=== PATIENT | male | born 1935 | race Caucasian/White ===

== ENCOUNTER 2024-03-08 16:18 | Inpatient (IN) | payer MEDICARE, OTHER, SELFPAY ==
[2024-03-08] VITALS (16 sets, daily range): BP systolic 164–185; BP diastolic 54–83; PULSE 48–61; RESP 12–20; TEMP 36.4–36.6; O2SAT 92–99
--- NOTE | ~2024-03-08 | XR_ITS ---
EXAMINATION: XR chest 1V portable DATE: 03/10/2024 11:01 INDICATION: Hypoxia. TECHNIQUE: A single frontal view of the chest was obtained. COMPARISON: Chest single view 03/08/2024 FINDINGS: There is no pneumonia, pleural effusion, or pneumothorax. Cardiomegaly is noted. There are prominent paracardial fat pads. IMPRESSION: 1. Cardiomegaly. Reviewed, dictated and finalized at location A. IMPRESSION: 1. Cardiomegaly.
--- NOTE | ~2024-03-08 | XR_ITS ---
EXAMINATION: XR chest 1V portable DATE: 03/17/2024 11:42 INDICATION: Leukocytosis. TECHNIQUE: A single frontal view of the chest was obtained. COMPARISON: Chest single view 03/14/2024, chest CT 03/11/2024 FINDINGS: There are mild airspace opacities in all right lung zones with a perihilar predominance. No pleural effusion or pneumothorax. Cardiomegaly is noted. IMPRESSION: 1. Mild airspace opacities in right lung, consistent with atelectasis versus pneumonia. 2. Cardiomegaly. Reviewed, dictated and finalized at location A. IMPRESSION: 1. Mild airspace opacities in right lung, consistent with atelectasis versus pn eumonia. 2. Cardiomegaly.
--- NOTE | ~2024-03-08 | CT_ITS ---
EXAMINATION: CT brain wo con DATE: 03/08/2024 17:04 INDICATION: Head injury. TECHNIQUE: Computed tomography (CT) of the head was performed without intravenous contrast. The mA wa s adjusted according to patient size. Iterative reconstruction technique was employed. The dose-lengt h product was 605.33 mGy-cm. COMPARISON: None FINDINGS: There are old infarcts involving the bilateral basal ganglia and anterior limb left interna l capsule. There are scattered areas of low attenuation in the cerebral white matter. There is no int racranial hemorrhage, acute infarction, or abnormal intracranial mass lesion. The ventricles are norm al in size. There are likely changes of ocular lens replacement surgeries. There is mucosal thickenin g in the paranasal sinuses. The mastoid air cells are normal. IMPRESSION: 1. 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 2. Extensive nonspecific cerebral white matter disease, which likely represents chronic small vessel ischemic disease. Reviewed, dictated and finalized at location E. IMPRESSION: 1. 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 2. Extensive nonspecific cerebral white matter disease, which likely represents chronic small vessel ischemic disease.
--- NOTE | ~2024-03-08 | XR_ITS ---
XR hip LT 2V w AP pelvis DATE: 03/08/2024 17:22 INDICATION: Ground-level fall today. Left hip pain. TECHNIQUE: AP pelvis. AP and crosstable lateral views of left hip. COMPARISON: None FINDINGS: There is a comminuted intertrochanteric fracture of the left hip with varus deformity. Multiple radiopaque seeds of the prostate bed. Right superior and inferior pubic ramus fractures appear subacute or chronic. Normal alignment at the pubic symphysis and sacroiliac joints. There is some patchy increased density of the right sacrum, likely due to subacute or old fracture. Osteopenia. Abdominal aortic and iliac and femoral arterial calcifications. IMPRESSION: Comminuted intertrochanteric left hip fracture with varus deformity Subacute or chronic right hemipelvis fractures Reviewed, dictated and finalized at location B.
--- NOTE | ~2024-03-08 | CT_ITS ---
EXAMINATION: CT cervical spine wo con DATE: 03/08/2024 17:04 INDICATION: Head injury. TECHNIQUE: Computed tomography (CT) of the cervical spine was performed without intravenous contrast. Automated exposure control and iterative reconstruction technique were employed. The dose-length pro duct was 605.33 mGy-cm. COMPARISON: None FINDINGS: There is 11 degrees dextroscoliosis of cervicothoracic spine. Vertebral body heights are no rmal. There is interbody fusion at C2-C3. There is severely decreased disc height at C3-C4, mildly de creased disc height at C4-C5, and severely decreased disc height at C5-C6, C6-C7, and C7-T1. The foll owing disc levels are specifically discussed: C2-C3: There is ankylosis of the uncovertebral joints without hypertrophy. There is ankylosis of the facet joints with mild left hypertrophy. There is mild left neural foraminal stenosis. There is no ce ntral canal stenosis. C3-C4: There is severe bilateral uncovertebral joint osteoarthritis. There is severe bilateral facet joint osteoarthritis. There is mild right and moderate left neural foraminal stenosis. There is mild central canal stenosis. C4-C5: There is mild right and severe left uncovertebral joint osteoarthritis. There is severe bilate ral facet joint osteoarthritis. There is mild right and moderate left neural foraminal stenosis. Ther e is mild central canal stenosis. C5-C6: There is severe bilateral uncovertebral joint osteoarthritis. There is mild right and severe l eft facet joint osteoarthritis. There is mild bilateral neural foraminal stenosis. There is mild cent ral canal stenosis. C6-C7: There is severe bilateral uncovertebral joint osteoarthritis. There is mild right and moderate left facet joint osteoarthritis. There is mild bilateral neural foraminal stenosis. There is mild ce ntral canal stenosis. C7-T1: There is severe right and mild left uncovertebral joint osteoarthritis. There is severe bilate ral facet joint osteoarthritis. There is mild bilateral neural foraminal stenosis. There is no centra l canal stenosis. IMPRESSION: 1. No fracture. 2. Severe cervical spondylosis. 3. Cervicothoracic dextroscoliosis. Reviewed, dictated and finalized at location E.
--- NOTE | ~2024-03-08 | XR_ITS ---
EXAMINATION: XR surgery orthopedic DATE: 03/09/2024 12:58 INDICATION: Intertrochanteric proximal left femur fracture TECHNIQUE: 8 fluoroscopic images of the left hip were obtained during procedure performed by Dr. Jose Luis north. Radiologist was not present for the imaging or procedure. The amount of fluoroscopy time used d uring this procedure was 1.6 minutes. COMPARISON: Radiographs and CT dated 03/08/2024 FINDINGS: Interval reduction of the previously varus angulated comminuted intertrochanteric fracture the proxim al left femur which is now in near-anatomic alignment. The fractures of subtly fixed with an antegrad e intramedullary adrián with femoral neck dynamic compression screw and distal interlocking screw fixati on. Alignment remains near-anatomic. No new fractures identified. Mild osteoarthritis at the left hip expected small amount of soft tissue gas at the operative bed. IMPRESSION: 1. Near-anatomic alignment post open reduction internal fixation of a comminuted intratrochanteric fr acture of the proximal left femur. See procedure note for further detail. Reviewed, dictated and finalized at location A. IMPRESSION: 1. Near-anatomic alignment post open reduction internal fixation of a comminute d intratrochanteric fracture of the proximal left femur. See procedure note for further detail.
--- NOTE | ~2024-03-08 | XR_ITS ---
XR chest 1V DATE: 03/08/2024 17:22 INDICATION: Ground-level fall today. Left hip fracture. TECHNIQUE: AP chest COMPARISON: None FINDINGS: There is cardiomegaly. There is extensive thoracic aortic calcification. Old pulmonary granulomatous disease. No pulmonary consolidation, pleural effusion or pulmonary vascular congestion or pneumothorax is note d. Osteopenia. Degenerative changes of the cervical spine. Degenerative changes and scoliosis of the tho racic spine. Degenerative change of the included upper lumbar spine. IMPRESSION: Cardiomegaly, aortic atherosclerosis No active pulmonary disease Reviewed, dictated and finalized at location B.
--- NOTE | ~2024-03-08 | CT_ITS ---
EXAMINATION: CT pelvis wo con DATE: 03/08/2024 18:25 INDICATION: Pelvis fracture. TECHNIQUE: Computed tomography (CT) of the pelvis was performed without intravenous contrast. Automat ed exposure control and iterative reconstruction technique were employed. The dose-length product was 352.58 mGy-cm. COMPARISON: Radiographs 03/08/2024 FINDINGS: There is diverticulosis of the colon without evidence of diverticulitis. There is calcified atherosclerosis of the aorta and many of the other arteries. There are brachytherapy seeds in the pr ostate. There are no pathologically enlarged lymph nodes. There is no free intraperitoneal fluid. The re is a healing insufficiency fracture of right sacral ala. There are healing insufficiency fractures of right superior and inferior pubic rami. There is moderate osteoarthritis of the hips. There is an acute intertrochanteric fracture of proximal left femur. The main distal fracture fragment demonstra matilda varus angulation and posterior displacement. There is severe lumbar spondylosis. IMPRESSION: 1. Acute intertrochanteric fracture proximal left femur. 2. Healing insufficiency fractures of right sacral ala and right superior and inferior pubic rami. 3. Moderate osteoarthritis of the hips. Reviewed, dictated and finalized at location E. IMPRESSION: 1. Acute intertrochanteric fracture proximal left femur. 2. Healing insufficiency fractures of right sacral ala and right superior and i nferior pubic rami. 3. Moderate osteoarthritis of the hips.
--- NOTE | ~2024-03-08 | CT_ITS ---
EXAMINATION: CTA chest PE abdomen pel DATE: 03/11/2024 09:23 INDICATION: Tachycardia. Hypoxia. Postoperative bleeding. TECHNIQUE: Computed tomography angiography (CTA) of the chest was performed with 100 mL Omnipaque-350 intravenous contrast timed to evaluate the pulmonary arteries. Coronal maximum intensity projection 3D-reconstructions were created by the technologist. Computed tomography (CT) of the abdomen and pelv is was performed with intravenous contrast. Automated exposure control and iterative reconstruction t echnique were employed. The dose-length product was 2274.77 mGy-cm. COMPARISON: Pelvis CT 03/08/2024 FINDINGS: CTA chest: The lungs demonstrate mild atelectasis. There is a small right pleural effusion. Cardiomeg jaaml is noted. There are coronary artery calcifications. There is a trace pericardial effusion. There is no pulmonary embolus. There is a chronic compression fracture of T12. There is severe thoracic spo ndylosis. There is mild chronic anterior wedging of multiple vertebral bodies. CT abdomen and pelvis: The liver, gallbladder, pancreas, and adrenal glands are normal. Calcification s in the spleen are consistent with old granulomatous disease. There is cortical thinning of the kidn eys. There are cysts in the kidneys measuring up to 10 mm on the left. There is calcified atheroscler osis of the aorta and many of the other arteries. There are brachytherapy seeds in the prostate. Ther e is diverticulosis of the colon without evidence of diverticulitis. There are no dilated loops of herb wel. The appendix is nonvisualized. There are no pathologically enlarged lymph nodes. There is no connor e intraperitoneal fluid. There is a comminuted intertrochanteric fracture of proximal left femur with internal fixation. There is subcutaneous hematoma lateral to left hip and subjacent to the skin stap les. Partially visualized is enlargement of the anterior left thigh musculature, consistent with annetta oneal. There are healing fractures of right superior and inferior pubic rami. There is a healing insuf ficiency fracture of right sacral ala. There is severe lumbar spondylosis. IMPRESSION: 1. No pulmonary embolus. Sensitivity is mildly decreased fracture artifact. 2. Small right pleural effusion. 3. Acute intertrochanter fracture of proximal left femur status post open reduction internal fixation . Subcutaneous hematoma lateral to left hip. Partially visualized hematoma in the anterior left thigh musculature. 4. Healing insufficiency fractures of right sacral ala and right superior and inferior pubic rami. Reviewed, dictated and finalized at location A. IMPRESSION: 1. No pulmonary embolus. Sensitivity is mildly decreased fracture artifact. 2. Small right pleural effusion. 3. Acute intertrochanter fracture of proximal left femur status post open reduc tion internal fixation. Subcutaneous hematoma lateral to left hip. Partially vi sualized hematoma in the anterior left thigh musculature. 4. Healing insufficiency fractures of right sacral ala and right superior and i nferior pubic rami.
--- NOTE | ~2024-03-08 | XR_ITS ---
EXAMINATION: XR chest 1V portable DATE: 03/14/2024 10:58 INDICATION: Hypoxia. TECHNIQUE: A single frontal view of the chest was obtained. COMPARISON: Chest single view 03/10/2024, chest CT 03/11/2024 FINDINGS: There are mild airspace opacities in all right lung zones and in left lower lung zone. No p leural effusion or pneumothorax. Cardiomegaly is noted. There are prominent pericardial fat pads. IMPRESSION: 1. Mild airspace opacities in all right lung zones and in left lower lung zone, consistent with atele ctasis versus pneumonia. 2. Cardiomegaly. Reviewed, dictated and finalized at location A. IMPRESSION: 1. Mild airspace opacities in all right lung zones and in left lower lung zone, consistent with atelectasis versus pneumonia. 2. Cardiomegaly.
--- NOTE | 2024-03-08 16:30 | ECG_ITS ---
SEE SCANNED COPY FOR CONFIRMED REPORT MTDD
--- NOTE | 2024-03-08 16:33 | ED.GENADULT ---
HPI - General Adult General Chief complaint: Extremity Injury, Lower Stated complaint: FALL, LLE SHORTENING History of Present Illness HPI narrative: 88-year-old male presenting to the emergency department for evaluation after having a ground level fall. patient reports he tripped over a step and caused himself to follow the ground. Patient did injure his left hip and did strike his head. Patient denies any loss consciousness. Patient was transported to the emergency department by EMS. patient does take aspirin. Related Data Home Medications Medication Instructions Recorded Confirmed aspirin 81 mg tablet 81 mg PO DAILY 03/08/24 03/08/24 atorvastatin 40 mg tablet 40 mg PO DAILY 03/08/24 03/08/24 budesonide-formoterol HFA 80 1 puff inhalation Q12H PRN 03/08/24 03/08/24 mcg-4.5 mcg/actuation aerosol Shortness Of Breath Or Wheezing inhaler (Symbicort) calcium phos,tribasic 260 mg-D3 25 1 tablet PO DAILY 03/08/24 03/08/24 mcg-herbal 50 mg chewable tablet (Alive Calcium-Vitamin D3) carbidopa ER 50 mg-levodopa 200 mg 1 tablet PO BID 03/08/24 03/08/24 tablet,extended release coenzyme Q27-gyrwuuk E 100 mg-100 2 cap PO DAILY 03/08/24 03/08/24 unit capsule docosahexaenoic mcik-gur-kqw E 1 cap PO DAILY 03/08/24 03/08/24 capsule donepezil 10 mg tablet 10 mg PO DAILY 03/08/24 03/08/24 fluoxetine 20 mg capsule 20 mg PO DAILY 03/08/24 03/08/24 gabapentin 100 mg capsule 100 mg PO TID 03/08/24 03/08/24 lisinopril 40 mg tablet 40 mg PO DAILY 03/08/24 03/08/24 meloxicam 15 mg tablet 15 mg PO DAILY 03/08/24 03/08/24 memantine 10 mg tablet 20 mg PO DAILY 03/08/24 03/08/24 montelukast 10 mg tablet 10 mg PO DAILY 03/08/24 03/08/24 multivitamin o-mggmbxvq-jmguszd 1 tablet PO DAILY 03/08/24 03/08/24 fumarate 18 mg-vitamin K 25 mcg tablet verapamil 240 mg tablet,extended 240 mg PO BID 03/08/24 03/08/24 release Allergies Allergy/AdvReac Type Severity Reaction Status Date / Time No Known Allergies Allergy Verified 03/08/24 16:29 Review of Systems Review of Systems: All systems reviewed & are unremarkable except as noted in HPI and below PMFSH Family History Family History (Updated 03/08/24 @ 20:42 by Asia Hanks RN) Mother Asthma Son Asthma History of blood clots Hypertension Daughter Hypertension Sibling Prostate carcinoma Lymph node cancer Social History Social History Smoking status: Never smoker Alcohol intake: never Substance use: never Do You Feel Safe in your Home?: Yes Lack of Transportation: No Lack of Food: Never True Current Housing: I Have Housing Concerned About Future Housing: No Difficulty Paying Gas/Electric Bills: No Difficulty Paying for Meds: No Currently Unemployed: No Education: High School Diploma/GED Difficulty w/ Childcare or Family Care: No Spiritual care concerns: No Exam Narrative: APPEARANCE: Well appearing, no pain, no distress, well-nourished. HEAD: normocephalic, atraumatic. EYES: PERRLA/EOMI, conjunctivae clear. NOSE: Normal no drainage EARS:TMS clear with good light reflex. THROAT: Pharynx clear, no exudate. NECK: Supple. No adenopathy, no masses. patient arrived in C-collar RESPIRATORY: Airway patent, respirations nonlabored. Clear to auscultation bilaterally, no rales, rhonchi, wheezing. CARDIOVASCULAR: Regular rate and rhythm without murmurs rubs or gallops. ABDOMINAL: Soft, nontender, nondistended, normal bowel sounds MUSCULOSKELETAL: left hip pain NEURO: Alert. Cranial nerves II through XII intact. Grossly and SKIN: Warm, dry. Normal Color Course Vital Signs Vital signs: Vital Signs Temperature 97.9 F 03/08/24 16:20 Pulse Rate 51 L 03/08/24 16:20 Respiratory Rate 18 03/08/24 16:20 Blood Pressure 170/83 H 03/08/24 16:20 Pulse Oximetry 97 03/08/24 16:20 Oxygen Delivery Room Air 03/08/24 16:20 Temperature 97.6 F 03/08/24 21:33 Pulse Rate 61 03/08/24 21:33 Respi
[2024-03-08] MEDS: CYCLOBENZAPRINE HCL 10 MG TABLET PO (16:38)
[2024-03-08] MEDS: MORPHINE SULFATE (*CRX) 2 MG/ML INJ IV PUSH ×2 (16:38→20:36)
[2024-03-08 16:43] LABS: Basophils Percent Auto 0.5 % (0.2-1.2); Eosinophils Absolute Auto 0.2 K/mm3 (0-0.3); Eosinophils Percent Auto 2.3 % (0-4.4); Hematocrit 39.3 % (42.0-52.0); Hemoglobin 13.2 g/dL (14.0-18.0); Immature Granulocyte Absolute 0.02 K/mm3 (0.00-0.031); Immature Granulocyte Percent A 0.3 % (0-0.5); Lymphocytes Absolute Auto 1.23 K/mm3 (0.9-3.2); Mean Corpuscular HGB Conc 33.6 g/dl (32-36); Mean Corpuscular Volume 98.3 fl (80-100); Mean Platelet Volume 8.9 fl (7.4-10.4); Monocytes Absolute Auto 0.4 K/mm3 (0.1-0.6); Monocytes Percent Auto 5.7 % (2.6-8.5); Neutrophils Absolute Auto 5.8 K/mm3 (1.3-6.7); Neutrophils Percent Auto 75.2 % (45.5-73.1); Platelet Count Result 220 k/mm3 (150-375); Red Cell Distribution Width 12.3 % (11.5-14.5); White Blood Count 7.7 K/mm3 (4.5-10.0)
[2024-03-08 16:53] LABS: Alanine Aminotransferase 12 U/L (6-50); Albumin Level 3.6 g/dL (3.5-5.1); Alkaline Phosphatase 110 U/L (38-126); Anion Gap 3 mmol/L (4-12); Aspartate Amino Transferase 25 U/L (17-59); Bilirubin,Total 0.5 mg/dL (0.2-1.3); Blood Urea Nitrogen 26 mg/dL (9-20); Calcium 8.5 mg/dL (8.4-10.2); Carbon Dioxide 28 mmol/L (22-30); Chloride 108 mmol/L (98-107); Estimated CRCL calculation 48 ml/min; Estimated Glomerular Filt Rate > 60; Glucose 114 mg/dL (65-110); Sodium 139 mmol/L (137-145)
[2024-03-08 16:54] LABS: INR 0.9
[2024-03-08 16:55] LABS: Partial Thromboplastin Time 24.8 Seconds (22.3-36.8)
--- NOTE | 2024-03-08 20:13 | PM.CNOR ---
Assessment and Plan Assessment and plan (1) Intertrochanteric fracture of left hip: Code(s): S72.142A - Displaced intertrochanteric fracture of left femur, initial encounter for closed fracture Status: Acute Assessment and Plan: Patient has an Intertrochanteric Fracture of the Right hip. Recommend ORIF with a Trochanteric Nail. Will proceed tomorrow pending medicl approval. (2) Closed sacral fracture: Code(s): S32.10XA - Unspecified fracture of sacrum, initial encounter for closed fracture Status: Acute (3) Pubic ramus fracture: Code(s): S32.599A - Other specified fracture of unspecified pubis, initial encounter for closed fracture Status: Acute History of Present Illness HPI Consult date: 03/08/24 Chief complaint: Lt Hip Fracture Review of Systems Musculoskeletal: Musculoskeletal: Reports back pain, Reports arthralgias, Reports joint swelling and Reports stiffness Meds Home Medications and Allergies Allergies Allergy/AdvReac Type Severity Reaction Status Date / Time No Known Allergies Allergy Verified 03/08/24 16:29 Vital Signs Vital Signs - 24 hr 03/08/24 16:20 03/08/24 16:29 03/08/24 16:30 Temperature 97.9 F Pulse Rate 51 L 50 L 48 L Respiratory Rate 18 15 12 Blood Pressure 170/83 H Pulse Oximetry 97 96 97 Oxygen Delivery Room Air 03/08/24 16:45 03/08/24 17:05 03/08/24 17:21 Temperature Pulse Rate 55 L 53 L Respiratory Rate 20 17 Blood Pressure Pulse Oximetry 98 96 92 Oxygen Delivery 03/08/24 17:30 03/08/24 17:59 03/08/24 18:00 Temperature Pulse Rate 49 L 52 L 54 L Respiratory Rate 19 14 14 Blood Pressure Pulse Oximetry 93 99 98 Oxygen Delivery 03/08/24 18:23 03/08/24 18:24 03/08/24 18:30 Temperature Pulse Rate 52 L 56 L 51 L Respiratory Rate 16 16 13 Blood Pressure 170/79 H Pulse Oximetry 96 96 94 Oxygen Delivery 03/08/24 18:31 03/08/24 18:45 03/08/24 19:17 Temperature 97.6 F Pulse Rate 57 L 53 L 51 L Respiratory Rate 14 14 20 Blood Pressure 168/79 H 164/54 H Pulse Oximetry 94 95 95 Oxygen Delivery Exam Narrative: Wiggles toes. Pain with motion of hip. Radiology Reports: Comments: Patient: Felipe Haddad : 1935 MR#: [id number] Age: 88 Loc: [facility]? ? ADM Date: 03/08/24Attending Dr: Ordering Physician: Bhargav Garcia MD Date of Service: 03/08/24 Procedure(s): XR hip LT 2V w AP pelvis Accession Number(s): [id number] cc: Bhargav Garcia MD; Marcela, Rigo Reid MD XR hip LT 2V w AP pelvis DATE: 03/08/2024 17:22 INDICATION: Ground-level fall today. Left hip pain.? TECHNIQUE: AP pelvis. AP and crosstable lateral views of left hip.? COMPARISON: None? FINDINGS: There is a comminuted intertrochanteric fracture of the left hip with varus deformity. Multiple radiopaque seeds of the prostate bed. Right superior and inferior pubic ramus fractures appear subacute or chronic. Normal alignment at the pubic symphysis and sacroiliac joints. There is some patchy increased density of the right sacrum, likely due to subacute or old fracture. Osteopenia. Abdominal aortic and iliac and femoral arterial calcifications. IMPRESSION: Comminuted intertrochanteric left hip fracture with varus deformity Subacute or chronic right hemipelvis fractures? Reviewed, dictated and finalized at location B. Dictated By:? Harinder Kline MD? 03/08/24 1726 Signed By:? ? <Electronically signed by? Harinder Kline MD in OV> 03/08/24 1729 Hip and Pelvis X-Ray 03/08/24 Results Labs 03/08/24 16:38 03/08/24 16:38 Labs: Abnormal lab results 03/08/24 Range/Units 16:38 RBC 4.00 L (4.6-6.20) M/mm3 Hgb 13.2 L (14.0-18.0) g/dL Hct 39.3 L (42.0-52.0) % Neut % (Auto) 75.2 H (45.5-73.1) % Lymph %
--- NOTE | 2024-03-08 20:38 | ADMGEN ---
This patient, Felipe Haddad, was admitted to 2 Medical Room 240-01. Patient/family oriented to hospital policies and general routines including ID bracelet, bed and alarms, visiting hours, pain management, procedures, bathroom and other care routines, personal items, smoking policy, room service/diet, and visiting hours. Information on how to activate the Rapid Response Team has been discussed. Patient/Family are encouraged to report perceived risks to care and to ask questions if they do not understand what they are told or what they should do.
--- NOTE | 2024-03-08 21:42 | PM.IMHP ---
H&P: HPI History of Present Illness Date/Time: 03/08/24 21:42 Chief Complaint: Fall Narrative: This is an 88-year-old male past medical history significant for hypertension, dementia, Parkinson's disease. Presented to the emergency room after fall. Most of the history has been obtained upon reviewing medical records and emergency room physician. Patient had a ground level fall. Preliminary workup was significant for left hip fracture. EXAMINATION: CT brain wo con DATE: 03/08/2024 17:04 INDICATION: Head injury. TECHNIQUE: Computed tomography (CT) of the head was performed without intravenous contrast. The mA was adjusted according to patient size. Iterative reconstruction technique was employed. The dose-length product was 605.33 mGy-cm. COMPARISON: None FINDINGS: There are old infarcts involving the bilateral basal ganglia and anterior limb left internal capsule. There are scattered areas of low attenuation in the cerebral white matter. There is no intracranial hemorrhage, acute infarction, or abnormal intracranial mass lesion. The ventricles are normal in size. There are likely changes of ocular lens replacement surgeries. There is mucosal thickening in the paranasal sinuses. The mastoid air cells are normal. IMPRESSION: 1. 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 2. Extensive nonspecific cerebral white matter disease, which likely represents chronic small vessel ischemic disease. EXAMINATION: CT pelvis wo con DATE: 03/08/2024 18:25 INDICATION: Pelvis fracture. TECHNIQUE: Computed tomography (CT) of the pelvis was performed without intravenous contrast. Automated exposure control and iterative reconstruction technique were employed. The dose-length product was 352.58 mGy-cm. COMPARISON: Radiographs 03/08/2024 FINDINGS: There is diverticulosis of the colon without evidence of diverticulitis. There is calcified atherosclerosis of the aorta and many of the other arteries. There are brachytherapy seeds in the prostate. There are no pathologically enlarged lymph nodes. There is no free intraperitoneal fluid. There is a healing insufficiency fracture of right sacral ala. There are healing insufficiency fractures of right superior and inferior pubic rami. There is moderate osteoarthritis of the hips. There is an acute intertrochanteric fracture of proximal left femur. The main distal fracture fragment demonstrates varus angulation and posterior displacement. There is severe lumbar spondylosis. IMPRESSION: 1. Acute intertrochanteric fracture proximal left femur. 2. Healing insufficiency fractures of right sacral ala and right superior and inferior pubic rami. 3. Moderate osteoarthritis of the hips. XR chest 1V DATE: 03/08/2024 17:22 INDICATION: Ground-level fall today. Left hip fracture.? TECHNIQUE: AP chest? COMPARISON: None? FINDINGS: There is cardiomegaly. There is extensive thoracic aortic calcification. Old pulmonary granulomatous disease. No pulmonary consolidation, pleural effusion or pulmonary vascular congestion or pneumothorax is noted. Osteopenia. Degenerative changes of the cervical spine. Degenerative changes and scoliosis of the thoracic spine. Degenerative change of the included upper lumbar spine.? IMPRESSION: Cardiomegaly, aortic atherosclerosis No active pulmonary disease? Review of Systems Review of Systems: ROS unobtainable: Yes other ( Dementia) [facility] Family History Family History (Updated 03/08/24 @ 20:42 by Asia Hanks RN) Mother Asthma Son Asthma History of blood clots Hypertension Daughter Hypertension Sibling Prostate carcinoma Lymph node cancer Social History Social History Smoking status: Never smoker Alcohol intake: never Substance use: never Do You Feel Safe in your Home?: Yes Lack of Transportation: No Lack of Food: Never True Current Housing: I Have Housing Concerned About Future
[2024-03-08] MEDS: HYDROmorphone HCL INJ (*CRX) 1 MG/ML SYR IV PUSH (22:01)
[2024-03-09] VITALS (20 sets, daily range): BP systolic 90–176; BP diastolic 52–85; PULSE 61–90; RESP 11–20; TEMP 36.2–37.2; O2SAT 91–100
--- NOTE | 2024-03-09 07:42 | P.PNIM_ITS ---
Progress Note: A&P Assessment and Plan (1) Intertrochanteric fracture of left hip: Code(s): S72.142A - Displaced intertrochanteric fracture of left femur, initial encounter for closed fracture Status: Acute (2) Fall: Code(s): W19.XXXA - Unspecified fall, initial encounter Status: Acute (3) Pubic ramus fracture: Code(s): S32.599A - Other specified fracture of unspecified pubis, initial encounter for closed fracture Status: Acute (4) Closed sacral fracture: Code(s): S32.10XA - Unspecified fracture of sacrum, initial encounter for closed fracture Status: Acute (5) Parkinsons disease: Code(s): G20.A1 - Parkinson's disease without dyskinesia, without mention of fluctuations Status: Acute (6) Hypertension: Code(s): I10 - Essential (primary) hypertension Status: Acute Plan LT Intertrochanteric closed fractured Femur * Reviewed imaging * Surgery consulted * NPO * Surgery 03/09 * Pain control * PT/OT post surgery * PPI * CBC/CMP daily Pubic Ramus Fracture * supportive care * Ortho consulted * pain control * PT/OT Hypertension * Hypertensive POA * Resume home medications * pain control * BP per unit protocol * will add hydralazine if needed HX Parkinson's: resumed home medications Code status: Full code per patient DVT prophylaxis: SCD's pre-surgery Stress ulcer prophylaxis: Protonix 40 daily PT/OT notes: PT/OT pending surgery Disposition: Patient was admitted to the medical unit with a displaced intertrochanteric fracture of left femur consult for surgery today patient does have history of dementia likely need SNF at discharge for further rehab. Time Spent With Patient Time with patient: 15 - 25 minutes Subjective Date/time seen: 03/09/24 07:42 Interval history: Admission: Medical Record This is an 88-year-old male past medical history significant for hypertension, dementia, Parkinson's disease.? Presented to the emergency room after fall.? Most of the history has been obtained upon reviewing medical records and emergency room physician.? Patient had a ground level fall.? Preliminary workup was significant for left hip fracture. 03/09: Assumed care Patient seen post surgery tired but with no complaints, denied pain, LT hip with dressing in place and neurovascular intact. Review of Systems Review of Systems: All systems reviewed & are unremarkable except as noted in HPI and below Exam Narrative: Physical Exam: * GENERAL: Alert and oriented x 2. No acute distress. * EYES: EOMI. No scleral icterus. PERRLA. * HEENT: Moist mucous membranes. * LUNGS: Clear to auscultation bilaterally. No accessory muscle use. * CARDIOVASCULAR: Regular rate and rhythm. No murmur. No JVD. S1-S2 * ABDOMEN: Soft, mild tenderness and non-distended. No palpable masses. * EXTREMITIES: No edema. shortened, externally rotated LLE with decreased ROM, Neurovascular intact * SKIN: No rashes or lesions. Skin warm, dry. * NEUROLOGIC: No focal neurological deficits. CN II-XII grossly intact * PSYCHIATRIC: Appropriate mood and affect. Good judgement and insight. No visual or auditory hallucinations. No suicidal or homicidal ideation. Objective Data Vital Signs Vital Signs: Vital Signs - 24 hr 03/08/24 16:20 03/08/24 16:29 03/08/24 16:30 Tem
--- NOTE | 2024-03-09 07:42 | PM.IMPN ---
Progress Note: A&P Assessment and Plan (1) Intertrochanteric fracture of left hip: Code(s): S72.142A - Displaced intertrochanteric fracture of left femur, initial encounter for closed fracture Status: Acute (2) Fall: Code(s): W19.XXXA - Unspecified fall, initial encounter Status: Acute (3) Pubic ramus fracture: Code(s): S32.599A - Other specified fracture of unspecified pubis, initial encounter for closed fracture Status: Acute (4) Closed sacral fracture: Code(s): S32.10XA - Unspecified fracture of sacrum, initial encounter for closed fracture Status: Acute (5) Parkinsons disease: Code(s): G20.A1 - Parkinson's disease without dyskinesia, without mention of fluctuations Status: Acute (6) Hypertension: Code(s): I10 - Essential (primary) hypertension Status: Acute Plan LT Intertrochanteric closed fractured Femur Reviewed imaging Surgery consulted NPO Surgery 03/09 Pain control PT/OT post surgery PPI CBC/CMP daily Pubic Ramus Fracture supportive care Ortho consulted pain control PT/OT Hypertension Hypertensive POA Resume home medications pain control BP per unit protocol will add hydralazine if needed HX Parkinson's: resumed home medications Code status: Full code per patient DVT prophylaxis: SCD's pre-surgery Stress ulcer prophylaxis: Protonix 40 daily PT/OT notes: PT/OT pending surgery Disposition: Patient was admitted to the medical unit with a displaced intertrochanteric fracture of left femur consult for surgery today patient does have history of dementia likely need SNF at discharge for further rehab. Time Spent With Patient Time with patient: 15 - 25 minutes Subjective Date/time seen: 03/09/24 07:42 Interval history: Admission: Medical Record This is an 88-year-old male past medical history significant for hypertension, dementia, Parkinson's disease.? Presented to the emergency room after fall.? Most of the history has been obtained upon reviewing medical records and emergency room physician.? Patient had a ground level fall.? Preliminary workup was significant for left hip fracture. 03/09: Assumed care Patient seen post surgery tired but with no complaints, denied pain, LT hip with dressing in place and neurovascular intact. Review of Systems Review of Systems: All systems reviewed & are unremarkable except as noted in HPI and below Exam Narrative: Physical Exam: GENERAL: Alert and oriented x 2. No acute distress. EYES: EOMI. No scleral icterus. PERRLA. HEENT: Moist mucous membranes. LUNGS: Clear to auscultation bilaterally. No accessory muscle use. CARDIOVASCULAR: Regular rate and rhythm. No murmur. No JVD. S1-S2 ABDOMEN: Soft, mild tenderness and non-distended. No palpable masses. EXTREMITIES: No edema. shortened, externally rotated LLE with decreased ROM, Neurovascular intact SKIN: No rashes or lesions. Skin warm, dry. NEUROLOGIC: No focal neurological deficits. CN II-XII grossly intact PSYCHIATRIC: Appropriate mood and affect. Good judgement and insight. No visual or auditory hallucinations. No suicidal or homicidal ideation. Objective Data Vital Signs Vital Signs: Vital Signs - 24 hr 03/08/24 16:20 03/08/24 16:29 03/08/24 16:30 Temperature 97.9 F Pulse Rate 51 L 50 L 48 L Respiratory Rate 18 15 12 Blood Pressure 170/83 H Pulse Oximetry 97 96 97 Oxygen Delivery Room Air 03/08/24 16:45 03/08/24 17:05 03/08/24 17:21 Temperature Pulse Rate 55 L 53 L Respiratory Rate 20 17 Blood Pressure Pulse Oximetry 98 96 92 Oxygen Delivery 03/08/24 17:30 03/08/24 17:59 03/08/24 18:00 Temperature Pulse Rate 49 L 52 L 54 L Respiratory Rate 19 14 14 Blood Pressure Pulse Oximetry 93 99 98 Oxygen Delivery 03/08/24 18:23 03/08/24 18:24 03/08/24 18:30 Temperature Pulse Rate 52 L 56 L 51 L Respiratory Rat
--- NOTE | 2024-03-09 08:10 | PC.NURSE ---
spoke with Melchor in pre-op to review which medications I could give pt before surgery. Would like me to wait and hold morning medications due to surgery this morning.
[2024-03-09 08:14] LABS: Hematocrit 40.9 % (42.0-52.0); Hemoglobin 13.2 g/dL (14.0-18.0); Mean Corpuscular HGB Conc 32.3 g/dl (32-36); Mean Corpuscular Hemoglobin 32.8 pg (26-34); Mean Corpuscular Volume 101.5 fl (80-100); Platelet Count Result 218 k/mm3 (150-375); Red Blood Count 4.03 M/mm3 (4.6-6.20); Red Cell Distribution Width 12.3 % (11.5-14.5); White Blood Count 8.7 K/mm3 (4.5-10.0)
[2024-03-09 08:30] LABS: Alanine Aminotransferase 23 U/L (6-50); Albumin Level 3.5 g/dL (3.5-5.1); Alkaline Phosphatase 100 U/L (38-126); Anion Gap 2 mmol/L (4-12); Aspartate Amino Transferase 24 U/L (17-59); Bilirubin,Total 0.6 mg/dL (0.2-1.3); Blood Urea Nitrogen 25 mg/dL (9-20); Calcium 8.2 mg/dL (8.4-10.2); Carbon Dioxide 29 mmol/L (22-30); Chloride 107 mmol/L (98-107); Estimated CRCL calculation 67 ml/min; Estimated Glomerular Filt Rate > 60; Glucose 115 mg/dL (65-110); Potassium 3.7 mmol/L (3.4-5.0); Sodium 138 mmol/L (137-145)
--- NOTE | 2024-03-09 08:51 | PC.NURSE ---
PT TAKEN DOWN TO SURGERY
--- NOTE | 2024-03-09 10:10 | WPDANESEPPF ---
Anes - Initial Pre Proc Eval Procedure: Operation Date: 03/09/24 11:00 Proposed Procedures p Left Intertrochanteric Nail - Derek Dumont MD Date/Time: 03/09/24 10:10 Surgeon: Iván Hummel MD Pre Op Diagnosis: Lt Hip Fracture Patient Data Age: 88 Gender: M Height: 1.8 m Weight: 89 kg Last Vital Signs Temp 99 F 03/09/24 09:13 Pulse 61 03/09/24 09:13 Resp 16 03/09/24 09:13 BP 153/62 H 03/09/24 09:13 Pulse Ox 92 03/09/24 09:13 O2 Del Method Nasal Cannula 03/09/24 09:13 O2 Flow Rate 2 03/09/24 09:13 Allergies Allergy/AdvReac Type Severity Reaction Status Date / Time No Known Allergies Allergy Verified 03/09/24 09:20 Home Medications Medication Instructions Recorded Confirmed Type aspirin 81 mg tablet 81 mg PO DAILY 03/08/24 03/08/24 History atorvastatin 40 mg tablet 40 mg PO DAILY 03/08/24 03/08/24 History budesonide-formoterol HFA 80 1 puff inhalation Q12H PRN 03/08/24 03/08/24 History mcg-4.5 mcg/actuation aerosol Shortness Of Breath Or Wheezing inhaler (Symbicort) calcium phos,tribasic 260 mg-D3 25 1 tablet PO DAILY 03/08/24 03/08/24 History mcg-herbal 50 mg chewable tablet (Alive Calcium-Vitamin D3) carbidopa ER 50 mg-levodopa 200 mg 1 tablet PO BID 03/08/24 03/08/24 History tablet,extended release coenzyme Y19-fikxzph E 100 mg-100 2 cap PO DAILY 03/08/24 03/08/24 History unit capsule docosahexaenoic pzkn-vqs-nqi E 1 cap PO DAILY 03/08/24 03/08/24 History capsule donepezil 10 mg tablet 10 mg PO DAILY 03/08/24 03/08/24 History fluoxetine 20 mg capsule 20 mg PO DAILY 03/08/24 03/08/24 History gabapentin 100 mg capsule 100 mg PO TID 03/08/24 03/08/24 History lisinopril 40 mg tablet 40 mg PO DAILY 03/08/24 03/08/24 History meloxicam 15 mg tablet 15 mg PO DAILY 03/08/24 03/08/24 History memantine 10 mg tablet 20 mg PO DAILY 03/08/24 03/08/24 History montelukast 10 mg tablet 10 mg PO DAILY 03/08/24 03/08/24 History multivitamin q-yfmnfuro-pxvpjpw 1 tablet PO DAILY 03/08/24 03/08/24 History fumarate 18 mg-vitamin K 25 mcg tablet verapamil 240 mg tablet,extended 240 mg PO BID 03/08/24 03/08/24 History release Laboratory Tests 03/08/24 03/09/24 16:38 07:53 WBC 7.7 K/mm3 8.7 K/mm3 (4.5-10.0) (4.5-10.0) RBC 4.00 L M/mm3 4.03 L M/mm3 (4.6-6.20) (4.6-6.20) Hgb 13.2 L g/dL 13.2 L g/dL (14.0-18.0) (14.0-18.0) Hct 39.3 L % 40.9 L % (42.0-52.0) (42.0-52.0) MCV 98.3 fl 101.5 H fl (80-100) (80-100) MCH 33.0 pg 32.8 pg (26-34) (26-34) MCHC 33.6 g/dl 32.3 g/dl (32-36) (32-36) RDW 12.3 % 12.3 % (11.5-14.5) (11.5-14.5) Plt Count 220 k/mm3 218 k/mm3 (150-375) (150-375) MPV 8.9 fl 9.0 fl (7.4-10.4) (7.4-10.4) Immature Gran % (Auto) 0.3 % (0-0.5) Neut % (Auto) 75.2 H % (45.5-73.1) Lymph % (Auto) 16.0 L % (18.3-44.2) [place] % (Auto) 5.7 % (2.6-8.5) Eos % (Auto) 2.3 % (0-4.4) Baso % (Auto) 0.5 % (0.2-1.2) Lymph # (Auto) 1.23 K/mm3 (0.9-3.2) [place] # (Auto) 0.4 K/mm3 (0.1-0.6) Eos # (Auto) 0.2 K/mm3 (0-0.3) Baso # (Auto) 0.0 K/mm3 (0.0-0.1) Abs Immat Gran (auto) 0.02 K/mm3 (0.00-0.031) Absolute Neuts (auto) 5.8 K/mm3 (1.3-6.7) Absolute Nucleated RBC 0.000 K/mm3 (0.0-0.012) Nucleated RBC % 0.0 % (0.0-0.2) PT 13.0 Seconds (11.1-14.7) INR 0.9 APTT 24.8 Seconds (22.3-36.8) Sodium 139 mmol/L 138 mmol/L (137-145) (137-145) Potassium 4.0 mmol/L 3.7 mmol/L (3.4-5.0) (3.4-5.0) Chloride 108 H mmol/L 107 mmol/L (98-107) (98-107) Carbon Dioxide 28 mmol/L 29 mmol/L (22-30) (22-30) Anion Gap 3 L mmol/L 2 L mmol/L (4-12) (4-12) BUN 26 H mg/dL 25 H mg/dL (9-20) (9-20) Creatinine 1.00 mg/dL 0.70 mg/dL (0.7-1.3) (0.7-1.3) Estim Creat Clear Calc 48 ml/min 67 ml/min
--- NOTE | 2024-03-09 10:29 | WPDHPUPDATE1 ---
History and Physical Update Update Date/Time: 03/09/24 10:29 History and Physical has been reviewed, including an updated exam of the patient. There are NO changes in the patient's condition. Risks, benefits, and alternatives have been discussed and questions answered. Patient agrees to proceed with procedure.
[2024-03-09] MEDS: LACTATED RINGERS 1,000 ML 30 ML IV CONT ×2 (10:41→12:15)
[2024-03-09] MEDS: ceFAZolin 2 GM/D5W 50 ML 2 GM/50 ML BAG IVPB ×2 (10:45→19:34)
[2024-03-09] MEDS: ceFAZolin SODIUM 1 GM VIAL IRRIGATION (11:32)
--- NOTE | 2024-03-09 11:50 | W.PM.PROC2 ---
Procedure Note - Detailed Date of Procedure 03/09/24 Pre-op Diagnosis Left Intertrochanteric Hip Fracture Post-op Diagnosis Same Procedure Performed Open Reduction, Internal Fixation with a trochanteric nail Surgeon Derek Dumont MD [employer] Anesthesia General Findings Fracture Description of Procedure Patient brought to operating room 9. General anesthetic was administered after prep placed him on the fracture table. The leg was then sterilely prepped and draped. A longitudinal incision made over the tip of the trochanter. Guide adrián placed in one-step Reamer used. 11 x 125 nail placed. 110 millimeter screw placed in the center of the head. A 38 millimeter screw placed distally to lock it. X-rays in the AP and lateral plane demonstrated excellent alignment of the fracture and good position of the hardware. Wound irrigated hemostasis obtained closed with 2. Vicryl 2-0 Vicryl and pipe. Sterile dressing applied patient tolerated procedure well. Estimated Blood Loss 100 Drains No Packing No Pathology None sent Complications No immediate complications Condition Stable Disposition PACU [facility] Billing Surgery - Charge Forward: Surgery Billing ([id number] Intertrochanteric Fracture)
[2024-03-09] MEDS: fentaNYL CITRATE INJ (*CRX) 100 MCG/2 ML VIAL 25 MCG IV PUSH (13:33)
--- NOTE | 2024-03-09 14:05 | PC.NURSE ---
patient returned to room from surgery. report received from Tisha AGUILAR
[2024-03-09] MEDS: SODIUM CHLORIDE 0.9% IV 1,000 ML 125 ML IV CONT ×2 (14:54→23:57)
[2024-03-09] MEDS: HYDROcodone/acetaminophen (*CRX) 5-325 MG TABLET 1 TAB PO (15:30)
[2024-03-09] MEDS: RIVAROXABAN 10 MG TABLET PO (17:00)
[2024-03-09] MEDS: GABAPENTIN 100 MG CAPSULE PO (17:00)
[2024-03-09] MEDS: SENNA/DOCUSATE SODIUM TABLET 2 TAB PO (17:00)
[2024-03-09] MEDS: ASPIRIN 81 MG CHEWABLE TABLET PO (17:00)
[2024-03-09] MEDS: CARBIDOPA/LEVODOPA 25/100 MG CR TABLET 1 TABLET PO (17:00)
[2024-03-09] MEDS: ATORVASTATIN 40 MG TABLET PO (17:00)
[2024-03-09] MEDS: DONEPEZIL HCL 10 MG TABLET PO (17:00)
[2024-03-09] MEDS: MONTELUKAST SODIUM 10 MG TABLET PO (17:00)
[2024-03-10] VITALS (21 sets, daily range): BP systolic 86–181; BP diastolic 51–62; PULSE 59–156; RESP 12–24; TEMP 36–37.7; O2SAT 85–97
--- NOTE | 2024-03-10 00:23 | PCRCNOTE ---
Patient's 2000 mdi was not administered per RN's request to not wake patient due to him being confused at times.
[2024-03-10] MEDS: ceFAZolin 2 GM/D5W 50 ML 2 GM/50 ML BAG IVPB ×2 (04:18→12:46)
[2024-03-10 05:36] LABS: Basophils Percent Auto 0.3 % (0.2-1.2); Eosinophils Absolute Auto 0.2 K/mm3 (0-0.3); Eosinophils Percent Auto 1.4 % (0-4.4); Hematocrit 30.5 % (42.0-52.0); Hemoglobin 9.8 g/dL (14.0-18.0); Immature Granulocyte Absolute 0.05 K/mm3 (0.00-0.031); Immature Granulocyte Percent A 0.5 % (0-0.5); Lymphocytes Absolute Auto 1.21 K/mm3 (0.9-3.2); Lymphocytes Percent Auto 10.9 % (18.3-44.2); Mean Corpuscular HGB Conc 32.1 g/dl (32-36); Mean Corpuscular Hemoglobin 32.9 pg (26-34); Mean Corpuscular Volume 102.3 fl (80-100); Mean Platelet Volume 9.7 fl (7.4-10.4); Monocytes Percent Auto 8.7 % (2.6-8.5); Neutrophils Absolute Auto 8.7 K/mm3 (1.3-6.7); Neutrophils Percent Auto 78.2 % (45.5-73.1); Platelet Count Result 178 k/mm3 (150-375); Red Blood Count 2.98 M/mm3 (4.6-6.20); Red Cell Distribution Width 12.5 % (11.5-14.5); White Blood Count 11.1 K/mm3 (4.5-10.0)
[2024-03-10 05:46] LABS: Alanine Aminotransferase 13 U/L (6-50); Albumin Level 2.7 g/dL (3.5-5.1); Alkaline Phosphatase 74 U/L (38-126); Anion Gap 1 mmol/L (4-12); Aspartate Amino Transferase 21 U/L (17-59); Bilirubin,Total 0.4 mg/dL (0.2-1.3); Blood Urea Nitrogen 30 mg/dL (9-20); Calcium 7.4 mg/dL (8.4-10.2); Carbon Dioxide 27 mmol/L (22-30); Chloride 106 mmol/L (98-107); Estimated CRCL calculation 35 ml/min; Estimated Glomerular Filt Rate 48; Glucose 127 mg/dL (65-110); Potassium 3.9 mmol/L (3.4-5.0); Sodium 134 mmol/L (137-145)
[2024-03-10] MEDS: HYDROcodone/acetaminophen (*CRX) 7.5-325 MG TABLET 1 TAB PO (06:13)
[2024-03-10] MEDS: FLUTICASONE/SALMETEROL 45-21 MCG INHALER 1 PUFF 2 PUFF INHALATION ×2 (08:01→19:57)
--- NOTE | 2024-03-10 08:01 | PM.IMPN ---
Progress Note: A&P Assessment and Plan (1) Intertrochanteric fracture of left hip: Code(s): S72.142A - Displaced intertrochanteric fracture of left femur, initial encounter for closed fracture Status: Acute (2) Fall: Code(s): W19.XXXA - Unspecified fall, initial encounter Status: Acute (3) Pubic ramus fracture: Code(s): S32.599A - Other specified fracture of unspecified pubis, initial encounter for closed fracture Status: Acute (4) Closed sacral fracture: Code(s): S32.10XA - Unspecified fracture of sacrum, initial encounter for closed fracture Status: Acute (5) Parkinsons disease: Code(s): G20.A1 - Parkinson's disease without dyskinesia, without mention of fluctuations Status: Acute (6) Hypertension: Code(s): I10 - Essential (primary) hypertension Status: Acute (7) Orthostatic hypotension: Code(s): I95.1 - Orthostatic hypotension Status: Acute Plan LT Intertrochanteric closed fractured Femur Reviewed imaging Surgery consulted NPO Surgery 03/09 Pain control PT/OT post surgery PPI CBC/CMP daily 03/10: Post-op day 1 PT/OT Xarelto 10mg daily started for DVT Orthostatic Hypotension post-op day 1 Patient's BP soft Patient with orthostatics while working with physical therapy IV fluids Compression stockings while ambulating Pubic Ramus Fracture supportive care Ortho consulted pain control PT/OT Hypertension Hypertensive POA Resume home medications pain control BP per unit protocol will add hydralazine if needed HX Parkinson's: resumed home medications Code status: Full code per patient DVT prophylaxis: SCD's/Xarelto Stress ulcer prophylaxis: Protonix 40 daily PT/OT notes: PT/OT pending Rec's Disposition: Patient was admitted to the medical unit with a displaced intertrochanteric fracture of left femur consult for surgery today patient does have history of dementia likely need SNF at discharge for further rehab. Time Spent With Patient Time with patient: 15 - 25 minutes Subjective Date/time seen: 03/10/24 08:01 Interval history: Admission: Medical Record This is an 88-year-old male past medical history significant for hypertension, dementia, Parkinson's disease.? Presented to the emergency room after fall.? Most of the history has been obtained upon reviewing medical records and emergency room physician.? Patient had a ground level fall.? Preliminary workup was significant for left hip fracture. 03/09: Assumed care Patient seen post surgery tired but with no complaints, denied pain, LT hip with dressing in place and neurovascular intact. 03/10: Post-op day one PT/OT for evaluation, Patient having soft BP and diaphoresis with physical therapy. Patient reports mild pain to LT hip. CXR show cardiomegaly but clear lung long, and UA with positive leukocytes. Patient with orthostatic hypotension, IV fluids and compression stockings. Low grade fever will encourage incentive spirometer. Patient had an epsidoe of hypoxia and desaturation to 85% on RA, was placed 2L supplemental oxygen and recovered quickly. Review of Systems Review of Systems: All systems reviewed & are unremarkable except as noted in HPI and below ROS unobtainable: Yes other ( Dementia) Exam Narrative: Physical Exam: GENERAL: Alert and oriented x 2. No acute distress. EYES: EOMI. No scleral icterus. PERRLA. HEENT: Moist mucous membranes. LUNGS: Clear to auscultation bilaterally. No accessory muscle use. CARDIOVASCULAR: Regular rate and rhythm. No murmur. No JVD. S1-S2 ABDOMEN: Soft, mild tenderness and non-distended. No palpable masses. EXTREMITIES: No edema. shortened, externally rotated LLE with decreased ROM, Neurovascular intact SKIN: No rashes or lesions. Skin warm, dry. NEUROLOGIC: No focal neurological deficits. CN II-XII grossly intact PSYCHIATRIC: Appro
[2024-03-10] MEDS: GABAPENTIN 100 MG CAPSULE PO ×3 (09:45→17:56)
[2024-03-10] MEDS: SENNA/DOCUSATE SODIUM TABLET 2 TAB PO ×2 (09:45→17:56)
[2024-03-10] MEDS: ASPIRIN 81 MG CHEWABLE TABLET PO (09:45)
[2024-03-10] MEDS: MEMANTINE 10 MG TABLET PO ×2 (09:46→21:15)
[2024-03-10] MEDS: SODIUM CHLORIDE 0.9% IV 1,000 ML 125 ML IV CONT ×2 (09:46→18:00)
[2024-03-10] MEDS: MONTELUKAST SODIUM 10 MG TABLET PO (09:46)
[2024-03-10] MEDS: polyethylene glycoL 3350 17 GM POWD.PACK PO (09:46)
[2024-03-10] MEDS: PANTOPRAZOLE 40 MG TABLET PO (09:46)
[2024-03-10] MEDS: ATORVASTATIN 40 MG TABLET PO (09:46)
[2024-03-10] MEDS: CARBIDOPA/LEVODOPA 25/100 MG CR TABLET 1 TABLET PO ×2 (09:46→17:55)
[2024-03-10] MEDS: ACETAMINOPHEN 325 MG TABLET 650 MG PO ×2 (09:47→17:56)
[2024-03-10] MEDS: DONEPEZIL HCL 10 MG TABLET PO (10:01)
[2024-03-10 10:33] LABS: Appearance Urine Cloudy (Clear); Bacteria Urine None Seen /hpf; Bilirubin Urine Negative (Negative); Blood Urine 3+ (Negative); Calcium Oxalate Crystals Urine Present /hpf; Color Urine Dark Yellow (Yellow); Glucose Urine UA Negative (Negative); Ketones Urine Trace mg/dL (Negative); Leukocyte Esterase Ur 1+ LEU/UL (Negative); Mucus Urine Present /lpf; Nitrate Urine Negative (Negative); Protein Urine 1+ mg/dL (Negative); RBC Urine >100 /hpf (0-2); Squamous Epithelial Cell Urine None Seen /hpf (Few); WBC Clumps Urine Present /HPF; WBC Urine 21-50 /hpf (0-3); pH Urine 5.5 (5.0-9.0)
[2024-03-10 10:42] LABS: Add Urine Microscopic? YES; Specific Grav Ur 1.037 (1.001-1.035)
--- NOTE | 2024-03-10 11:09 | PCOTNOTE ---
Nursing request to attempt to see pt later today due to pt being exhausted from PT session and low BP readings.
--- NOTE | 2024-03-10 17:29 | PM.PNORT ---
Progress Note: A&P Assessment and Plan (1) Intertrochanteric fracture of left hip: Code(s): S72.142A - Displaced intertrochanteric fracture of left femur, initial encounter for closed fracture Status: Acute Assessment and Plan: S/P ORIF. May bear full weight on Right side. Touch weight bearing on Left. Will need detention for rehab. Subjective Subjective Date/Time Seen: 03/10/24 17:29 Post Op day: 1 Principal diagnosis: Intertrochanteric Fracture Left Hip Review of Systems Musculoskeletal: Musculoskeletal: Reports back pain, Reports arthralgias, Reports joint swelling and Reports stiffness Exam Narrative: Wiggles toes. Pain with hip manipulation. Objective Data Vital Signs Vital Signs: Vital Signs - 24 hr 03/09/24 17:49 03/09/24 18:35 03/09/24 18:50 Temperature 97.1 F L Pulse Rate 90 Respiratory Rate 18 Blood Pressure 129/72 Pulse Oximetry 96 94 96 Oxygen Delivery Room Air Room Air Oxygen Flow Rate Fraction of Inspired Oxygen 03/09/24 19:27 03/09/24 20:00 03/10/24 00:00 Temperature 97.1 F L 97.8 F Pulse Rate 82 95 Respiratory Rate 20 18 Blood Pressure 120/67 114/56 L Pulse Oximetry 94 94 97 Oxygen Delivery Nasal Cannula Oxygen Flow Rate 2 Fraction of Inspired Oxygen 03/10/24 04:19 03/10/24 08:00 03/10/24 08:01 Temperature 98.1 F Pulse Rate 59 L Respiratory Rate 20 Blood Pressure 181/56 H Pulse Oximetry 96 85 L 91 Oxygen Delivery Room Air Nasal Cannula Oxygen Flow Rate 2 Fraction of Inspired Oxygen 21 28 03/10/24 08:01 03/10/24 09:05 03/10/24 09:08 Temperature 99.9 F H Pulse Rate 91 Respiratory Rate 20 Blood Pressure 95/62 L 86/55 L Pulse Oximetry Oxygen Delivery Oxygen Flow Rate Fraction of Inspired Oxygen 03/10/24 09:47 03/10/24 08:37 03/10/24 10:44 Temperature 99.9 F H 98.4 F Pulse Rate Respiratory Rate Blood Pressure Pulse Oximetry Oxygen Delivery Nasal Cannula Oxygen Flow Rate 2 Fraction of Inspired Oxygen 03/10/24 09:15 03/10/24 14:53 Temperature 97.3 F L Pulse Rate 93 Respiratory Rate 12 Blood Pressure 100/51 L Pulse Oximetry 94 95 Oxygen Delivery Nasal Cannula Oxygen Flow Rate 2 Fraction of Inspired Oxygen Intake/Output Intake/Output: Intake & Output 03/07/24 03/08/24 03/09/24 03/10/24 23:59 23:59 23:59 23:59 Intake Total 100 2740 1170 Output Total 450 275 Balance 100 2290 895 Meds/Results Medications: Active Medications Generic Name Dose Route Start Last Admin Trade Name Freq PRN Reason Stop Dose Admin Acetaminophen 650 mg 03/09/24 07:51 03/10/24 09:47 Acetaminophen 325 Mg Tablet PO 650 mg Q6H PRN Administration Mild Pain (1-3) or Fever Hydrocodone Bitart/Acetaminophen 1 tab 03/09/24 11:56 03/09/24 15:30 Hydrocodone/Acetaminophen (*Crx) 5-325 Mg Tablet PO 1 tab Q4H PRN Administration Pain Rated 4-6 Hydrocodone Bitart/Acetaminophen 1 tab 03/09/24 11:56 03/10/24 06:13 Hydrocodone/Acetaminophen (*Crx) 7.5-325 Mg Tablet PO 1 tab Q4H PRN Administration Pain Rated 7-10 Aspirin 81 mg 03/09/24 08:00 03/10/24 09:45 Aspirin 81 Mg Chewable Tablet PO 81 mg DAILY@0800 GAURAV Administration Atorvastatin Calcium 40 mg 03/09/24 09:00 03/10/24 09:46 Atorvastatin 40 Mg Tablet PO 40 mg DAILY GAURAV Administration Carbidopa/Levodopa 1 tablet 03/09/24 09:00 03/10/24 09:46 Carbidopa/Levodopa 25/100 Mg Cr Tablet PO 1 tablet BID GAURAV Administration Donepezil HCl 10 mg 03/09/24 09:00 03/10/24 10:01 Donepezil Hcl 10 Mg Tablet PO 10 mg DAILY GAURAV Administration Fentanyl Citrate 25 mcg 03/09/24 10:36 03/09/24 13:33 Fentanyl Citrate Inj (*Crx) 100 Mcg/2 Ml Vial IV PUSH 25 mcg Q2M PRN Administration Pain Gabapentin 100 mg 03/09/24 09:00 03/10/24 12:46 Gabapentin 100 Mg Capsule PO 100 mg TID GAURAV Administration Hydromorphone H
--- NOTE | 2024-03-10 17:51 | ECG_ITS ---
SEE SCANNED COPY FOR CONFIRMED REPORT MTDD
[2024-03-10] MEDS: RIVAROXABAN 10 MG TABLET PO (17:55)
--- NOTE | 2024-03-10 18:32 | ECG_ITS ---
SEE SCANNED COPY FOR CONFIRMED REPORT MTDD
[2024-03-10] MEDS: SODIUM CHLORIDE 0.9% IV 1,000 ML 999 ML IV CONT (18:40)
[2024-03-10] MEDS: METOPROLOL TARTRATE INJ 5 MG/5 ML VIAL IV PUSH (18:40)
[2024-03-10 18:58] LABS: Basophils Percent Auto 0.3 % (0.2-1.2); Eosinophils Absolute Auto 0.2 K/mm3 (0-0.3); Eosinophils Percent Auto 1.8 % (0-4.4); Hematocrit 28.3 % (42.0-52.0); Hemoglobin 9.2 g/dL (14.0-18.0); Immature Granulocyte Absolute 0.07 K/mm3 (0.00-0.031); Immature Granulocyte Percent A 0.6 % (0-0.5); Lymphocytes Absolute Auto 0.87 K/mm3 (0.9-3.2); Lymphocytes Percent Auto 7.3 % (18.3-44.2); Mean Corpuscular HGB Conc 32.5 g/dl (32-36); Mean Corpuscular Hemoglobin 32.9 pg (26-34); Mean Corpuscular Volume 101.1 fl (80-100); Mean Platelet Volume 9.2 fl (7.4-10.4); Monocytes Absolute Auto 0.9 K/mm3 (0.1-0.6); Monocytes Percent Auto 7.4 % (2.6-8.5); Neutrophils Absolute Auto 9.9 K/mm3 (1.3-6.7); Neutrophils Percent Auto 82.6 % (45.5-73.1); Platelet Count Result 167 k/mm3 (150-375); Red Cell Distribution Width 12.7 % (11.5-14.5)
[2024-03-10 19:08] LABS: Alanine Aminotransferase 8 U/L (6-50); Alkaline Phosphatase 80 U/L (38-126); Anion Gap 6 mmol/L (4-12); Aspartate Amino Transferase 21 U/L (17-59); Bilirubin,Total 0.4 mg/dL (0.2-1.3); Blood Urea Nitrogen 33 mg/dL (9-20); Calcium 7.4 mg/dL (8.4-10.2); Carbon Dioxide 24 mmol/L (22-30); Chloride 107 mmol/L (98-107); Estimated CRCL calculation 31 ml/min; Estimated Glomerular Filt Rate 41; Glucose 161 mg/dL (65-110); Magnesium 2.1 mg/dL (1.6-2.3); Sodium 137 mmol/L (137-145)
[2024-03-10 19:16] LABS: NT Pro B Type Natriuretic Pept 1740 pg/mL (19.9-100)
[2024-03-10 19:47] LABS: Creatine Kinase 186 U/L (55-170); Thyroid Stimulating Hormone Reflex 0.894 uIU/mL (0.465-4.68)
--- NOTE | 2024-03-10 20:03 | PC.NURSE ---
Called Dr. Rooney regarding patient heart rate elevation. Heart rate 146 and sounds irregular. Patient does not have history of tachycardia. Asked provider if I can order EKG which he said yes. Called provider with results of first EKG. Impression was AFIB RVR but after discussing with provider in person, looked more like sinus arrythmia. Was given verbal order for telemetry. After placing telemetry patient appeared to be in SVT, heart rate 150-160 and not coming down with non-pharmacologic measures. Called Dr. Rooney who asked me to call Alicia and have her come look at patient with me until he could get here. Alicia asked me to order a repeat EKG and that she would place orders and come to patient room. Vitals 88/46 manually, heart rate 162, 98% on 2 LNC, pt diaphoretic. was given verbal order for one time dose of 5 mg IVP metoprolol. given at 1840. Verbal order given for 1 L bolus NS, began with current bag of fluids at 1840. Heart rate returned to 80-low 100s after 5 minutes. BP 92/60 manually. Repeat EKG showed ectopic atrial tachycardia and was reviewed with Dr. Rooney. Labs ordered and I have called finance vice president to come draw.
[2024-03-10] MEDS: SULFAMETHOXAZOLE/TRIMETHOPRIM 800/160 MG DS TABLET 1 TAB PO (21:15)
--- NOTE | 2024-03-10 22:24 | PC.NURSE ---
03/10/240: PT SUSTAINED HR 140s-150s x~1-2min. TO PT'S ROOM; PT EXHIBITS SOME AMS AND HAS PULLED OFF LEADS AND GOWN AND ATTEMPTING TO EXIT BED. VSS. REORIENTING PT X3. HR RETURNED TO 80s. CONT TO MONITOR. ALARMS ON.
--- NOTE | 2024-03-10 23:14 | PC.NURSE ---
SPOKE W/ ARAVIND HANSEN R/T PT CARDIAC ARRYTHMIA. PT ASYMPTOMATIC. U/O THIS SHIFT 100ML SO FAR. ARAVIND INQUIRED OF U/O. ORDER TO IRRIGATE CATH X1. DONE W/ NO OBVIOUS SZ OF OBSTRUCTION; RAMIREZ APPEARS PATENT; U/O PRESENT-BLADDER NONDISTENDED ON PALPATION; ARAVIND TO COME SEE PT
[2024-03-11] VITALS (32 sets, daily range): BP systolic 96–160; BP diastolic 49–83; PULSE 78–155; RESP 16–24; TEMP 36.2–37.3; O2SAT 91–98
--- NOTE | 2024-03-11 01:48 | PC.NURSE ---
03/11/24 0000:ARAVIND HERE TO SEE PT. PT RESTFUL; SLEEPS. PT CONT TO HAVE EPISODES OF SVT/TACHYCARDIA WITH HR HIGH 150s AND ASYMPTOMATIC AND RETURN TO BASELINE 80s. NO NEW ORDERS.
--- NOTE | 2024-03-11 02:05 | PC.NURSE ---
03/11/24 0155:SPOKE Miah DIOR. PT IS SUSTAINING HR IN 150s FOR GREATER 7-8MIN OR MORE; NO C/O CHEST PAIN. REMAINS AMS AND OCCASIONALLY RESTLESS/AGITATED AT BEGINNING OF SHIFT-PULLING OFF O2 PNC. STATES OK TO GIVE METOPROLOL 5MG IVP X1 IF SBP GREATER THAN 90s MMHG. WILL DO A VITALS CHECK AND DOSE IF INDICATED PER ORDER.
[2024-03-11] MEDS: METOPROLOL TARTRATE INJ 5 MG/5 ML VIAL (02:25)
[2024-03-11] MEDS: SODIUM CHLORIDE 0.9% IV 1,000 ML 125 ML IV CONT ×3 (04:00→20:58)
--- NOTE | 2024-03-11 04:04 | PC.NURSE ---
0400: spoke w/ dr. fink. pt remains tachy in 150s. diaphoretic. agitated. remains ams. sbp in 100s mmHg. no c/o chest pain. no c/o lt hip pain. u/o good. 0405:new orders rcv'd.
[2024-03-11] MEDS: METOPROLOL TARTRATE INJ 5 MG/5 ML VIAL IV PUSH (04:17)
[2024-03-11 04:40] LABS: Hematocrit 25.9 % (42.0-52.0); Hemoglobin 8.5 g/dL (14.0-18.0); Mean Corpuscular HGB Conc 32.8 g/dl (32-36); Mean Corpuscular Hemoglobin 32.8 pg (26-34); Mean Platelet Volume 8.9 fl (7.4-10.4); Platelet Count Result 153 k/mm3 (150-375); Red Blood Count 2.59 M/mm3 (4.6-6.20); Red Cell Distribution Width 12.8 % (11.5-14.5); White Blood Count 14.7 K/mm3 (4.5-10.0)
[2024-03-11 04:55] LABS: Alanine Aminotransferase 10 U/L (6-50); Albumin Level 2.8 g/dL (3.5-5.1); Alkaline Phosphatase 74 U/L (38-126); Anion Gap 2 mmol/L (4-12); Aspartate Amino Transferase 26 U/L (17-59); Bilirubin,Total 0.5 mg/dL (0.2-1.3); Blood Urea Nitrogen 30 mg/dL (9-20); Calcium 7.6 mg/dL (8.4-10.2); Carbon Dioxide 26 mmol/L (22-30); Chloride 110 mmol/L (98-107); Estimated CRCL calculation 37 ml/min; Estimated Glomerular Filt Rate 52; Glucose 130 mg/dL (65-110); Potassium 4.1 mmol/L (3.4-5.0); Sodium 138 mmol/L (137-145)
[2024-03-11] MEDS: MORPHINE SULFATE (*CRX) 2 MG/ML INJ IV PUSH (05:01)
--- NOTE | 2024-03-11 05:24 | PM.EVENT ---
Event Note Event Note Event Note: 03/11/2024 at 05:00 Had been left sign-out by prior provider that patient is having intermittent episodes of multifocal atrial tachycardia. Prior EKG was reviewed this morning after repeat EKG was reviewed and demonstrated sinus tachycardia. On review of the prior EKG had also demonstrated pattern most consistent with sinus tachycardia. The patient had UA obtained on the which was suspicious for UTI with white blood cell clumps present 21-50 wbc's greater than 100 RBCs elevated urine specific gravity and trace ketones. Patient's electrolyte panel also demonstrated acute kidney injury with creatinine up to 1.6 up from prior baseline of 0.7 earlier in the hospital stay. The patient been on ibuprofen IV and lisinopril. At the time of my evaluation her earlier in the shift I had held these medications. Patient was also placed on Bactrim at this time I will discontinue the Bactrim and given the appearance the patient's urine place patient on empiric antibiotic therapy with Rocephin. Urine cultures are id pending. Nursing staff had called me when the patient's tachycardia went from intermittent to persistent. Initially telemetry appear to be consistent with AFib RVR but later EKGs consistent with sinus tachycardia. The patient did receive 2 additional doses of IV Lopressor in addition to the 1 he has received prior to midnight. Patient's blood pressures did remain stable for repeat dosing of Lopressor. However patient's heart rate only improved down to the 130s but this gave us an improved appearance to his EKG and were able to identify the sinus tachycardia. The patient is not a good historian due to his history of dementia and moderate to severe hearing loss. He had told nursing staff multiple times that he was not having pain. When I went to evaluate the patient he reported ? pain all over.? At that time he was also diaphoretic. He denies any specific chest pain. He was only oriented to person. He is quite tremulous but does have history of Parkinson's disease. He was picking and pulling at equipment and IVs. He was redirectable. He had remained afebrile throughout the night. Given his persistent tachycardia and diaphoresis I did order a troponin which was slightly elevated. Repeat CBC also demonstrated a white count that continued her eyes at 14.7 and hemoglobin slightly lower down from 9.2 down to 8.5. However this was a significant drop compared to the patient's admission hemoglobin of 13.2. Chest x-ray ordered last evening did demonstrate cardiomegaly. Chest x-ray had been obtained due to hypoxia. Assessment and Plan: 1. Sepsis--patient meets sepsis criteria with leukocytosis, tachycardia and tachypnea with UA suggestive of UTI. Will discontinue Bactrim and switch antibiotic coverage to Rocephin. Urine culture was already pending. Will add blood cultures. Will continue IV fluid hydration. Would like to avoid further fluid boluses given patient is developed hypoxia and has cardiomegaly on x-ray. 2. Acute hypoxic respiratory failure--possibly due to atelectasis or some component of heart failure given cardiomegaly on x-ray. Will obtain echocardiogram.. Will continue incentive spirometer but patient is having difficulty due to comprehension. There may also be some component of decreased oxygen carrying capacity given patient's hemoglobin has dropped from greater than 13 down to 8.5. Will monitor hemoglobin closely. No evidence of acute bleeding. Change in hemoglobin is mostly due operative losses and likely some component of dilution. 3. Elevated troponin--likely due to demand ischemia in the setting of acute surgery, anemia, hypoxic and possible underlying infection. Will trend troponins and continue monitor on telemetry. Echocardiogram ordered as discussed above. 4. Sinus tachycardia--likely due to above causes. Again there also may be a component of dehydration as patient did have elevated urine sp
--- NOTE | 2024-03-11 07:21 | P.PNIM_ITS ---
Progress Note: A&P Assessment and Plan (1) Intertrochanteric fracture of left hip: Code(s): S72.142A - Displaced intertrochanteric fracture of left femur, initial encounter for closed fracture Status: Acute (2) Fall: Code(s): W19.XXXA - Unspecified fall, initial encounter Status: Acute (3) Pubic ramus fracture: Code(s): S32.599A - Other specified fracture of unspecified pubis, initial encounter for closed fracture Status: Acute (4) Closed sacral fracture: Code(s): S32.10XA - Unspecified fracture of sacrum, initial encounter for closed fracture Status: Acute (5) Parkinsons disease: Code(s): G20.A1 - Parkinson's disease without dyskinesia, without mention of fluctuations Status: Acute (6) Hypertension: Code(s): I10 - Essential (primary) hypertension Status: Acute (7) Orthostatic hypotension: Code(s): I95.1 - Orthostatic hypotension Status: Acute (8) Acute respiratory failure with hypoxia: Code(s): J96.01 - Acute respiratory failure with hypoxia Status: Acute (9) NSTEMI (non-ST elevated myocardial infarction): Code(s): I21.4 - Non-ST elevation (NSTEMI) myocardial infarction Status: Acute (10) Anemia associated with acute blood loss: Code(s): D62 - Acute posthemorrhagic anemia Status: Acute (11) Aspiration into airway: Code(s): T17.908A - Unspecified foreign body in respiratory tract, part unspecified causing other injury, initial encounter Status: Acute (12) Hematoma complicating a procedure: Status: Acute Plan Anemia with acute blood loss secondary to post-op hematoma * Hgb 8.5 from 13.2 * Tachycardia * Hypotension * CT ABD Subcutaneous hematoma lateral to left hip. Partially visualized hematoma in the anterior left thigh musculature. * 1 unit PRBC * albumin IVPB * Stopped ASA and Xarelto * binder to ABD/Chester wrap L hip * H&H q6hr * Transfuse PRBC as needed * Neurovascular checks q.2 hours monitor for compartment syndrome Acute respiratory failure with hypoxia * 85% on RA * Likely secondary to blood loss * CTA negative for PE * CXR cardiomegaly and small pleural effusion * Supplemental oxygen as needed wean as tolerated Aspiration pneumonia * Patient aspirated on vomit * Started on cefepime and Flagyl * WBC 14.7 * Nebulizer treatments * Patient unable to follow incentive spirometer due to mental status added PEP therapy NSTEMI * Trop 0.120/0.168/0.243 * Likely secondary to ischemic demand from acute blood loss * STACH EKG no ischemic changes * cardiology consulted * holding any AC due to anemia * Trend troponin for downtrend * cardiac monitoring * CTA negative for PE LT Intertrochanteric closed fractured Femur * Reviewed imaging * Surgery consulted * NPO * Surgery 03/09 * Pain control * PT/OT post surgery * PPI * CBC/CMP daily 03/10: * Post-op day 1 * PT/OT * Xarelto 10mg daily started for DVT 03/11: * Post-op day 2 * CT show hematoma * ASA/Xarelto held * Transfuse 1 unit PRBC * chester wrap to LT hip/ABD binder * neurovascular q2hr Orthostatic Hypotension * Likely neurogenic hypotension secondary HX of Parkinson's * post-op day 1 * Patient's BP soft * Patient with orthostatics while working with physical therapy * IV fluids * Compression stockings while ambulating Pubic Ramus Fracture * supportive care * Ortho consulted * pain control * PT/OT Hyperte
--- NOTE | 2024-03-11 07:21 | PM.IMPN ---
Progress Note: A&P Assessment and Plan (1) Intertrochanteric fracture of left hip: Code(s): S72.142A - Displaced intertrochanteric fracture of left femur, initial encounter for closed fracture Status: Acute (2) Fall: Code(s): W19.XXXA - Unspecified fall, initial encounter Status: Acute (3) Pubic ramus fracture: Code(s): S32.599A - Other specified fracture of unspecified pubis, initial encounter for closed fracture Status: Acute (4) Closed sacral fracture: Code(s): S32.10XA - Unspecified fracture of sacrum, initial encounter for closed fracture Status: Acute (5) Parkinsons disease: Code(s): G20.A1 - Parkinson's disease without dyskinesia, without mention of fluctuations Status: Acute (6) Hypertension: Code(s): I10 - Essential (primary) hypertension Status: Acute (7) Orthostatic hypotension: Code(s): I95.1 - Orthostatic hypotension Status: Acute (8) Acute respiratory failure with hypoxia: Code(s): J96.01 - Acute respiratory failure with hypoxia Status: Acute (9) NSTEMI (non-ST elevated myocardial infarction): Code(s): I21.4 - Non-ST elevation (NSTEMI) myocardial infarction Status: Acute (10) Anemia associated with acute blood loss: Code(s): D62 - Acute posthemorrhagic anemia Status: Acute (11) Aspiration into airway: Code(s): T17.908A - Unspecified foreign body in respiratory tract, part unspecified causing other injury, initial encounter Status: Acute (12) Hematoma complicating a procedure: Status: Acute Plan Anemia with acute blood loss secondary to post-op hematoma Hgb 8.5 from 13.[address] ABD Subcutaneous hematoma lateral to left hip. Partially visualized hematoma in the anterior left thigh musculature. 1 unit PRBC albumin IVPB Stopped ASA and Xarelto binder to ABD/Chester wrap L hip H&H q6hr Transfuse PRBC as needed Neurovascular checks q.2 hours monitor for compartment syndrome Acute respiratory failure with hypoxia 85% on RA Likely secondary to blood loss CTA negative for PE CXR cardiomegaly and small pleural effusion Supplemental oxygen as needed wean as tolerated Aspiration pneumonia Patient aspirated on vomit Started on cefepime and Flagyl WBC 14.7 Nebulizer treatments Patient unable to follow incentive spirometer due to mental status added PEP therapy NSTEMI Trop 0.120/0.168/0.243 Likely secondary to ischemic demand from acute blood loss STACH EKG no ischemic changes cardiology consulted holding any AC due to anemia Trend troponin for downtrend cardiac monitoring CTA negative for PE LT Intertrochanteric closed fractured Femur Reviewed imaging Surgery consulted NPO Surgery 03/09 Pain control PT/OT post surgery PPI CBC/CMP daily 03/10: Post-op day 1 PT/OT Xarelto 10mg daily started for DVT 03/11: Post-op day 2 CT show hematoma ASA/Xarelto held Transfuse 1 unit PRBC chester wrap to LT hip/ABD binder neurovascular q2hr Orthostatic Hypotension Likely neurogenic hypotension secondary HX of Parkinson's post-op day 1 Patient's BP soft Patient with orthostatics while working with physical therapy IV fluids Compression stockings while ambulating Pubic Ramus Fracture supportive care Ortho consulted pain control PT/OT Hypertension Hypertensive POA Resume home medications pain control BP per unit protocol will add hydralazine if needed HX Parkinson's: resumed home medications Code status: Full code per patient DVT prophylaxis: SCD's stopped Xarelto Stress ulcer prophylaxis: Protonix 40 daily PT/OT notes: PT/OT pending Rec's Disposition: Patient transferred to IMU for worsening condition secondary to acute blood loss/hematoma post-op LT hip fracture repair, and rami fracture transfusing PRBC and monitor cardiac status. Patient will need still n
--- NOTE | 2024-03-11 07:29 | ECG_ITS ---
SEE SCANNED COPY FOR CONFIRMED REPORT MTDD
[2024-03-11] MEDS: ONDANSETRON INJ 4 MG/2 ML VIAL IV PUSH (07:40)
[2024-03-11 08:01] LABS: Lactic Acid Reflex 1.6 mmol/L (0.7-2.0)
[2024-03-11 08:05] LABS: Troponin I 0.168 ng/mL (0.000-0.034)
[2024-03-11 08:27] LABS: Hematocrit 26.3 % (42.0-52.0); Hemoglobin 8.6 g/dL (14.0-18.0)
[2024-03-11] MEDS: ALBUMIN HUMAN 25% 25 GM/100 ML 100 ML IVPB (08:32)
[2024-03-11] MEDS: PANTOPRAZOLE SODIUM IV 40 MG VIAL IV PUSH (08:32)
--- NOTE | 2024-03-11 08:37 | PCOTNOTE ---
Pt is not appropriate for participation in therapy today per RN, due to being transferred to IMU soon due to change in medical status. Pt is having increase continuous tachy of 150s bmp, nausea, and vomiting. Will continue to follow pt and be seen when appropriate per pt's POC duration/frequency.
[2024-03-11] MEDS: FLUTICASONE/SALMETEROL 45-21 MCG INHALER 1 PUFF 2 PUFF INHALATION (08:40)
[2024-03-11] MEDS: metroNIDAZOLE 500 MG/ISO 100ML 500 MG/100 ML BAG 100 MG IVPB ×3 (08:47→22:00)
--- NOTE | 2024-03-11 09:40 | PC.NURSE ---
This patient, Felipe Haddad, was transferred to [id number] on 03/11/24 at 1127. Personal belongings sent with patient. Appropriate documentation sent with patient. report given to Raiza AGUILAR .
--- NOTE | 2024-03-11 09:50 | PC.NURSE ---
This patient, Felipe Haddad, was received from [[address] [place] [id number] ] on 03/11/24 at 0950. Patient/family oriented to unit policies and routines. Patient alert and oriented x2. Orders received from Dr. Dumont and Niecy Vega NP
[2024-03-11] MEDS: HYDROcodone/acetaminophen (*CRX) 5-325 MG TABLET 1 TAB PO (10:43)
[2024-03-11 10:45] LABS: Troponin I 0.243 ng/mL (0.000-0.034)
[2024-03-11] MEDS: GABAPENTIN 100 MG CAPSULE PO ×2 (12:01→16:27)
[2024-03-11] MEDS: MEMANTINE 10 MG TABLET PO ×2 (12:01→20:58)
[2024-03-11] MEDS: SENNA/DOCUSATE SODIUM TABLET 2 TAB PO ×2 (12:01→16:27)
[2024-03-11] MEDS: ATORVASTATIN 40 MG TABLET PO (12:01)
[2024-03-11] MEDS: DONEPEZIL HCL 10 MG TABLET PO (12:01)
[2024-03-11] MEDS: CARBIDOPA/LEVODOPA 25/100 MG CR TABLET 1 TABLET PO ×2 (12:02→16:27)
[2024-03-11] MEDS: SODIUM CHLORIDE 0.9% IV 250 ML 30 ML IV CONT ×2 (12:02→22:50)
[2024-03-11] MEDS: MONTELUKAST SODIUM 10 MG TABLET PO (12:02)
[2024-03-11] MEDS: TUBING, BLOOD PLUM PUMP TUBING 1 EACH XX ×2 (12:03→23:01)
[2024-03-11] MEDS: CEFEPIME 2 GM/NS 50 ML 2 GM/50 ML BAG IVPB ×2 (12:12→20:57)
--- NOTE | 2024-03-11 12:43 | PM.CNCAR ---
Assessment and Plan Assessment and plan (1) Atrial flutter: Qualifiers: Atrial flutter type: atypical Qualified Code(s): I48.4 - Atypical atrial flutter Code(s): I48.92 - Unspecified atrial flutter Status: Acute Assessment and Plan: Paroxysmal atrial flutter versus atrial tachycardia Discussed post hip surgery Parkinsonism Hypertension controlled Plan Continue verapamil and lisinopril Increase Xarelto to 15 mg daily when risk of bleeding is low Transthoracic echocardiogram History of Present Illness History of Present Illness Consult date/time: 03/11/24 12:43 Reason For Visit: atrial tachycardia Narrative: 88-year-old male patient presents to the hospital status post fall. Patient had a mechanical fall and sustained left hip fracture. Patient denies any dizziness or loss of consciousness. He had hip surgery March 09, 2024 and tolerated very well. Postoperative course the patient developed episode of tachycardia regular at heart rate of 130. It had acute onset and acute offset. Patient denies any shortness of breath or chest pain during his episode. Review of Systems Review of Systems: All systems reviewed & are unremarkable except as noted in HPI and below PMFSH Family History Family History Mother Asthma Son Asthma History of blood clots Hypertension Daughter Hypertension Sibling Prostate carcinoma Lymph node cancer Social History Social History Smoking status: Never smoker Alcohol intake: never Substance use: never Do You Feel Safe in your Home?: Yes Lack of Transportation: No Lack of Food: Never True Current Housing: I Have Housing Concerned About Future Housing: No Difficulty Paying Gas/Electric Bills: No Difficulty Paying for Meds: No Currently Unemployed: No Education: High School Diploma/GED Difficulty w/ Childcare or Family Care: No Spiritual care concerns: No Meds Home Medications and Allergies Home Medications Medication Instructions Recorded Confirmed Type aspirin 81 mg tablet 81 mg PO DAILY 03/08/24 03/08/24 History atorvastatin 40 mg tablet 40 mg PO DAILY 03/08/24 03/08/24 History budesonide-formoterol HFA 80 1 puff inhalation Q12H PRN 03/08/24 03/08/24 History mcg-4.5 mcg/actuation aerosol Shortness Of Breath Or Wheezing inhaler (Symbicort) calcium phos,tribasic 260 mg-D3 25 1 tablet PO DAILY 03/08/24 03/08/24 History mcg-herbal 50 mg chewable tablet (Alive Calcium-Vitamin D3) carbidopa ER 50 mg-levodopa 200 mg 1 tablet PO BID 03/08/24 03/08/24 History tablet,extended release coenzyme V89-yineixs E 100 mg-100 2 cap PO DAILY 03/08/24 03/08/24 History unit capsule docosahexaenoic rtfr-lqp-fex E 1 cap PO DAILY 03/08/24 03/08/24 History capsule donepezil 10 mg tablet 10 mg PO DAILY 03/08/24 03/08/24 History fluoxetine 20 mg capsule 20 mg PO DAILY 03/08/24 03/08/24 History gabapentin 100 mg capsule 100 mg PO TID 03/08/24 03/08/24 History lisinopril 40 mg tablet 40 mg PO DAILY 03/08/24 03/08/24 History meloxicam 15 mg tablet 15 mg PO DAILY 03/08/24 03/08/24 History memantine 10 mg tablet 20 mg PO DAILY 03/08/24 03/08/24 History montelukast 10 mg tablet 10 mg PO DAILY 03/08/24 03/08/24 History multivitamin h-vdnysyqu-khuguge 1 tablet PO DAILY 03/08/24 03/08/24 History fumarate 18 mg-vitamin K 25 mcg tablet verapamil 240 mg tablet,extended 240 mg PO BID 03/08/24 03/08/24 History release Allergies Allergy/AdvReac Type Severity Reaction Status Date / Time No Known Allergies Allergy Verified 03/09/24 09:20 Vital Signs Vital Signs - 24 hr 03/10/24 14:53 03/10/24 17:42 03/10/24 18:25 Temperature 36.3 C L 36.0 C L Pulse Rate 93 146 H 156 H Respiratory Rate 12 16 24 H Blood Pressure 100/51 L 118/57 L 114/58 L Pulse Oximetry 95 94 96 Oxygen Delivery
[2024-03-11] MEDS: IPRATROPIUM 0.5 MG/ALBUTEROL SULFATE 2.5 MG AMPUL.NEB 3 ML INHALATION ×2 (13:21→20:02)
[2024-03-11 16:08] LABS: Hematocrit 24.1 % (42.0-52.0)
[2024-03-11] MEDS: KETOROLAC 30 MG/ML VIAL (*BKC) IV PUSH (16:26)
[2024-03-11 16:49] LABS: Troponin I 0.371 ng/mL (0.000-0.034)
--- NOTE | 2024-03-11 17:29 | PC.NURSE ---
Notified Niecy Vega NP about patients critical troponin level at 0.371, and Hgb level, orders to order 1 unit of PRBC.
[2024-03-11 21:22] LABS: Hematocrit 24.5 % (42.0-52.0); Hemoglobin 8.1 g/dL (14.0-18.0)
[2024-03-12] VITALS (38 sets, daily range): BP systolic 102–167; BP diastolic 49–79; PULSE 70–171; RESP 18–24; TEMP 36.4–37.8; O2SAT 90–99
--- NOTE | 2024-03-12 | ECHO_ITS ---
Patient Info Name: Felipe Haddad Age: 89 years : 1935 Gender: Male Ht: 71 in Wt: 196 lbs BSA: 2.13 m2 HR: 130 bpm BP: 116 / 57 mmHg Heart Rhythm: Tachycardia Technical Quality: Fair Exam Date: 03/12/2024 7:29 AM Exam Location: Echo Lab Patient Status: Inpatient Admit Date: 03/09/2024 Staff Ordering Physician: Tamar Gonzales DO [employer] Librarian: Virginia Escobedo RDCS Attending Provider: Iván Hummel MD Referring Physician: Christian SCHULZ; Exam Type: CA echo doppler color flow Study Info Indications R00.0 - Tachycardia, unspecified Complete two-dimensional, color flow and Doppler transthoracic echocardiogram is performed with contrast to opacify the left ventricle and to improve the deliniation of the left ventricle endocardial borders. Contrast/Agitated Saline Contrast/Ag. Saline: Definity Amount: 2.00 ml Administered By: Virginia Escobedo RDCS Existing IV Access: Yes IV Access Condition: patent with no signs of infiltration Summary 1. Left ventricular chamber dimension is normal. 2. Left ventricular systolic function is normal, estimated at >70%. 3. There is mildly increased left ventricular wall thickness. 4. The left ventricular diastolic function is grade I diastolic dysfunction. 5. Right ventricular chamber dimension is mildly enlarged. 6. Right ventricular systolic function is normal. 7. There is mild tricuspid valve regurgitation. Left Ventricle Left ventricular chamber dimension is normal. Left ventricular systolic function is normal, estimated at >70%. There is mildly increased left ventricular wall thickness. The left ventricular diastolic function is grade I diastolic dysfunction. Right Ventricle Right ventricular chamber dimension is mildly enlarged. Right ventricular systolic function is normal. Left Atria Left atrial chamber dimension is normal. Right Atria Right atrial chamber dimension is normal. Atrial Septum Intact interatrial septum visualized by color flow imaging. Aortic Valve The aortic valve is probable trileaflet. There is no aortic valve stenosis. There is no aortic valve regurgitation. There is mild aortic valve calcification. Pulmonic Valve The pulmonic valve is not well visualized. Mitral Valve There is trace mitral valve regurgitation. Tricuspid Valve There is mild tricuspid valve regurgitation. Pericardium/Pleural There is no pericardial effusion. Inferior Vena Cava Inferior vena cava is not well visualized. Aorta The aortic root size at the sinus of Valsalva is normal. Left Ventricular Outflow Tract Name Value Normal LVOT 2D LVOT Diameter 2.0 cm LVOT Doppler LVOT Peak Gradient 3 mmHg LVOT Mean Gradient 1 mmHg LVOT VTI 13 cm LVOT VTI/AV VTI Ratio 0.6 LVOT Stroke Volume 43 ml LVOT CO 3.3 l/min LVOT CI 1.5 l/min/m2 Pulmonic Valve Name Value Normal --
[2024-03-12] MEDS: dilTIAZem HCl INJ 25 MG/5 ML VIAL 10 MG IV PUSH ×2 (01:01→05:13)
--- NOTE | 2024-03-12 02:30 | PC.NURSE ---
Transferred patient care to Niecy Locke at 0200
[2024-03-12] MEDS: IPRATROPIUM 0.5 MG/ALBUTEROL SULFATE 2.5 MG AMPUL.NEB 3 ML INHALATION ×2 (03:03→07:29)
[2024-03-12] MEDS: metroNIDAZOLE 500 MG/ISO 100ML 500 MG/100 ML BAG 100 MG IVPB ×4 (04:02→22:45)
[2024-03-12 04:46] LABS: Hematocrit 26.7 % (42.0-52.0); Hemoglobin 8.8 g/dL (14.0-18.0); Mean Corpuscular Hemoglobin 31.5 pg (26-34); Mean Corpuscular Volume 95.7 fl (80-100); Mean Platelet Volume 9.6 fl (7.4-10.4); Platelet Count Result 155 k/mm3 (150-375); Red Blood Count 2.79 M/mm3 (4.6-6.20); Red Cell Distribution Width 15.9 % (11.5-14.5); White Blood Count 12.5 K/mm3 (4.5-10.0)
[2024-03-12 05:01] LABS: Alanine Aminotransferase 8 U/L (6-50); Albumin Level 2.7 g/dL (3.5-5.1); Alkaline Phosphatase 62 U/L (38-126); Anion Gap 4 mmol/L (4-12); Aspartate Amino Transferase 22 U/L (17-59); Bilirubin,Total 0.8 mg/dL (0.2-1.3); Blood Urea Nitrogen 27 mg/dL (9-20); Calcium 7.7 mg/dL (8.4-10.2); Carbon Dioxide 23 mmol/L (22-30); Chloride 114 mmol/L (98-107); Estimated CRCL calculation 48 ml/min; Estimated Glomerular Filt Rate > 60; Glucose 111 mg/dL (65-110); Potassium 4.2 mmol/L (3.4-5.0); Sodium 141 mmol/L (137-145)
[2024-03-12] MEDS: MORPHINE SULFATE (*CRX) 2 MG/ML INJ IV PUSH (07:06)
--- NOTE | 2024-03-12 07:12 | PM.PNORT ---
Progress Note: A&P Assessment and Plan (1) Intertrochanteric fracture of left hip: Code(s): S72.142A - Displaced intertrochanteric fracture of left femur, initial encounter for closed fracture Status: Acute Assessment and Plan: Patient is status postop reduction internal fixation right intertrochanteric fracture of the left hip. From that standpoint he is doing okay. He also has sacral fracture and pubic ramus fractures on the right. He is complaining of some mild pain there. I his main problems appear to be medical at this point he is confused he has tachycardia. Will follow along for his orthopedic problems. His hemoglobin is stable at 8.8 and his dressing is intact. Subjective Subjective Date/Time Seen: 03/12/24 07:12 Post Op day: 3 Principal diagnosis: Intertrochanteric fracture left hip. Review of Systems Musculoskeletal: Musculoskeletal: Reports back pain, Reports arthralgias, Reports joint swelling and Reports stiffness Exam Narrative: Patient can wiggle his toes. His dressing is intact. Patient is confused. Objective Data Vital Signs Vital Signs: Vital Signs - 24 hr 03/11/24 07:52 03/11/24 08:40 03/11/24 08:40 Temperature Pulse Rate 94 78 Respiratory Rate 20 Blood Pressure 118/52 L Pulse Oximetry 94 Oxygen Delivery Nasal Cannula Oxygen Flow Rate 2 Fraction of Inspired Oxygen 03/11/24 09:32 03/11/24 10:07 03/11/24 10:27 Temperature 97.4 F L 97.4 F L 97.2 F L Pulse Rate 140 H 140 H 140 H Respiratory Rate 20 20 20 Blood Pressure 109/57 L 109/57 L 98/62 L Pulse Oximetry 94 94 97 Oxygen Delivery Oxygen Flow Rate Fraction of Inspired Oxygen 03/11/24 11:26 03/11/24 11:27 03/11/24 11:33 Temperature 98.3 F 98.3 F 98.3 F Pulse Rate 94 92 90 Respiratory Rate 18 18 18 Blood Pressure 127/56 L 127/56 L 127/56 L Pulse Oximetry 97 97 96 Oxygen Delivery Oxygen Flow Rate Fraction of Inspired Oxygen 03/11/24 12:27 03/11/24 13:26 03/11/24 13:21 Temperature 98.3 F 98.1 F Pulse Rate 88 134 H Respiratory Rate 18 20 18 Blood Pressure 96/49 L 96/52 L Pulse Oximetry 98 98 Oxygen Delivery Oxygen Flow Rate Fraction of Inspired Oxygen 03/11/24 13:32 03/11/24 16:41 03/11/24 12:00 Temperature 98.9 F Pulse Rate 131 H 85 140 H Respiratory Rate 20 18 Blood Pressure 160/74 H Pulse Oximetry 97 Oxygen Delivery Oxygen Flow Rate Fraction of Inspired Oxygen 03/11/24 14:00 03/11/24 16:00 03/11/24 12:00 Temperature Pulse Rate 88 87 Respiratory Rate Blood Pressure Pulse Oximetry 98 Oxygen Delivery Nasal Cannula Oxygen Flow Rate 2 Fraction of Inspired Oxygen 03/11/24 16:00 03/11/24 18:00 03/11/24 19:24 Temperature 99.1 F Pulse Rate 142 H 82 Respiratory Rate 18 Blood Pressure 101/49 L Pulse Oximetry 97 96 Oxygen Delivery Nasal Cannula Oxygen Flow Rate 2 Fraction of Inspired Oxygen 03/11/24 20:03 03/11/24 20:04 03/11/24 22:50 Temperature 98.8 F Pulse Rate 139 H 107 H Respiratory Rate 20 16 Blood Pressure 143/66 H Pulse Oximetry 93 96 Oxygen Delivery Nasal Cannula Oxygen Flow Rate 3 Fraction of Inspired Oxygen 03/11/24 23:09 03/12/24 00:09 03/11/24 20:00 Temperature 98.7 F 97.8 F Pulse Rate 100 103 H Respiratory Rate 16 18 Blood Pressure 158/83 H 167/67 H Pulse Oximetry 98 98 95 Oxygen Delivery Nasal Cannula Oxygen Flow Rate 3 Fraction of Inspired Oxygen 03/12/24 00:00 03/12/24 00:00 03/12/24 02:00 Temperature Pulse Rate 101 H 95 Respiratory Rate Blood Pressure Pulse Oximetry 95 Oxygen Delivery Nasal Cannula Oxygen Flow Rate 3 Fraction of Inspired Oxygen 03/12/24 01:09 03/12/24 00:00 03/12/24 01:55 Temperature 98.3 F 97.8 F 98.6 F Pulse Rate 94 103 H 96 Respiratory Rate 18 18 20 Blood Pressure 143/76 H 167/67 H 115/79 Pulse Oximetry 92 98 95 Oxygen Delivery Oxygen Flow Rate Fra
--- NOTE | 2024-03-12 07:35 | PCRTNOTE ---
pt. unable to do MDI properly at this time. not given.
[2024-03-12] MEDS: dilTIAZem 100 MG/100 ML 100 MG/100 ML BAG IV CONT (07:53)
--- NOTE | 2024-03-12 08:10 | PCPTNOTE ---
Patient not medically appropriate to see for PT at this time due to HR in the 160's. PT will continue to follow per plan of care.
--- NOTE | 2024-03-12 08:49 | PCOTNOTE ---
The patient treatment was not able to be completed. HR to high; RN hold for AM. will follow up in PM. Will plan to continue treatment per plan of care.
--- NOTE | 2024-03-12 09:03 | PC.NURSE ---
[employer] food maker spoke with contract lead luggage maker for orders for a diltiazem drip. Pt to restart verapamil today, verbal orders from Dr. Rooney to hold at this time.
--- NOTE | 2024-03-12 09:29 | PM.IMPN ---
Progress Note: A&P Assessment and Plan (1) Anemia associated with acute blood loss: Code(s): D62 - Acute posthemorrhagic anemia Status: Acute (2) Hematoma complicating a procedure: Status: Acute (3) Acute respiratory failure with hypoxia: Code(s): J96.01 - Acute respiratory failure with hypoxia Status: Acute (4) Fall: Code(s): W19.XXXA - Unspecified fall, initial encounter Status: Acute (5) Parkinsons disease: Code(s): G20.A1 - Parkinson's disease without dyskinesia, without mention of fluctuations Status: Acute (6) Hypertension: Code(s): I10 - Essential (primary) hypertension Status: Acute (7) Intertrochanteric fracture of left hip: Code(s): S72.142A - Displaced intertrochanteric fracture of left femur, initial encounter for closed fracture Status: Acute Plan This is a pleasantly confused 88-year-old male with a past medical history hypertension, dementia, Parkinson's disease who presented to the [facility] after a fall. He was admitted on 03/08 and on 03/09 underwent an open reduction internal fixation with a trochanteric nail of the left hip With Dr. Tim MD. his postop course complicated by acute on chronic anemia and a hematoma of the left hip and thigh. Acute hypoxic respiratory failure -likely due to operative atelectasis and anemia -CTA negative for PE -small pleural effusion -continue incentive spirometer -he has some mild expiratory wheezing. Initially DuoNebs was instituted. Changed to ipratropium nebs scheduled considering his tachycardia -he also had an episode of vomiting although at this point he was already on oxygen. Cefepime and Flagyl have been started. Acute on chronic anemia -large drop in hemoglobin perioperatively. Associated with tachycardia and hypotension. -status post 1 unit PRBC and albumin IV PB -aspirin and Xarelto stopped. -hematoma of the left hip identified on CT. Binder to abdomen an Chester wrap of the left hip. Continue to trend hemoglobin. -neurovascular checks q.2 hours. Fall at home/left hip fracture -postop ORIF on 03/09. -continue therapy Atrial flutter versus atrial tachycardia -cardiology has been consulted. On 03/12 placed on 10 mg of diltiazem IV -anticoagulation after his anemia has stabilized per Cardiology. -holding verapamil -surface echo pending FEN: Saline lock IV. Diet as tolerated GI prophylaxis: Protonix daily DVT prophylaxis: SCDs. Holding Xarelto Lines: Peripheral IV Code Status: Full code Dispo: Stable in IMU. Cardiology consulted. Orthopedic surgery following Subjective Date/time seen: 03/12/24 09:29 Interval history: No acute overnight events. Patient was placed on diltiazem 5 milligrams/hour. Denies any pain or complaints. Review of Systems Review of Systems: All systems reviewed & are unremarkable except as noted in HPI and below (Subjective) Exam Const: General: comfortable and no acute distress Other: Pleasantly confused Neck: Neck: supple Resp: Effort & Inspection: normal respiratory effort Auscultation: wheezes (Mild expiratory) Cardio: Rate: tachycardic Rhythm: regular rhythm Heart sounds: no gallops, no murmurs and no rubs GI: GI Palp: Yes Soft to palpation and No Tenderness to palpation present (GI) Extrem: Other: Edema of the left and lateral anterior thigh with associated ecchymosis Objective Data Vital Signs Vital Signs: Vital Signs - 24 hr 03/11/24 09:32 03/11/24 10:07 03/11/24 10:27 Temperature 97.4 F L 97.4 F L 97.2 F L Pulse Rate 140 H 140 H 140 H Respiratory Rate 20 20 20 Blood Pressure 109/57 L 109/57 L 98/62 L Pulse Oximetry 94 94 97 Oxygen Delivery Oxygen Flow Rate 03/11/24 11:26 03/11/24 11:27 03/11/24 11:33 Temperature 98.3 F 98.3 F 98.3 F Pulse Rate 94 92 90 Respiratory Rate 18 18 18 Blood Pressure 127/56 L 127/56 L 127/56 L Pulse Oximetry 97 97 96 Oxygen Delivery
--- NOTE | 2024-03-12 09:41 | ECG_ITS ---
SEE SCANNED COPY FOR CONFIRMED REPORT. MTDD
[2024-03-12] MEDS: HYDROcodone/acetaminophen (*CRX) 5-325 MG TABLET 1 TAB PO ×2 (09:48→17:23)
--- NOTE | 2024-03-12 09:48 | PM.PNCARD ---
Progress Note: A&P Assessment and Plan (1) Atrial flutter: Qualifiers: Atrial flutter type: atypical Qualified Code(s): I48.4 - Atypical atrial flutter Code(s): I48.92 - Unspecified atrial flutter Status: Acute Assessment and Plan: Paroxysmal atrial flutter Status post hip surgery Parkinsonism Hypertension controlled Plan Verapamil has been discontinued in favor of diltiazem. Increase gtt to 10mg/hr Add IV metoprolol PRN and will give one dose of oral metoprolol now Increase Xarelto to 15 mg daily when risk of bleeding is low Transthoracic echocardiogram pending Subjective Date/time seen: 03/12/24 09:48 Interval history: Cardiology follow up for tachycardia He has been tachycardic in the 150's - 160's since about 0, and had intermittent tachycardia throughout the night prior to that time. He is not complaining of palpitations, or chest pain but does feel more short of breath than usual. Complaining of back pain. Review of Systems Review of Systems: All systems reviewed & are unremarkable except as noted in HPI and below Exam Const: General: comfortable and no acute distress Other: Able to lie flat Eyes: Pupils: Equal, round and reactive pupils present Neck: Neck: supple and no JVD Carotids: no bruits Resp: Auscultation: clear to auscultation bilaterally and lung sounds not diminished Other: No chest wall tenderness Cardio: Rate: tachycardic Rhythm: abnormal rhythm irregularly irregular Heart sounds: no gallops, no murmurs and no rubs GI: Auscultation: normal bowel sounds Skin: General skin exam: normal color, rashes and/or lesions noted and no erythema Other: Warm Neuro: Cranial nerves: Yes Equal, round and reactive pupils present Speech: normal speech Other: No obvious focal deficit or facial asymmetry Extrem: General: no edema Other: Normal capillary refills Intact distal pulses. Objective Data Vital Signs Vital Signs: Vital Signs - 24 hr 03/11/24 10:07 03/11/24 10:27 03/11/24 11:26 Temperature 36.3 C L 36.2 C L 36.8 C Pulse Rate 140 H 140 H 94 Respiratory Rate 20 20 18 Blood Pressure 109/57 L 98/62 L 127/56 L Pulse Oximetry 94 97 97 Oxygen Delivery Oxygen Flow Rate 03/11/24 11:27 03/11/24 11:33 03/11/24 12:27 Temperature 36.8 C 36.8 C 36.8 C Pulse Rate 92 90 88 Respiratory Rate 18 18 18 Blood Pressure 127/56 L 127/56 L 96/49 L Pulse Oximetry 97 96 98 Oxygen Delivery Oxygen Flow Rate 03/11/24 13:26 03/11/24 13:21 03/11/24 13:32 Temperature 36.7 C Pulse Rate 134 H 131 H Respiratory Rate 20 18 20 Blood Pressure 96/52 L Pulse Oximetry 98 Oxygen Delivery Oxygen Flow Rate 03/11/24 16:41 03/11/24 12:00 03/11/24 14:00 Temperature 37.2 C Pulse Rate 85 140 H 88 Respiratory Rate 18 Blood Pressure 160/74 H Pulse Oximetry 97 Oxygen Delivery Oxygen Flow Rate 03/11/24 16:00 03/11/24 12:00 03/11/24 16:00 Temperature Pulse Rate 87 Respiratory Rate Blood Pressure Pulse Oximetry 98 97 Oxygen Delivery Nasal Cannula Nasal Cannula Oxygen Flow Rate 2 2 03/11/24 18:00 03/11/24 19:24 03/11/24 20:03 Temperature 37.3 C Pulse Rate 142 H 82 Respiratory Rate 18 Blood Pressure 101/49 L Pulse Oximetry 96 93 Oxygen Delivery Nasal Cannula Oxygen Flow Rate 3 03/11/24 20:04 03/11/24 22:50 03/11/24 23:09 Temperature 37.1 C 37.1 C Pulse Rate 139 H 107 H 100 Respiratory Rate 20 16 16 Blood Pressure 143/66 H 158/83 H Pulse Oximetry 96 98 Oxygen Delivery Oxygen Flow Rate 03/12/24 00:09 03/11/24 20:00 03/12/24 00:00 Temperature 36.6 C Pulse Rate 103 H Respiratory Rate 18 Blood Pressure 167/67 H Pulse Oximetry 98 95 95 Oxygen Delivery Nasal Cannula Nasal Cannula Oxygen Flow Rate 3 3 03/12/24 00:00 03/12/24 02:00 03/12/24 01:09 Temperature 36.8 C Pulse Rate 101 H 95 94 Respiratory Rate 18
[2024-03-12] MEDS: GABAPENTIN 100 MG CAPSULE PO ×3 (09:49→16:19)
[2024-03-12] MEDS: CARBIDOPA/LEVODOPA 25/100 MG CR TABLET 1 TABLET PO ×2 (09:49→16:18)
[2024-03-12] MEDS: ATORVASTATIN 40 MG TABLET PO (09:49)
[2024-03-12] MEDS: MONTELUKAST SODIUM 10 MG TABLET PO (09:49)
[2024-03-12] MEDS: PANTOPRAZOLE SODIUM IV 40 MG VIAL IV PUSH (09:49)
[2024-03-12] MEDS: MEMANTINE 10 MG TABLET PO ×2 (09:49→20:24)
[2024-03-12] MEDS: SENNA/DOCUSATE SODIUM TABLET 2 TAB PO ×2 (09:49→16:18)
[2024-03-12] MEDS: DONEPEZIL HCL 10 MG TABLET PO (09:49)
[2024-03-12] MEDS: polyethylene glycoL 3350 17 GM POWD.PACK PO (09:49)
[2024-03-12] MEDS: METOPROLOL TARTRATE INJ 5 MG/5 ML VIAL IV PUSH ×2 (11:26→22:45)
[2024-03-12] MEDS: PERFLUTREN LIPID MICROSPHERES 1.5 ML VIAL DILUTED TO 10 ML TOTAL VOLUME IV PUSH (12:30)
[2024-03-12] MEDS: CEFEPIME 2 GM/NS 50 ML 2 GM/50 ML BAG IVPB ×2 (12:35→20:23)
[2024-03-12] MEDS: ACETAMINOPHEN 325 MG TABLET 650 MG PO (12:36)
--- NOTE | 2024-03-12 12:52 | PC.NURSE ---
1225-This RN notified Vaishali Zepeda NP that the patient had converted from A-flutter to SR, HR sustaining in the 80's. Orders to hold the PO metoprolol and continue Cardizem at 10mg/hr.
--- NOTE | 2024-03-12 13:59 | IVDEFINITY ---
Prior to administration of IV Definity the patient was educated on the risks and benefits of the imaging enhancing agent including potential adverse side effects. The patient verbalized understanding. Allergies were verified. No exclusion criteria were identified and at least one of the following inclusion criteria were met: 1) physician request, 2) patient technically difficult to image (per the [place] [employer] guidelines of two or more segments not discernable within the apical view), or 3) questionable left ventricular function. ?
[2024-03-12] MEDS: IPRATROPIUM BR 0.02% INH SOLN 0.5 MG/2.5 ML VIAL INHALATION ×2 (14:43→20:51)
[2024-03-12] MEDS: dilTIAZem 100 MG/100 ML 100 MG/100 ML BAG 10 MG IV CONT (17:25)
[2024-03-12] MEDS: FLUTICASONE/SALMETEROL 45-21 MCG INHALER 1 PUFF 2 PUFF INHALATION (20:59)
[2024-03-13] VITALS (33 sets, daily range): BP systolic 117–177; BP diastolic 60–95; PULSE 74–105; RESP 16–24; TEMP 36.6–37.8; O2SAT 86–98
[2024-03-13] MEDS: dilTIAZem 100 MG/100 ML 100 MG/100 ML BAG 10 MG IV CONT ×2 (04:49→10:55)
[2024-03-13] MEDS: metroNIDAZOLE 500 MG/ISO 100ML 500 MG/100 ML BAG 100 MG IVPB ×2 (04:50→09:45)
[2024-03-13 04:56] LABS: Hematocrit 27.1 % (42.0-52.0); Hemoglobin 8.7 g/dL (14.0-18.0); Mean Corpuscular HGB Conc 32.1 g/dl (32-36); Mean Corpuscular Hemoglobin 31.3 pg (26-34); Mean Corpuscular Volume 97.5 fl (80-100); Mean Platelet Volume 9.4 fl (7.4-10.4); Platelet Count Result 174 k/mm3 (150-375); Red Blood Count 2.78 M/mm3 (4.6-6.20); Red Cell Distribution Width 16.1 % (11.5-14.5); White Blood Count 11.9 K/mm3 (4.5-10.0)
[2024-03-13 05:16] LABS: Alanine Aminotransferase 6 U/L (6-50); Albumin Level 2.9 g/dL (3.5-5.1); Alkaline Phosphatase 69 U/L (38-126); Anion Gap 7 mmol/L (4-12); Aspartate Amino Transferase 22 U/L (17-59); Bilirubin,Total 0.9 mg/dL (0.2-1.3); Blood Urea Nitrogen 31 mg/dL (9-20); Calcium 7.9 mg/dL (8.4-10.2); Carbon Dioxide 21 mmol/L (22-30); Chloride 113 mmol/L (98-107); Estimated CRCL calculation 50 ml/min; Estimated Glomerular Filt Rate > 60; Glucose 125 mg/dL (65-110); Potassium 4.1 mmol/L (3.4-5.0); Sodium 141 mmol/L (137-145)
[2024-03-13] MEDS: IPRATROPIUM BR 0.02% INH SOLN 0.5 MG/2.5 ML VIAL INHALATION ×3 (07:41→20:01)
[2024-03-13] MEDS: FLUTICASONE/SALMETEROL 45-21 MCG INHALER 1 PUFF 2 PUFF INHALATION ×2 (07:41→20:01)
[2024-03-13] MEDS: SENNA/DOCUSATE SODIUM TABLET 2 TAB PO ×2 (09:15→17:43)
[2024-03-13] MEDS: GABAPENTIN 100 MG CAPSULE PO ×3 (09:17→17:43)
[2024-03-13] MEDS: DONEPEZIL HCL 10 MG TABLET PO (09:18)
[2024-03-13] MEDS: ATORVASTATIN 40 MG TABLET PO (09:18)
[2024-03-13] MEDS: MEMANTINE 10 MG TABLET PO ×2 (09:18→20:30)
[2024-03-13] MEDS: MONTELUKAST SODIUM 10 MG TABLET PO (09:18)
[2024-03-13] MEDS: CEFEPIME 2 GM/NS 50 ML 2 GM/50 ML BAG IVPB (09:28)
[2024-03-13] MEDS: CARBIDOPA/LEVODOPA 25/100 MG CR TABLET 1 TABLET PO ×2 (09:28→17:33)
[2024-03-13] MEDS: polyethylene glycoL 3350 17 GM POWD.PACK PO (09:29)
[2024-03-13] MEDS: PANTOPRAZOLE SODIUM IV 40 MG VIAL IV PUSH (09:29)
--- NOTE | 2024-03-13 10:41 | PM.PNCARD ---
Progress Note: A&P Assessment and Plan (1) Atrial flutter: Qualifiers: Atrial flutter type: atypical Qualified Code(s): I48.4 - Atypical atrial flutter Code(s): I48.92 - Unspecified atrial flutter Status: Acute Assessment and Plan: Paroxysmal atrial flutter Status post hip surgery Parkinsonism Hypertension controlled Plan Verapamil has been discontinued in favor of diltiazem. Continue gtt @ 10mg/hr Add IV metoprolol PRN and will give one dose of oral metoprolol now Would prefer to use amiodarone in this situation, but as he is unable to be anticoagulated right now (despite stroke risk being very low) will continue with rate control. Increase Xarelto to 15 mg daily when risk of bleeding is low Transthoracic echocardiogram showed normal EF Continue telemetry Subjective Date/time seen: 03/13/24 10:41 Interval history: Cardiology follow up for atrial flutter Date of service 03/13/24: Has intermittent RVR in the 160's. Not feeling any palpitations, chest pain. Review of Systems Review of Systems: All systems reviewed & are unremarkable except as noted in HPI and below Exam Const: General: comfortable and no acute distress Other: Able to lie flat Eyes: Pupils: Equal, round and reactive pupils present Neck: Neck: supple and no JVD Carotids: no bruits Resp: Auscultation: clear to auscultation bilaterally and lung sounds not diminished Other: No chest wall tenderness Cardio: Rate: regular rate and tachycardic Rhythm: regular rhythm and abnormal rhythm irregularly irregular Heart sounds: no gallops, no murmurs and no rubs GI: Auscultation: normal bowel sounds Skin: General skin exam: normal color, rashes and/or lesions noted and no erythema Other: Warm Neuro: Cranial nerves: Yes Equal, round and reactive pupils present Speech: normal speech Other: No obvious focal deficit or facial asymmetry Extrem: General: no edema Other: Normal capillary refills Intact distal pulses. Objective Data Vital Signs Vital Signs: Vital Signs - 24 hr 03/12/24 10:57 03/12/24 11:26 03/12/24 12:36 Temperature 37.8 C H 37.8 C H Pulse Rate 116 H 156 H Respiratory Rate 21 H Blood Pressure 123/52 L Pulse Oximetry 95 Oxygen Delivery Oxygen Flow Rate 03/12/24 12:55 03/12/24 12:00 03/12/24 12:00 Temperature Pulse Rate 131 H 131 H Respiratory Rate Blood Pressure 123/52 L Pulse Oximetry 95 Oxygen Delivery Nasal Cannula Oxygen Flow Rate 3 03/12/24 14:00 03/12/24 14:43 03/12/24 14:52 Temperature Pulse Rate 75 78 75 Respiratory Rate 18 18 Blood Pressure Pulse Oximetry Oxygen Delivery Oxygen Flow Rate 03/12/24 14:52 03/12/24 14:00 03/12/24 12:30 Temperature 36.6 C Pulse Rate 73 70 78 Respiratory Rate 22 H Blood Pressure 102/50 L 102/50 L Pulse Oximetry 96 Oxygen Delivery Oxygen Flow Rate 03/12/24 16:00 03/12/24 16:00 03/12/24 16:00 Temperature 36.7 C Pulse Rate 74 73 Respiratory Rate 18 Blood Pressure 106/49 L Pulse Oximetry 94 94 Oxygen Delivery Nasal Cannula Oxygen Flow Rate 3 03/12/24 16:00 03/12/24 17:25 03/12/24 17:25 Temperature Pulse Rate 74 83 82 Respiratory Rate Blood Pressure 106/49 L Pulse Oximetry Oxygen Delivery Oxygen Flow Rate 03/12/24 18:00 03/12/24 18:00 03/12/24 18:37 Temperature Pulse Rate 78 87 78 Respiratory Rate Blood Pressure 116/60 116/60 Pulse Oximetry Oxygen Delivery Oxygen Flow Rate 03/12/24 19:42 03/12/24 20:52 03/12/24 20:52 Temperature 36.9 C Pulse Rate 77 77 77 Respiratory Rate 18 18 Blood Pressure 105/56 L Pulse Oximetry 99 93 Oxygen Delivery Nasal Cannula Oxygen Flow Rate 3 03/12/24 20:59 03/12/24 21:59 03/12/24 22:45 Temperature 36.7 C Pulse Rate 73 79 142 H Respiratory Rate 18 18 Blood Pressure 134/60 Pulse Oximetry 94 Oxygen Deliver
--- NOTE | 2024-03-13 10:43 | PM.IMPN ---
Progress Note: A&P Assessment and Plan (1) Anemia associated with acute blood loss: Code(s): D62 - Acute posthemorrhagic anemia Status: Acute (2) Hematoma complicating a procedure: Status: Acute (3) Acute respiratory failure with hypoxia: Code(s): J96.01 - Acute respiratory failure with hypoxia Status: Acute (4) Fall: Code(s): W19.XXXA - Unspecified fall, initial encounter Status: Acute (5) Parkinsons disease: Code(s): G20.A1 - Parkinson's disease without dyskinesia, without mention of fluctuations Status: Acute (6) Hypertension: Code(s): I10 - Essential (primary) hypertension Status: Acute (7) Intertrochanteric fracture of left hip: Code(s): S72.142A - Displaced intertrochanteric fracture of left femur, initial encounter for closed fracture Status: Acute Plan This is a pleasantly confused 88-year-old male with a past medical history hypertension, dementia, Parkinson's disease, neuropathy who presented to the [place] [facility] after a fall. He was admitted on 03/08 and on 03/09 underwent an open reduction internal fixation with a trochanteric nail of the left hip With Dr. Tim MD. his postop course complicated by acute on chronic anemia and a hematoma of the left hip and thigh. Acute hypoxic respiratory failure -likely due to operative atelectasis and anemia and suspected aspiration pneumonia -CTA negative for PE -small pleural effusion -continue incentive spirometer -he has some mild expiratory wheezing. Initially DuoNebs was instituted. Changed to ipratropium nebs scheduled considering his tachycardia -he also had an episode of vomiting although at this point he was already on oxygen. Cefepime and Flagyl have been started. -due to aspiration pneumonia and witnessed choking a speech evaluation has been ordered. Acute on chronic anemia -large drop in hemoglobin perioperatively. Associated with tachycardia and hypotension. -status post 1 unit PRBC and albumin IV PB -aspirin and Xarelto stopped. -hematoma of the left hip identified on CT. Binder to abdomen an Chester wrap of the left hip. Continue to trend hemoglobin. -neurovascular checks q.2 hours. Fall at home/left hip fracture -postop ORIF on 03/09. -continue therapy Atrial flutter -cardiology has been consulted. On 03/12 placed on 10 mg of diltiazem IV -heart/rhythm control and anticoagulation decisions with Cardiology -holding verapamil -surface echo pending FEN: Saline lock IV. Diet recommendations pending a speech therapy evaluation GI prophylaxis: Protonix daily DVT prophylaxis: SCDs. Holding Xarelto Lines: Peripheral IV Code Status: Full code Dispo: Stable in IMU. Orthopedic surgery following, cardiology consulted. Speech therapy consulted. SNF being arranged for rehab when medically clear. Subjective Date/time seen: 03/13/24 10:43 Interval history: No acute overnight events. Patient's 2 family members are at bedside have no concerns. A thorough discussion was had about the patient's status and the treatment and they were in understanding and agreement. The patient himself is in a slumber after an intense therapy session. He is awoken and denies any complaints. Review of Systems Review of Systems: All systems reviewed & are unremarkable except as noted in HPI and below (Subjective) Exam Const: General: comfortable and no acute distress Eyes: Pupils: Equal, round and reactive pupils present Neck: Neck: supple Resp: Effort & Inspection: normal respiratory effort Auscultation: clear to auscultation bilaterally and wheezes Cardio: Rate: regular rate Rhythm: regular rhythm Heart sounds: no gallops, no murmurs and no rubs GI: GI Palp: Yes Soft to palpation and No Tenderness to palpation present (GI) Extrem: General: edema (Ecchymosis and edema of the subcutaneous tissue surrounding the hip left up) Objective Data Vital Signs Vital Signs: Vi
[2024-03-13] MEDS: METOPROLOL TARTRATE 25 MG TABLET PO ×2 (13:02→20:30)
--- NOTE | 2024-03-13 13:48 | PCSTNOTE ---
Please refer to the Bedside Swallow Evaluation in the EMR. Please note, silent aspiration cannot be ruled out at bedside.
[2024-03-13] MEDS: HYDROcodone/acetaminophen (*CRX) 5-325 MG TABLET 1 TAB PO (20:25)
[2024-03-13] MEDS: AMPICILLIN SULB 3 GM/NS 100 ML 3 GM/100 ML VIAL IVPB (20:26)
[2024-03-13] MEDS: BUMETANIDE INJ 1 MG/4 ML VIAL IV PUSH (20:31)
[2024-03-13] MEDS: IPRATROPIUM 0.5 MG/ALBUTEROL SULFATE 2.5 MG AMPUL.NEB 3 ML INHALATION (23:35)
[2024-03-14] VITALS (35 sets, daily range): BP systolic 109–180; BP diastolic 61–96; PULSE 67–148; RESP 16–24; TEMP 36.4–36.8; O2SAT 93–100
[2024-03-14] MEDS: AMPICILLIN SULB 3 GM/NS 100 ML 3 GM/100 ML VIAL IVPB ×4 (00:17→19:30)
[2024-03-14] MEDS: HYDROcodone/acetaminophen (*CRX) 5-325 MG TABLET 1 TAB PO ×2 (00:22→21:46)
[2024-03-14] MEDS: dilTIAZem 100 MG/100 ML 100 MG/100 ML BAG 10 MG IV CONT (00:24)
[2024-03-14 04:38] LABS: Hematocrit 27.2 % (42.0-52.0); Hemoglobin 8.7 g/dL (14.0-18.0); Mean Corpuscular Hemoglobin 31.4 pg (26-34); Mean Corpuscular Volume 98.2 fl (80-100); Mean Platelet Volume 9.6 fl (7.4-10.4); Platelet Count Result 186 k/mm3 (150-375); Red Blood Count 2.77 M/mm3 (4.6-6.20); Red Cell Distribution Width 15.7 % (11.5-14.5); White Blood Count 10.4 K/mm3 (4.5-10.0)
[2024-03-14 04:50] LABS: Albumin Level 2.7 g/dL (3.5-5.1); Alkaline Phosphatase 65 U/L (38-126); Anion Gap 5 mmol/L (4-12); Aspartate Amino Transferase 23 U/L (17-59); Bilirubin,Total 0.8 mg/dL (0.2-1.3); Blood Urea Nitrogen 26 mg/dL (9-20); Carbon Dioxide 23 mmol/L (22-30); Chloride 113 mmol/L (98-107); Estimated CRCL calculation 55 ml/min; Estimated Glomerular Filt Rate > 60; Glucose 118 mg/dL (65-110); Magnesium 2.1 mg/dL (1.6-2.3); Potassium 3.7 mmol/L (3.4-5.0); Sodium 141 mmol/L (137-145)
[2024-03-14] MEDS: IPRATROPIUM 0.5 MG/ALBUTEROL SULFATE 2.5 MG AMPUL.NEB 3 ML INHALATION ×6 (04:53→23:26)
[2024-03-14 05:22] LABS: Alanine Aminotransferase < 6 U/L (6-50)
--- NOTE | 2024-03-14 07:21 | PM.PNORT ---
Progress Note: A&P Assessment and Plan (1) Intertrochanteric fracture of left hip: Code(s): S72.142A - Displaced intertrochanteric fracture of left femur, initial encounter for closed fracture Status: Acute Assessment and Plan: S/P ORIF Hip Fracture. Slow progress complicated by age and medical issues. Will need Placement Subjective Subjective Date/Time Seen: 03/14/24 07:21 Post Op day: 5 Principal diagnosis: Hip Fracture Review of Systems Musculoskeletal: Musculoskeletal: Reports back pain, Reports arthralgias, Reports joint swelling and Reports stiffness Exam Narrative: Wiggles toes. Confused. Objective Data Vital Signs Vital Signs: Vital Signs - 24 hr 03/13/24 07:36 03/13/24 07:42 03/13/24 07:42 Temperature 100.0 F H Pulse Rate 74 90 Respiratory Rate 20 22 H Blood Pressure 152/88 H Pulse Oximetry 94 93 Oxygen Delivery Nasal Cannula Oxygen Flow Rate 4 03/13/24 07:51 03/13/24 10:00 03/13/24 08:00 Temperature 99.4 F Pulse Rate 94 90 95 Respiratory Rate 22 H 24 H Blood Pressure 138/63 Pulse Oximetry 96 Oxygen Delivery Oxygen Flow Rate 03/13/24 08:00 03/13/24 10:55 03/13/24 08:00 Temperature Pulse Rate 92 90 Respiratory Rate Blood Pressure 133/86 Pulse Oximetry 95 Oxygen Delivery Nasal Cannula Oxygen Flow Rate 3 03/13/24 11:56 03/13/24 10:00 03/13/24 12:00 Temperature 99.5 F Pulse Rate 80 98 Respiratory Rate 20 Blood Pressure 117/70 Pulse Oximetry 97 95 Oxygen Delivery Nasal Cannula Oxygen Flow Rate 2 03/13/24 13:02 03/13/24 13:10 03/13/24 14:00 Temperature 98.9 F Pulse Rate 99 91 84 Respiratory Rate 20 24 H Blood Pressure 145/63 H Pulse Oximetry 95 Oxygen Delivery Oxygen Flow Rate 03/13/24 15:58 03/13/24 12:00 03/13/24 14:00 Temperature 100.0 F H Pulse Rate 96 96 92 Respiratory Rate 24 H Blood Pressure 148/60 H Pulse Oximetry 96 Oxygen Delivery Oxygen Flow Rate 03/13/24 12:00 03/13/24 14:00 03/13/24 16:00 Temperature Pulse Rate 86 98 Respiratory Rate Blood Pressure 117/70 145/63 H Pulse Oximetry 94 Oxygen Delivery Nasal Cannula Oxygen Flow Rate 2 03/13/24 18:00 03/13/24 16:00 03/13/24 18:00 Temperature 99.1 F Pulse Rate 98 98 98 Respiratory Rate 24 H Blood Pressure 177/75 H Pulse Oximetry 97 Oxygen Delivery Oxygen Flow Rate 03/13/24 20:30 03/13/24 19:59 03/13/24 20:02 Temperature 98.2 F Pulse Rate 95 105 H 85 Respiratory Rate 20 20 Blood Pressure 166/71 H Pulse Oximetry 88 L Oxygen Delivery Oxygen Flow Rate 03/13/24 20:16 03/13/24 20:22 03/13/24 22:00 Temperature 98 F Pulse Rate 105 H 81 Respiratory Rate 20 16 Blood Pressure 144/92 H Pulse Oximetry 93 90 Oxygen Delivery Nasal Cannula Oxygen Flow Rate 3 03/13/24 23:37 03/13/24 23:44 03/14/24 00:24 Temperature Pulse Rate 88 81 89 Respiratory Rate 20 20 Blood Pressure Pulse Oximetry Oxygen Delivery Oxygen Flow Rate 03/14/24 00:24 03/14/24 00:00 03/14/24 01:58 Temperature 97.7 F 97.6 F Pulse Rate 89 77 76 Respiratory Rate 16 16 Blood Pressure 134/72 140/70 Pulse Oximetry 99 98 Oxygen Delivery Oxygen Flow Rate 03/13/24 20:00 03/13/24 22:00 03/14/24 00:00 Temperature Pulse Rate 94 92 83 Respiratory Rate Blood Pressure Pulse Oximetry Oxygen Delivery Oxygen Flow Rate 03/14/24 01:58 03/13/24 20:00 03/13/24 22:00 Temperature Pulse Rate 74 94 92 Respiratory Rate Blood Pressure Pulse Oximetry Oxygen Delivery Oxygen Flow Rate 03/14/24 00:00 03/14/24 02:00 03/13/24 20:00 Temperature Pulse Rate 83 74 Respiratory Rate Blood Pressure Pulse Oximetry 86 L Oxygen Delivery Nasal Cannula Oxygen Flow Rate 2 03/14/24 00:00 03/14/24 03:15 03/14/24 04:00 Temperature 97.8 F Pulse Rate 70 Respiratory Rate 16 Bloo
[2024-03-14] MEDS: FLUTICASONE/SALMETEROL 45-21 MCG INHALER 1 PUFF 2 PUFF INHALATION ×2 (07:54→20:31)
--- NOTE | 2024-03-14 09:40 | PM.PNCARD ---
Progress Note: A&P Assessment and Plan (1) Atrial flutter: Qualifiers: Atrial flutter type: atypical Qualified Code(s): I48.4 - Atypical atrial flutter Code(s): I48.92 - Unspecified atrial flutter Status: Acute Assessment and Plan: Paroxysmal atrial flutter Status post hip surgery Parkinsonism Hypertension controlled Plan Verapamil has been discontinued in favor of diltiazem. Will stop IV Diltiazem drip and switch to PO Diltiazem. Continue PO Metoprolol 25mg BID. Increase Xarelto to 20 mg daily when okay from a surgical standpoint. Cardiology will sign off at this time. Please call us back if needed. Will arrange outpatient follow up in our office. Subjective Date/time seen: 03/14/24 09:40 Interval history: Cardiology follow up for atrial flutter Has very brief and asymptomatic episodes of SVT overnight and this morning, tachyarrhythmia has acute onset and acute offset into sinus rhythm. Review of Systems Review of Systems: All systems reviewed & are unremarkable except as noted in HPI and below (HPI) Exam Const: General: comfortable and no acute distress Eyes: General: appearance normal, both eyes and all related structures Sclera: sclerae normal Neck: Neck: supple Resp: Effort & Inspection: normal respiratory effort Cardio: Rate: regular rate Rhythm: regular rhythm Skin: General skin exam: normal color Neuro: Speech: normal speech Psych: Mental Status: mental status grossly normal Affect: normal affect Objective Data Vital Signs Vital Signs: Vital Signs - 24 hr 03/13/24 10:00 03/13/24 10:55 03/13/24 11:56 Temperature 37.4 C 37.5 C Pulse Rate 90 90 80 Respiratory Rate 24 H 20 Blood Pressure 138/63 133/86 117/70 Pulse Oximetry 96 97 Oxygen Delivery Oxygen Flow Rate 03/13/24 10:00 03/13/24 12:00 03/13/24 13:02 Temperature Pulse Rate 98 99 Respiratory Rate Blood Pressure Pulse Oximetry 95 Oxygen Delivery Nasal Cannula Oxygen Flow Rate 2 03/13/24 13:10 03/13/24 14:00 03/13/24 15:58 Temperature 37.2 C 37.8 C H Pulse Rate 91 84 96 Respiratory Rate 20 24 H 24 H Blood Pressure 145/63 H 148/60 H Pulse Oximetry 95 96 Oxygen Delivery Oxygen Flow Rate 03/13/24 12:00 03/13/24 14:00 03/13/24 12:00 Temperature Pulse Rate 96 92 86 Respiratory Rate Blood Pressure 117/70 Pulse Oximetry Oxygen Delivery Oxygen Flow Rate 03/13/24 14:00 03/13/24 16:00 03/13/24 18:00 Temperature 37.3 C Pulse Rate 98 98 Respiratory Rate 24 H Blood Pressure 145/63 H 177/75 H Pulse Oximetry 94 97 Oxygen Delivery Nasal Cannula Oxygen Flow Rate 2 03/13/24 16:00 03/13/24 18:00 03/13/24 20:30 Temperature Pulse Rate 98 98 95 Respiratory Rate Blood Pressure Pulse Oximetry Oxygen Delivery Oxygen Flow Rate 03/13/24 19:59 03/13/24 20:02 03/13/24 20:16 Temperature 36.8 C Pulse Rate 105 H 85 Respiratory Rate 20 20 Blood Pressure 166/71 H Pulse Oximetry 88 L 93 Oxygen Delivery Nasal Cannula Oxygen Flow Rate 3 03/13/24 20:22 03/13/24 22:00 03/13/24 23:37 Temperature 36.6 C Pulse Rate 105 H 81 88 Respiratory Rate 20 16 20 Blood Pressure 144/92 H Pulse Oximetry 90 Oxygen Delivery Oxygen Flow Rate 03/13/24 23:44 03/14/24 00:24 03/14/24 00:24 Temperature Pulse Rate 81 89 89 Respiratory Rate 20 Blood Pressure Pulse Oximetry Oxygen Delivery Oxygen Flow Rate 03/14/24 00:00 03/14/24 01:58 03/13/24 20:00 Temperature 36.5 C 36.4 C Pulse Rate 77 76 94 Respiratory Rate 16 16 Blood Pressure 134/72 140/70 Pulse Oximetry 99 98 Oxygen Delivery Oxygen Flow Rate 03/13/24 22:00 03/14/24 00:00 03/14/24 01:58 Temperature Pulse Rate 92 83 74 Respiratory Rate Blood Pressure Pulse Oximetry Oxygen Delivery Oxygen Flow Rate 03/13/24 20:00 03/13/24 22:00 03/14/24 00:00 Temperature
[2024-03-14] MEDS: CARBIDOPA/LEVODOPA 25/100 MG CR TABLET 1 TABLET PO ×2 (09:46→19:30)
[2024-03-14] MEDS: DONEPEZIL HCL 10 MG TABLET PO (09:46)
[2024-03-14] MEDS: GABAPENTIN 100 MG CAPSULE PO ×3 (09:46→19:30)
[2024-03-14] MEDS: ATORVASTATIN 40 MG TABLET PO (09:46)
[2024-03-14] MEDS: MEMANTINE 10 MG TABLET PO ×2 (09:46→21:46)
[2024-03-14] MEDS: polyethylene glycoL 3350 17 GM POWD.PACK PO (09:47)
[2024-03-14] MEDS: SENNA/DOCUSATE SODIUM TABLET 2 TAB PO ×2 (09:47→19:30)
[2024-03-14] MEDS: METOPROLOL TARTRATE 25 MG TABLET PO ×2 (09:47→21:47)
[2024-03-14] MEDS: PANTOPRAZOLE SODIUM IV 40 MG VIAL IV PUSH (09:47)
[2024-03-14] MEDS: MONTELUKAST SODIUM 10 MG TABLET PO (09:47)
--- NOTE | 2024-03-14 10:26 | PM.IMPN ---
Progress Note: A&P Assessment and Plan (1) Anemia associated with acute blood loss: Code(s): D62 - Acute posthemorrhagic anemia Status: Acute (2) Hematoma complicating a procedure: Status: Acute (3) Acute respiratory failure with hypoxia: Code(s): J96.01 - Acute respiratory failure with hypoxia Status: Acute (4) Fall: Code(s): W19.XXXA - Unspecified fall, initial encounter Status: Acute (5) Parkinsons disease: Code(s): G20.A1 - Parkinson's disease without dyskinesia, without mention of fluctuations Status: Acute (6) Hypertension: Code(s): I10 - Essential (primary) hypertension Status: Acute (7) Intertrochanteric fracture of left hip: Code(s): S72.142A - Displaced intertrochanteric fracture of left femur, initial encounter for closed fracture Status: Acute Plan This is a pleasantly confused 88-year-old male with a past medical history hypertension, dementia, Parkinson's disease, neuropathy who presented to the [place] [facility] after a fall. He was admitted on 03/08 and on 03/09 underwent an open reduction internal fixation with a trochanteric nail of the left hip With Dr. Tim MD. his postop course complicated by acute on chronic anemia and a hematoma of the left hip and thigh. Acute hypoxic respiratory failure -likely due to operative atelectasis and anemia and suspected aspiration pneumonia -CTA negative for PE -small pleural effusion. BNP 1740 -continue incentive spirometer -he has some mild expiratory wheezing. Initially DuoNebs was instituted. Changed to ipratropium nebs scheduled considering his tachycardia -he also had an episode of vomiting although at this point he was already on oxygen. Cefepime and Flagyl have been started. -due to aspiration pneumonia and witnessed choking; ST eval noted and appreciated. -continue current abx. check CXR. Consider Lasix Acute on chronic anemia -large drop in hemoglobin perioperatively. Associated with tachycardia and hypotension. -status post 1 unit PRBC and albumin IV PB -aspirin and Xarelto stopped. -hematoma of the left hip identified on CT. Binder to abdomen an Chester wrap of the left hip. -Continue to trend hemoglobin. Fall at home/left hip fracture -postop ORIF on 03/09. -continue therapy Atrial flutter -cardiology has been consulted. On 03/12 placed on 10 mg of diltiazem IV -heart/rhythm control and anticoagulation decisions with Cardiology -holding verapamil -surface echo showing EF 70% and grade I diastolic dysfunction GI prophylaxis: Protonix daily DVT prophylaxis: SCDs. Holding Xarelto Lines: Peripheral IV Code Status: Full code Dispo: Stable in IMU. Orthopedic surgery following, cardiology consulted. Speech therapy consulted. SNF being arranged for rehab when medically clear. Subjective Date/time seen: 03/14/24 10:26 Interval history: 89yo male with dementia, HTN and Parkinson here for fall and left leg pain and found to have left hip fracture Assuming care. Chart reviewed. Patient is alert but confused so hx unreliable. He denies CP, SOB or cough. Review of Systems Review of Systems: ROS unobtainable: Yes unobtainable due to mental status Exam Narrative: Tm 100.0 97.5 180/80 96 22 93% 3L Gen - NARD sitting up in the chair Chest - decreased SB in the right base and left base crackles. nml RR CV - RRR S1/S2. Tele showing runs of narrow complex mostly regular w/o sawtooth Abd - Soft, NT/ND, Positive BS - scrotum ecchymosis with mild edema. Penile edema noted. Pérez secured with clear yellow urine in bag. Ext - Left hip dressing clean and dry. ecchymosis anterior left upper thigh tracking in to the groin. Esteban hose in place and no pedal edema Neuro - Alert but confused Psych - Nml mood and affect Skin - Warm and dry Objective Data Vital Signs Vital Signs: Vital Signs - 24 hr 03/13/24 10:55 03/13/24 11:56 03/13/24 12:00 Temperat
[2024-03-14] MEDS: dilTIAZem HCL CD 240 MG CAP.24HR PO (12:50)
[2024-03-15] VITALS (32 sets, daily range): BP systolic 135–185; BP diastolic 60–108; PULSE 67–105; RESP 18–24; TEMP 36.1–37.5; O2SAT 89–98
[2024-03-15] MEDS: AMPICILLIN SULB 3 GM/NS 100 ML 3 GM/100 ML VIAL IVPB ×4 (01:03→17:50)
[2024-03-15] MEDS: IPRATROPIUM 0.5 MG/ALBUTEROL SULFATE 2.5 MG AMPUL.NEB 3 ML INHALATION ×4 (03:00→20:17)
[2024-03-15 04:43] LABS: Hematocrit 25.5 % (42.0-52.0); Hemoglobin 8.3 g/dL (14.0-18.0); Mean Corpuscular HGB Conc 32.5 g/dl (32-36); Mean Corpuscular Hemoglobin 31.8 pg (26-34); Mean Corpuscular Volume 97.7 fl (80-100); Mean Platelet Volume 9.8 fl (7.4-10.4); Platelet Count Result 220 k/mm3 (150-375); Red Blood Count 2.61 M/mm3 (4.6-6.20); Red Cell Distribution Width 15.7 % (11.5-14.5); White Blood Count 10.2 K/mm3 (4.5-10.0)
[2024-03-15 05:02] LABS: Alanine Aminotransferase 6 U/L (6-50); Albumin Level 2.7 g/dL (3.5-5.1); Alkaline Phosphatase 66 U/L (38-126); Anion Gap 5 mmol/L (4-12); Aspartate Amino Transferase 24 U/L (17-59); Bilirubin,Total 0.9 mg/dL (0.2-1.3); Blood Urea Nitrogen 28 mg/dL (9-20); Calcium 8.1 mg/dL (8.4-10.2); Carbon Dioxide 25 mmol/L (22-30); Chloride 113 mmol/L (98-107); Estimated CRCL calculation 59 ml/min; Estimated Glomerular Filt Rate > 60; Glucose 110 mg/dL (65-110); Potassium 3.4 mmol/L (3.4-5.0); Sodium 143 mmol/L (137-145)
--- NOTE | 2024-03-15 07:13 | PM.PNORT ---
Progress Note: A&P Assessment and Plan (1) Intertrochanteric fracture of left hip: Code(s): S72.142A - Displaced intertrochanteric fracture of left femur, initial encounter for closed fracture Status: Acute Assessment and Plan: Slow post op course. Awaiting placement. Subjective Subjective Date/Time Seen: 03/15/24 07:13 Post Op day: 6 Principal diagnosis: Left Hip Fracture Review of Systems Review of Systems: ROS unobtainable: Yes unobtainable due to mental status Exam Narrative: Is up and around. Wiggles toes. Objective Data Vital Signs Vital Signs: Vital Signs - 24 hr 03/14/24 07:41 03/14/24 07:54 03/14/24 07:54 Temperature 97.5 F L Pulse Rate 74 85 Respiratory Rate 16 24 H Blood Pressure 180/80 H Pulse Oximetry 99 93 Oxygen Delivery Nasal Cannula Oxygen Flow Rate 3 03/14/24 08:02 03/14/24 09:47 03/14/24 12:08 Temperature Pulse Rate 80 96 81 Respiratory Rate 22 H 20 Blood Pressure Pulse Oximetry Oxygen Delivery Oxygen Flow Rate 03/14/24 12:20 03/14/24 12:00 03/14/24 16:00 Temperature 98.0 F 98.1 F Pulse Rate 88 148 H 79 Respiratory Rate 20 20 20 Blood Pressure 109/67 130/86 Pulse Oximetry 100 96 Oxygen Delivery Oxygen Flow Rate 03/14/24 16:43 03/14/24 16:50 03/14/24 08:00 Temperature Pulse Rate 72 72 86 Respiratory Rate 20 20 Blood Pressure Pulse Oximetry Oxygen Delivery Oxygen Flow Rate 03/14/24 08:00 03/14/24 10:00 03/14/24 12:00 Temperature Pulse Rate 75 82 Respiratory Rate Blood Pressure Pulse Oximetry 98 Oxygen Delivery Nasal Cannula Oxygen Flow Rate 2 03/14/24 12:00 03/14/24 14:00 03/14/24 16:00 Temperature Pulse Rate 72 72 Respiratory Rate Blood Pressure Pulse Oximetry 96 Oxygen Delivery Nasal Cannula Oxygen Flow Rate 2 03/14/24 16:00 03/14/24 18:00 03/14/24 19:57 Temperature 98.2 F Pulse Rate 80 75 Respiratory Rate 20 Blood Pressure 140/67 Pulse Oximetry 97 97 Oxygen Delivery Nasal Cannula Oxygen Flow Rate 2 03/14/24 20:31 03/14/24 20:32 03/14/24 21:47 Temperature Pulse Rate 83 94 Respiratory Rate 19 Blood Pressure Pulse Oximetry 94 Oxygen Delivery Nasal Cannula Oxygen Flow Rate 3 03/14/24 20:00 03/14/24 20:46 03/14/24 23:26 Temperature Pulse Rate 84 77 Respiratory Rate 19 18 Blood Pressure Pulse Oximetry 94 Oxygen Delivery Nasal Cannula Oxygen Flow Rate 3 03/14/24 23:34 03/14/24 20:00 03/14/24 22:00 Temperature Pulse Rate 79 78 94 Respiratory Rate 18 Blood Pressure Pulse Oximetry Oxygen Delivery Oxygen Flow Rate 03/14/24 23:48 03/15/24 00:38 03/15/24 00:00 Temperature 97.6 F Pulse Rate 84 95 Respiratory Rate 20 Blood Pressure 135/60 Pulse Oximetry 94 98 Oxygen Delivery Nasal Cannula Oxygen Flow Rate 3 03/15/24 01:53 03/15/24 03:01 03/15/24 03:13 Temperature Pulse Rate 94 81 83 Respiratory Rate 18 18 Blood Pressure Pulse Oximetry Oxygen Delivery Oxygen Flow Rate 03/15/24 03:57 03/15/24 04:00 03/15/24 04:25 Temperature 98.1 F Pulse Rate 76 74 Respiratory Rate 20 Blood Pressure 158/82 H Pulse Oximetry 98 94 Oxygen Delivery Nasal Cannula Oxygen Flow Rate 3 03/15/24 05:59 Temperature Pulse Rate 105 H Respiratory Rate Blood Pressure Pulse Oximetry Oxygen Delivery Oxygen Flow Rate Intake/Output Intake/Output: Intake & Output 03/12/24 03/13/24 03/14/24 03/15/24 23:59 23:59 23:59 23:59 Intake Total 980.9 1116.0 1767.3 350 Output Total 950 1000 1300 300 Balance 30.9 116.0 467.3 50 Meds/Results Medications: Active Medications Generic Name Dose Route Start Last Admin Trade Name Freq PRN Reason Stop Dose Admin Acetaminophen 650 mg 03/09/24 07:51 03/12/24 12:36 Acetaminophen 325 Mg Tablet PO 650 mg Q6H PRN Administration Mild Pain (1-3) or F
[2024-03-15] MEDS: FLUTICASONE/SALMETEROL 45-21 MCG INHALER 1 PUFF 2 PUFF INHALATION ×2 (08:03→20:20)
[2024-03-15] MEDS: METOPROLOL TARTRATE 25 MG TABLET PO ×2 (09:37→20:37)
[2024-03-15] MEDS: ATORVASTATIN 40 MG TABLET PO (09:37)
[2024-03-15] MEDS: MEMANTINE 10 MG TABLET PO ×2 (09:37→20:37)
[2024-03-15] MEDS: dilTIAZem HCL CD 240 MG CAP.24HR PO (09:37)
[2024-03-15] MEDS: MONTELUKAST SODIUM 10 MG TABLET PO (09:37)
[2024-03-15] MEDS: DONEPEZIL HCL 10 MG TABLET PO (09:37)
[2024-03-15] MEDS: GABAPENTIN 100 MG CAPSULE PO ×3 (09:37→17:50)
[2024-03-15] MEDS: CARBIDOPA/LEVODOPA 25/100 MG CR TABLET 1 TABLET PO ×2 (09:37→17:50)
[2024-03-15] MEDS: FUROSEMIDE INJ 40 MG/4 ML VIAL IV PUSH (09:42)
[2024-03-15] MEDS: SENNA/DOCUSATE SODIUM TABLET 2 TAB PO ×2 (10:09→17:50)
[2024-03-15] MEDS: PANTOPRAZOLE SODIUM IV 40 MG VIAL IV PUSH (10:09)
--- NOTE | 2024-03-15 10:35 | PM.IMPN ---
Progress Note: A&P Assessment and Plan (1) Anemia associated with acute blood loss: Code(s): D62 - Acute posthemorrhagic anemia Status: Acute (2) Hematoma complicating a procedure: Status: Acute (3) Acute respiratory failure with hypoxia: Code(s): J96.01 - Acute respiratory failure with hypoxia Status: Acute (4) Fall: Code(s): W19.XXXA - Unspecified fall, initial encounter Status: Acute (5) Parkinsons disease: Code(s): G20.A1 - Parkinson's disease without dyskinesia, without mention of fluctuations Status: Acute (6) Hypertension: Code(s): I10 - Essential (primary) hypertension Status: Acute (7) Intertrochanteric fracture of left hip: Code(s): S72.142A - Displaced intertrochanteric fracture of left femur, initial encounter for closed fracture Status: Acute Plan This is a pleasantly confused 88-year-old male with a past medical history hypertension, dementia, Parkinson's disease, neuropathy who presented to the [place] ER after a fall. He was admitted on 03/08 and on 03/09 underwent an open reduction internal fixation with a trochanteric nail of the left hip With Dr. Tim MD. his postop course complicated by acute on chronic anemia and a hematoma of the left hip and thigh. Acute hypoxic respiratory failure -likely due to operative atelectasis and anemia and suspected aspiration pneumonia -CTA negative for PE -small pleural effusion. BNP 1740 -continue incentive spirometer -he has some mild expiratory wheezing. Initially DuoNebs was instituted. Changed to ipratropium nebs scheduled considering his tachycardia -he also had an episode of vomiting although at this point he was already on oxygen. Cefepime and Flagyl have been started. -due to aspiration pneumonia and witnessed choking; ST eval noted and appreciated. -continue current abx. lasix IV once. Acute on chronic anemia -large drop in hemoglobin perioperatively. Associated with tachycardia and hypotension. -status post 1 unit PRBC and albumin IV PB -aspirin and Xarelto stopped. -hematoma of the left hip identified on CT. Binder to abdomen an Chester wrap of the left hip. -Continue to trend hemoglobin. Resume Xarelto when able Fall at home/left hip fracture -postop ORIF on 03/09. -continue therapy Atrial flutter -cardiology has been consulted. On 03/12 placed on 10 mg of diltiazem IV -heart/rhythm control and anticoagulation decisions with Cardiology -holding verapamil -surface echo showing EF 70% and grade I diastolic dysfunction Changed to oral Diltiazem. Resume Xarelto when okay with Surgery GI prophylaxis: Protonix daily DVT prophylaxis: SCDs. Holding Xarelto Code Status: Full code Dispo: Stable in IMU. Orthopedic surgery following, cardiology consulted. Speech therapy consulted. SNF being arranged for rehab when medically clear. Subjective Date/time seen: 03/15/24 10:35 Interval history: 89yo male with dementia, HTN and Parkinson here for fall and left leg pain and found to have left hip fracture No problems per patient but patient alert and confused so hx unreliable. Review of Systems Review of Systems: ROS unobtainable: Yes unobtainable due to mental status Exam Narrative: AF 97.2 168/78 86 22 97% 3L Gen - NARD lying semirecumbent in bed Chest - bibasilar crackles o/w clear. nml RR CV - RRR S1/S2. Tele showing runs of regular, narrow complex tachycardia Abd - Soft, NT/ND, Positive BS - scrotum ecchymosis with mild edema. Penile edema improved. Pérez secured with clear yellow urine in bag. Ext - Left hip dressing clean and dry. ecchymosis anterior left upper thigh tracking in to the groin and to the left flank/back. Neuro - Alert but confused Psych - Nml mood and affect Skin - Warm and dry Objective Data Vital Signs Vital Signs: Vital Signs - 24 hr 03/14/24 12:08 03/14/24 12:20 03/14/24 12:00 Temperature 98.0 F Pu
[2024-03-15] MEDS: HYDROcodone/acetaminophen (*CRX) 7.5-325 MG TABLET 1 TAB PO (20:36)
[2024-03-16] VITALS (34 sets, daily range): BP systolic 126–191; BP diastolic 67–95; PULSE 71–165; RESP 14–24; TEMP 36.6–37.6; O2SAT 87–97; BMI 29.1
[2024-03-16] MEDS: AMPICILLIN SULB 3 GM/NS 100 ML 3 GM/100 ML VIAL IVPB ×2 (00:25→05:05)
[2024-03-16] MEDS: IPRATROPIUM 0.5 MG/ALBUTEROL SULFATE 2.5 MG AMPUL.NEB 3 ML INHALATION ×6 (00:41→21:20)
[2024-03-16] MEDS: HYDROcodone/acetaminophen (*CRX) 5-325 MG TABLET 1 TAB PO (01:46)
[2024-03-16] MEDS: METOPROLOL TARTRATE INJ 5 MG/5 ML VIAL IV PUSH (01:46)
[2024-03-16 04:17] LABS: Hematocrit 29.9 % (42.0-52.0); Hemoglobin 9.8 g/dL (14.0-18.0); Mean Corpuscular HGB Conc 32.8 g/dl (32-36); Mean Corpuscular Volume 97.7 fl (80-100); Mean Platelet Volume 9.6 fl (7.4-10.4); Platelet Count Result 333 k/mm3 (150-375); Red Blood Count 3.06 M/mm3 (4.6-6.20); Red Cell Distribution Width 15.3 % (11.5-14.5); White Blood Count 14.1 K/mm3 (4.5-10.0)
[2024-03-16 04:30] LABS: Alanine Aminotransferase 8 U/L (6-50); Albumin Level 3.1 g/dL (3.5-5.1); Alkaline Phosphatase 76 U/L (38-126); Anion Gap 5 mmol/L (4-12); Aspartate Amino Transferase 26 U/L (17-59); Bilirubin,Total 1.1 mg/dL (0.2-1.3); Blood Urea Nitrogen 26 mg/dL (9-20); Calcium 8.2 mg/dL (8.4-10.2); Carbon Dioxide 24 mmol/L (22-30); Chloride 111 mmol/L (98-107); Estimated CRCL calculation 66 ml/min; Estimated Glomerular Filt Rate > 60; Glucose 149 mg/dL (65-110); Potassium 3.6 mmol/L (3.4-5.0); Sodium 140 mmol/L (137-145)
[2024-03-16] MEDS: FLUTICASONE/SALMETEROL 45-21 MCG INHALER 1 PUFF 2 PUFF INHALATION ×2 (07:35→21:21)
[2024-03-16] MEDS: PANTOPRAZOLE SODIUM IV 40 MG VIAL IV PUSH (08:25)
[2024-03-16] MEDS: polyethylene glycoL 3350 17 GM POWD.PACK PO (08:26)
[2024-03-16] MEDS: dilTIAZem HCL CD 240 MG CAP.24HR PO (08:52)
[2024-03-16] MEDS: ASPIRIN 81 MG CHEWABLE TABLET PO (08:52)
[2024-03-16] MEDS: MONTELUKAST SODIUM 10 MG TABLET PO (08:53)
[2024-03-16] MEDS: MEMANTINE 10 MG TABLET PO ×2 (08:53→20:23)
[2024-03-16] MEDS: DONEPEZIL HCL 10 MG TABLET PO (08:53)
[2024-03-16] MEDS: ATORVASTATIN 40 MG TABLET PO (08:53)
[2024-03-16] MEDS: GABAPENTIN 100 MG CAPSULE PO ×2 (08:53→14:26)
[2024-03-16] MEDS: AMOXICILLIN/CLAVULANATE K 875-125 MG TAB 1 TABLET PO ×2 (08:53→20:23)
[2024-03-16] MEDS: METOPROLOL TARTRATE 25 MG TABLET PO ×2 (08:53→20:23)
[2024-03-16] MEDS: SENNA/DOCUSATE SODIUM TABLET 2 TAB PO (08:53)
[2024-03-16] MEDS: CARBIDOPA/LEVODOPA 25/100 MG CR TABLET 1 TABLET PO (08:53)
--- NOTE | 2024-03-16 17:22 | PM.IMPN ---
Progress Note: A&P Assessment and Plan (1) Hematoma complicating a procedure: Status: Acute (2) Anemia associated with acute blood loss: Code(s): D62 - Acute posthemorrhagic anemia Status: Acute (3) Acute respiratory failure with hypoxia: Code(s): J96.01 - Acute respiratory failure with hypoxia Status: Acute (4) Fall: Code(s): W19.XXXA - Unspecified fall, initial encounter Status: Acute (5) Parkinsons disease: Code(s): G20.A1 - Parkinson's disease without dyskinesia, without mention of fluctuations Status: Acute (6) Hypertension: Code(s): I10 - Essential (primary) hypertension Status: Acute (7) Intertrochanteric fracture of left hip: Code(s): S72.142A - Displaced intertrochanteric fracture of left femur, initial encounter for closed fracture Status: Acute (8) Atrial flutter: Qualifiers: Atrial flutter type: atypical Qualified Code(s): I48.4 - Atypical atrial flutter Code(s): I48.92 - Unspecified atrial flutter Status: Acute (9) Aspiration into airway: Code(s): T17.908A - Unspecified foreign body in respiratory tract, part unspecified causing other injury, initial encounter Status: Acute (10) Pubic ramus fracture: Code(s): S32.599A - Other specified fracture of unspecified pubis, initial encounter for closed fracture Status: Acute Plan Patient presented to the [place] ER after a fall. He was admitted on 03/08 and on 03/09 underwent an open reduction internal fixation with a trochanteric nail of the left hip With Dr. Tim MD. his postop course complicated by acute on chronic anemia and a hematoma of the left hip and thigh. Acute hypoxic respiratory failure -likely due to operative atelectasis and anemia and suspected aspiration pneumonia -CTA negative for PE -small pleural effusion. BNP 1740 -he had some mild expiratory wheezing. Scheduled bronchodilators started. -he also had an episode of vomiting although at this point he was already on oxygen. Cefepime and Flagyl was started due to aspiration pneumonia and witnessed choking; ST eval noted and appreciated. -Given Lasix IV once with good response and able to wean down on O2. Continue incentive spirometer Wean O2 as tolerated. repeat lasix. Acute on chronic anemia -large drop in hemoglobin perioperatively. Associated with tachycardia and hypotension. -status post 2 unit PRBC on 03/11 and albumin IV PB -aspirin and Xarelto stopped. -hematoma of the left hip identified on CT. Binder to abdomen an Chester wrap of the left hip. -Hgb stable in the 8 range and better at 9.8 since Lasix. Continue to trend hemoglobin. Xarelto interacts with diltiazem so start Eliquis tonight. Fall at home/left hip fracture Pelvic CT shows acute IT fracture of the proximal left femur. Also noted was a healing insufficiency fractures of the right sacral ala and right superior and inferior pubic rami probably old -postop ORIF on 03/09. -continue therapy Atrial flutter -cardiology has been consulted. On 03/12 placed on 10 mg of diltiazem IV -heart/rhythm control and anticoagulation decisions with Cardiology -holding verapamil -surface echo showing EF 70% and grade I diastolic dysfunction Changed to oral Diltiazem. Xarelto interacts with diltiazem so start Eliquis tonight. GI prophylaxis: Protonix daily DVT prophylaxis: SCDs. Code Status: Full code Dispo: Stable in IMU. Orthopedic surgery following, cardiology consulted. Speech therapy consulted. SNF being arranged for rehab when medically clear. Subjective Date/time seen: 03/16/24 17:22 Interval history: 89yo male with dementia, HTN and Parkinson here for fall and left leg pain and found to have left hip fracture Patient alert and confused so hx unreliable. Family in the room and they were updated. Exam Narrative: AF 99.4 126/67 73 18 95% 1L Gen - NARD lying semirecumbent in
[2024-03-16] MEDS: FUROSEMIDE INJ 40 MG/4 ML VIAL IV PUSH (17:56)
[2024-03-16] MEDS: APIXABAN 5 MG TABLET PO (20:23)
--- NOTE | 2024-03-16 23:02 | PC.NURSE ---
This patient, Felipe Haddad, was transferred to [facility] on 03/16/24 at 2302. Personal belongings sent with patient. Report given to LAUREN Flowers. Appropriate documentation sent with patient.
[2024-03-17] VITALS (21 sets, daily range): BP systolic 128–179; BP diastolic 55–86; PULSE 56–88; RESP 16–20; TEMP 36.1–36.4; O2SAT 90–97
[2024-03-17] MEDS: IPRATROPIUM 0.5 MG/ALBUTEROL SULFATE 2.5 MG AMPUL.NEB 3 ML INHALATION ×4 (00:30→11:18)
[2024-03-17] MEDS: HYDROcodone/acetaminophen (*CRX) 7.5-325 MG TABLET 1 TAB PO ×2 (02:15→20:22)
[2024-03-17] MEDS: HYDROcodone/acetaminophen (*CRX) 5-325 MG TABLET 1 TAB PO (06:28)
[2024-03-17 06:50] LABS: Hematocrit 29.1 % (42.0-52.0); Hemoglobin 9.2 g/dL (14.0-18.0); Mean Corpuscular HGB Conc 31.6 g/dl (32-36); Mean Corpuscular Hemoglobin 31.4 pg (26-34); Mean Corpuscular Volume 99.3 fl (80-100); Mean Platelet Volume 9.7 fl (7.4-10.4); Platelet Count Result 384 k/mm3 (150-375); Red Blood Count 2.93 M/mm3 (4.6-6.20); Red Cell Distribution Width 14.8 % (11.5-14.5)
[2024-03-17 07:05] LABS: Alanine Aminotransferase 10 U/L (6-50); Albumin Level 2.8 g/dL (3.5-5.1); Alkaline Phosphatase 68 U/L (38-126); Anion Gap 6 mmol/L (4-12); Aspartate Amino Transferase 23 U/L (17-59); Blood Urea Nitrogen 37 mg/dL (9-20); Calcium 7.6 mg/dL (8.4-10.2); Carbon Dioxide 26 mmol/L (22-30); Chloride 110 mmol/L (98-107); Estimated CRCL calculation 47 ml/min; Estimated Glomerular Filt Rate > 60; Glucose 127 mg/dL (65-110); Potassium 3.4 mmol/L (3.4-5.0); Sodium 142 mmol/L (137-145)
[2024-03-17] MEDS: FLUTICASONE/SALMETEROL 45-21 MCG INHALER 1 PUFF 2 PUFF INHALATION ×2 (07:37→20:45)
[2024-03-17] MEDS: SENNA/DOCUSATE SODIUM TABLET 2 TAB PO (09:07)
[2024-03-17] MEDS: PANTOPRAZOLE 40 MG TABLET PO (09:07)
[2024-03-17] MEDS: polyethylene glycoL 3350 17 GM POWD.PACK PO (09:07)
[2024-03-17] MEDS: MEMANTINE 10 MG TABLET PO ×2 (09:07→20:22)
[2024-03-17] MEDS: DONEPEZIL HCL 10 MG TABLET PO (09:07)
[2024-03-17] MEDS: CARBIDOPA/LEVODOPA 25/100 MG CR TABLET 1 TABLET PO ×2 (09:07→16:41)
[2024-03-17] MEDS: dilTIAZem HCL CD 240 MG CAP.24HR PO (09:08)
[2024-03-17] MEDS: MONTELUKAST SODIUM 10 MG TABLET PO (09:08)
[2024-03-17] MEDS: METOPROLOL TARTRATE 25 MG TABLET PO ×2 (09:08→20:22)
[2024-03-17] MEDS: ATORVASTATIN 40 MG TABLET PO (09:08)
[2024-03-17] MEDS: APIXABAN 5 MG TABLET PO ×2 (09:08→20:22)
[2024-03-17] MEDS: GABAPENTIN 100 MG CAPSULE PO ×3 (09:08→16:41)
[2024-03-17] MEDS: AMOXICILLIN/CLAVULANATE K 875-125 MG TAB 1 TABLET PO ×2 (09:08→20:22)
--- NOTE | 2024-03-17 12:00 | PCOTNOTE ---
RN requested that therapist attempt in the afternoon following assessment with due to some concerns.
[2024-03-17] MEDS: POTASSIUM CHLORIDE 20 MEQ ER TABLET 40 MEQ PO (12:40)
--- NOTE | 2024-03-17 15:44 | PM.IMPN ---
Progress Note: A&P Assessment and Plan (1) Acute respiratory failure with hypoxia: Code(s): J96.01 - Acute respiratory failure with hypoxia Status: Acute (2) Anemia associated with acute blood loss: Code(s): D62 - Acute posthemorrhagic anemia Status: Acute (3) Intertrochanteric fracture of left hip: Code(s): S72.142A - Displaced intertrochanteric fracture of left femur, initial encounter for closed fracture Status: Acute (4) Fall: Code(s): W19.XXXA - Unspecified fall, initial encounter Status: Acute (5) Atrial flutter: Qualifiers: Atrial flutter type: atypical Qualified Code(s): I48.4 - Atypical atrial flutter Code(s): I48.92 - Unspecified atrial flutter Status: Acute (6) Hematoma complicating a procedure: Status: Acute (7) Parkinsons disease: Code(s): G20.A1 - Parkinson's disease without dyskinesia, without mention of fluctuations Status: Acute (8) Hypertension: Code(s): I10 - Essential (primary) hypertension Status: Acute (9) Aspiration into airway: Code(s): T17.908A - Unspecified foreign body in respiratory tract, part unspecified causing other injury, initial encounter Status: Acute (10) Pubic ramus fracture: Code(s): S32.599A - Other specified fracture of unspecified pubis, initial encounter for closed fracture Status: Acute Plan Patient presented to the [facility] after a fall. He was admitted on 03/08 and on 03/09 underwent an open reduction internal fixation with a trochanteric nail of the left hip With Dr. Tim MD. his postop course complicated by acute on chronic anemia and a hematoma of the left hip and thigh. Acute hypoxic respiratory failure -likely due to operative atelectasis and anemia and suspected aspiration pneumonia -CTA negative for PE but with small pleural effusion. BNP 1740 -he had some mild expiratory wheezing. Scheduled bronchodilators started. -he also had an episode of vomiting although at this point he was already on oxygen. Cefepime and Flagyl was started due to concern for aspiration pneumonia and witnessed choking; ST eval noted and appreciated. -Given Lasix IV once with good response and able to wean down on O2. Continue incentive spirometer Able to wean off O2. Will hold of on repeat lasix as Cr and BUN up slightly. WBC up to 17K. Check CXR and MRSA screen and add Doxycyline. Follow WBC Acute on chronic anemia -Hgb 13 on admisison and dropped to 8 range perioperatively. Associated with tachycardia and hypotension. -status post 2 unit PRBC on 03/11 and albumin IVPB -aspirin and Xarelto stopped. -hematoma of the left hip identified on CT. Binder to abdomen an Chester wrap of the left hip. -Hgb stable in the 8 range and better at 9 range since Lasix. Continue to trend hemoglobin. Xarelto interacts with diltiazem so started Eliquis Monitor Hgb closely. Fall at home/left hip fracture Pelvic CT shows acute IT fracture of the proximal left femur. Also noted was a healing insufficiency fractures of the right sacral ala and right superior and inferior pubic rami probably old -postop ORIF on 03/09. -continue therapy Atrial flutter -cardiology has been consulted. On 03/12 placed on 10 mg of diltiazem IV -heart/rhythm control and anticoagulation decisions with Cardiology -holding verapamil -surface echo showing EF 70% and grade I diastolic dysfunction Changed to oral Diltiazem. Xarelto interacts with diltiazem so started Eliquis since Hgb stable GI prophylaxis: Protonix daily DVT prophylaxis: SCDs. Eliquis Code Status: Full code Dispo: Stable in IMU. Orthopedic surgery following, cardiology consulted. Speech therapy consulted. SNF being arranged for rehab when medically clear. Subjective Date/time seen: 03/17/24 15:44 Interval history: 89yo male with dementia, HTN and Parkinson here for fall and left leg pain and found to have left hip f
[2024-03-17] MEDS: DOXYCYCLINE HYCLATE 100 MG TABLET PO ×2 (16:41→20:22)
[2024-03-17 18:04] LABS: MRSA (PCR) NOT DETECTED (NOT DETECTE)
[2024-03-18] VITALS (7 sets, daily range): BP systolic 131; BP diastolic 57; PULSE 54–82; RESP 14–18; TEMP 36.4; O2SAT 91–95
[2024-03-18 06:15] LABS: Basophils Percent Auto 0.2 % (0.2-1.2); Eosinophils Absolute Auto 0.3 K/mm3 (0-0.3); Eosinophils Percent Auto 1.9 % (0-4.4); Hematocrit 30.1 % (42.0-52.0); Hemoglobin 9.3 g/dL (14.0-18.0); Immature Granulocyte Absolute 0.19 K/mm3 (0.00-0.031); Immature Granulocyte Percent A 1.4 % (0-0.5); Lymphocytes Absolute Auto 1.06 K/mm3 (0.9-3.2); Lymphocytes Percent Auto 7.8 % (18.3-44.2); Mean Corpuscular HGB Conc 30.9 g/dl (32-36); Mean Corpuscular Hemoglobin 31.2 pg (26-34); Mean Platelet Volume 9.3 fl (7.4-10.4); Monocytes Absolute Auto 0.9 K/mm3 (0.1-0.6); Monocytes Percent Auto 6.4 % (2.6-8.5); Neutrophils Absolute Auto 11.2 K/mm3 (1.3-6.7); Neutrophils Percent Auto 82.3 % (45.5-73.1); Platelet Count Result 452 k/mm3 (150-375); Red Blood Count 2.98 M/mm3 (4.6-6.20); Red Cell Distribution Width 14.9 % (11.5-14.5); White Blood Count 13.7 K/mm3 (4.5-10.0)
[2024-03-18 06:25] LABS: Alanine Aminotransferase 13 U/L (6-50); Albumin Level 2.9 g/dL (3.5-5.1); Alkaline Phosphatase 72 U/L (38-126); Anion Gap 2 mmol/L (4-12); Aspartate Amino Transferase 27 U/L (17-59); Bilirubin,Total 1.1 mg/dL (0.2-1.3); Blood Urea Nitrogen 35 mg/dL (9-20); Carbon Dioxide 28 mmol/L (22-30); Chloride 112 mmol/L (98-107); Estimated CRCL calculation 52 ml/min; Estimated Glomerular Filt Rate > 60; Glucose 94 mg/dL (65-110); Phosphorus 2.8 mg/dL (2.5-4.5); Potassium 3.2 mmol/L (3.4-5.0); Sodium 142 mmol/L (137-145)
[2024-03-18] MEDS: FLUTICASONE/SALMETEROL 45-21 MCG INHALER 1 PUFF 2 PUFF INHALATION (07:19)
[2024-03-18] MEDS: CARBIDOPA/LEVODOPA 25/100 MG CR TABLET 1 TABLET PO (07:54)
[2024-03-18] MEDS: DOXYCYCLINE HYCLATE 100 MG TABLET PO (07:54)
[2024-03-18] MEDS: DONEPEZIL HCL 10 MG TABLET PO (07:54)
[2024-03-18] MEDS: ATORVASTATIN 40 MG TABLET PO (07:55)
[2024-03-18] MEDS: APIXABAN 5 MG TABLET PO (07:55)
[2024-03-18] MEDS: GABAPENTIN 100 MG CAPSULE PO (07:55)
[2024-03-18] MEDS: dilTIAZem HCL CD 240 MG CAP.24HR PO (07:55)
[2024-03-18] MEDS: POTASSIUM CHLORIDE 20 MEQ ER TABLET 40 MEQ PO (07:55)
[2024-03-18] MEDS: MEMANTINE 10 MG TABLET PO (07:55)
[2024-03-18] MEDS: PANTOPRAZOLE 40 MG TABLET PO (07:55)
[2024-03-18] MEDS: METOPROLOL TARTRATE 25 MG TABLET PO (07:55)
[2024-03-18] MEDS: MONTELUKAST SODIUM 10 MG TABLET PO (07:55)
[2024-03-18] MEDS: AMOXICILLIN/CLAVULANATE K 875-125 MG TAB 1 TABLET PO (07:55)
--- NOTE | 2024-03-18 11:02 | PM.DS ---
DS: Admitting Diagnosis Discharge Date 03/18/24 Admitting Diagnosis Fall and left leg pain DS: Discharge Diagnosis Discharge Diagnosis (1) Acute respiratory failure with hypoxia: Code(s): J96.01 - Acute respiratory failure with hypoxia Status: Acute (2) Anemia associated with acute blood loss: Code(s): D62 - Acute posthemorrhagic anemia Status: Acute (3) Intertrochanteric fracture of left hip: Code(s): S72.142A - Displaced intertrochanteric fracture of left femur, initial encounter for closed fracture Status: Acute (4) Fall: Code(s): W19.XXXA - Unspecified fall, initial encounter Status: Acute (5) Atrial flutter: Qualifiers: Atrial flutter type: atypical Qualified Code(s): I48.4 - Atypical atrial flutter Code(s): I48.92 - Unspecified atrial flutter Status: Acute (6) Elevated troponin: Code(s): R79.89 - Other specified abnormal findings of blood chemistry Status: Acute (7) Hematoma complicating a procedure: Status: Acute (8) Parkinsons disease: Code(s): G20.A1 - Parkinson's disease without dyskinesia, without mention of fluctuations Status: Acute (9) Hypertension: Code(s): I10 - Essential (primary) hypertension Status: Acute (10) Aspiration into airway: Code(s): T17.908A - Unspecified foreign body in respiratory tract, part unspecified causing other injury, initial encounter Status: Acute (11) Pubic ramus fracture: Code(s): S32.599A - Other specified fracture of unspecified pubis, initial encounter for closed fracture Status: Acute (12) Closed sacral fracture: Code(s): S32.10XA - Unspecified fracture of sacrum, initial encounter for closed fracture Status: Acute DS: Summary Hospital Course Reason for hospitalization: 89yo male with dementia, HTN and Parkinson here for fall and left leg pain and found to have left hip fracture. Please see H&P for details. Hospital Course: Patient presented to the [place] [facility] after a fall. Pelvic CT shows acute IT fracture of the proximal left femur. Also noted was a healing insufficiency fractures of the right sacral ala and right superior and inferior pubic rami probably old. He was admitted on 03/08 and on 05/17 underwent an open reduction internal fixation with a trochanteric nail of the left hip with Dr. Tim MD. Xarelot started post-operatively for DVT prophylaxis. His postop course complicated by acute on chronic anemia and a hematoma of the left hip and thigh. Patient also developed acute hypoxic respiratory failure likely due to operative atelectasis, anemia, tachycardia induced pulmonary edema and/or suspected aspiration pneumonia. CTA negative for PE but with small pleural effusion. BNP 1740. He had some mild expiratory wheezing so bronchodilators started. He had an episode of vomiting with witnessed choking although at this point he was already on oxygen but concern for aspiration so started on Cefepime and Flagyl then changed to Unasyn. ST evaluation noted and appreciated. Diet adjusted. He was given Lasix IV intermittently with good response and able to wean off O2. He was switched to Augmentin but WBC climbed to 17K. MRSA screen negative. CXR 03/17 showing mild airspace dz in right lung. Doxycycline added and WBC trended down. Patient with acute anemia felt to be acute blood loss. Hgb 13 on admission and dropped to 8 range perioperatively with associated tachycardia and hypotension. He received 2 unit PRBC on 03/11 and albumin IVPB. Aspirin and Xarelto stopped. Hematoma of the left hip identified on CT. Binder to abdomen an Chester wrap of the left hip applied. Hgb stable in the 8 range and better at 9 range since Lasix. Patient developed tachycardia felt related to atrial flutter by EKG. Cardiology was consulted and appreciate their input. Initially was resumed on his verapamil but had persistent tachycardia so placed on 10
== END 2024-03-18 12:55 | disposition swing bed (61) | DRG 480 ==
LOC: ANHED 17:03 → ANH2MED 20:02 → ANHIMU 03-11 12:44 → ANH3MEDSUR 03-17 13:26 → ANH2MED 03-20 09:13 → ANH3MEDSUR 03-20 09:13 → ANHIMU 03-20 09:13
PROVIDERS: Internal Medicine; Nurse Practitioner Family; Orthopaedic Surgery; Physician Assistant; Admitting Provider General Practice; Emergency Provider Emergency Medicine; PCP Family Medicine; Visit Provider Internal Medicine
PROC: 0QS706Z Reposition Left Upper Femur with Intramedullary Internal Fixation Device, Open Approach (ICD-10-PCS; CPT 27245; principal; 2024-03-09 11:00)
DX: S72.142A Displaced intertrochanteric fracture of left femur, initial encounter for closed fracture (principal); I21.A1 Myocardial infarction type 2; J95.821 Acute postprocedural respiratory failure; J69.0 Pneumonitis due to inhalation of food and vomit; J81.0 Acute pulmonary edema; L76.32 Postprocedural hematoma of skin and subcutaneous tissue following other procedure; I97.191 Other postprocedural cardiac functional disturbances following other surgery; D62 Acute posthemorrhagic anemia; G90.3 Multi-system degeneration of the autonomic nervous system; I48.92 Unspecified atrial flutter; G20.A1 Parkinson's disease without dyskinesia, without mention of fluctuations; I10 Essential (primary) hypertension; F02.80 Dementia in other diseases classified elsewhere, unspecified severity, without behavioral disturbance, psychotic disturbance, mood disturbance, and anxiety; W18.30XA Fall on same level, unspecified, initial encounter; Y83.8 Other surgical procedures as the cause of abnormal reaction of the patient, or of later complication, without mention of misadventure at the time of the procedure; Z87.311 Personal history of (healed) other pathological fracture
CPT/HCPCS: 36415; 36430; 70450; 71045; 71275; 72125; 72192; 73502; 74177; 80053; 81001; 82550; 83605; 83735; 83880; 84100; 84443; 84484; 85014; 85018; 85025; 85027; 85610; 85730; 86850; 86900; 86901; 86923; 87040; 87086; 87641; 92610; 93005; 93306; 94640; 94667; 96374; 96375; 96376; 97110; 97161; 97166; 97530; 97535; 99199; 99285; A9270; C1713; C9113; G0378; J0295; J0690; J0692; J0696; J1170; J1596; J1836; J1885; J1939; J1940; J2270; J2405; J2704; J3010; J7030; J7050; J7120; P9016; P9047; Q9957; Q9967

== ENCOUNTER 2024-03-18 13:41 | Inpatient (IN) | payer MEDICARE, OTHER, SELFPAY ==
--- NOTE | ~2024-03-18 | XR_ITS ---
XR hip LT 2V w AP pelvis 04/04/2024 08:23 Indication: Status post surgery left hip Procedure: 2 views left hip Comparison: 03/08/2024 Findings: Status post internal fixation of intertrochanteric left hip fracture with dynamic compressi on screw and intramedullary adrián. Fracture fragments near anatomic alignment post reduction. There is a single distal interlocking screw. There are radiation therapy implant seeds in the prostate bed. Impression: 1: Near-anatomic alignment of left hip fracture status post reduction. Reviewed, dictated and finalized at location B. Impression: 1: Near-anatomic alignment of left hip fracture status post reduction.
--- NOTE | ~2024-03-18 | XR_ITS ---
EXAMINATION: XR chest 1V portable 04/01/2024 11:09 INDICATION: Dyspnea PROCEDURE: AP portable chest COMPARISON: Comparison to multiple prior studies sequentially, with oldest reviewed study dated 03/08. FINDINGS: The lungs are clear. The cardiomediastinal silhouette is within normal limits. There are no pleural effusions. There is no pneumothorax suspected. 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 IMPRESSION: 1: NO ACUTE CARDIOPULMONARY DISEASE. Reviewed, dictated and finalized at location B.
[2024-03-18 13:50] VITALS: PULSE 61; RESP 16; O2SAT 91
[2024-03-18 13:59] VITALS: BMI 26.8
--- NOTE | 2024-03-18 14:28 | PM.IMHP ---
H&P: HPI History of Present Illness Date/Time: 03/18/24 14:28 Chief Complaint: Swing Bed admit Narrative: This is an 89 year old male with a history of Parkinson's and CAD who suffered a fall with resultant left intertrochanteric femur fracture requiring surgical repair with a complicated post operative course who has been admitted for Swing Bed for PT/OT/ST. Patient had large post operative hematoma leading to significant drop in H&H requiring 2 units PRBC transfusion as well as albumin. He also developed rapid afib/flutter and was on Cardizem drip for a while. Patient also experienced respiratory difficulty and aspiration of emesis and is being treated for aspiration pneumonia with Augmentin and doxycycline. Patient was able to be weaned to room air today and his WBC went from 17 to 13.7 so he was discharged today from [facility] and arrived here by EMS due to need to maintain hip precautions. Review of Systems Review of Systems: All systems reviewed & are unremarkable except as noted in HPI and below PMFSH Family History Family History Mother Asthma Son Asthma History of blood clots Hypertension Daughter Hypertension Sibling Prostate carcinoma Lymph node cancer Social History Social History Smoking status: Never smoker Second hand tobacco smoke exposure: No Alcohol intake: former Substance use: never Do You Feel Safe in your Home?: Yes Lack of Transportation: No Lack of Food: Never True Current Housing: I Have Housing Concerned About Future Housing: No Difficulty Paying Gas/Electric Bills: No Difficulty Paying for Meds: No Currently Unemployed: No Education: High School Diploma/GED Difficulty w/ Childcare or Family Care: No Spiritual care concerns: No Meds Home Medications and Allergies Home Medications Medication Instructions Recorded Confirmed Type aspirin 81 mg tablet 81 mg PO DAILY 03/08/24 03/18/24 History atorvastatin 40 mg tablet 40 mg PO DAILY 03/08/24 03/18/24 History budesonide-formoterol HFA 80 1 puff inhalation Q12H PRN 03/08/24 03/18/24 History mcg-4.5 mcg/actuation aerosol Shortness Of Breath Or Wheezing inhaler (Symbicort) calcium phos,tribasic 260 mg-D3 25 1 tablet PO DAILY 03/08/24 03/18/24 History mcg-herbal 50 mg chewable tablet (Alive Calcium-Vitamin D3) carbidopa ER 50 mg-levodopa 200 mg 1 tablet PO BID 03/08/24 03/18/24 History tablet,extended release coenzyme X01-mrfykqu E 100 mg-100 2 cap PO DAILY 03/08/24 03/18/24 History unit capsule docosahexaenoic rgpn-ykt-rnu E 1 cap PO DAILY 03/08/24 03/18/24 History capsule donepezil 10 mg tablet 10 mg PO DAILY 03/08/24 03/18/24 History fluoxetine 20 mg capsule 20 mg PO DAILY 03/08/24 03/18/24 History gabapentin 100 mg capsule 100 mg PO TID 03/08/24 03/18/24 History lisinopril 40 mg tablet 40 mg PO DAILY 03/08/24 03/18/24 History montelukast 10 mg tablet 10 mg PO DAILY 03/08/24 03/18/24 History multivitamin s-fbozhtyk-ppjblqe 1 tablet PO DAILY 03/08/24 03/18/24 History fumarate 18 mg-vitamin K 25 mcg tablet acetaminophen 325 mg tablet 650 mg PO Q6H PRN Mild Pain (1-5) 03/18/24 03/18/24 Rx Or Fever #30 tabs amoxicillin 875 mg-potassium 1 tablet PO Q12H #4 tabs 03/18/24 03/18/24 Rx clavulanate 125 mg tablet apixaban 5 mg tablet (Eliquis) 5 mg PO Q12HR #60 tabs 03/18/24 03/18/24 Rx diltiazem HCl 240 mg 240 mg PO QAM #30 caps 03/18/24 03/18/24 Rx capsule,extended release 24 hr, controlled doxycycline hyclate 100 mg tablet 100 mg PO Q12HR #11 tabs 03/18/24 03/18/24 Rx hydrocodone 5 mg-acetaminophen 325 1 tablet PO Q4H PRN Pain 6-10 #7 03/18/24 03/18/24 Rx mg tablet tabs memantine 10 mg tablet 10 mg PO Q12H #60 tabs 03/18/24 03/18/24 Rx metoprolol tartrate 25 mg tablet 25 mg PO Q12HR #60 tabs 03/18/24 03/18/24 Rx pantoprazole 40 mg tablet,yung
--- NOTE | 2024-03-18 14:53 | PC.NURSE ---
Patient arrived to unit in ambulance, accompanied by EMS, on stretcher. Required 4 assist maxi slide to move from stretcher to bed. Patient and family educated on visiting hours, fall precautions, use of call light and bed controls, rapid response, and general infection control policies. Family and patient voiced understanding. Patient is A/O x 3 at this time. Call light within reach.
[2024-03-18 14:55] VITALS: BP 123/58; PULSE 61; RESP 16; TEMP 36.9; O2SAT 91
--- NOTE | 2024-03-18 14:56 | PC.NURSE ---
Dressings removed to view surgical sites. Three sites with 4 pipe, 3 pipe, and 15 pipe noted holding well approximated surgical sites with no s/s infection. Scant, clear drainage noted at largest site. Bruising is extensive and edema is noted involving the entire extremity and scrotal area. Patient tolerated dressing change well.
[2024-03-18 14:58] VITALS: PULSE 61; RESP 16; O2SAT 91
[2024-03-18 16:00] VITALS: BP 114/53; PULSE 60; RESP 16; TEMP 36.6; O2SAT 94
[2024-03-18] MEDS: CARBIDOPA/LEVODOPA 25/100 MG CR TABLET 2 TABLET PO (17:25)
[2024-03-18] MEDS: GABAPENTIN 100 MG CAPSULE PO (17:26)
[2024-03-18 18:03] LABS: Toxigenic C. Diff POSITIVE (NEGATIVE)
--- NOTE | 2024-03-18 18:20 | PC.NURSE ---
Zeferino Osorio notified of positive for c diff
[2024-03-18] MEDS: BUDESONIDE/FORMOTEROL 80/4.5 MCG 6.9 GM INHALER (*SP) 1 PUFF INHALATION (18:23)
--- NOTE | 2024-03-18 18:45 | PC.NURSE ---
Patient positive for C-diff. Placed on contact precautions and patient's family educated on risks and prevention measures.
[2024-03-18] MEDS: VANCOMYCIN HCL 125 MG ORAL CAPSULE PO (19:48)
[2024-03-18] MEDS: ACETAMINOPHEN 325 MG TABLET 650 MG PO (20:38)
[2024-03-18 20:39] VITALS: PULSE 68
[2024-03-18] MEDS: METOPROLOL TARTRATE 25 MG TABLET PO (20:39)
[2024-03-18] MEDS: MEMANTINE 5 MG TABLET 10 MG PO (20:39)
[2024-03-18] MEDS: AMOXICILLIN/CLAVULANATE K 875-125 MG TAB 1 TABLET PO (20:40)
[2024-03-18] MEDS: APIXABAN 2.5 MG TABLET 5 MG PO (20:40)
[2024-03-18] MEDS: DOXYCYCLINE HYCLATE 100 MG TABLET PO (20:40)
[2024-03-19] VITALS: BP 144/66; PULSE 61; RESP 16; TEMP 36.5; O2SAT 96
[2024-03-19] MEDS: VANCOMYCIN HCL 125 MG ORAL CAPSULE PO ×5 (00:23→23:55)
[2024-03-19] MEDS: HYDROcodone/acetaminophen (*CRX) 5-325 MG TABLET 1 TAB PO ×2 (05:14→10:43)
[2024-03-19 05:37] LABS: Basophils Absolute Auto 0.02 K/mm3 (0.00-0.10); Basophils Percent Auto 0.2 % (0.0-1.0); Eosinophils Absolute Auto 0.22 K/mm3 (0.02-0.50); Eosinophils Percent Auto 1.9 % (1.0-6.0); Hematocrit 26.8 % (37.0-46.0); Hemoglobin 8.3 g/dL (12.4-15.3); Immature Granulocyte Absolute 0.16 K/mm3 (0.00-0.00); Immature Granulocyte Percent A 1.4 % (0.0-0.0); Lymphocytes Absolute Auto 1.24 K/mm3 (1.10-4.50); Lymphocytes Percent Auto 10.8 % (18.0-42.0); Mean Corpuscular Hemoglobin 31.1 pg (27.0-31.0); Mean Corpuscular Volume 100.4 fL (78.0-102.0); Mean Platelet Volume 9.3 fl (8.7-11.0); Monocytes Absolute Auto 0.77 K/mm3 (0.10-0.90); Monocytes Percent Auto 6.7 % (2.0-11.0); Neutrophils Absolute Auto 9.12 K/mm3 (1.70-7.20); Platelet Count Result 492 K/mm3 (150-420); Red Blood Count 2.67 M/mm3 (4.70-6.10); White Blood Count 11.5 K/mm3 (4.8-10.8)
[2024-03-19 05:52] LABS: Anion Gap 7 mmol/L (4-12); Blood Urea Nitrogen 23 mg/dL (7-18); Calcium 7.8 mg/dL (8.5-10.1); Carbon Dioxide 28 mmol/L (21-32); Chloride 109 mmol/L (98-108); Estimated CRCL calculation 53 ml/min; Estimated Glomerular Filt Rate > 60; Glucose 101 mg/dL (70-99); Osmolality Calculated 301 mOsm/kg (285-295); Potassium 3.5 mmol/L (3.5-5.1); Sodium 144 mmol/L (136-145)
[2024-03-19] MEDS: BUDESONIDE/FORMOTEROL 80/4.5 MCG 6.9 GM INHALER (*SP) 1 PUFF INHALATION ×2 (05:55→17:51)
[2024-03-19 08:00] VITALS: BP 152/78; PULSE 61; RESP 14; TEMP 36; O2SAT 93
--- NOTE | 2024-03-19 08:22 | PM.EVENT ---
Event Note Event Note Event Note: Labs reviewed. Speech therapy orders placed and evaluation completed. [id number]
[2024-03-19] MEDS: CARBIDOPA/LEVODOPA 25/100 MG CR TABLET 2 TABLET PO ×2 (09:14→17:04)
[2024-03-19] MEDS: AMOXICILLIN/CLAVULANATE K 875-125 MG TAB 1 TABLET PO ×2 (09:15→21:27)
[2024-03-19] MEDS: MEMANTINE 5 MG TABLET 10 MG PO ×2 (09:15→21:27)
[2024-03-19] MEDS: APIXABAN 2.5 MG TABLET 5 MG PO ×2 (09:15→21:28)
[2024-03-19 09:16] VITALS: PULSE 61
[2024-03-19] MEDS: DONEPEZIL HCL 5 MG TABLET 10 MG PO (09:16)
[2024-03-19] MEDS: dilTIAZem HCL CD 240 MG CAP.24HR PO (09:16)
[2024-03-19] MEDS: DOXYCYCLINE HYCLATE 100 MG TABLET PO ×2 (09:16→21:28)
[2024-03-19] MEDS: METOPROLOL TARTRATE 25 MG TABLET PO ×2 (09:16→21:28)
[2024-03-19] MEDS: ATORVASTATIN 40 MG TABLET PO (09:16)
[2024-03-19] MEDS: GABAPENTIN 100 MG CAPSULE PO ×3 (09:17→17:04)
[2024-03-19] MEDS: FLUoxetine HCL 20 MG CAPSULE PO (09:17)
[2024-03-19] MEDS: PANTOPRAZOLE 40 MG TABLET PO (09:18)
[2024-03-19] MEDS: MONTELUKAST SODIUM 10 MG TABLET PO (09:18)
[2024-03-19] MEDS: THERAPEUTIC MULTIVITAMINS/MINERALS TAB (*BKC) 1 TABLET PO (12:15)
[2024-03-19 16:35] VITALS: BP 131/62; PULSE 62; RESP 16; TEMP 36.2; O2SAT 99
[2024-03-19] MEDS: ACETAMINOPHEN 325 MG TABLET 650 MG PO (19:45)
[2024-03-19 21:28] VITALS: PULSE 66
[2024-03-20] VITALS (7 sets, daily range): BP systolic 134–150; BP diastolic 62–67; PULSE 64–70; RESP 14–20; TEMP 36.1–36.6; O2SAT 95–99
[2024-03-20] MEDS: HYDROcodone/acetaminophen (*CRX) 5-325 MG TABLET 1 TAB PO (03:30)
[2024-03-20] MEDS: VANCOMYCIN HCL 125 MG ORAL CAPSULE PO ×4 (06:01→23:30)
[2024-03-20] MEDS: BUDESONIDE/FORMOTEROL 80/4.5 MCG 6.9 GM INHALER (*SP) 1 PUFF INHALATION ×2 (06:02→17:38)
[2024-03-20] MEDS: APIXABAN 2.5 MG TABLET 5 MG PO ×2 (09:22→20:31)
[2024-03-20] MEDS: AMOXICILLIN/CLAVULANATE K 875-125 MG TAB 1 TABLET PO (09:22)
[2024-03-20] MEDS: dilTIAZem HCL CD 240 MG CAP.24HR PO (09:23)
[2024-03-20] MEDS: ATORVASTATIN 40 MG TABLET PO (09:23)
[2024-03-20] MEDS: CARBIDOPA/LEVODOPA 25/100 MG CR TABLET 2 TABLET PO ×2 (09:23→17:38)
[2024-03-20] MEDS: DONEPEZIL HCL 5 MG TABLET 10 MG PO (09:24)
[2024-03-20] MEDS: DOXYCYCLINE HYCLATE 100 MG TABLET PO ×2 (09:24→20:31)
[2024-03-20] MEDS: MEMANTINE 5 MG TABLET 10 MG PO ×2 (09:24→20:31)
[2024-03-20] MEDS: MONTELUKAST SODIUM 10 MG TABLET PO (09:25)
[2024-03-20] MEDS: GABAPENTIN 100 MG CAPSULE PO ×3 (09:25→17:38)
[2024-03-20] MEDS: FLUoxetine HCL 20 MG CAPSULE PO (09:25)
[2024-03-20] MEDS: METOPROLOL TARTRATE 25 MG TABLET PO ×2 (09:25→20:31)
[2024-03-20] MEDS: PANTOPRAZOLE 40 MG TABLET PO (09:25)
[2024-03-20] MEDS: THERAPEUTIC MULTIVITAMINS/MINERALS TAB (*BKC) 1 TABLET PO (13:10)
[2024-03-21] MEDS: HYDROcodone/acetaminophen (*CRX) 5-325 MG TABLET 1 TAB PO ×3 (02:47→20:34)
[2024-03-21] MEDS: VANCOMYCIN HCL 125 MG ORAL CAPSULE PO ×4 (05:44→23:54)
[2024-03-21] MEDS: BUDESONIDE/FORMOTEROL 80/4.5 MCG 6.9 GM INHALER (*SP) 1 PUFF INHALATION ×2 (06:26→17:27)
[2024-03-21 08:00] VITALS: BP 145/65; PULSE 72; RESP 14; TEMP 36.6; O2SAT 96
[2024-03-21 09:07] VITALS: PULSE 68
[2024-03-21] MEDS: METOPROLOL TARTRATE 25 MG TABLET PO ×2 (09:07→20:33)
[2024-03-21] MEDS: CARBIDOPA/LEVODOPA 25/100 MG CR TABLET 2 TABLET PO ×2 (09:07→17:11)
[2024-03-21] MEDS: APIXABAN 2.5 MG TABLET 5 MG PO ×2 (09:07→20:32)
[2024-03-21] MEDS: MEMANTINE 5 MG TABLET 10 MG PO ×2 (09:07→20:32)
[2024-03-21] MEDS: dilTIAZem HCL CD 240 MG CAP.24HR PO (09:07)
[2024-03-21] MEDS: DOXYCYCLINE HYCLATE 100 MG TABLET PO ×2 (09:08→20:33)
[2024-03-21] MEDS: ATORVASTATIN 40 MG TABLET PO (09:08)
[2024-03-21] MEDS: GABAPENTIN 100 MG CAPSULE PO ×3 (09:08→17:11)
[2024-03-21] MEDS: FLUoxetine HCL 20 MG CAPSULE PO (09:08)
[2024-03-21] MEDS: MONTELUKAST SODIUM 10 MG TABLET PO (09:10)
[2024-03-21] MEDS: PANTOPRAZOLE 40 MG TABLET PO (09:10)
[2024-03-21] MEDS: DONEPEZIL HCL 5 MG TABLET 10 MG PO (09:10)
[2024-03-21] MEDS: THERAPEUTIC MULTIVITAMINS/MINERALS TAB (*BKC) 1 TABLET PO (13:00)
[2024-03-21 16:00] VITALS: BP 134/67; PULSE 68; RESP 14; TEMP 36.1; O2SAT 97
[2024-03-21 20:33] VITALS: PULSE 67
[2024-03-22] VITALS: BP 163/91; PULSE 80; RESP 16; TEMP 36.5; O2SAT 96
[2024-03-22] MEDS: VANCOMYCIN HCL 125 MG ORAL CAPSULE PO ×3 (05:25→17:47)
[2024-03-22] MEDS: BUDESONIDE/FORMOTEROL 80/4.5 MCG 6.9 GM INHALER (*SP) 1 PUFF INHALATION ×2 (05:46→17:51)
--- NOTE | 2024-03-22 05:51 | PC.NURSE ---
Incontinent of small smear of semi-formed brown stool
[2024-03-22 08:00] VITALS: BP 160/82; PULSE 82; RESP 18; TEMP 36.6; O2SAT 95
[2024-03-22] MEDS: APIXABAN 2.5 MG TABLET 5 MG PO ×2 (08:27→20:00)
[2024-03-22] MEDS: CARBIDOPA/LEVODOPA 25/100 MG CR TABLET 2 TABLET PO ×2 (08:27→17:46)
[2024-03-22] MEDS: ATORVASTATIN 40 MG TABLET PO (08:27)
[2024-03-22 08:28] VITALS: PULSE 84
[2024-03-22] MEDS: MEMANTINE 5 MG TABLET 10 MG PO ×2 (08:28→20:00)
[2024-03-22] MEDS: dilTIAZem HCL CD 240 MG CAP.24HR PO (08:28)
[2024-03-22] MEDS: DONEPEZIL HCL 5 MG TABLET 10 MG PO (08:28)
[2024-03-22] MEDS: DOXYCYCLINE HYCLATE 100 MG TABLET PO ×2 (08:28→20:01)
[2024-03-22] MEDS: PANTOPRAZOLE 40 MG TABLET PO (08:28)
[2024-03-22] MEDS: METOPROLOL TARTRATE 25 MG TABLET PO ×2 (08:28→20:02)
[2024-03-22] MEDS: GABAPENTIN 100 MG CAPSULE PO ×3 (08:29→17:50)
[2024-03-22] MEDS: FLUoxetine HCL 20 MG CAPSULE PO (08:29)
[2024-03-22] MEDS: MONTELUKAST SODIUM 10 MG TABLET PO (08:29)
[2024-03-22] MEDS: THERAPEUTIC MULTIVITAMINS/MINERALS TAB (*BKC) 1 TABLET PO (12:56)
[2024-03-22] MEDS: CALCIUM/VITAMIN D 250 MG/3.125 MCG (125 I.U.) TABLET 1 TABLET PO (12:58)
[2024-03-22] MEDS: HYDROcodone/acetaminophen (*CRX) 5-325 MG TABLET 1 TAB PO ×2 (13:50→20:01)
[2024-03-22 16:00] VITALS: BP 152/88; PULSE 74; RESP 18; TEMP 36.6; O2SAT 96
[2024-03-22 20:02] VITALS: PULSE 61
[2024-03-23] VITALS: BP 163/97; PULSE 61; RESP 16; TEMP 36.9; O2SAT 97
[2024-03-23] MEDS: VANCOMYCIN HCL 125 MG ORAL CAPSULE PO ×4 (00:24→18:27)
[2024-03-23] MEDS: HYDROcodone/acetaminophen (*CRX) 5-325 MG TABLET 1 TAB PO ×3 (03:19→20:29)
[2024-03-23] MEDS: BUDESONIDE/FORMOTEROL 80/4.5 MCG 6.9 GM INHALER (*SP) 1 PUFF INHALATION ×2 (05:41→18:28)
[2024-03-23 08:00] VITALS: BP 140/78; PULSE 64; RESP 18; TEMP 36.8; O2SAT 96
[2024-03-23 08:41] VITALS: PULSE 80
[2024-03-23] MEDS: GABAPENTIN 100 MG CAPSULE PO ×3 (08:41→18:27)
[2024-03-23] MEDS: PANTOPRAZOLE 40 MG TABLET PO (08:41)
[2024-03-23] MEDS: CARBIDOPA/LEVODOPA 25/100 MG CR TABLET 2 TABLET PO ×2 (08:41→18:27)
[2024-03-23] MEDS: DONEPEZIL HCL 5 MG TABLET 10 MG PO (08:41)
[2024-03-23] MEDS: METOPROLOL TARTRATE 25 MG TABLET PO ×2 (08:41→20:29)
[2024-03-23] MEDS: ATORVASTATIN 40 MG TABLET PO (08:42)
[2024-03-23] MEDS: FLUoxetine HCL 20 MG CAPSULE PO (08:42)
[2024-03-23] MEDS: dilTIAZem HCL CD 240 MG CAP.24HR PO (08:42)
[2024-03-23] MEDS: MONTELUKAST SODIUM 10 MG TABLET PO (08:42)
[2024-03-23] MEDS: DOXYCYCLINE HYCLATE 100 MG TABLET PO ×2 (08:42→20:30)
[2024-03-23] MEDS: MEMANTINE 5 MG TABLET 10 MG PO ×2 (08:42→20:29)
[2024-03-23] MEDS: APIXABAN 2.5 MG TABLET 5 MG PO ×2 (08:42→20:29)
[2024-03-23] MEDS: CALCIUM/VITAMIN D 250 MG/3.125 MCG (125 I.U.) TABLET 1 TABLET PO (12:47)
[2024-03-23] MEDS: THERAPEUTIC MULTIVITAMINS/MINERALS TAB (*BKC) 1 TABLET PO (12:48)
--- NOTE | 2024-03-23 14:13 | PC.NURSE ---
l hip surgical site is clean and dry. some bruising noted in sevaral shades green/yellow to black/purple. 22 pipe removed. steri strips applied after cleaning incisional line. tolerated well. left open to air.
[2024-03-23 15:53] VITALS: BP 125/54; PULSE 53; RESP 16; TEMP 36; O2SAT 93
[2024-03-23 20:29] VITALS: PULSE 72
[2024-03-24] VITALS: BP 150/70; PULSE 72; RESP 16; TEMP 36.4; O2SAT 94
[2024-03-24] MEDS: VANCOMYCIN HCL 125 MG ORAL CAPSULE PO ×4 (00:58→18:08)
[2024-03-24] MEDS: HYDROcodone/acetaminophen (*CRX) 5-325 MG TABLET 1 TAB PO ×2 (05:39→13:29)
[2024-03-24] MEDS: BUDESONIDE/FORMOTEROL 80/4.5 MCG 6.9 GM INHALER (*SP) 1 PUFF INHALATION ×2 (05:40→18:08)
[2024-03-24 08:00] VITALS: BP 152/57; PULSE 56; RESP 14; TEMP 36.6; O2SAT 94
--- NOTE | 2024-03-24 08:37 | P.PNCROSS_ITS ---
Event Note Event Note Event Note: Patient has 2-3+ Pitting edema all the way up past his thigh . Patient is uri nating 100 ml at a time we will bladder scan him and if greater than [address] du and obtain a urine . We will place pt on oral lasix an monitor labs until some of the swelling has decreased.
[2024-03-24] MEDS: CARBIDOPA/LEVODOPA 25/100 MG CR TABLET 2 TABLET PO ×2 (10:00→18:08)
[2024-03-24] MEDS: FUROSEMIDE 40 MG TABLET PO (10:18)
[2024-03-24] MEDS: MONTELUKAST SODIUM 10 MG TABLET PO (10:18)
[2024-03-24] MEDS: dilTIAZem HCL CD 240 MG CAP.24HR PO (10:18)
[2024-03-24] MEDS: PANTOPRAZOLE 40 MG TABLET PO (10:18)
[2024-03-24 10:19] VITALS: PULSE 72
[2024-03-24] MEDS: METOPROLOL TARTRATE 25 MG TABLET PO ×2 (10:19→20:57)
[2024-03-24] MEDS: FLUoxetine HCL 20 MG CAPSULE PO (10:19)
[2024-03-24] MEDS: APIXABAN 2.5 MG TABLET 5 MG PO ×2 (10:20→20:57)
[2024-03-24] MEDS: ATORVASTATIN 40 MG TABLET PO (10:20)
[2024-03-24] MEDS: DONEPEZIL HCL 5 MG TABLET 10 MG PO (10:20)
[2024-03-24] MEDS: MEMANTINE 5 MG TABLET 10 MG PO ×2 (10:20→20:57)
[2024-03-24] MEDS: GABAPENTIN 100 MG CAPSULE PO ×3 (10:21→18:08)
[2024-03-24] MEDS: CALCIUM/VITAMIN D 250 MG/3.125 MCG (125 I.U.) TABLET 1 TABLET PO (12:30)
[2024-03-24] MEDS: THERAPEUTIC MULTIVITAMINS/MINERALS TAB (*BKC) 1 TABLET PO (12:30)
[2024-03-24 12:46] LABS: Appearance Urine Clear (Clear); Bilirubin Urine Negative (Negative); Blood Urine Negative (Negative); Color Urine Light Yellow (Yellow); Glucose Urine UA Negative (Negative); Ketones Urine Negative (Negative); Leukocyte Esterase Ur Negative LEU/UL (Negative); Nitrate Urine Negative (Negative); Protein Urine Negative (Negative); Urobilinogen Urine 0.2 mg/dL (0.2-1.0)
[2024-03-24 12:49] LABS: Add Urine Microscopic? NO
--- NOTE | 2024-03-24 14:51 | PC.NURSE ---
Pt bladder scaned at 0910. 367 ml noted. Pérez placed per orders.
[2024-03-24 16:35] VITALS: BP 134/66; PULSE 50; RESP 16; TEMP 36.3; O2SAT 93
[2024-03-24 20:57] VITALS: PULSE 61
--- NOTE | 2024-03-24 22:59 | PC.NURSE ---
report to LAUREN Espinoza.
[2024-03-25] VITALS: BP 161/66; PULSE 52; RESP 20; TEMP 36.7; O2SAT 98
[2024-03-25] MEDS: VANCOMYCIN HCL 125 MG ORAL CAPSULE PO ×4 (00:02→18:12)
--- NOTE | 2024-03-25 00:07 | PC.NURSE ---
Pt given vancomycin 125 mg PO as ordered.
--- NOTE | 2024-03-25 02:13 | PC.NURSE ---
Pt asleep and no signs of discomfort noted.
--- NOTE | 2024-03-25 04:10 | PC.NURSE ---
Pt asleep and du continues to drain clear, yellow urine.
[2024-03-25 06:01] LABS: Hematocrit 30.3 % (37.0-46.0); Hemoglobin 9.5 g/dL (12.4-15.3); Immature Platelet Fraction Pct 1.1 % (1.0-7.0); Mean Corpuscular HGB Conc 31.4 g/dL (32-36); Mean Corpuscular Hemoglobin 31.1 pg (27.0-31.0); Mean Corpuscular Volume 99.3 fL (78.0-102.0); Mean Platelet Volume 8.4 fl (8.7-11.0); Platelet Count Result 720 K/mm3 (150-420); Red Blood Count 3.05 M/mm3 (4.70-6.10); Red Cell Distribution Width 15.4 % (11.6-14.4); White Blood Count 11.7 K/mm3 (4.8-10.8)
[2024-03-25] MEDS: BUDESONIDE/FORMOTEROL 80/4.5 MCG 6.9 GM INHALER (*SP) 1 PUFF INHALATION ×2 (06:11→18:13)
--- NOTE | 2024-03-25 06:14 | PC.NURSE ---
Pt given Vancomycin 125 mg PO. Pt also given Symbicort one puff PO as ordered.
[2024-03-25 06:18] LABS: Anion Gap 6 mmol/L (4-12); Blood Urea Nitrogen 8 mg/dL (7-18); Calcium 8.2 mg/dL (8.5-10.1); Carbon Dioxide 34 mmol/L (21-32); Chloride 100 mmol/L (98-108); Estimated CRCL calculation 57 ml/min; Estimated Glomerular Filt Rate > 60; Glucose 99 mg/dL (70-99); NT Pro B Type Natriuretic Pept 1294 pg/mL (0-450); Osmolality Calculated 288 mOsm/kg (285-295); Potassium 3.6 mmol/L (3.5-5.1); Sodium 140 mmol/L (136-145)
[2024-03-25 08:00] VITALS: BP 158/70; PULSE 58; RESP 14; TEMP 36.6; O2SAT 95
--- NOTE | 2024-03-25 08:13 | PM.EVENT ---
Event Note Event Note Event Note: Patient urine came back negative for infection , He has yeasty looking rash on his buttocks Nystatin cream ordered at this time.
[2024-03-25] MEDS: MICONAZOLE NITRATE 2% CREAM 30 GM TUBE 1 APPLIC TOPICAL ×2 (09:24→20:58)
[2024-03-25] MEDS: FUROSEMIDE 40 MG TABLET PO (09:24)
[2024-03-25] MEDS: MEMANTINE 5 MG TABLET 10 MG PO ×2 (09:25→20:56)
[2024-03-25] MEDS: CARBIDOPA/LEVODOPA 25/100 MG CR TABLET 2 TABLET PO ×2 (09:25→18:12)
[2024-03-25] MEDS: dilTIAZem HCL CD 240 MG CAP.24HR PO (09:25)
[2024-03-25 09:26] VITALS: PULSE 68
[2024-03-25] MEDS: ATORVASTATIN 40 MG TABLET PO (09:26)
[2024-03-25] MEDS: DONEPEZIL HCL 5 MG TABLET 10 MG PO (09:26)
[2024-03-25] MEDS: PANTOPRAZOLE 40 MG TABLET PO (09:26)
[2024-03-25] MEDS: FLUoxetine HCL 20 MG CAPSULE PO (09:26)
[2024-03-25] MEDS: METOPROLOL TARTRATE 25 MG TABLET PO ×2 (09:26→20:55)
[2024-03-25] MEDS: APIXABAN 2.5 MG TABLET 5 MG PO ×2 (09:26→20:55)
[2024-03-25] MEDS: MONTELUKAST SODIUM 10 MG TABLET PO (09:26)
[2024-03-25] MEDS: GABAPENTIN 100 MG CAPSULE PO ×3 (09:27→18:12)
[2024-03-25] MEDS: HYDROcodone/acetaminophen (*CRX) 5-325 MG TABLET 1 TAB PO (12:42)
[2024-03-25] MEDS: THERAPEUTIC MULTIVITAMINS/MINERALS TAB (*BKC) 1 TABLET PO (12:46)
[2024-03-25 16:40] VITALS: BP 152/65; PULSE 61; RESP 16; TEMP 36.6; O2SAT 94
[2024-03-25 20:55] VITALS: PULSE 70
[2024-03-26] VITALS: BP 165/69; PULSE 56; RESP 20; TEMP 36.7; O2SAT 93
[2024-03-26] MEDS: VANCOMYCIN HCL 125 MG ORAL CAPSULE PO ×4 (00:03→17:06)
--- NOTE | 2024-03-26 00:04 | PC.NURSE ---
Pt sitting up in the recliner and resting quietly. Pt given vancomycin 125 mg PO as ordered.
--- NOTE | 2024-03-26 02:29 | PC.NURSE ---
Pt back to bed with the flako steady and assist of two. Side rails up and call hwang within reach.
--- NOTE | 2024-03-26 04:16 | PC.NURSE ---
Pt asleep and no signs of discomfort noted.
[2024-03-26] MEDS: BUDESONIDE/FORMOTEROL 80/4.5 MCG 6.9 GM INHALER (*SP) 1 PUFF INHALATION ×2 (06:00→18:20)
--- NOTE | 2024-03-26 06:05 | PC.NURSE ---
Pt given vancomycin 125 mg PO and Symbicort inhaler as ordered.
[2024-03-26 08:00] VITALS: BP 157/87; PULSE 58; RESP 14; TEMP 36.8; O2SAT 94
[2024-03-26] MEDS: FUROSEMIDE 40 MG TABLET PO (10:00)
[2024-03-26] MEDS: dilTIAZem HCL CD 240 MG CAP.24HR PO (10:00)
[2024-03-26] MEDS: MEMANTINE 5 MG TABLET 10 MG PO ×2 (10:00→21:03)
[2024-03-26] MEDS: APIXABAN 2.5 MG TABLET 5 MG PO ×2 (10:00→21:04)
[2024-03-26 10:01] VITALS: PULSE 58
[2024-03-26] MEDS: FLUoxetine HCL 20 MG CAPSULE PO (10:01)
[2024-03-26] MEDS: DONEPEZIL HCL 5 MG TABLET 10 MG PO (10:01)
[2024-03-26] MEDS: MICONAZOLE NITRATE 2% CREAM 30 GM TUBE 1 APPLIC TOPICAL ×2 (10:01→21:05)
[2024-03-26] MEDS: METOPROLOL TARTRATE 25 MG TABLET PO ×2 (10:01→21:03)
[2024-03-26] MEDS: CARBIDOPA/LEVODOPA 25/100 MG CR TABLET 2 TABLET PO ×2 (10:02→17:06)
[2024-03-26] MEDS: PANTOPRAZOLE 40 MG TABLET PO (10:02)
[2024-03-26] MEDS: MONTELUKAST SODIUM 10 MG TABLET PO (10:02)
[2024-03-26] MEDS: ATORVASTATIN 40 MG TABLET PO (10:02)
[2024-03-26] MEDS: GABAPENTIN 100 MG CAPSULE PO ×3 (10:03→17:05)
[2024-03-26] MEDS: CALCIUM/VITAMIN D 250 MG/3.125 MCG (125 I.U.) TABLET 1 TABLET PO (13:25)
[2024-03-26] MEDS: THERAPEUTIC MULTIVITAMINS/MINERALS TAB (*BKC) 1 TABLET PO (13:25)
[2024-03-26] MEDS: HYDROcodone/acetaminophen (*CRX) 5-325 MG TABLET 1 TAB PO (13:52)
[2024-03-26 16:00] VITALS: BP 140/59; PULSE 54; RESP 18; TEMP 36.6; O2SAT 92
[2024-03-26 21:03] VITALS: PULSE 55
[2024-03-27] VITALS: BP 144/69; PULSE 55; RESP 16; TEMP 36.7; O2SAT 97
[2024-03-27] MEDS: VANCOMYCIN HCL 125 MG ORAL CAPSULE PO ×4 (00:31→16:59)
[2024-03-27] MEDS: BUDESONIDE/FORMOTEROL 80/4.5 MCG 6.9 GM INHALER (*SP) 1 PUFF INHALATION ×2 (06:20→17:41)
[2024-03-27 08:00] VITALS: BP 160/79; PULSE 57; RESP 16; TEMP 36.7; O2SAT 95
[2024-03-27] MEDS: CARBIDOPA/LEVODOPA 25/100 MG CR TABLET 2 TABLET PO ×2 (08:05→16:55)
[2024-03-27] MEDS: ACETAMINOPHEN 325 MG TABLET 650 MG PO (08:06)
[2024-03-27] MEDS: MONTELUKAST SODIUM 10 MG TABLET PO (08:06)
[2024-03-27] MEDS: DONEPEZIL HCL 5 MG TABLET 10 MG PO (08:07)
[2024-03-27] MEDS: MEMANTINE 5 MG TABLET 10 MG PO ×2 (08:07→20:24)
[2024-03-27] MEDS: APIXABAN 2.5 MG TABLET 5 MG PO ×2 (08:07→20:25)
[2024-03-27] MEDS: PANTOPRAZOLE 40 MG TABLET PO (08:08)
[2024-03-27] MEDS: FUROSEMIDE 40 MG TABLET PO (08:08)
[2024-03-27] MEDS: dilTIAZem HCL CD 240 MG CAP.24HR PO (08:08)
[2024-03-27 08:09] VITALS: PULSE 57
[2024-03-27] MEDS: ATORVASTATIN 40 MG TABLET PO (08:09)
[2024-03-27] MEDS: METOPROLOL TARTRATE 25 MG TABLET PO (08:09)
[2024-03-27] MEDS: FLUoxetine HCL 20 MG CAPSULE PO (08:09)
[2024-03-27] MEDS: GABAPENTIN 100 MG CAPSULE PO ×3 (08:09→16:56)
[2024-03-27] MEDS: MICONAZOLE NITRATE 2% CREAM 30 GM TUBE 1 APPLIC TOPICAL ×2 (08:10→20:26)
[2024-03-27] MEDS: CALCIUM/VITAMIN D 250 MG/3.125 MCG (125 I.U.) TABLET 1 TABLET PO (12:28)
[2024-03-27] MEDS: THERAPEUTIC MULTIVITAMINS/MINERALS TAB (*BKC) 1 TABLET PO (12:29)
[2024-03-27] MEDS: HYDROcodone/acetaminophen (*CRX) 5-325 MG TABLET 1 TAB PO (15:07)
[2024-03-27 16:00] VITALS: BP 129/60; PULSE 48; RESP 16; TEMP 36.3; O2SAT 96
[2024-03-27 20:25] VITALS: PULSE 52
[2024-03-28] VITALS: BP 150/64; PULSE 52; RESP 16; TEMP 36.6; O2SAT 93
[2024-03-28] MEDS: BUDESONIDE/FORMOTEROL 80/4.5 MCG 6.9 GM INHALER (*SP) 1 PUFF INHALATION ×2 (06:28→17:45)
[2024-03-28 08:00] VITALS: BP 145/64; PULSE 62; RESP 14; TEMP 36.6; O2SAT 96
[2024-03-28] MEDS: MEMANTINE 5 MG TABLET 10 MG PO ×2 (09:00→20:53)
[2024-03-28] MEDS: dilTIAZem HCL CD 240 MG CAP.24HR PO (09:00)
[2024-03-28 09:01] VITALS: PULSE 62
[2024-03-28] MEDS: METOPROLOL TARTRATE 25 MG TABLET PO ×2 (09:01→20:53)
[2024-03-28] MEDS: FUROSEMIDE 40 MG TABLET PO (09:01)
[2024-03-28] MEDS: ATORVASTATIN 40 MG TABLET PO (09:01)
[2024-03-28] MEDS: PANTOPRAZOLE 40 MG TABLET PO (09:01)
[2024-03-28] MEDS: DONEPEZIL HCL 5 MG TABLET 10 MG PO (09:02)
[2024-03-28] MEDS: CARBIDOPA/LEVODOPA 25/100 MG CR TABLET 2 TABLET PO ×2 (09:02→17:44)
[2024-03-28] MEDS: MONTELUKAST SODIUM 10 MG TABLET PO (09:02)
[2024-03-28] MEDS: GABAPENTIN 100 MG CAPSULE PO ×3 (09:02→17:45)
[2024-03-28] MEDS: APIXABAN 2.5 MG TABLET 5 MG PO ×2 (09:02→20:52)
[2024-03-28] MEDS: FLUoxetine HCL 20 MG CAPSULE PO (09:02)
[2024-03-28] MEDS: MICONAZOLE NITRATE 2% CREAM 30 GM TUBE 1 APPLIC TOPICAL ×2 (09:23→20:53)
[2024-03-28] MEDS: CALCIUM/VITAMIN D 250 MG/3.125 MCG (125 I.U.) TABLET 1 TABLET PO (12:30)
[2024-03-28] MEDS: THERAPEUTIC MULTIVITAMINS/MINERALS TAB (*BKC) 1 TABLET PO (13:20)
[2024-03-28] MEDS: ACETAMINOPHEN 325 MG TABLET 650 MG PO (13:59)
[2024-03-28 16:00] VITALS: BP 128/78; PULSE 52; RESP 18; TEMP 36.6; O2SAT 96
[2024-03-28] MEDS: HYDROcodone/acetaminophen (*CRX) 5-325 MG TABLET 1 TAB PO (20:52)
[2024-03-29] VITALS: BP 161/62; PULSE 78; RESP 14; TEMP 36.4; O2SAT 93
[2024-03-29] MEDS: BUDESONIDE/FORMOTEROL 80/4.5 MCG 6.9 GM INHALER (*SP) 1 PUFF INHALATION ×2 (06:22→17:37)
[2024-03-29 08:00] VITALS: BP 140/55; PULSE 74; RESP 18; TEMP 36.4; O2SAT 96
[2024-03-29] MEDS: CARBIDOPA/LEVODOPA 25/100 MG CR TABLET 2 TABLET PO ×2 (09:25→17:36)
[2024-03-29 09:26] VITALS: PULSE 74
[2024-03-29] MEDS: MONTELUKAST SODIUM 10 MG TABLET PO (09:26)
[2024-03-29] MEDS: FUROSEMIDE 40 MG TABLET PO (09:26)
[2024-03-29] MEDS: GABAPENTIN 100 MG CAPSULE PO ×3 (09:26→17:37)
[2024-03-29] MEDS: MEMANTINE 5 MG TABLET 10 MG PO ×2 (09:26→21:22)
[2024-03-29] MEDS: METOPROLOL TARTRATE 25 MG TABLET PO ×2 (09:26→21:22)
[2024-03-29] MEDS: MICONAZOLE NITRATE 2% CREAM 30 GM TUBE 1 APPLIC TOPICAL ×2 (09:27→21:23)
[2024-03-29] MEDS: FLUoxetine HCL 20 MG CAPSULE PO (09:27)
[2024-03-29] MEDS: APIXABAN 2.5 MG TABLET 5 MG PO ×2 (09:27→21:22)
[2024-03-29] MEDS: PANTOPRAZOLE 40 MG TABLET PO (09:27)
[2024-03-29] MEDS: DONEPEZIL HCL 5 MG TABLET 10 MG PO (09:27)
[2024-03-29] MEDS: dilTIAZem HCL CD 240 MG CAP.24HR PO (09:27)
[2024-03-29] MEDS: ATORVASTATIN 40 MG TABLET PO (09:27)
--- NOTE | 2024-03-29 10:10 | PM.IMPN ---
Progress Note: A&P Assessment and Plan (1) Intertrochanteric fracture of left hip: Code(s): S72.142A - Displaced intertrochanteric fracture of left femur, initial encounter for closed fracture Status: Acute Assessment and Plan: -s/p ORIF with trochanteric nail on 03/[address] Dumont at [facility] 03/29: Steri-strips in place, no signs of infection Transferring with gait belt and walker, needs continued assistance (2) Physical debility: Code(s): R53.81 - Other malaise Status: Acute Assessment and Plan: -admit to swing bed, PT/OT/ST consulted 03/29: Participating with therapy Patient will continue Swing admit for at least another week (3) Acute respiratory failure with hypoxia: Code(s): J96.01 - Acute respiratory failure with hypoxia Status: Acute Assessment and Plan: -RLL pneumonia on CXR 03/17, suspected to be aspiration pneumonia -Augmentin BID for 4 more doses -doxycycline BID for 11 more doses -oxygen PRN to keep sats over 90% 03/29: Room air, no respiratory distress (4) Aspiration into airway: Code(s): T17.908A - Unspecified foreign body in respiratory tract, part unspecified causing other injury, initial encounter Status: Acute Assessment and Plan: -Level 6 soft and bite sized diet -ST consulted -oxygen PRN 03/29: Room air, no respiratory distress (5) Closed sacral fracture: Code(s): S32.10XA - Unspecified fracture of sacrum, initial encounter for closed fracture Status: Acute Assessment and Plan: -likely old, discovered on recent admit to [facility] (6) Pubic ramus fracture: Code(s): S32.599A - Other specified fracture of unspecified pubis, initial encounter for closed fracture Status: Acute Assessment and Plan: -likely old, discovered on recent admit to [facility] (7) Parkinsons disease: Code(s): G20.A1 - Parkinson's disease without dyskinesia, without mention of fluctuations Status: Acute Assessment and Plan: -Decreasing verbal communication and hampering physical recovery -Continue home medications (8) Hypertension: Code(s): I10 - Essential (primary) hypertension Status: Acute Assessment and Plan: -Stable, continue home medications (9) Anemia associated with acute blood loss: Code(s): D62 - Acute posthemorrhagic anemia Status: Acute Assessment and Plan: -Stable, aspirin on hold, Eliquis for DVT prophylaxis 03/29: HGB improved on labs from 03/25, recheck labs in AM Plan Continue Skilled Swing Bed admit for PT/OT Begin looking at placement options if patient unable to advance enough to return home Time Spent With Patient Time with patient: 25 - 35 minutes Subjective Date/time seen: 03/29/24 10:10 Interval history: Patient admitted for PT/OT due to left hip fracture, pelvic fractures and Parkinson's. Initially treated for aspiration pneumonia. Patient tolerating soft and bite sized diet. He is working with therapy but not yet able to return home. Care conference held today and patient will need at least another week of therapy services to determine if patient will be able to advance enough to return home. Review of Systems Review of Systems: All systems reviewed & are unremarkable except as noted in HPI and below Exam Narrative: Gen - no acute distress noted, alert and confused Chest - Clear to auscultation bilaterally, normal rate, no respiratory distress CV - regular rate and rhythm S1/S2. Abd - Soft, NT/ND, Positive BS - scrotum and penile ecchymosis with edema, edema improving. Ext - Left hip surgical sites with steristrips, no drainage, no signs of infection Neuro - Alert but confused Psych - normal mood and affect Skin - Warm and dry Objective Data Vital Signs Vital Signs: Vital Signs - 24 hr 03/28/24 16:00 03/29/24 00:00 03/29/24 09:26 Temperature 36.6 C 36.4 C Pulse
[2024-03-29] MEDS: HYDROcodone/acetaminophen (*CRX) 5-325 MG TABLET 1 TAB PO ×2 (11:10→21:23)
[2024-03-29] MEDS: CALCIUM/VITAMIN D 250 MG/3.125 MCG (125 I.U.) TABLET 1 TABLET PO (11:10)
[2024-03-29] MEDS: THERAPEUTIC MULTIVITAMINS/MINERALS TAB (*BKC) 1 TABLET PO (11:10)
[2024-03-29 16:00] VITALS: BP 134/58; PULSE 70; RESP 17; TEMP 36.3; O2SAT 97
[2024-03-30] VITALS: BP 127/57; PULSE 55; RESP 15; TEMP 36.3; O2SAT 95
[2024-03-30 05:30] LABS: Hematocrit 32.3 % (37.0-46.0); Mean Corpuscular Hemoglobin 31.5 pg (27.0-31.0); Mean Corpuscular Volume 101.9 fL (78.0-102.0); Mean Platelet Volume 8.3 fl (8.7-11.0); Platelet Count Result 463 K/mm3 (150-420); Red Blood Count 3.17 M/mm3 (4.70-6.10); Red Cell Distribution Width 15.8 % (11.6-14.4); White Blood Count 8.1 K/mm3 (4.8-10.8)
[2024-03-30 05:47] LABS: Albumin Level 2.4 g/dL (3.4-5.0); Anion Gap 5 mmol/L (4-12); Blood Urea Nitrogen 20 mg/dL (7-18); Calcium 8.1 mg/dL (8.5-10.1); Carbon Dioxide 34 mmol/L (21-32); Chloride 99 mmol/L (98-108); Estimated CRCL calculation 36 ml/min; Estimated Glomerular Filt Rate 52; Glucose 113 mg/dL (70-99); Magnesium 2.1 mg/dL (1.8-2.4); Osmolality Calculated 289 mOsm/kg (285-295); Phosphorus 4.3 mg/dL (2.6-4.7); Potassium 4.2 mmol/L (3.5-5.1); Sodium 138 mmol/L (136-145)
[2024-03-30] MEDS: BUDESONIDE/FORMOTEROL 80/4.5 MCG 6.9 GM INHALER (*SP) 1 PUFF INHALATION ×2 (06:42→18:14)
[2024-03-30 07:40] VITALS: BP 114/50; PULSE 54; RESP 16; TEMP 36.3; O2SAT 98
[2024-03-30] MEDS: APIXABAN 2.5 MG TABLET 5 MG PO ×2 (09:38→20:54)
[2024-03-30] MEDS: GABAPENTIN 100 MG CAPSULE PO ×3 (09:38→18:14)
[2024-03-30] MEDS: dilTIAZem HCL CD 240 MG CAP.24HR PO (09:38)
[2024-03-30] MEDS: DONEPEZIL HCL 5 MG TABLET 10 MG PO (09:38)
[2024-03-30] MEDS: ATORVASTATIN 40 MG TABLET PO (09:38)
[2024-03-30] MEDS: MONTELUKAST SODIUM 10 MG TABLET PO (09:38)
[2024-03-30] MEDS: FLUoxetine HCL 20 MG CAPSULE PO (09:38)
[2024-03-30] MEDS: HYDROcodone/acetaminophen (*CRX) 5-325 MG TABLET 1 TAB PO (09:38)
[2024-03-30] MEDS: PANTOPRAZOLE 40 MG TABLET PO (09:38)
[2024-03-30] MEDS: CARBIDOPA/LEVODOPA 25/100 MG CR TABLET 2 TABLET PO ×2 (09:38→18:14)
[2024-03-30] MEDS: MEMANTINE 5 MG TABLET 10 MG PO ×2 (09:38→20:54)
[2024-03-30] MEDS: FUROSEMIDE 40 MG TABLET PO (09:38)
[2024-03-30 09:40] VITALS: PULSE 54
[2024-03-30] MEDS: MICONAZOLE NITRATE 2% CREAM 30 GM TUBE 1 APPLIC TOPICAL ×2 (09:40→21:07)
[2024-03-30] MEDS: METOPROLOL TARTRATE 25 MG TABLET PO ×2 (09:40→20:54)
[2024-03-30] MEDS: THERAPEUTIC MULTIVITAMINS/MINERALS TAB (*BKC) 1 TABLET PO (13:01)
[2024-03-30] MEDS: CALCIUM/VITAMIN D 250 MG/3.125 MCG (125 I.U.) TABLET 1 TABLET PO (13:01)
[2024-03-30 16:30] VITALS: BP 143/58; PULSE 50; RESP 16; TEMP 36; O2SAT 96
[2024-03-30] MEDS: ACETAMINOPHEN 325 MG TABLET 650 MG PO (18:13)
[2024-03-30 20:35] VITALS: PULSE 52; RESP 16; O2SAT 96
[2024-03-30 20:54] VITALS: PULSE 52
--- NOTE | 2024-03-30 22:28 | PC.NURSE ---
Patient resting quietly in bed. SR up x2. Pérez cath patent and draining clear yellow urine. Call light and belongings in reach.
[2024-03-31] VITALS: BP 144/80; PULSE 62; RESP 16; TEMP 36.8; O2SAT 93
--- NOTE | 2024-03-31 05:48 | PC.NURSE ---
Noted patient moving catheter tubing proximal to urethra frequently. (Grasped tubing just after the Staylock and before urethral opening and moving back and forth. Denies it hurting, nurse explained need to not pull or wiggle tubing to prevent bladder or urethral injury. Patient agrees to same and stated, Okay and moved his hands.
[2024-03-31] MEDS: BUDESONIDE/FORMOTEROL 80/4.5 MCG 6.9 GM INHALER (*SP) 1 PUFF INHALATION ×2 (06:07→17:52)
[2024-03-31 08:00] VITALS: BP 138/58; PULSE 67; RESP 18; TEMP 36.9; O2SAT 92
[2024-03-31] MEDS: FUROSEMIDE 40 MG TABLET PO (09:31)
[2024-03-31] MEDS: DONEPEZIL HCL 5 MG TABLET 10 MG PO (09:31)
[2024-03-31] MEDS: dilTIAZem HCL CD 240 MG CAP.24HR PO (09:31)
[2024-03-31] MEDS: APIXABAN 2.5 MG TABLET 5 MG PO ×2 (09:31→20:22)
[2024-03-31] MEDS: GABAPENTIN 100 MG CAPSULE PO ×3 (09:31→17:52)
[2024-03-31 09:32] VITALS: PULSE 65
[2024-03-31] MEDS: CARBIDOPA/LEVODOPA 25/100 MG CR TABLET 2 TABLET PO ×2 (09:32→17:52)
[2024-03-31] MEDS: MEMANTINE 5 MG TABLET 10 MG PO ×2 (09:32→20:22)
[2024-03-31] MEDS: ATORVASTATIN 40 MG TABLET PO (09:32)
[2024-03-31] MEDS: FLUoxetine HCL 20 MG CAPSULE PO (09:32)
[2024-03-31] MEDS: METOPROLOL TARTRATE 25 MG TABLET PO ×2 (09:32→20:22)
[2024-03-31] MEDS: MONTELUKAST SODIUM 10 MG TABLET PO (09:32)
[2024-03-31] MEDS: PANTOPRAZOLE 40 MG TABLET PO (09:34)
[2024-03-31] MEDS: MICONAZOLE NITRATE 2% CREAM 30 GM TUBE 1 APPLIC TOPICAL ×2 (09:34→20:21)
[2024-03-31] MEDS: HYDROcodone/acetaminophen (*CRX) 5-325 MG TABLET 1 TAB PO ×2 (10:43→20:21)
[2024-03-31] MEDS: CALCIUM/VITAMIN D 250 MG/3.125 MCG (125 I.U.) TABLET 1 TABLET PO (12:00)
[2024-03-31] MEDS: THERAPEUTIC MULTIVITAMINS/MINERALS TAB (*BKC) 1 TABLET PO (12:00)
[2024-03-31 16:00] VITALS: BP 140/78; PULSE 78; RESP 18; TEMP 36.4; O2SAT 93
[2024-03-31 20:22] VITALS: PULSE 75
[2024-04-01] VITALS: BP 128/61; PULSE 75; RESP 16; TEMP 36.7; O2SAT 93
[2024-04-01] MEDS: BUDESONIDE/FORMOTEROL 80/4.5 MCG 6.9 GM INHALER (*SP) 1 PUFF INHALATION ×2 (05:59→18:13)
[2024-04-01 07:58] VITALS: BP 141/60; PULSE 67; RESP 18; TEMP 37.2; O2SAT 96
[2024-04-01] MEDS: DONEPEZIL HCL 5 MG TABLET 10 MG PO (08:51)
[2024-04-01] MEDS: APIXABAN 2.5 MG TABLET 5 MG PO ×2 (08:52→21:11)
[2024-04-01] MEDS: MEMANTINE 5 MG TABLET 10 MG PO ×2 (08:52→21:11)
[2024-04-01] MEDS: ACETAMINOPHEN 325 MG TABLET 650 MG PO (08:53)
[2024-04-01] MEDS: dilTIAZem HCL CD 240 MG CAP.24HR PO (08:53)
[2024-04-01] MEDS: GABAPENTIN 100 MG CAPSULE PO ×2 (08:54→12:13)
[2024-04-01] MEDS: CARBIDOPA/LEVODOPA 25/100 MG CR TABLET 2 TABLET PO ×2 (08:54→16:37)
[2024-04-01] MEDS: PANTOPRAZOLE 40 MG TABLET PO (08:54)
[2024-04-01] MEDS: ATORVASTATIN 40 MG TABLET PO (08:55)
[2024-04-01] MEDS: MONTELUKAST SODIUM 10 MG TABLET PO (08:55)
[2024-04-01] MEDS: FLUoxetine HCL 20 MG CAPSULE PO (08:55)
[2024-04-01 08:56] VITALS: PULSE 67
[2024-04-01] MEDS: FUROSEMIDE 40 MG TABLET PO (08:56)
[2024-04-01] MEDS: METOPROLOL TARTRATE 25 MG TABLET PO ×2 (08:56→21:12)
[2024-04-01] MEDS: MICONAZOLE NITRATE 2% CREAM 30 GM TUBE 1 APPLIC TOPICAL ×2 (08:56→21:13)
--- NOTE | 2024-04-01 09:23 | PC.NURSE ---
Patient lethargic with flat affect. Component Design Engineer detects a slight decline in patient's ability/ willingness to perform ADLS, including feeding himself. VSS stable and normal for patient's baseline.
[2024-04-01 10:29] LABS: Basophils Absolute Auto 0.01 K/mm3 (0.00-0.10); Basophils Percent Auto 0.1 % (0.0-1.0); Hematocrit 31.2 % (37.0-46.0); Hemoglobin 9.9 g/dL (12.4-15.3); Immature Granulocyte Absolute 0.08 K/mm3 (0.00-0.00); Immature Granulocyte Percent A 0.7 % (0.0-0.0); Lymphocytes Absolute Auto 0.74 K/mm3 (1.10-4.50); Lymphocytes Percent Auto 6.3 % (18.0-42.0); Mean Corpuscular HGB Conc 31.7 g/dL (32-36); Mean Corpuscular Hemoglobin 31.8 pg (27.0-31.0); Mean Corpuscular Volume 100.3 fL (78.0-102.0); Mean Platelet Volume 8.1 fl (8.7-11.0); Monocytes Absolute Auto 0.83 K/mm3 (0.10-0.90); Monocytes Percent Auto 7.1 % (2.0-11.0); Neutrophils Percent Auto 85.8 % (50.0-70.0); Platelet Count Result 324 K/mm3 (150-420); Red Blood Count 3.11 M/mm3 (4.70-6.10); Red Cell Distribution Width 15.4 % (11.6-14.4); White Blood Count 11.7 K/mm3 (4.8-10.8)
[2024-04-01 10:44] LABS: Alanine Aminotransferase 9 U/L (16-63); Albumin Level 2.3 g/dL (3.4-5.0); Alkaline Phosphatase 152 U/L (46-116); Anion Gap 6 mmol/L (4-12); Aspartate Amino Transferase 15 U/L (15-37); Bilirubin,Total 0.7 mg/dL (0.00-1.00); Blood Urea Nitrogen 20 mg/dL (7-18); Carbon Dioxide 32 mmol/L (21-32); Chloride 97 mmol/L (98-108); Estimated CRCL calculation 40 ml/min; Estimated Glomerular Filt Rate 58; Glucose 180 mg/dL (70-99); Magnesium 2.1 mg/dL (1.8-2.4); Osmolality Calculated 287 mOsm/kg (285-295); Potassium 4.1 mmol/L (3.5-5.1); Sodium 135 mmol/L (136-145); Total Protein 6.3 g/dL (6.4-8.2)
--- NOTE | 2024-04-01 10:58 | PM.EVENT ---
Event Note Event Note Event Note: Patient has had labs drawn as nursing felt like patient was digressing. WBC is 11.7 but there is no source of infection. I will have chest Xray completed no acute cardiopulmonary issues identified. and urine checked.
[2024-04-01] MEDS: SACCHAROMYCES BOULARDII 250 MG CAPSULE PO ×2 (12:13→16:38)
[2024-04-01] MEDS: THERAPEUTIC MULTIVITAMINS/MINERALS TAB (*BKC) 1 TABLET PO (12:13)
[2024-04-01] MEDS: CALCIUM/VITAMIN D 250 MG/3.125 MCG (125 I.U.) TABLET 1 TABLET PO (12:18)
[2024-04-01 12:32] LABS: Appearance Urine Clear (Clear); Bilirubin Urine Negative (Negative); Blood Urine 2+ (Negative); Color Urine Yellow (Yellow); Glucose Urine UA Negative (Negative); Ketones Urine Negative (Negative); Leukocyte Esterase Ur Negative LEU/UL (Negative); Nitrate Urine Negative (Negative); Protein Urine Negative (Negative); Urobilinogen Urine 0.2 mg/dL (0.2-1.0)
[2024-04-01 12:51] LABS: Add Urine Microscopic? YES; RBC Urine 0-2 /hpf (0-2)
--- NOTE | 2024-04-01 13:57 | PC.NURSE ---
family her and update given. aware of him very sluggish. having to be fed for breakfast. claims he was started on gabapentin on february 22 by a pain doctor for back pain. claims she was on same dose and had had to quit because made her too tired to get get and move. wnats to see if this is the reason.
[2024-04-01 16:00] VITALS: BP 140/57; PULSE 52; RESP 16; TEMP 36.7; O2SAT 95
[2024-04-01 21:12] VITALS: PULSE 62
[2024-04-02] VITALS: BP 140/57; PULSE 62; RESP 16; TEMP 36.6; O2SAT 94
[2024-04-02] MEDS: BUDESONIDE/FORMOTEROL 80/4.5 MCG 6.9 GM INHALER (*SP) 1 PUFF INHALATION ×2 (05:30→18:32)
[2024-04-02 07:45] VITALS: BP 161/65; PULSE 57; RESP 18; TEMP 37.1; O2SAT 96
[2024-04-02 08:40] VITALS: O2SAT 96
[2024-04-02] MEDS: FUROSEMIDE 40 MG TABLET PO (09:06)
[2024-04-02] MEDS: APIXABAN 2.5 MG TABLET 5 MG PO ×2 (09:06→20:47)
[2024-04-02] MEDS: CARBIDOPA/LEVODOPA 25/100 MG CR TABLET 2 TABLET PO ×2 (09:06→18:32)
[2024-04-02] MEDS: SACCHAROMYCES BOULARDII 250 MG CAPSULE PO ×3 (09:06→18:32)
[2024-04-02 09:07] VITALS: PULSE 57
[2024-04-02] MEDS: FLUoxetine HCL 20 MG CAPSULE PO (09:07)
[2024-04-02] MEDS: MICONAZOLE NITRATE 2% CREAM 30 GM TUBE 1 APPLIC TOPICAL ×2 (09:07→20:51)
[2024-04-02] MEDS: ATORVASTATIN 40 MG TABLET PO (09:07)
[2024-04-02] MEDS: METOPROLOL TARTRATE 25 MG TABLET PO ×2 (09:07→20:49)
[2024-04-02] MEDS: MEMANTINE 5 MG TABLET 10 MG PO ×2 (09:07→20:51)
[2024-04-02] MEDS: DONEPEZIL HCL 5 MG TABLET 10 MG PO (09:07)
[2024-04-02] MEDS: PANTOPRAZOLE 40 MG TABLET PO (09:07)
[2024-04-02] MEDS: MONTELUKAST SODIUM 10 MG TABLET PO (09:07)
[2024-04-02] MEDS: dilTIAZem HCL CD 240 MG CAP.24HR PO (09:07)
[2024-04-02] MEDS: ACETAMINOPHEN 325 MG TABLET 650 MG PO ×2 (09:08→18:32)
[2024-04-02] MEDS: THERAPEUTIC MULTIVITAMINS/MINERALS TAB (*BKC) 1 TABLET PO (13:13)
[2024-04-02] MEDS: CALCIUM/VITAMIN D 250 MG/3.125 MCG (125 I.U.) TABLET 1 TABLET PO (13:13)
[2024-04-02] MEDS: HYDROcodone/acetaminophen (*CRX) 5-325 MG TABLET 1 TAB PO ×2 (13:13→20:47)
[2024-04-02 16:45] VITALS: BP 142/73; PULSE 65; RESP 16; TEMP 36.4; O2SAT 95
[2024-04-02 20:49] VITALS: PULSE 62
[2024-04-03] VITALS (7 sets, daily range): BP systolic 113–173; BP diastolic 62–74; PULSE 56–98; RESP 16–18; TEMP 36.6–36.8; O2SAT 96
[2024-04-03] MEDS: BUDESONIDE/FORMOTEROL 80/4.5 MCG 6.9 GM INHALER (*SP) 1 PUFF INHALATION ×2 (06:40→18:40)
--- NOTE | 2024-04-03 07:42 | PM.EVENT ---
Event Note Event Note Event Note: Discussed with nursing staff regarding patient rash which is not better but not worse we will stop antifungal and try steroid cream. Explained to nursing staff not to use antifungal while using steroids. Patient is complaining of sore throat. We will swab for strep and I will order throat loungzes .
[2024-04-03] MEDS: MEMANTINE 5 MG TABLET 10 MG PO ×2 (09:15→20:43)
[2024-04-03] MEDS: SACCHAROMYCES BOULARDII 250 MG CAPSULE PO ×3 (09:15→16:27)
[2024-04-03] MEDS: MONTELUKAST SODIUM 10 MG TABLET PO (09:16)
[2024-04-03] MEDS: dilTIAZem HCL CD 240 MG CAP.24HR PO (09:16)
[2024-04-03] MEDS: APIXABAN 2.5 MG TABLET 5 MG PO ×2 (09:16→20:42)
[2024-04-03] MEDS: FLUoxetine HCL 20 MG CAPSULE PO (09:16)
[2024-04-03] MEDS: METOPROLOL TARTRATE 25 MG TABLET PO ×2 (09:16→20:42)
[2024-04-03] MEDS: PANTOPRAZOLE 40 MG TABLET PO (09:16)
[2024-04-03] MEDS: HYDROCORTISONE 2.5% CREAM 30 GM TUBE 1 APPLIC TOPICAL ×2 (09:16→20:43)
[2024-04-03] MEDS: DONEPEZIL HCL 5 MG TABLET 10 MG PO (09:16)
[2024-04-03] MEDS: FUROSEMIDE 40 MG TABLET PO (09:16)
[2024-04-03] MEDS: ATORVASTATIN 40 MG TABLET PO (09:16)
[2024-04-03] MEDS: CARBIDOPA/LEVODOPA 25/100 MG CR TABLET 2 TABLET PO ×2 (09:16→16:27)
[2024-04-03] MEDS: BENZOCAINE/MENTHOL (*BKC) LOZENGE 1 LOZENGE PO (09:17)
--- NOTE | 2024-04-03 09:40 | PC.NURSE ---
Patient reporting sore throat/neck since last night. Tylenol does not seem to relieve symptoms. Reese DATA SUPPORT SPECIALIST notified. Strep swab obtained per order. Patient given Chloraseptic cough drop. Resting in recliner with BLE elevated.
[2024-04-03 10:28] LABS: Strep Group A RT-PCR NOT DETECTED (Negative)
[2024-04-03] MEDS: MENTHOL 10% / METHYL SALICYLATE 15% 57 GM TUBE 1 APPLIC TOPICAL (13:29)
[2024-04-03] MEDS: CALCIUM/VITAMIN D 250 MG/3.125 MCG (125 I.U.) TABLET 1 TABLET PO (13:29)
[2024-04-03] MEDS: THERAPEUTIC MULTIVITAMINS/MINERALS TAB (*BKC) 1 TABLET PO (13:29)
[2024-04-03] MEDS: IBUPROFEN 600 MG TABLET PO (16:27)
[2024-04-03] MEDS: HYDROcodone/acetaminophen (*CRX) 5-325 MG TABLET 1 TAB PO (20:42)
[2024-04-04] MEDS: BUDESONIDE/FORMOTEROL 80/4.5 MCG 6.9 GM INHALER (*SP) 1 PUFF INHALATION ×2 (06:51→18:30)
[2024-04-04 08:00] VITALS: BP 148/67; PULSE 63; RESP 16; TEMP 36.2; O2SAT 93
[2024-04-04] MEDS: FUROSEMIDE 40 MG TABLET PO (09:39)
[2024-04-04] MEDS: dilTIAZem HCL CD 240 MG CAP.24HR PO (09:40)
[2024-04-04] MEDS: DONEPEZIL HCL 5 MG TABLET 10 MG PO (09:40)
[2024-04-04] MEDS: MONTELUKAST SODIUM 10 MG TABLET PO (09:41)
[2024-04-04] MEDS: SACCHAROMYCES BOULARDII 250 MG CAPSULE PO ×3 (09:41→17:48)
[2024-04-04] MEDS: CARBIDOPA/LEVODOPA 25/100 MG CR TABLET 2 TABLET PO ×2 (09:41→17:48)
[2024-04-04] MEDS: APIXABAN 2.5 MG TABLET 5 MG PO ×2 (09:41→21:31)
[2024-04-04] MEDS: CARBIDOPA/LEVODOPA 25/100 MG CR TABLET 2 TABLET (09:42)
[2024-04-04] MEDS: HYDROCORTISONE 2.5% CREAM 30 GM TUBE 1 APPLIC TOPICAL ×2 (09:42→22:36)
[2024-04-04 09:43] VITALS: PULSE 63
[2024-04-04] MEDS: METOPROLOL TARTRATE 25 MG TABLET PO ×2 (09:43→21:30)
[2024-04-04] MEDS: MEMANTINE 5 MG TABLET 10 MG PO ×2 (09:46→21:30)
[2024-04-04] MEDS: FLUoxetine HCL 20 MG CAPSULE PO (09:47)
[2024-04-04] MEDS: PANTOPRAZOLE 40 MG TABLET PO (09:47)
[2024-04-04] MEDS: ATORVASTATIN 40 MG TABLET PO (09:47)
--- NOTE | 2024-04-04 10:39 | PM.IMPN ---
Progress Note: A&P Assessment and Plan (1) Intertrochanteric fracture of left hip: Code(s): S72.142A - Displaced intertrochanteric fracture of left femur, initial encounter for closed fracture Status: Acute Assessment and Plan: -s/p ORIF with trochanteric nail on 03/[address] Dumont at [facility] 03/29: Steri-strips in place, no signs of infection Transferring with gait belt and walker, needs continued assistance 04/04: Left hip incision well approximated with Steri-Strips in place x-ray of left hip and pelvis done today continue PT and OT progressing well with therapy (2) Physical debility: Code(s): R53.81 - Other malaise Status: Acute Assessment and Plan: -admit to swing bed, PT/OT/ST consulted 03/29: Participating with therapy Patient will continue Swing admit for at least another week 04/04: continue PT and OT (3) Acute respiratory failure with hypoxia: Code(s): J96.01 - Acute respiratory failure with hypoxia Status: Acute Assessment and Plan: -RLL pneumonia on CXR 03/17, suspected to be aspiration pneumonia -Augmentin BID for 4 more doses -doxycycline BID for 11 more doses -oxygen PRN to keep sats over 90% 03/29: Room air, no respiratory distress 04/04: currently on room air, no distress (4) Aspiration into airway: Code(s): T17.908A - Unspecified foreign body in respiratory tract, part unspecified causing other injury, initial encounter Status: Acute Assessment and Plan: -Level 6 soft and bite sized diet -ST consulted -oxygen PRN 03/29: Room air, no respiratory distress 04/04: currently on room air, no acute distress (5) Closed sacral fracture: Code(s): S32.10XA - Unspecified fracture of sacrum, initial encounter for closed fracture Status: Acute Assessment and Plan: -likely old, discovered on recent admit to [facility] (6) Pubic ramus fracture: Code(s): S32.599A - Other specified fracture of unspecified pubis, initial encounter for closed fracture Status: Acute Assessment and Plan: -likely old, discovered on recent admit to [facility] (7) Parkinsons disease: Code(s): G20.A1 - Parkinson's disease without dyskinesia, without mention of fluctuations Status: Acute Assessment and Plan: -Decreasing verbal communication and hampering physical recovery -Continue home medications 04/04: no change to current treatment plan (8) Hypertension: Code(s): I10 - Essential (primary) hypertension Status: Acute Assessment and Plan: -Stable, continue home medications 04/04: no change to current treatment plan (9) Anemia associated with acute blood loss: Code(s): D62 - Acute posthemorrhagic anemia Status: Acute Assessment and Plan: -Stable, aspirin on hold, Eliquis for DVT prophylaxis 03/29: HGB improved on labs from 03/25, recheck labs in AM 04/04: hemoglobin 9.9, 04/01/2024 stable Time Spent With Patient Time with patient: Greater than 35 minutes Subjective Date/time seen: 04/04/24 10:39 Interval history: On examination today patient is pleasantly confused. He denies any fever, chills, nausea, vomiting, diarrhea, abdominal pain, chest pain, shortness a breath. He has a Pérez catheter in place which is draining clear yellow urine. Left hip incision is well approximated with Steri-Strips in place. Patient making progress with PT and OT. order placed for left hip and pelvis x-ray AP and lateral. Review of Systems Review of Systems: ROS unobtainable: Yes unobtainable due to mental status Exam Narrative: General: In no acute distress, well nourished Head: atraumatic, no encephalopathy Eyes: EOMI, PERRLA, sclera clear ENT: moist mucous membranes, nasal passages clear Neck: supple, no JVD, no adenopathy, trachea midline Cardiac: Normal S1 and S2. RRR, No murmur, gallops or frict
[2024-04-04] MEDS: THERAPEUTIC MULTIVITAMINS/MINERALS TAB (*BKC) 1 TABLET PO (12:20)
[2024-04-04] MEDS: CALCIUM/VITAMIN D 250 MG/3.125 MCG (125 I.U.) TABLET 1 TABLET PO (12:20)
[2024-04-04] MEDS: MENTHOL 10% / METHYL SALICYLATE 15% 57 GM TUBE 1 APPLIC TOPICAL (12:21)
[2024-04-04 21:30] VITALS: PULSE 72
[2024-04-04] MEDS: HYDROcodone/acetaminophen (*CRX) 5-325 MG TABLET 1 TAB PO (21:31)
[2024-04-05] VITALS (7 sets, daily range): BP systolic 114–177; BP diastolic 63–76; PULSE 58–78; RESP 18; TEMP 36.1–36.6; O2SAT 94–97
--- NOTE | 2024-04-05 00:36 | PC.NURSE ---
Patient smiling at nurse at start of shift. Family in to visit. After family left patient became confused and attempted several times to climb out of bed. At one time patient pulled his stat loc for du cath off, new one applied. Patient grimaces and holds neck. Increased shakiness of hands observed. Patient's appetite fair. Du cath intact and draining cloudy laura urine. SR up x2 bed alarm on. Call light and belongings within reach.
[2024-04-05] MEDS: BUDESONIDE/FORMOTEROL 80/4.5 MCG 6.9 GM INHALER (*SP) 1 PUFF INHALATION ×2 (06:14→17:07)
[2024-04-05] MEDS: CARBIDOPA/LEVODOPA 25/100 MG CR TABLET 2 TABLET PO ×2 (09:49→17:05)
[2024-04-05] MEDS: MENTHOL 10% / METHYL SALICYLATE 15% 57 GM TUBE 1 APPLIC TOPICAL (09:49)
[2024-04-05] MEDS: HYDROCORTISONE 2.5% CREAM 30 GM TUBE 1 APPLIC TOPICAL ×2 (09:49→20:24)
[2024-04-05] MEDS: MONTELUKAST SODIUM 10 MG TABLET PO (09:50)
[2024-04-05] MEDS: FLUoxetine HCL 20 MG CAPSULE PO (09:50)
[2024-04-05] MEDS: MEMANTINE 5 MG TABLET 10 MG PO ×2 (09:50→20:25)
[2024-04-05] MEDS: DONEPEZIL HCL 5 MG TABLET 10 MG PO (09:50)
[2024-04-05] MEDS: HYDROcodone/acetaminophen (*CRX) 5-325 MG TABLET 1 TAB PO ×2 (09:50→20:25)
[2024-04-05] MEDS: PANTOPRAZOLE 40 MG TABLET PO (09:50)
[2024-04-05] MEDS: METOPROLOL TARTRATE 25 MG TABLET PO ×2 (09:51→20:25)
[2024-04-05] MEDS: APIXABAN 2.5 MG TABLET 5 MG PO ×2 (09:51→20:25)
[2024-04-05] MEDS: FUROSEMIDE 40 MG TABLET PO (09:52)
[2024-04-05] MEDS: ATORVASTATIN 40 MG TABLET PO (09:52)
[2024-04-05] MEDS: SACCHAROMYCES BOULARDII 250 MG CAPSULE PO ×3 (09:52→17:05)
[2024-04-05] MEDS: dilTIAZem HCL CD 240 MG CAP.24HR PO (09:52)
[2024-04-05] MEDS: CALCIUM/VITAMIN D 250 MG/3.125 MCG (125 I.U.) TABLET 1 TABLET PO (12:36)
[2024-04-05] MEDS: THERAPEUTIC MULTIVITAMINS/MINERALS TAB (*BKC) 1 TABLET PO (12:36)
[2024-04-05] MEDS: TAMSULOSIN HCL 0.4 MG CAPSULE PO (13:50)
--- NOTE | 2024-04-05 20:00 | PC.NURSE ---
Assisted to bed with 1 assist, gait belt and walker. Patient slow and very unsteady, required constant verbal cues to move feet, also began to sit before he was near bed, mortgage underwriter able to turn patient's hips into bed to prevent fall.
[2024-04-06] MEDS: BUDESONIDE/FORMOTEROL 80/4.5 MCG 6.9 GM INHALER (*SP) 1 PUFF INHALATION (05:37)
[2024-04-06 08:00] VITALS: BP 138/78; PULSE 78; RESP 18; TEMP 36.6; O2SAT 97
[2024-04-06] MEDS: CARBIDOPA/LEVODOPA 25/100 MG CR TABLET 2 TABLET PO (08:33)
[2024-04-06] MEDS: SACCHAROMYCES BOULARDII 250 MG CAPSULE PO (08:33)
[2024-04-06] MEDS: TAMSULOSIN HCL 0.4 MG CAPSULE PO (08:34)
[2024-04-06] MEDS: HYDROcodone/acetaminophen (*CRX) 5-325 MG TABLET 1 TAB PO (08:34)
[2024-04-06 08:35] VITALS: PULSE 78
[2024-04-06] MEDS: METOPROLOL TARTRATE 25 MG TABLET PO (08:35)
[2024-04-06] MEDS: MONTELUKAST SODIUM 10 MG TABLET PO (08:35)
[2024-04-06] MEDS: DONEPEZIL HCL 5 MG TABLET 10 MG PO (08:35)
[2024-04-06] MEDS: PANTOPRAZOLE 40 MG TABLET PO (08:35)
[2024-04-06] MEDS: FLUoxetine HCL 20 MG CAPSULE PO (08:35)
[2024-04-06] MEDS: MEMANTINE 5 MG TABLET 10 MG PO (08:35)
[2024-04-06] MEDS: FUROSEMIDE 40 MG TABLET PO (08:36)
[2024-04-06] MEDS: dilTIAZem HCL CD 240 MG CAP.24HR PO (08:36)
[2024-04-06] MEDS: MENTHOL 10% / METHYL SALICYLATE 15% 57 GM TUBE 1 APPLIC TOPICAL (08:36)
[2024-04-06] MEDS: ATORVASTATIN 40 MG TABLET PO (08:36)
[2024-04-06] MEDS: HYDROCORTISONE 2.5% CREAM 30 GM TUBE 1 APPLIC TOPICAL (08:36)
[2024-04-06] MEDS: APIXABAN 2.5 MG TABLET 5 MG PO (08:36)
--- NOTE | 2024-04-06 08:47 | PM.DS ---
DS: Admitting Diagnosis Discharge Date 04/06/24 Admitting Diagnosis Intratrochanteric fracture left hip physical debility acute respiratory failure with hypoxia aspiration and airway closed sacral fracture pubic rami fracture Parkinson's disease hypertension anemia DS: Discharge Diagnosis Discharge Diagnosis (1) Intertrochanteric fracture of left hip: Code(s): S72.142A - Displaced intertrochanteric fracture of left femur, initial encounter for closed fracture Status: Acute (2) Physical debility: Code(s): R53.81 - Other malaise Status: Acute (3) Acute respiratory failure with hypoxia: Code(s): J96.01 - Acute respiratory failure with hypoxia Status: Acute (4) Aspiration into airway: Code(s): T17.908A - Unspecified foreign body in respiratory tract, part unspecified causing other injury, initial encounter Status: Acute (5) Closed sacral fracture: Code(s): S32.10XA - Unspecified fracture of sacrum, initial encounter for closed fracture Status: Acute (6) Pubic ramus fracture: Code(s): S32.599A - Other specified fracture of unspecified pubis, initial encounter for closed fracture Status: Acute (7) Parkinsons disease: Code(s): G20.A1 - Parkinson's disease without dyskinesia, without mention of fluctuations Status: Acute (8) Hypertension: Code(s): I10 - Essential (primary) hypertension Status: Acute (9) Anemia associated with acute blood loss: Code(s): D62 - Acute posthemorrhagic anemia Status: Acute DS: Summary Hospital Course Reason for hospitalization: Intratrochanteric fracture left hip physical debility acute respiratory failure with hypoxia aspiration and airway closed sacral fracture pubic rami fracture Parkinson's disease hypertension anemia Hospital Course: 03/18/24: This is an 89 year old male with a history of Parkinson's and CAD who suffered a fall with resultant left intertrochanteric femur fracture requiring surgical repair with a complicated post operative course who has been admitted for Swing Bed for PT/OT/ST. Patient had large post operative hematoma leading to significant drop in H&H requiring 2 units PRBC transfusion as well as albumin. He also developed rapid afib/flutter and was on Cardizem drip for a while. Patient also experienced respiratory difficulty and aspiration of emesis and is being treated for aspiration pneumonia with Augmentin and doxycycline. Patient was able to be weaned to room air today and his WBC went from 17 to 13.7 so he was discharged today from [facility] and arrived here by EMS due to need to maintain hip precautions. 03/29/24: Patient admitted for PT/OT due to left hip fracture, pelvic fractures and Parkinson's. Initially treated for aspiration pneumonia. Patient tolerating soft and bite sized diet. He is working with therapy but not yet able to return home. Care conference held today and patient will need at least another week of therapy services to determine if patient will be able to advance enough to return home. 04/04/24: On examination today patient is pleasantly confused. He denies any fever, chills, nausea, vomiting, diarrhea, abdominal pain, chest pain, shortness a breath. He has a Pérez catheter in place which is draining clear yellow urine. Left hip incision is well approximated with Steri-Strips in place. Patient making progress with PT and OT. order placed for left hip and pelvis x-ray AP and lateral. 04/06/24: On examination today patient is alert and pleasantly confused. He denies any new complaints overnight. He still has Pérez catheter in place draining clear yellow urine. Was started on Flomax yesterday due to urinary retention. He will need a voiding trial in a few days at SNF. Patient is stable for discharge at this time to SNF facility. Final diagnosis: intratrochanteric fracture of the left hip, status post open
--- NOTE | 2024-04-06 14:11 | PC.NURSE ---
[id number] dc to family auto to [facility]. report was called to [facility]. paperwork sent with [facility]
== END 2024-04-06 13:35 | DRG 559 ==
PROVIDERS: Nurse Practitioner; Nurse Practitioner Family; Admitting Provider Internal Medicine; PCP Family Medicine; Visit Provider Nurse Practitioner Acute Care
DX: S72.142D Displaced intertrochanteric fracture of left femur, subsequent encounter for closed fracture with routine healing (principal); J69.0 Pneumonitis due to inhalation of food and vomit; D62 Acute posthemorrhagic anemia; I25.10 Atherosclerotic heart disease of native coronary artery without angina pectoris; I10 Essential (primary) hypertension; G20.A1 Parkinson's disease without dyskinesia, without mention of fluctuations; R53.81 Other malaise; S32.599D Other specified fracture of unspecified pubis, subsequent encounter for fracture with routine healing; S32.10XD Unspecified fracture of sacrum, subsequent encounter for fracture with routine healing; W19.XXXD Unspecified fall, subsequent encounter; Z79.82 Long term (current) use of aspirin; Z79.01 Long term (current) use of anticoagulants; R21 Rash and other nonspecific skin eruption
CPT/HCPCS: 36415; 71045; 73502; 80048; 80053; 80069; 81001; 81003; 83735; 83880; 85025; 85027; 85055; 87493; 87651; 92526; 92610; 97110; 97161; 97165; 97530; 97535; A9270

== ENCOUNTER 2024-09-22 11:10 | Emergency (ER) | payer MEDICARE, OTHER, SELFPAY ==
[2024-09-22 11:29] VITALS: BP 169/51; PULSE 55; RESP 18; TEMP 36.3; O2SAT 98
--- NOTE | 2024-09-22 12:24 | PC.NURSE ---
pt left after triage with family
== END 2024-09-22 12:30 | disposition left against medical advice (07) ==
LOC: ANHED 12:27
PROVIDERS: PCP Family Medicine
DX: R09.02 Hypoxemia (principal)
CPT/HCPCS: 99199

== ENCOUNTER 2024-10-26 10:15 | Inpatient (IN) | payer MEDICARE, OTHER, SELFPAY ==
[2024-10-26] VITALS (71 sets, daily range): BP systolic 72–156; BP diastolic 35–123; PULSE 54–77; RESP 12–29; TEMP 36.4–37.1; O2SAT 87–98
--- NOTE | ~2024-10-26 | CT_ITS ---
EXAMINATION: CT brain wo con DATE: 10/26/2024 12:41 INDICATION: Weakness. Unresponsiveness. TECHNIQUE: Computed tomography (CT) of the head was performed without intravenous contrast. Sagittal and coronal reconstructions were performed. The mA was adjusted according to patient size. Iterative reconstruction technique was employed. The dose-length product was 605.33 mGy-cm. COMPARISON: head CT dated 03/08/24 FINDINGS: Unchanged infarct in the left basal ganglia involving the lentiform and caudate nuclei as well as the intervening anterior limb of the left internal capsule. Additional small old cortical infarct at the head of the right caudate nucleus. No acute intracranial hemorrhage, acute infarction or abnormal ex tra axial fluid collection. There is moderate scattered white matter hypoattenuation consistent with chronic small vessel ischemic disease. Symmetric prominence of the sulci and ventricles consistent wi th moderate age-appropriate diffuse cerebral volume loss. No mass/mass effect. Changes of bilateral i ntraocular lens replacement. The orbits, paranasal sinuses and mastoid air cells are normal. IMPRESSION: 1. Old infarcts at the bilateral basal ganglia, larger on the left renal cyst includes the anterior l imb of the internal capsule. No acute intracranial process. 2. Age-related changes including moderate diffuse volume loss and moderate scattered white matter hyp oattenuation consistent with chronic small vessel ischemic disease. Reviewed, dictated and finalized at location B. RAFT CABIN CLEANER IMPRESSION: 1. Old infarcts at the bilateral basal ganglia, larger on the left renal cyst i ncludes the anterior limb of the internal capsule. No acute intracranial proces s. 2. Age-related changes including moderate diffuse volume loss and moderate scat tered white matter hypoattenuation consistent with chronic small vessel ischemi c disease.
--- NOTE | ~2024-10-26 | XR_ITS ---
Clinical Indication: Altered mental status PA and lateral views of the chest: Comparison: 04/01/2024 Findings: Extensive bibasilar consolidation is present. No definite pleural effusion. Cardiomediasti nal silhouette is stable. Bones and soft tissues are unremarkable. Impression: Extensive bibasilar consolidation. Correlate for pulmonary edema versus bibasilar pneumonia. Reviewed, dictated and finalized at [facility]. ED HEALTH TEACHER Impression: Extensive bibasilar consolidation. Correlate for pulmonary edema versus bibasil ar pneumonia.
--- NOTE | ~2024-10-26 | XR_ITS ---
EXAMINATION: XR barium swallow modified DATE: 10/29/2024 10:13 INDICATION: Pneumonia. Parkinson's disease. TECHNIQUE: The patient was given barium-containing material of multiple consistencies to swallow by t romana speech pathologist while I performed fluoroscopy. Fluoroscopy exposure time was 1.4 minutes. The n umber of fluoroscopy images saved to the PACS was 1. Dose-area product was 1.089 Gy-cm^2. FINDINGS: There is reduced laryngeal adduction. There is aspiration of thin liquids during the swallow. IMPRESSION: 1. Aspiration. 2. Please refer to the speech therapy report for recommendations. Reviewed, dictated and finalized at location A. R SANDER
--- NOTE | ~2024-10-26 | XR_ITS ---
XR chest 1V portable Ordering provider: Ritchie Frey MD History: 89 years Male with . Increased oxygen demands . Comparison: November 22, 2023 FINDINGS: MEDIASTINUM: The cardiac silhouette is slightly enlarged. LUNGS: No effusions or pneumothorax. Bibasilar opacification suggestive of pneumonia. Interstitial ch anges are seen bilaterally. Underlying pulmonary edema is not excluded. OTHER: No free air under the diaphragm. Degenerative the spine. IMPRESSION: Bilateral basal pneumonia unchanged from previous termination. Underlying pulmonary edema is not excl uded. Reviewed, dictated and finalized at location A. BLANKING PRESS ADJUSTER IMPRESSION: Bilateral basal pneumonia unchanged from previous termination. Underlying pulmo nary edema is not excluded.
--- NOTE | ~2024-10-26 | CT_ITS ---
EXAMINATION: CTA chest abdomen pelvis DATE: 10/26/2024 14:29 INDICATION: Hypoxia and elevated d-dimer. Bloody emesis. Hypotensive. TECHNIQUE: Computed tomographic angiography (CTA) of the chest, abdomen and pelvis was performed with 100 mL Omnipaque-350 intravenous contrast. Additional 3D reconstructions utilizing rotating maximum intensity projection (MIP) were performed. Automated exposure control and iterative reconstruction te chnique were employed. The dose-length product was 1007.72 mGy-cm. COMPARISON: None FINDINGS: Chest: Sensitive bilateral patchy airspace opacities with dependent and lower lung predominance. More dense consolidation with air bronchograms in the right middle lobe and in the lingula. Small right pleural effusion. Moderate cardiomegaly. No pericardial effusion. Atherosclerotic coronary artery calcificati ons. Enlargement of the central pulmonary arteries consistent with pulmonary arterial hypertension. T horacic aorta is normal in caliber with no dissection. Calcified right hilar nodule versus lymph node consistent with old granulomatous disease. No pathologically enlarged thoracic lymphadenopathy. Nathalie re thoracic spondylosis with chronic minimal to mild anterior wedging of multiple mid and lower thora cic vertebral bodies. Abdomen and pelvis: Gallbladder is dilated to 5.2 cm maximal diameter. Liver, pancreas, right kidney and bilateral adrena l glands are normal. 1.2 cm left renal cyst. Splenic calcification consistent with old granulomatous disease. Mild to moderate diverticulosis along the descending and sigmoid colon without adjacent infl ammatory stranding to suggest diverticulitis. No bowel obstruction. Pérez catheter within the decompr essed bladder which limits evaluation. Multiple brachytherapy seeds in the prostate. Portions of the deep pelvis are obscured by dense metallic streak artifact related to a bipolar type right hip hemiar throplasty and antegrade intramedullary adrián and femoral neck dynamic compression screw fixation of an old intertrochanteric fracture the contralateral proximal left femur. No free intraperitoneal gas or fluid. There is calcified atherosclerosis of the normal caliber abdominal aorta and many of the othe r arteries. No pathologically enlarged abdominal or pelvic lymphadenopathy. Severe lumbar spondylosis . IMPRESSION: 1. Dependent and lower lung predominant diffuse bilateral lung disease with dense consolidation in th e right middle lobe and lingula which could represent pneumonia, moderate to severe pulmonary edema o r combination thereof. 2. Small right pleural effusion. 3. Moderate cardiomegaly with enlargement of the central pulmonary arteries consistent with pulmonary arterial hypertension. 4. The latter gallbladder without wall thickening or pericholecystic inflammatory stranding to sugges t acute cholecystitis. 5. Mild to moderate diverticulosis. Reviewed, dictated and finalized at location B. NESS MACHINE MECHANIC IMPRESSION: 1. Dependent and lower lung predominant diffuse bilateral lung disease with den se consolidation in the right middle lobe and lingula which could represent pne umonia, moderate to severe pulmonary edema or combination thereof. 2. Small right pleural effusion. 3. Moderate cardiomegaly with enlargement of the central pulmonary arteries con sistent with pulmonary arterial hypertension. 4. The latter gallbladder without wall thickening or pericholecystic inflammato ry stranding to suggest acute cholecystitis. 5. Mild to moderate diverticulosis.
--- NOTE | ~2024-10-26 | CT_ITS ---
EXAMINATION: CTA chest PE protocol DATE: 10/28/2024 15:40 MAINTENANCE ADVISOR INDICATION: Respiratory distress, abnormal echocardiogram TECHNIQUE: Computed tomographic angiography (CTA) of the chest was performed with 100 mL Omnipaque-35 0 intravenous contrast. The dose-length product was 765.87 mGy-cm. Maximum intensity projection 3D-re constructions of the aorta and other arteries were constructed by the technologist on a separate work station. COMPARISON: 10/26/2024 FINDINGS: No filling defects within the main or proximal pulmonary arteries. The main pulmonary artery (and right atrium) are enlarged, unchanged from previous study performed 48 hours earlier. The thoracic aorta demonstrates calcified atherosclerotic disease, but is otherwise unremarkable. Consolidation within the right middle, and bibasilar lung long, demonstrating progression from prev ious examination. Trace bilateral pleural effusions Degenerative disease within the thoracic spine, without acute fracture. Within the upper abdomen: The gallbladder is distended, unchanged. Periportal edema is now noted. Remainder of the upper abdomen is unremarkable. IMPRESSION: No pulmonary embolus. No aortic dissection or aneurysmal dilatation. Findings suggesting pulmonary hypertension. Consolidation within the right middle lobe, right lower lobe, and left lower lobe demonstrating progr ession from previous examination performed 48 hours earlier. Trace bilateral pleural effusions. Gallbladder distention and periportal edema. Reviewed, dictated and finalized at location A. TENANCE ADVISOR IMPRESSION: No pulmonary embolus. No aortic dissection or aneurysmal dilatation. Findings suggesting pulmonary hypertension. Consolidation within the right middle lobe, right lower lobe, and left lower lo be demonstrating progression from previous examination performed 48 hours earli er. Trace bilateral pleural effusions. Gallbladder distention and periportal edema.
--- NOTE | 2024-10-26 10:47 | ECG_ITS ---
Test Date: 2024-10-26 11:03:45 Measurements Intervals [place] Rate: 60 P: -17 LA: 211 QRS: 145 QRSD: 165 T: 0 QT: 414 QTc: 416 Interpretive Statements SINUS RHYTHM WITH FIRST DEGREE AV BLOCK RIGHT BUNDLE BRANCH BLOCK [120+ ms QRS DURATION, UPRIGHT V1, 40+ ms S IN I/aVL/V4/V5/V6] LEFT POSTERIOR FASCICULAR BLOCK [QRS AXIS > 109, INFERIOR Q] No previous ECG available for comparison Electronically Signed On 10-29-2024 15:02:54 PULP SCREEN OPERATOR by Armando Meade M.D.
--- NOTE | 2024-10-26 10:49 | ED.WEAKNESS ---
HPI - Weakness General Chief complaint: Weakness Stated complaint: weakness, unresponsive? Time Seen by Provider: 10/26/24 10:35 Source: family and RN notes reviewed Limitations: clinical condition History of Present Illness HPI Narrative: Patient presents with report of increased weakness and altered mental status to the point of unresponsiveness. Patient was at the [place] ED yesterday for a SBP >200mmHg. BP reportedly lowered within 30 minutes and patient was discharged, arriving back home at approximately 01:30am. He took his nighttime pills including his PM dose of Elliquis which he takes for atrial fibrillation. At approximately 05:00, he awoke and needed to go to the bathroom. He was likely at his baseline (though not certain) as he was able to assist his when she transferred him out of bed to go into the bathroom. Shortly thereafter she found him unresponsive on the toilet leaning against the wall and he was unarousable to verbal and painful stimuli. Typically alert and oriented. He has been hiccuping lately and had an episode of bloody emesis. Patient has a history of a leaky valve and is due to have another echo in May for this. Has a baseline tremor in RUE from Parkinson's for several years. Recently (10/11/24) told to stop nifedipine by publicity person Dr Alayna Ojeda. In May 2024 his blood pressure was also lowered very quickly at [facility] in [place]. Related Data Home Medications ?Medication ?Instructions ?Recorded ?Confirmed ?Last Taken ?Type aspirin 81 mg tablet 81 mg PO DAILY 03/08/24 03/18/24 Unknown History atorvastatin 40 mg tablet 40 mg PO DAILY 03/08/24 03/18/24 03/18/24 07:55 History budesonide-formoterol HFA 80 1 puff inhalation Q12H PRN 03/08/24 03/18/24 03/18/24 07:19 History mcg-4.5 mcg/actuation aerosol Shortness Of Breath Or Wheezing inhaler (Symbicort) calcium 260 mg (phos,tribasic)-D3 1 tablet PO DAILY 03/08/24 03/18/24 Unknown History 25 mcg-herbal 50 mg chewable tablet (Alive Calcium-Vitamin D3) carbidopa ER 50 mg-levodopa 200 mg 1 tablet PO BID 05/16/24 05/26/24 05/26/24 07:54 History tablet,extended release coenzyme X40-[id number] E 100 mg-100 2 cap PO DAILY 03/08/24 03/18/24 Unknown History unit capsule docosahexaenoic xkye-nuf-vjf E 1 cap PO DAILY 03/08/24 03/18/24 Unknown History capsule donepezil 10 mg tablet 10 mg PO DAILY 03/08/24 03/18/24 03/18/24 07:54 History fluoxetine 20 mg capsule 20 mg PO DAILY 03/08/24 03/18/24 Unknown History lisinopril 40 mg tablet 40 mg PO DAILY 03/08/24 03/18/24 Unknown History montelukast 10 mg tablet 10 mg PO DAILY 03/08/24 03/18/24 03/18/24 07:55 History multivitamin f-kxoqgflf-idutfso 1 tablet PO DAILY 03/08/24 03/18/24 Unknown History fumarate 18 mg-vitamin K 25 mcg tablet Allergies Allergy/AdvReac Type Severity Reaction Status Date / Time No Known Allergies Allergy Verified 10/26/24 14:40 [facility] Past Medical History Medical History (Updated 10/26/24 @ 23:24 by Kathrine Melgar MD) Asthma Chronic kidney disease, stage 3 Paroxysmal atrial flutter Diastolic dysfunction Kidney stones Cerebrovascular accident Dementia Prostate cancer Hyperlipidemia Hypertension Coronary artery disease Parkinson disease Surgical History Surgical History (Updated 10/26/24 @ 16:11 by Alicia Hernandez PA-C) History of bilateral cataract extraction History of arthroplasty of left knee Family History Family History Mother Asthma Son Asthma History of blood clots Hypertension Daughter Hypertension Sibling Prostate carcinoma Lymph node cancer Social History Social History (Updated 10/26/24 @ 22:19 by Alicia Hernandez PA-C) Social History: Surrogate medical decision maker: Natalie Haddad, spouse. Code status: Full code. Smoking status: Never smoker Second hand tobacco smoke exposure: No Alcohol intake: former Substance use: never Do You Feel Safe in your Home?: Yes Lack of Transportation: No Lack of Food: Never True Current Housing: I Have Housing Concerned About Future Housing: No Difficulty Paying Gas/Electric Bills: No Difficulty Paying for Meds: No Currently Unemployed: No Education: High School Diploma/GED Difficulty w/ Childcare or Family Care: No Spiritual care concerns: No Exam Narrative: GENERAL:well-nourished, and in no acute distress. HEAD: Normocephalic, atraumatic. EYES: Non injected, non icteric ENT: Nares clear, no rhinorrhea or epistaxis. CHEST: Not tachypneic but with occasional snoring respirations. Poor air movement bilaterally though slightly coarse left moreso than right. HEART: Regular rate and rhythm. . ABDOMEN: Soft, nondistended. Nontender to palpation. SKIN: Warm, dry, no rash. NEURO: No effort against gravity initially. Tremor in RUE. Not alert or oriented. Course Vital Signs Vital signs: Vital Signs Temperature 97.6 F 10/26/24 10:21 Pulse Rate 64 10/26/24 10:21 Respiratory Rate 16 10/26/24 10:21 Blood Pressure 72/35 L 10/26/24 10:21 Pulse Oximetry 90 10/26/24 10:21 Temperature 98.8 F 10/26/24 16:15 Pulse Rate 66 10/26/24 22:04 Respiratory Rate 22 H 10/26/24 22:04 Blood Pressure 151/65 H 10/26/24 21:17 Pulse Oximetry 90 10/26/24 21:00 Oxygen Delivery Nasal Cannula 10/26/24 12:00 Oxygen Flow Rate 4 10/26/24 12:00 Procedures Pulse Oximetry Interpretation Digit-Finger: Pulse Oximetry Interpretation Date: 10/26/24 Additional Comments: see MDM MDM - Weakness MDM Narrative Medical decision making narrative: Patient with PMH atrial fibrilliation (on anticoagulation), HTN, Parkinsonism, hypertension, and asthma as well as a leaky valve presents with report of increased weakness and unresponsiveness. Last known well 05:00. In the emergency department he is afebrile with vital signs notable for hypoxia on room air as well as hypotension. I did go to bedside and patient had a blood pressure that was slightly improved but with a mean arterial pressure of 64 mm mercury. He was placed on SpO2 monitoring and found to be saturating 88% on room air with a good waveform. He initially has lactic acidosis and leukocytosis . Blood pressure does improve after 1 L IV fluids to 132/66 (85 MAP) and is saturating approximately 92%. Given there was concern for pneumonia on the chest x-ray and he does meet sepsis criteria, will administer broad-spectrum antibiotics but, at this time will hold off on full 30mL/kg bolus given there is some concern for pulmonary edema/heart failure and he has already appropriately responded with 1 bolus. His BNP is elevated. He is anemic. Creatinine elevated, representing REGINA. CT imaging as below. Again, resuscitation will require balance between IV fluids but also being judicious and may need diuresis given pulmonary edema. Troponin is elevated. Aspirin ordered as is 3 hour. Three hour troponin still elevated though downtrending. T4 normal thus likely subclinical. Patient maintaining his O2 saturation and is more alert and slightly more responsive though not back to baseline. Patient to be admitted. Discussed with patient's and son who state he had indicated full code status during last admission. DIscussed with iron plastic bullet maker hospitalist KIKO Stanton. == Critical Care: 1 or more vital organ systems impaired with a high probability of imminent or life-threatening deterioration in the patient's condition requiring frequent personal assessment and manipulation of the patient's condition. This included time spent evaluating the patient, speaking with EMS pre-hospital personnel and family, reviewing/interpreting laboratory/imaging studies, discussing the case with consultants or admitting teams, retrieving data and reviewing charts, monitoring for decompensation, documenting the visit, and performing bundled procedures exclusive of separately billed procedures. Differential Diagnosis Differential diagnosis: Likely acute myocardial infarction, anemia, hypoglycemia, hypothyroidism, rhabdomyolysis, sepsis, dehydration and other (intracranial hemorrhage/chery-hemorrhage ischemia, cerebral hypoperfusion; acute liver failure; acute renal failure; CVA; afib w/ RVR; respiratory distress; asthma exacerbation; acute viral syndrome; UTI; PNA; pulmonary embolism; acute heart failure; acs; meningitis) Lab Data Attestation: I reviewed the patient's lab results. 10/26/24 11:52 10/26/24 11:48 Labs: Lab Results 10/26/24 10/26/24 10/26/24 Range/Units 11:01 11:13 11:48 WBC (4.5-10.0) K/mm3 RBC (4.6-6.20) M/mm3 Hgb (14.0-18.0) g/dL Hct (42.0-52.0) % MCV (80-100) fl MCH (26-34) pg MCHC (32-36) g/dl RDW (11.5-14.5) % Plt Count (150-375) k/mm3 MPV (7.4-10.4) fl Immature Gran % (Auto) (0-0.5) % Neut % (Auto) (45.5-73.1) % Lymph % (Auto) (18.3-44.2) % [place] % (Auto) (2.6-8.5) % Eos % (Auto) (0-4.4) % Baso % (Auto) (0.2-1.2) % Lymph # (Auto) (0.9-3.2) K/mm3 [place] # (Auto) (0.1-0.6) K/mm3 Eos # (Auto) (0-0.3) K/mm3 Baso # (Auto) (0.0-0.1) K/mm3 Abs Immat Gran (auto) (0.00-0.031) K/mm3 Absolute Neuts (auto) (1.3-6.7) K/mm3 Absolute Nucleated RBC (0.0-0.012) K/mm3 Nucleated RBC % (0.0-0.2) % Platelet Estimate (Adequate) Ovalocytes Schistocytes PT (11.1-14.7) Seconds INR APTT (22.3-36.8) Seconds D-Dimer (<0.48) ug/mL Sodium 139 (137-145) mmol/L Potassium 3.4 (3.4-5.0) mmol/L Chloride 106 (98-107) mmol/L Carbon Dioxide 30 (22-30) mmol/L Anion Gap 3 L (4-12) mmol/L BUN 21 H D (9-20) mg/dL Creatinine 1.90 H (0.7-1.3) mg/dL Estim Creat Clear Calc Not Reportable Estimated GFR 34 L (59 - ) Glucose 127 H (65-110) mg/dL POC Capillary Glucose 141 H (65-105) mg/dl Lactic Acid (0.7-2.0) mmol/L Calcium 8.9 (8.4-10.2) mg/dL Magnesium (1.6-2.3) mg/dL Total Bilirubin 0.8 (0.2-1.3) mg/dL AST 158 H (17-59) U/L ALT 123 H (6-50) U/L Alkaline Phosphatase 94 (38-126) U/L Ammonia (9-30) umol/L Total Creatine Kinase 85 (55-170) U/L Troponin I 0.171 H* (0.000-0.034) ng/mL NT-Pro-B Natriuret Pep 2460 H (19.9-100) pg/mL Total Protein 7.0 (6.3-8.2) g/dL Albumin 3.6 (3.5-5.1) g/dL TSH 6.610 H (0.465-4.680) uIU/mL Free T4 (0.78-2.19) ng/dL Free T3 pg/mL Urine Color (Yellow) Urine Appearance (Clear) Urine pH (5.0-9.0) Ur Specific [place] (1.001-1.035) Urine Protein (Negative) mg/dL Urine Glucose (UA) (Negative) mg/dL Urine Ketones (Negative) mg/dL Ur Blood (Man) (Negative) Urine Nitrate (Negative) Urine Bilirubin (Negative) Urine Urobilinogen (<2.0) mg/dL Leukocyte Esterase Rfl (Negative) KRISTIE/UL Urine RBC (0-2) /hpf Urine WBC (0-3) /hpf Ur Squamous Epith Cells (Few) /hpf Urine Bacteria /hpf Urine Casts Nasal MRSA (PCR) (NOT DETECTE) Salicylates (2-20) mg/dL Urine Opiates Screen (Negative) Urine Methadone Screen (Negative) Acetaminophen (10-30) ug/mL Ur Barbiturates Screen (Negative) Ur Phencyclidine Scrn (Negative) Ur Amphetamine Screen (Negative) U Benzodiazepines Scrn (Negative) Urine Cocaine Screen (Negative) U Cannabinoids Screen (Negative) Ethyl Alcohol (<10) mg/dL Hepatitis A IgM Ab (Negative) Hep Bs Antigen (Negative) Hep B Core IgM Ab (Negative) Hepatitis C Ab Screen (Negative) Influenza A (RT-PCR) Negative (Negative) Influenza B (RT-PCR) Negative (Negative) Ur L.pneumophila Ag Pending Mycoplasma pneumon IgM RSV (RT-PCR) Negative (Negative) SARS-CoV-2 RNA (RT-PCR) Negative (Negative) Urine Pneumococcal Ag Pending 10/26/24 10/26/24 10/26/24 Range/Units 11:50 11:52 15:22 WBC 14.4 H (4.5-10.0) K/mm3 RBC 4.22 L (4.6-6.20) M/mm3 Hgb 13.3 L D (14.0-18.0) g/dL Hct 40.1 L (42.0-52.0) % MCV 95.0 (80-100) fl MCH 31.5 (26-34) pg MCHC 33.2 (32-36) g/dl RDW 16.4 H (11.5-14.5) % Plt Count 243 (150-375) k/mm3 MPV 9.3 (7.4-10.4) fl Immature Gran % (Auto) 0.5 (0-0.5) % Neut % (Auto) 93.3 H (45.5-73.1) % Lymph % (Auto) 1.7 L (18.3-44.2) % [place] % (Auto) 4.2 (2.6-8.5) % Eos % (Auto) 0.0 (0-4.4) % Baso % (Auto) 0.3 (0.2-1.2) % Lymph # (Auto) 0.25 L (0.9-3.2) K/mm3 [place] # (Auto) 0.6 (0.1-0.6) K/mm3 Eos # (Auto) 0.0 (0-0.3) K/mm3 Baso # (Auto) 0.1 (0.0-0.1) K/mm3 Abs Immat Gran (auto) 0.07 H (0.00-0.031) K/mm3 Absolute Neuts (auto) 13.4 H (1.3-6.7) K/mm3 Absolute Nucleated RBC 0.000 (0.0-0.012) K/mm3 Nucleated RBC % 0.0 (0.0-0.2) % Platelet Estimate Adequate (Adequate) Ovalocytes 1+ Schistocytes None seen PT 17.8 H (11.1-14.7) Seconds INR 1.4 APTT 28.7 (22.3-36.8) Seconds D-Dimer 1.60 H (<0.48) ug/mL Sodium (137-145) mmol/L Potassium (3.4-5.0) mmol/L Chloride (98-107) mmol/L Carbon Dioxide (22-30) mmol/L Anion Gap (4-12) mmol/L BUN (9-20) mg/dL Creatinine (0.7-1.3) mg/dL Estim Creat Clear Calc Estimated GFR (59 - ) Glucose (65-110) mg/dL POC Capillary Glucose (65-105) mg/dl Lactic Acid 2.4 H 2.1 H (0.7-2.0) mmol/L Calcium (8.4-10.2) mg/dL Magnesium 1.9 (1.6-2.3) mg/dL Total Bilirubin (0.2-1.3) mg/dL AST (17-59) U/L ALT (6-50) U/L Alkaline Phosphatase (38-126) U/L Ammonia < 9 L (9-30) umol/L Total Creatine Kinase (55-170) U/L Troponin I 0.155 H* (0.000-0.034) ng/mL NT-Pro-B Natriuret Pep (19.9-100) pg/mL Total Protein (6.3-8.2) g/dL Albumin (3.5-5.1) g/dL TSH (0.465-4.680) uIU/mL Free T4 2.17 (0.78-2.19) ng/dL Free T3 pg/mL Pending Urine Color Dark yellow (Yellow) Urine Appearance Clear (Clear) Urine pH 6.5 (5.0-9.0) Ur Specific [place] 1.020 (1.001-1.035) Urine Protein 2+ H (Negative) mg/dL Urine Glucose (UA) Negative (Negative) mg/dL Urine Ketones Trace H (Negative) mg/dL Ur Blood (Man) Negative (Negative) Urine Nitrate Negative (Negative) Urine Bilirubin Negative (Negative) Urine Urobilinogen 1.0 (<2.0) mg/dL Leukocyte Esterase Rfl Negative (Negative) KRISTIE/UL Urine RBC 0-2 (0-2) /hpf Urine WBC 0-5 (0-3) /hpf Ur Squamous Epith Cells None seen (Few) /hpf Urine Bacteria None seen /hpf Urine Casts 0-2 Nasal MRSA (PCR) Not detected (NOT DETECTE) Salicylates < 1.0 L (2-20) mg/dL Urine Opiates Screen Negative (Negative) Urine Methadone Screen Negative (Negative) Acetaminophen < 10 L (10-30) ug/mL Ur Barbiturates Screen Negative (Negative) Ur Phencyclidine Scrn Negative (Negative) Ur Amphetamine Screen Negative (Negative) U Benzodiazepines Scrn Negative (Negative) Urine Cocaine Screen Negative (Negative) U Cannabinoids Screen Negative (Negative) Ethyl Alcohol < 10 (<10) mg/dL Hepatitis A IgM Ab Negative (Negative) Hep Bs Antigen Negative (Negative) Hep B Core IgM Ab Negative (Negative) Hepatitis C Ab Screen Negative (Negative) Influenza A (RT-PCR) (Negative) Influenza B (RT-PCR) (Negative) Ur L.pneumophila Ag Mycoplasma pneumon IgM Pending RSV (RT-PCR) (Negative) SARS-CoV-2 RNA (RT-PCR) (Negative) Urine Pneumococcal Ag ABG Data ABG results: 10/26/24 11:00 Puncture Site Left radial ABG pH 7.443 ABG pCO2 41.7 ABG pO2 55.4 L ABG PO2/FiO2 Ratio 2.64 ABG HCO3 27.9 H ABG O2 Saturation 90.0 L ABG O2 Content 16.5 ABG Base Excess 3.4 A-a Gradient 44.4 Oxyhemoglobin 88.1 L Total Hemoglobin 13.3 O2 Delivery Device Not Reportable O2 Liters/Min Not Reportable FiO2 21 Attestation: I personally reviewed and interpreted this ABG as follows: Interpretation: metabolic alkalosis w/ respiratory acidosis Imaging Data Radiologist's impression: Impressions Chest X-Ray 10/26/24 13:00 Impression: Extensive bibasilar consolidation. Correlate for pulmonary edema versus bibasilar pneumonia. Head CT 10/26/24 13:00 IMPRESSION: 1. 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 No acute intracranial process. 2. Age-related changes including moderate diffuse volume loss and moderate scattered white matter hypoattenuation consistent with chronic small vessel ischemic disease. Chest/Abdomen/Pelvis CTA 10/26/24 14:34 IMPRESSION: 1. Dependent and lower lung predominant diffuse bilateral lung disease with dense consolidation in the right middle lobe and lingula which could represent pneumonia, moderate to severe pulmonary edema or combination thereof. 2. Small right pleural effusion. 3. Moderate cardiomegaly with enlargement of the central pulmonary arteries consistent with pulmonary arterial hypertension. 4. The latter gallbladder without wall thickening or pericholecystic inflammatory stranding to suggest acute cholecystitis. 5. Mild to moderate diverticulosis. ECG Data EKG #1: Attestation: I personally reviewed and interpreted this ECG as follows: ECG completion date: 10/26/24 ECG completion time: 11:03 Prior ECG tracings: available for review (March 12, 2024 shows atrial flutter versus tachycardia with rapid ventricular response of 150 beats per minute.) Interpretation: Normal sinus rhythm at a rate of 60 beats per minute. RI interval is prolonged at 211 milliseconds consistent with a first-degree AV block. QRS is widened at 165 millisecond. QT/QTC 414/415. RBBB given QRS greater [id number]; RSR' M-shaped pattern in V1-V3; wide, slurred S wave in lateral leads (I, aVL, V5-6). Poor baseline artifact limits full interpretation. Left posterior fascicular block with prolonged QRS duration, rS complexes in leads I and aVF (small R waves and deep S waves), qR complexes in inferior leads, and right axis deviation (inferior leads positive with negative I and aVL. Poor R-wave progression across the precordial leads. Questionable T-wave inversion in leads 3 and AVF. There is T-wave inversion in V3 and V4.. 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
[2024-10-26 11:04] LABS: Glucose Point of Care 141 mg/dl (65-105)
[2024-10-26 11:08] LABS: Alveolar/Arterial O2 Gradient 44.4 mmHg; Base Excess ABG 3.4 mEq/l (+/-2.0); Fractional Inspired Oxygen 21 %; HCO3 ABG 27.9 mEq/l (22.0-26.0); Modified Allen's Test Pass; Oxygen Content ABG 16.5 %vol (16.0-22.0); Oxyhemoglobin 88.1 % THb (90.0-100.0); PCO2 ABG 41.7 mmHg (35.0-45.0); PO2 ABG 55.4 mmHg (80.0-100.0); PO2 FiO2 Ratio Arterial Blood 2.64 %; Site Drawn LEFT RADIAL; Total Hemoglobin 13.3 g/dL (12.0-18.0); pH ABG 7.443 (7.350-7.450)
[2024-10-26] MEDS: IPRATROPIUM 0.5 MG/ALBUTEROL SULFATE 2.5 MG AMPUL.NEB 3 ML INHALATION (11:13)
[2024-10-26] MEDS: SODIUM CHLORIDE 0.9% IV 1,000 ML 999 ML IV CONT (11:24)
--- NOTE | 2024-10-26 11:41 | PC.NURSE ---
Patient woke upon painful stimulus.
[2024-10-26 11:54] LABS: Influenza A QL RT-PCR Negative (Negative); Influenza B QL RT-PCR Negative (Negative); RSV RNA, RT-PCR Negative (Negative); SARS-CoV-2 RNA PCR Negative (Negative)
[2024-10-26 12:05] LABS: Basophils Absolute Auto 0.1 K/mm3 (0.0-0.1); Basophils Percent Auto 0.3 % (0.2-1.2); Hematocrit 40.1 % (42.0-52.0); Hemoglobin 13.3 g/dL (14.0-18.0); Immature Granulocyte Absolute 0.07 K/mm3 (0.00-0.031); Immature Granulocyte Percent A 0.5 % (0-0.5); Lymphocytes Absolute Auto 0.25 K/mm3 (0.9-3.2); Lymphocytes Percent Auto 1.7 % (18.3-44.2); Mean Corpuscular HGB Conc 33.2 g/dl (32-36); Mean Corpuscular Hemoglobin 31.5 pg (26-34); Mean Platelet Volume 9.3 fl (7.4-10.4); Monocytes Absolute Auto 0.6 K/mm3 (0.1-0.6); Monocytes Percent Auto 4.2 % (2.6-8.5); Neutrophils Absolute Auto 13.4 K/mm3 (1.3-6.7); Neutrophils Percent Auto 93.3 % (45.5-73.1); Platelet Count Result 243 k/mm3 (150-375); Red Blood Count 4.22 M/mm3 (4.6-6.20); Red Cell Distribution Width 16.4 % (11.5-14.5); White Blood Count 14.4 K/mm3 (4.5-10.0)
[2024-10-26 12:13] LABS: Acetaminophen < 10 ug/mL (10-30); Ammonia < 9 umol/L (9-30); Ethanol < 10 mg/dL (<10); Salicylate < 1.0 mg/dL (2-20)
[2024-10-26 12:16] LABS: Lactic Acid Reflex 2.4 mmol/L (0.7-2.0); Magnesium 1.9 mg/dL (1.6-2.3)
[2024-10-26 12:17] LABS: Add Urine Microscopic? YES; Appearance Urine Clear (Clear); Bacteria Urine None Seen /hpf; Bilirubin Urine Negative (Negative); Blood Urine Negative (Negative); Color Urine Dark Yellow (Yellow); Glucose Urine UA Negative (Negative); Ketones Urine Trace mg/dL (Negative); Leukocyte Esterase Ur Negative LEU/UL (Negative); Nitrate Urine Negative (Negative); Non Pathogenic Casts 0-2; Protein Urine 2+ mg/dL (Negative); RBC Urine 0-2 /hpf (0-2); Squamous Epithelial Cell Urine None Seen /hpf (Few); WBC Urine 0-5 /hpf (0-3); pH Urine 6.5 (5.0-9.0)
[2024-10-26 12:20] LABS: INR 1.4; Partial Thromboplastin Time 28.7 Seconds (22.3-36.8); Prothrombin Time 17.8 Seconds (11.1-14.7)
[2024-10-26 12:26] LABS: Ovalocytes 1+; Platelet Estimate Adequate (Adequate)
[2024-10-26 12:27] LABS: Schistocytes None Seen
[2024-10-26 12:30] LABS: Amphetamine Screen Urine Negative (Negative); Barbiturate Screen Urine Negative (Negative); Benzodiazepines Screen Urine Negative (Negative); Cannabinoid Screen Urine Negative (Negative); Cocaine Screen Urine Negative (Negative); Methadone Screen Urine Negative (Negative); Opiate Screen Urine Negative (Negative); Phencyclidine Screen Urine Negative (Negative)
[2024-10-26] MEDS: ALBUTEROL SULFATE NEB 2.5 MG/3 ML INH INHALATION (13:40)
--- NOTE | 2024-10-26 13:45 | PC.NURSE ---
Lab called about adding on labs. Spoke with Ray.
[2024-10-26 14:02] LABS: Alanine Aminotransferase 123 U/L (6-50); Albumin Level 3.6 g/dL (3.5-5.1); Alkaline Phosphatase 94 U/L (38-126); Anion Gap 3 mmol/L (4-12); Aspartate Amino Transferase 158 U/L (17-59); Bilirubin,Total 0.8 mg/dL (0.2-1.3); Blood Urea Nitrogen 21 mg/dL (9-20); Calcium 8.9 mg/dL (8.4-10.2); Carbon Dioxide 30 mmol/L (22-30); Chloride 106 mmol/L (98-107); Creatine Kinase 85 U/L (55-170); Estimated Glomerular Filt Rate 34; Glucose 127 mg/dL (65-110); Potassium 3.4 mmol/L (3.4-5.0); Sodium 139 mmol/L (137-145)
[2024-10-26] MEDS: [UNRECOGNIZED DRUG - REMARK] XX (14:06)
[2024-10-26 14:28] LABS: NT Pro B Type Natriuretic Pept 2460 pg/mL (19.9-100); Troponin I 0.171 ng/mL (0.000-0.034)
[2024-10-26] MEDS: CEFEPIME 1 GM/NS 50 ML 1 GM/50 ML BAG IVPB (14:47)
[2024-10-26 15:00] LABS: Reflex Lactic Acid Yes or No Add Lactic
[2024-10-26] MEDS: ASPIRIN 81 MG CHEWABLE TABLET 324 MG PO (15:18)
[2024-10-26] MEDS: VANCOMYCIN 1,500 MG/NS 500 ML 1,500 MG/500 ML BAG 250 MG IVPB (15:19)
[2024-10-26 15:43] LABS: Lactic Acid 2.1 mmol/L (0.7-2.0)
[2024-10-26 15:58] LABS: Troponin I 0.155 ng/mL (0.000-0.034)
--- NOTE | 2024-10-26 16:05 | PM.IMHP ---
H&P: HPI History of Present Illness Date/Time: 10/26/24 16:05 Chief Complaint: Weakness, unresponsive episode. Narrative: This is an 89-year-old male with history of Parkinson, dementia, stroke, coronary artery disease, diastolic dysfunction, paroxysmal atrial flutter on chronic anticoagulation, hypertension, hyperlipidemia, and prostate cancer who presented to the emergency department via private vehicle accompanied by family members for evaluation of weakness and an unresponsive episode. He is not able to provide an accurate history and a majority the following is obtained via a review of his EMR as well as information provided by family. The patient lives with his Natalie and she is his main leather goods ii assembler. The patient has transition to a wheelchair as he had issues with weakness and falling but he can stand and pivot. Over the past 2 days however he has needed more and more help to stand up to pivot to bed into the bathroom. This morning Natalie helped him to the toilet and after having a bowel movement he went unresponsive. After many minutes he became responsive and eventually she was able to help him to bed and she called 911. With further questioning she has noticed that he has been putting his hand in the lower part of his chest while eating and at times he has been hiccuping and even vomiting up the food he has eaten. She has not witnessed any aspiration episodes. It is not unusual for him to cough or clear his throat with eating and drinking and in fact when he was hospitalized at [facility] last summer he had a Dobbhoff feeding tube for some time. He has lost about 35 lb since that time but states that he eats pretty good. The patient himself has no complaints but that is not unusual for him however he did mention to his earlier today that he was having pain in the right shoulder though not evident on exam. There were no reports of fever, hematemesis, or diarrhea. He denies headache, chest pain, shortness of breath, abdominal pain, nausea, and dysuria at the time my evaluation. In the ED: He was afebrile on arrival with an SpO2 of 88% on room air and a blood pressure of 72/35. Labs were significant for WBC count of 14.4, hemoglobin 13.3, lactic acid 2.4, glucose 141, BUN 21, creatinine 1.90, AST 158, ALT 123, troponin 0.171.. Urinalysis was positive for 2+ protein and trace ketones. Urine drug screen was negative. Viral panel was negative. Chest x-ray showed extensive bibasilar consolidation. Head CT showed no acute findings. He was given 1 L crystalloid with improvement in blood pressure. Due to concerns for possible pulmonary edema/heart failure, he did not receive a full 30 mL/kg bolus as his blood pressures responded with 1 L. He also received cefepime and vancomycin and he is being admitted in this setting for further treatment. Review of Systems Review of Systems: Unable to be obtained accurately due to his underlying dementia. [facility] Past Medical History Medical History (Updated 10/26/24 @ 16:22 by Alicia Hernandez PA-C) Chronic kidney disease, stage 3 Paroxysmal atrial flutter Diastolic dysfunction Kidney stones Cerebrovascular accident Dementia Prostate cancer Hyperlipidemia Hypertension Coronary artery disease Parkinson disease Surgical History Surgical History (Updated 10/26/24 @ 16:11 by Alicia Hernandez PA-C) History of bilateral cataract extraction History of arthroplasty of left knee Family History Family History Mother Asthma Son Asthma History of blood clots Hypertension Daughter Hypertension Sibling Prostate carcinoma Lymph node cancer Social History Social History (Updated 10/26/24 @ 22:19 by Alicia Hernandez PA-C) Social History: Surrogate medical decision maker: Natalie Boo, spouse. Code status: Full code. Smoking status: Never smoker Second hand tobacco smoke exposure: No Alcohol intake: former Substance use: never Do You Feel Safe in your Home?: Yes Lack of Transportation: No Lack of Food: Never True Current Housing: I Have Housing Concerned About Future Housing: No Difficulty Paying Gas/Electric Bills: No Difficulty Paying for Meds: No Currently Unemployed: No Education: High School Diploma/GED Difficulty w/ Childcare or Family Care: No Spiritual care concerns: No Meds Home Medications and Allergies Home Medications ?Medication ?Instructions ?Recorded ?Confirmed ?Type aspirin 81 mg tablet 81 mg PO DAILY 03/08/24 03/18/24 History atorvastatin 40 mg tablet 40 mg PO DAILY 03/08/24 03/18/24 History budesonide-formoterol HFA 80 1 puff inhalation Q12H PRN 03/08/24 03/18/24 History mcg-4.5 mcg/actuation aerosol Shortness Of Breath Or Wheezing inhaler (Symbicort) calcium 260 mg (phos,tribasic)-D3 1 tablet PO DAILY 03/08/24 03/18/24 History 25 mcg-herbal 50 mg chewable tablet (Alive Calcium-Vitamin D3) carbidopa ER 50 mg-levodopa 200 mg 1 tablet PO BID 03/08/24 03/18/24 History tablet,extended release coenzyme [id number] E 100 mg-100 2 cap PO DAILY 03/08/24 03/18/24 History unit capsule docosahexaenoic ziea-ooj-fbi E 1 cap PO DAILY 03/08/24 03/18/24 History capsule donepezil 10 mg tablet 10 mg PO DAILY 03/08/24 03/18/24 History fluoxetine 20 mg capsule 20 mg PO DAILY 03/08/24 03/18/24 History lisinopril 40 mg tablet 40 mg PO DAILY 03/08/24 03/18/24 History montelukast 10 mg tablet 10 mg PO DAILY 03/08/24 03/18/24 History multivitamin m-efbxeddr-wqsfuhh 1 tablet PO DAILY 03/08/24 03/18/24 History fumarate 18 mg-vitamin K 25 mcg tablet acetaminophen 325 mg tablet 650 mg (2 x 325 mg) PO Q6H PRN 03/18/24 03/18/24 Rx Mild Pain (1-5) Or Fever #30 tabs apixaban 5 mg tablet (Eliquis) 5 mg PO Q12HR #60 tabs 03/18/24 03/18/24 Rx diltiazem HCl 240 mg 240 mg PO QAM #30 caps 03/18/24 03/18/24 Rx capsule,extended release 24 hr, controlled memantine 10 mg tablet 10 mg PO Q12H #60 tabs 03/18/24 03/18/24 Rx metoprolol tartrate 25 mg tablet 25 mg PO Q12HR #60 tabs 03/18/24 03/18/24 Rx pantoprazole 40 mg tablet,delayed 40 mg PO QAM #30 tabs 03/18/24 03/18/24 Rx release sennosides 8.6 mg-docusate sodium 1 tab-cap PO BID PRN Constipation 03/18/24 03/18/24 Rx 50 mg tablet (Senokot-S) #10 tabs Saccharomyces boulardii 250 mg 250 mg PO TID #90 caps 04/06/24 Rx capsule (Florastor) camphor 4 %-methyl salicylate 30 1 applic topical BID PRN 04/06/24 Rx %-menthol 10 % topical cream Muscle/Joint Pain #113 grams (Bengay Ultra Strength) hydrocodone 5 mg-acetaminophen 325 1 tablet PO Q4H PRN Pain 6-10 #42 04/06/24 Rx mg tablet tabs hydrocortisone 2.5 % topical cream 1 applic topical Q12HR #1 tube 04/06/24 Rx tamsulosin 0.4 mg capsule 0.4 mg PO QAM #30 caps 04/06/24 Rx Allergies Allergy/AdvReac Type Severity Reaction Status Date / Time No Known Allergies Allergy Verified 10/26/24 14:40 Vital Signs Vital Signs - 24 hr 10/26/24 10:21 10/26/24 10:42 10/26/24 10:45 Temperature 97.6 F Pulse Rate 64 64 70 Respiratory Rate 16 22 H 24 H Blood Pressure 72/35 L Pulse Oximetry 90 Oxygen Delivery Oxygen Flow Rate 10/26/24 11:00 10/26/24 11:09 10/26/24 11:10 Temperature Pulse Rate 70 63 64 Respiratory Rate 29 H 21 H 16 Blood Pressure 89/50 L Pulse Oximetry 89 L 96 Oxygen Delivery Oxygen Flow Rate 10/26/24 11:15 10/26/24 11:16 10/26/24 11:18 Temperature Pulse Rate 63 64 67 Respiratory Rate 19 22 H 18 Blood Pressure 94/50 L Pulse Oximetry 95 93 Oxygen Delivery Oxygen Flow Rate 10/26/24 11:24 10/26/24 11:30 10/26/24 11:31 Temperature 97.6 F Pulse Rate 60 58 L 59 L Respiratory Rate 18 19 12 Blood Pressure 94/50 L 106/44 L Pulse Oximetry 97 96 98 Oxygen Delivery Oxygen Flow Rate 10/26/24 12:00 10/26/24 12:19 10/26/24 13:00 Temperature Pulse Rate 60 60 Respiratory Rate 17 20 Blood Pressure 132/66 Pulse Oximetry 95 89 L 96 Oxygen Delivery Nasal Cannula Oxygen Flow Rate 4 10/26/24 13:21 10/26/24 13:21 10/26/24 13:30 Temperature Pulse Rate 60 60 61 Respiratory Rate 22 H 20 17 Blood Pressure 102/52 L 103/52 L Pulse Oximetry 94 94 94 Oxygen Delivery Oxygen Flow Rate 10/26/24 13:31 10/26/24 13:40 10/26/24 13:45 Temperature Pulse Rate 62 60 60 Respiratory Rate 20 16 18 Blood Pressure 101/50 L Pulse Oximetry 93 Oxygen Delivery Oxygen Flow Rate 10/26/24 13:46 10/26/24 13:47 10/26/24 14:30 Temperature Pulse Rate 60 61 61 Respiratory Rate 20 16 16 Blood Pressure 120/55 L 126/52 L Pulse Oximetry Oxygen Delivery Oxygen Flow Rate 10/26/24 14:31 10/26/24 14:45 10/26/24 14:46 Temperature Pulse Rate 69 66 68 Respiratory Rate 19 16 18 Blood Pressure 133/56 L Pulse Oximetry 98 98 Oxygen Delivery Oxygen Flow Rate 10/26/24 14:47 10/26/24 15:00 10/26/24 15:01 Temperature Pulse Rate 67 59 L 56 L Respiratory Rate 15 18 16 Blood Pressure 133/65 Pulse Oximetry Oxygen Delivery Oxygen Flow Rate 10/26/24 15:15 10/26/24 15:22 Temperature Pulse Rate 65 70 Respiratory Rate 21 H 22 H Blood Pressure 131/63 Pulse Oximetry 96 Oxygen Delivery Oxygen Flow Rate Exam Narrative: General: Chronically ill-appearing elderly gentleman supine in bed in no acute distress. Weight: 72.7 kg. BMI: 23.0. HEENT: PERRL, EOMI. Sclera anicteric. Hard of hearing. Conjunctiva mildly injected. Tacky mucous membranes. Neck: Supple. Respiratory: Respirations are nonlabored. He is currently on 4 L nasal cannula. Lung sounds are coarse throughout. Cardiovascular: Regular rate and rhythm with S1-S2. Gastrointestinal: Abdomen is soft, nontender, and nondistended with positive bowel sounds. Skin: Warm and dry. Extremities: No cyanosis, clubbing, or edema. Radial and pedal pulses intact. Neurological: Alert to name, date of , and age. Cranial nerves 2-12 are grossly intact. Speech is clear. No obvious facial asymmetry. Generalized weakness without gross focal findings. He did not fully participate in the neurologic exam. Psychiatric: Somnolent but arousable. He is pleasantly confused and cooperative with appropriate mood. H&P: Results Labs Labs: Short CBC 10/26/24 Range/Units 11:52 WBC 14.4 H (4.5-10.0) K/mm3 Hgb 13.3 L D (14.0-18.0) g/dL Hct 40.1 L (42.0-52.0) % Plt Count 243 (150-375) k/mm3 BMP 10/26/24 11:48 Sodium 139 Potassium 3.4 Chloride 106 Carbon Dioxide 30 BUN 21 H D Creatinine 1.90 H Glucose 127 H Calcium 8.9 Cardiac Enzymes 10/26/24 10/26/24 Range/Units 11:48 15:22 Total Creatine Kinase 85 (55-170) U/L Troponin I 0.171 H* 0.155 H* (0.000-0.034) ng/mL Liver Function 10/26/24 Range/Units 11:48 Total Bilirubin 0.8 (0.2-1.3) mg/dL AST 158 H (17-59) U/L ALT 123 H (6-50) U/L Alkaline Phosphatase 94 (38-126) U/L Albumin 3.6 (3.5-5.1) g/dL Urine 10/26/24 Range/Units 11:52 Urine Color Dark yellow (Yellow) Urine Appearance Clear (Clear) Urine pH 6.5 (5.0-9.0) Ur Specific Col[place] 1.020 (1.001-1.035) Urine Protein 2+ H (Negative) mg/dL Urine Glucose (UA) Negative (Negative) mg/dL Imaging Chest X-Ray 10/26/24 13:00 Impression: Extensive bibasilar consolidation. Correlate for pulmonary edema versus bibasilar pneumonia. Head CT 10/26/24 13:00 IMPRESSION: 1. 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 No acute intracranial process. 2. Age-related changes including moderate diffuse volume loss and moderate scattered white matter hypoattenuation consistent with chronic small vessel ischemic disease. Chest/Abdomen/Pelvis CTA 10/26/24 14:34 IMPRESSION: 1. Dependent and lower lung predominant diffuse bilateral lung disease with dense consolidation in the right middle lobe and lingula which could represent pneumonia, moderate to severe pulmonary edema or combination thereof. 2. Small right pleural effusion. 3. Moderate cardiomegaly with enlargement of the central pulmonary arteries consistent with pulmonary arterial hypertension. 4. The latter gallbladder without wall thickening or pericholecystic inflammatory stranding to suggest acute cholecystitis. 5. Mild to moderate diverticulosis. Assessment and Plan Assessment and plan (1) Sepsis: Code(s): A41.9 - Sepsis, unspecified organism Status: Acute (2) Pneumonia: Code(s): J18.9 - Pneumonia, unspecified organism Status: Acute (3) Elevated troponin: Code(s): R79.89 - Other specified abnormal findings of blood chemistry Status: Acute (4) Transaminitis: Code(s): R74.01 - Elevation of levels of liver transaminase levels Status: Acute (5) Unresponsive episode: Code(s): R40.4 - Transient alteration of awareness Status: Acute (6) Chronic kidney disease, stage 3: Code(s): N18.30 - Chronic kidney disease, stage 3 unspecified Status: Acute (7) Parkinson disease: Code(s): G20.A1 - Parkinson's disease without dyskinesia, without mention of fluctuations Status: Acute (8) Coronary artery disease: Code(s): I25.10 - Atherosclerotic heart disease of [place] coronary artery without angina pectoris Status: Acute (9) Diastolic dysfunction: Code(s): I51.89 - Other ill-defined heart diseases Status: Acute (10) Paroxysmal atrial flutter: Code(s): I48.92 - Unspecified atrial flutter Status: Acute Plan The patient presented to the emergency department for evaluation of altered mental status, weakness, and unresponsive episode earlier today as detailed in HPI. Labs, imaging, EKG, and all reports were personally reviewed. He meets sepsis criteria with hypotension, leukocytosis, lactic acidosis, and altered mental status in the setting of pneumonia. Blood pressures improved with 1 L crystalloid (he did not receive 30 mL/kg bolus due to concerns for possible heart failure). Source of infection appears to be pneumonia and he has been started on ceftriaxone and doxycycline (received cefepime and vancomycin in the ED). Attempt sputum for culture. Check Legionella and pneumococcal antigens as well as mycoplasma IgM. Swallow study ordered to rule out silent aspiration given Parkinson's diagnosis. DuoNebs available as needed. Hold antihypertensives as blood pressures were soft on arrival. Unresponsive episode while on the toilet is likely due to a drop in blood pressure. Continue judicious IV fluid rehydration as she looks dry on exam and by labs. Monitor volume status closely with I/O and daily weights. AST and ALT are elevated and gallbladder is dilated on imaging though his abdominal exam is benign and there were no findings of gallbladder wall thickening or inflammatory stranding on imaging to suggest cholecystitis. Check total CK given increase in creatinine and elevated LFTs. Troponin elevation is likely related to sepsis and hypoperfusion from lower blood pressures as he complains of no chest pain however troponins will be trended to peak and cardiology will be consulted for recommendations. His medications will be reviewed and resumed as appropriate. Findings and treatment plan were discussed with the patient. Questions were solicited and answered to satisfaction. The patient's medical management will be taken over by the hospitalist team in a.m. Quality VTE Prophylaxis VTE prophylaxis: pharmacologic ordered (on apixaban) Hospitalist [facility] Advance Care Plan I have confirmed that the patient's Advanced Care Plan is present, code status is documented, or surrogate decision maker is listed in patient medical record.: Yes Medication Reconciliation I have utilized all available resources to obtain, update and review the patients current medications (includes all prescriptions, OTC, herbals, cannabis, and nutritional supplements).: Yes
[2024-10-26] MEDS: ASPIRIN 300 MG SUPPOSITORY RECTAL (16:10)
[2024-10-26] MEDS: [UNRECOGNIZED DRUG - REMARK] XX (16:32)
[2024-10-26 16:46] LABS: Free T4 Free Thyroxine 2.17 ng/dL (0.78-2.19)
[2024-10-26 16:48] LABS: MRSA (PCR) NOT DETECTED (NOT DETECTE)
[2024-10-26 18:11] LABS: Hepatitis B Surface Antigen Negative (Negative)
[2024-10-26 18:17] LABS: HAV RESULT Negative (Negative); Hepatitis B Core IgM Result Negative (Negative)
[2024-10-26 18:29] LABS: Hepatitis C Virus Antibody Negative (Negative)
--- NOTE | 2024-10-26 18:44 | PC.NURSE ---
Addendum entered by Judith Rossi RN 10/26/24 18:45: Patient is altered and unable to swallow and follow directions Original Note: Patient unable to take anything PO at this time.
[2024-10-26] MEDS: LACTATED RINGERS 1,000 ML 100 ML IV CONT ×2 (18:48→23:13)
[2024-10-27] VITALS (22 sets, daily range): BP systolic 118–183; BP diastolic 50–74; PULSE 52–76; RESP 14–20; TEMP 36.8–37.6; O2SAT 91–100; BMI 22.6
--- NOTE | 2024-10-27 00:21 | ADMGEN ---
This patient, Felipe Haddad, was admitted to IMU Room 206-01 on 10/27/23 at 0019. Patient/family oriented to hospital policies and general routines including ID bracelet, bed and alarms, visiting hours, pain management, procedures, bathroom and other care routines, personal items, smoking policy, room service/diet, and visiting hours. Pt with a H/O dementia and has AMS. H&P obtained from Pt's chart and Pt's DA who is at the bedside. Information on how to activate the Rapid Response Team has been discussed. Patient/Family are encouraged to report perceived risks to care and to ask questions if they do not understand what they are told or what they should do.
[2024-10-27 05:10] LABS: Basophils Percent Auto 0.1 % (0.2-1.2); Hematocrit 32.3 % (42.0-52.0); Hemoglobin 10.5 g/dL (14.0-18.0); Immature Granulocyte Absolute 0.13 K/mm3 (0.00-0.031); Immature Granulocyte Percent A 0.6 % (0-0.5); Lymphocytes Absolute Auto 0.69 K/mm3 (0.9-3.2); Lymphocytes Percent Auto 3.3 % (18.3-44.2); Mean Corpuscular HGB Conc 32.5 g/dl (32-36); Mean Corpuscular Hemoglobin 31.1 pg (26-34); Mean Corpuscular Volume 95.6 fl (80-100); Mean Platelet Volume 9.7 fl (7.4-10.4); Monocytes Absolute Auto 0.8 K/mm3 (0.1-0.6); Monocytes Percent Auto 3.6 % (2.6-8.5); Neutrophils Absolute Auto 19.4 K/mm3 (1.3-6.7); Neutrophils Percent Auto 92.4 % (45.5-73.1); Platelet Count Result 209 k/mm3 (150-375); Red Blood Count 3.38 M/mm3 (4.6-6.20); Red Cell Distribution Width 16.7 % (11.5-14.5)
[2024-10-27 05:34] LABS: Anisocytosis 1+; Ovalocytes 1+; Platelet Estimate Adequate (Adequate); Poikilocytosis 1+; Schistocytes None Seen
[2024-10-27 05:40] LABS: Vancomycin Random 10.6 ug/mL (10-20)
[2024-10-27 05:48] LABS: Alanine Aminotransferase 516 U/L (6-50); Albumin Level 2.9 g/dL (3.5-5.1); Alkaline Phosphatase 82 U/L (38-126); Anion Gap 2 mmol/L (4-12); Aspartate Amino Transferase 720 U/L (17-59); Bilirubin,Total 0.8 mg/dL (0.2-1.3); Blood Urea Nitrogen 34 mg/dL (9-20); Calcium 8.2 mg/dL (8.4-10.2); Carbon Dioxide 30 mmol/L (22-30); Chloride 108 mmol/L (98-107); Estimated CRCL calculation 23 ml/min; Estimated Glomerular Filt Rate 32; Glucose 104 mg/dL (65-110); Magnesium 1.8 mg/dL (1.6-2.3); Potassium 4.1 mmol/L (3.4-5.0); Sodium 140 mmol/L (137-145)
[2024-10-27] MEDS: VANCOMYCIN 1,500 MG/NS 500 ML 1,500 MG/500 ML BAG 250 MG IVPB (07:09)
--- NOTE | 2024-10-27 07:55 | PM.IMPN ---
Subjective Date/time seen: 10/27/24 07:55 Objective Data Vital Signs Vital Signs: Vital Signs - 24 hr 10/26/24 10:21 10/26/24 10:42 10/26/24 10:45 Temperature 97.6 F Pulse Rate 64 64 70 Respiratory Rate 16 22 H 24 H Blood Pressure 72/35 L Pulse Oximetry 90 Oxygen Delivery Oxygen Flow Rate 10/26/24 11:00 10/26/24 11:09 10/26/24 11:10 Temperature Pulse Rate 70 63 64 Respiratory Rate 29 H 21 H 16 Blood Pressure 89/50 L Pulse Oximetry 89 L 96 Oxygen Delivery Oxygen Flow Rate 10/26/24 11:15 10/26/24 11:16 10/26/24 11:18 Temperature Pulse Rate 63 64 67 Respiratory Rate 19 22 H 18 Blood Pressure 94/50 L Pulse Oximetry 95 93 Oxygen Delivery Oxygen Flow Rate 10/26/24 11:24 10/26/24 11:30 10/26/24 11:31 Temperature 97.6 F Pulse Rate 60 58 L 59 L Respiratory Rate 18 19 12 Blood Pressure 94/50 L 106/44 L Pulse Oximetry 97 96 98 Oxygen Delivery Oxygen Flow Rate 10/26/24 12:00 10/26/24 12:19 10/26/24 13:00 Temperature Pulse Rate 60 60 Respiratory Rate 17 20 Blood Pressure 132/66 Pulse Oximetry 95 89 L 96 Oxygen Delivery Nasal Cannula Oxygen Flow Rate 4 10/26/24 13:21 10/26/24 13:21 10/26/24 13:30 Temperature Pulse Rate 60 60 61 Respiratory Rate 22 H 20 17 Blood Pressure 102/52 L 103/52 L Pulse Oximetry 94 94 94 Oxygen Delivery Oxygen Flow Rate 10/26/24 13:31 10/26/24 13:40 10/26/24 13:45 Temperature Pulse Rate 62 60 60 Respiratory Rate 20 16 18 Blood Pressure 101/50 L Pulse Oximetry 93 Oxygen Delivery Oxygen Flow Rate 10/26/24 13:46 10/26/24 13:47 10/26/24 14:30 Temperature Pulse Rate 60 61 61 Respiratory Rate 20 16 16 Blood Pressure 120/55 L 126/52 L Pulse Oximetry Oxygen Delivery Oxygen Flow Rate 10/26/24 14:31 10/26/24 14:45 10/26/24 14:46 Temperature Pulse Rate 69 66 68 Respiratory Rate 19 16 18 Blood Pressure 133/56 L Pulse Oximetry 98 98 Oxygen Delivery Oxygen Flow Rate 10/26/24 14:47 10/26/24 15:00 10/26/24 15:01 Temperature Pulse Rate 67 59 L 56 L Respiratory Rate 15 18 16 Blood Pressure 133/65 Pulse Oximetry Oxygen Delivery Oxygen Flow Rate 10/26/24 15:15 10/26/24 15:22 10/26/24 15:32 Temperature Pulse Rate 65 70 61 Respiratory Rate 21 H 22 H 17 Blood Pressure 131/63 124/60 Pulse Oximetry 96 Oxygen Delivery Oxygen Flow Rate 10/26/24 15:46 10/26/24 16:01 10/26/24 16:15 Temperature 98.8 F Pulse Rate 56 L 55 L 68 Respiratory Rate 18 16 20 Blood Pressure 124/59 L 121/64 Pulse Oximetry 96 Oxygen Delivery Oxygen Flow Rate 10/26/24 16:47 10/26/24 17:01 10/26/24 17:16 Temperature Pulse Rate 54 L 55 L 58 L Respiratory Rate 16 17 19 Blood Pressure 142/56 H 139/60 137/65 Pulse Oximetry 96 Oxygen Delivery Oxygen Flow Rate 10/26/24 17:32 10/26/24 17:46 10/26/24 17:47 Temperature Pulse Rate 64 56 L 77 Respiratory Rate 20 18 18 Blood Pressure 156/82 H 142/123 H Pulse Oximetry 93 96 Oxygen Delivery Oxygen Flow Rate 10/26/24 18:00 10/26/24 18:01 10/26/24 18:15 Temperature Pulse Rate 58 L 64 64 Respiratory Rate 18 24 H 17 Blood Pressure 145/77 H Pulse Oximetry Oxygen Delivery Oxygen Flow Rate 10/26/24 18:16 10/26/24 18:30 10/26/24 18:32 Temperature Pulse Rate 64 57 L 59 L Respiratory Rate 19 17 16 Blood Pressure 149/63 H 149/64 H Pulse Oximetry Oxygen Delivery Oxygen Flow Rate 10/26/24 18:45 10/26/24 18:46 10/26/24 18:49 Temperature Pulse Rate 57 L 56 L 60 Respiratory Rate 16 13 19 Blood Pressure 155/70 H 155/70 H Pulse Oximetry 98 Oxygen Delivery Oxygen Flow Rate 10/26/24 19:00 10/26/24 19:01 10/26/24 19:15 Temperature Pulse Rate 57 L 57 L 58 L Respiratory Rate 21 H 20 18 Blood Pressure 141/61 H Pulse Oximetry 95 93 Oxygen Delivery Oxygen Flow Rate 10/26/24 19:16 10/26/24 19:30 10/26/24 19:31 Temperature Pulse Rate 56 L 59 L 57 L Respiratory Rate 17 16 16 Blood Pressure 152/65 H 152/63 H Pulse Oximetry Oxygen Delivery Oxygen Flow Rate 10/26/24 19:52 10/26/24 20:00 10/26/24 20:15 Temperature Pulse Rate 64 61 61 Respiratory Rate 18 20 19 Blood Pressure Pulse Oximetry 88 L 90 89 L Oxygen Delivery Oxygen Flow Rate 10/26/24 20:30 10/26/24 20:45 10/26/24 21:00 Temperature Pulse Rate 61 63 65 Respiratory Rate 20 19 27 H Blood Pressure Pulse Oximetry 87 L 90 90 Oxygen Delivery Oxygen Flow Rate 10/26/24 21:15 10/26/24 21:17 10/26/24 21:44 Temperature Pulse Rate 65 66 66 Respiratory Rate 18 21 H 15 Blood Pressure 151/65 H Pulse Oximetry Oxygen Delivery Oxygen Flow Rate 10/26/24 22:04 10/26/24 22:33 10/26/24 22:58 Temperature Pulse Rate 66 66 72 Respiratory Rate 22 H 20 15 Blood Pressure Pulse Oximetry Oxygen Delivery Oxygen Flow Rate 10/26/24 23:02 10/26/24 23:12 10/26/24 23:30 Temperature Pulse Rate 70 71 71 Respiratory Rate 19 18 Blood Pressure 149/74 H Pulse Oximetry Oxygen Delivery Oxygen Flow Rate 10/27/24 00:14 10/27/24 00:30 10/27/24 00:32 Temperature 98.3 F Pulse Rate 71 67 71 Respiratory Rate 18 18 18 Blood Pressure 149/74 H 183/69 H Pulse Oximetry 91 96 91 Oxygen Delivery Nasal Cannula Oxygen Flow Rate 4 10/27/24 04:00 Temperature 99.6 F Pulse Rate 76 Respiratory Rate 20 Blood Pressure 118/50 L Pulse Oximetry 91 Oxygen Delivery Oxygen Flow Rate Intake/Output Intake/Output: Intake & Output 10/24/24 10/25/24 10/26/24 10/27/24 23:59 23:59 23:59 23:59 Intake Total 1999 Output Total 325 Balance 1999 - Meds/Results Medications: Active Medications Generic Name Dose Route Start Last Admin Trade Name Freq PRN Reason Stop Dose Admin Acetaminophen 650 mg 10/26/24 15:55 Acetaminophen 650 Mg Suppository RECTAL Q6H PRN Mild Pain (1-3) or Fever Albuterol/Ipratropium 3 ml 10/26/24 16:21 Ipratropium 0.5 Mg/Albuterol Sulfate 2.5 Mg Ampul.Neb 3 Ml INHALATION Q6HRT PRN Shortness Of Breath Or Wheezing Doxycycline Hyclate 100 mg 10/26/24 18:00 10/27/24 06:47 Doxycycline Hyclate 100 Mg Tablet PO Not Given Q12H GAURAV Ceftriaxone Sodium 1 gm in 50 mls @ 100 mls/hr 10/26/24 21:00 10/26/24 22:42 Rocephin 1 Gm/Ns 50 Ml IVPB Infused Q24H GAURAV Infusion Lactated Ringer's 1,000 mls @ 100 mls/hr 10/26/24 22:26 10/26/24 23:13 Lr - Lactated Ringers Iv IV CONT 10/27/24 08:25 100 mls/hr .Q10H ONE Administration Vancomycin HCl 1,500 mg in 500 mls @ 250 mls/hr 10/27/24 06:00 10/27/24 07:09 Vancomycin 1,500 Mg/Ns 500 Ml IVPB 10/27/24 07:59 250 mls/hr ONCE ONE Administration Miscellaneous Information 0 each 10/26/24 00:01 10/26/24 16:32 Cefepime Continuing Order? XX 11/25/24 00:00 1 each CLARIFY GAURAV Administration Ondansetron HCl 4 mg 10/26/24 15:55 Ondansetron Inj 4 Mg/2 Ml Vial IV PUSH Q4H PRN Nausea Perflutren Lipid Microsphere 0 ml 10/26/24 16:18 Perflutren Lipid Microspheres 1.5 Ml Vial Diluted To 10 Ml Total Volume IV PUSH 10/29/24 16:18 ONCE PRN adequate visualization Protocol Vancomycin HCl 1 each 10/26/24 14:20 Vancomycin For Acute Kidney Injury IVPB PRN PRN Vancomycin Protocol Radiology Results: ITS Impressions Chest X-Ray 10/26/24 13:00 Impression: Extensive bibasilar consolidation. Correlate for pulmonary edema versus bibasilar pneumonia. Head CT 10/26/24 13:00 IMPRESSION: 1. 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 No acute intracranial process. 2. Age-related changes including moderate diffuse volume loss and moderate scattered white matter hypoattenuation consistent with chronic small vessel ischemic disease. Chest/Abdomen/Pelvis CTA 10/26/24 14:34 IMPRESSION: 1. Dependent and lower lung predominant diffuse bilateral lung disease with dense consolidation in the right middle lobe and lingula which could represent pneumonia, moderate to severe pulmonary edema or combination thereof. 2. Small right pleural effusion. 3. Moderate cardiomegaly with enlargement of the central pulmonary arteries consistent with pulmonary arterial hypertension. 4. The latter gallbladder without wall thickening or pericholecystic inflammatory stranding to suggest acute cholecystitis. 5. Mild to moderate diverticulosis. Labs Labs: Laboratory Results - last 24 hr 10/26/24 10/26/24 10/26/24 11:00 11:01 11:13 WBC RBC Hgb Hct MCV MCH MCHC RDW Plt Count MPV Immature Gran % (Auto) Neut % (Auto) Lymph % (Auto) [place] % (Auto) Eos % (Auto) Baso % (Auto) Lymph # (Auto) [place] # (Auto) Eos # (Auto) Baso # (Auto) Abs Immat Gran (auto) Absolute Neuts (auto) Absolute Nucleated RBC Nucleated RBC % Platelet Estimate Poikilocytosis Anisocytosis Ovalocytes Schistocytes PT INR APTT D-Dimer Puncture Site Left radial ABG pH 7.443 ABG pCO2 41.7 ABG pO2 55.4 L ABG PO2/FiO2 Ratio 2.64 ABG HCO3 27.9 H ABG O2 Saturation 90.0 L ABG O2 Content 16.5 ABG Base Excess 3.4 A-a Gradient 44.4 Oxyhemoglobin 88.1 L Total Hemoglobin 13.3 O2 Delivery Device Not Reportable O2 Liters/Min Not Reportable FiO2 21 Sodium Potassium Chloride Carbon Dioxide Anion Gap BUN Creatinine Estim Creat Clear Calc Estimated GFR Glucose POC Capillary Glucose 141 H Lactic Acid Calcium Magnesium Total Bilirubin AST ALT Alkaline Phosphatase Ammonia Total Creatine Kinase Troponin I NT-Pro-B Natriuret Pep Total Protein Albumin TSH Free T4 Urine Color Urine Appearance Urine pH Ur Specific [place] Urine Protein Urine Glucose (UA) Urine Ketones Ur Blood (Man) Urine Nitrate Urine Bilirubin Urine Urobilinogen Leukocyte Esterase Rfl Urine RBC Urine WBC Ur Squamous Epith Cells Urine Bacteria Urine Casts Nasal MRSA (PCR) Random Vancomycin Salicylates Urine Opiates Screen Urine Methadone Screen Acetaminophen Ur Barbiturates Screen Ur Phencyclidine Scrn Ur Amphetamine Screen U Benzodiazepines Scrn Urine Cocaine Screen U Cannabinoids Screen Ethyl Alcohol Hepatitis A IgM Ab Hep Bs Antigen Hep B Core IgM Ab Hepatitis C Ab Screen Influenza A (RT-PCR) Negative Influenza B (RT-PCR) Negative RSV (RT-PCR) Negative SARS-CoV-2 RNA (RT-PCR) Negative 10/26/24 10/26/24 10/26/24 11:48 11:50 11:52 WBC 14.4 H RBC 4.22 L Hgb 13.3 L D Hct 40.1 L MCV 95.0 MCH 31.5 MCHC 33.2 RDW 16.4 H Plt Count 243 MPV 9.3 Immature Gran % (Auto) 0.5 Neut % (Auto) 93.3 H Lymph % (Auto) 1.7 L [place] % (Auto) 4.2 Eos % (Auto) 0.0 Baso % (Auto) 0.3 Lymph # (Auto) 0.25 L [place] # (Auto) 0.6 Eos # (Auto) 0.0 Baso # (Auto) 0.1 Abs Immat Gran (auto) 0.07 H Absolute Neuts (auto) 13.4 H Absolute Nucleated RBC 0.000 Nucleated RBC % 0.0 Platelet Estimate Adequate Poikilocytosis Anisocytosis Ovalocytes 1+ Schistocytes None seen PT 17.8 H INR 1.4 APTT 28.7 D-Dimer 1.60 H Puncture Site ABG pH ABG pCO2 ABG pO2 ABG PO2/FiO2 Ratio ABG HCO3 ABG O2 Saturation ABG O2 Content ABG Base Excess A-a Gradient Oxyhemoglobin Total Hemoglobin O2 Delivery Device O2 Liters/Min FiO2 Sodium 139 Potassium 3.4 Chloride 106 Carbon Dioxide 30 Anion Gap 3 L BUN 21 H D Creatinine 1.90 H Estim Creat Clear Calc Not Reportable Estimated GFR 34 L Glucose 127 H POC Capillary Glucose Lactic Acid 2.4 H Calcium 8.9 Magnesium 1.9 Total Bilirubin 0.8 AST 158 H ALT 123 H Alkaline Phosphatase 94 Ammonia < 9 L Total Creatine Kinase 85 Troponin I 0.171 H* NT-Pro-B Natriuret Pep 2460 H Total Protein 7.0 Albumin 3.6 TSH 6.610 H Free T4 Urine Color Dark yellow Urine Appearance Clear Urine pH 6.5 Ur Specific [place] 1.020 Urine Protein 2+ H Urine Glucose (UA) Negative Urine Ketones Trace H Ur Blood (Man) Negative Urine Nitrate Negative Urine Bilirubin Negative Urine Urobilinogen 1.0 Leukocyte Esterase Rfl Negative Urine RBC 0-2 Urine WBC 0-5 Ur Squamous Epith Cells None seen Urine Bacteria None seen Urine Casts 0-2 Nasal MRSA (PCR) Random Vancomycin Salicylates < 1.0 L Urine Opiates Screen Negative Urine Methadone Screen Negative Acetaminophen < 10 L Ur Barbiturates Screen Negative Ur Phencyclidine Scrn Negative Ur Amphetamine Screen Negative U Benzodiazepines Scrn Negative Urine Cocaine Screen Negative U Cannabinoids Screen Negative Ethyl Alcohol < 10 Hepatitis A IgM Ab Hep Bs Antigen Hep B Core IgM Ab Hepatitis C Ab Screen Influenza A (RT-PCR) Influenza B (RT-PCR) RSV (RT-PCR) SARS-CoV-2 RNA (RT-PCR) 10/26/24 10/27/24 15:22 05:04 WBC 21.0 H RBC 3.38 L Hgb 10.5 L Hct 32.3 L MCV 95.6 MCH 31.1 MCHC 32.5 RDW 16.7 H Plt Count 209 MPV 9.7 Immature Gran % (Auto) 0.6 H Neut % (Auto) 92.4 H Lymph % (Auto) 3.3 L [place] % (Auto) 3.6 Eos % (Auto) 0.0 Baso % (Auto) 0.1 L Lymph # (Auto) 0.69 L [place] # (Auto) 0.8 H Eos # (Auto) 0.0 Baso # (Auto) 0.0 Abs Immat Gran (auto) 0.13 H Absolute Neuts (auto) 19.4 H Absolute Nucleated RBC 0.000 Nucleated RBC % 0.0 Platelet Estimate Adequate Poikilocytosis 1+ Anisocytosis 1+ Ovalocytes 1+ Schistocytes None seen PT INR APTT D-Dimer Puncture Site ABG pH ABG pCO2 ABG pO2 ABG PO2/FiO2 Ratio ABG HCO3 ABG O2 Saturation ABG O2 Content ABG Base Excess A-a Gradient Oxyhemoglobin Total Hemoglobin O2 Delivery Device O2 Liters/Min FiO2 Sodium 140 Potassium 4.1 Chloride 108 H Carbon Dioxide 30 Anion Gap 2 L BUN 34 H D Creatinine 2.00 H Estim Creat Clear Calc 23 Estimated GFR 32 L Glucose 104 POC Capillary Glucose Lactic Acid 2.1 H Calcium 8.2 L Magnesium 1.8 Total Bilirubin 0.8 AST 720 H ALT 516 H Alkaline Phosphatase 82 Ammonia Total Creatine Kinase Troponin I 0.155 H* NT-Pro-B Natriuret Pep Total Protein 5.0 L Albumin 2.9 L TSH Free T4 2.17 Urine Color Urine Appearance Urine pH Ur Specific [place] Urine Protein Urine Glucose (UA) Urine Ketones Ur Blood (Man) Urine Nitrate Urine Bilirubin Urine Urobilinogen Leukocyte Esterase Rfl Urine RBC Urine WBC Ur Squamous Epith Cells Urine Bacteria Urine Casts Nasal MRSA (PCR) Not detected Random Vancomycin 10.6 Salicylates Urine Opiates Screen Urine Methadone Screen Acetaminophen Ur Barbiturates Screen Ur Phencyclidine Scrn Ur Amphetamine Screen U Benzodiazepines Scrn Urine Cocaine Screen U Cannabinoids Screen Ethyl Alcohol Hepatitis A IgM Ab Negative Hep Bs Antigen Negative Hep B Core IgM Ab Negative Hepatitis C Ab Screen Negative Influenza A (RT-PCR) Influenza B (RT-PCR) RSV (RT-PCR) SARS-CoV-2 RNA (RT-PCR)
--- NOTE | 2024-10-27 10:16 | P.PNIM_ITS ---
Progress Note: A&P Assessment and Plan (1) Sepsis: Code(s): A41.9 - Sepsis, unspecified organism Status: Acute Assessment and Plan: * Likely secondary to pneumonia. (2) Pneumonia: Code(s): J18.9 - Pneumonia, unspecified organism Status: Acute Assessment and Plan: * Suspect aspiration. * Continue vancomycin, cefepime, doxycycline as he is clinically improving. (3) Elevated troponin: Code(s): R79.89 - Other specified abnormal findings of blood chemistry Status: Acute Assessment and Plan: * Likely demand ischemia secondary to sepsis w/o ACS. (4) Parkinson disease: Code(s): G20.A1 - Parkinson's disease without dyskinesia, without mention of fluctuations Status: Acute Assessment and Plan: * Speech and MBS (10/29/24) pending. * Continue home regimen (5) Transaminitis: Code(s): R74.01 - Elevation of levels of liver transaminase levels Status: Acute Assessment and Plan: * Likely secondary to sepsis, hypotension (6) Chronic kidney disease, stage 3: Code(s): N18.30 - Chronic kidney disease, stage 3 unspecified Status: Acute Assessment and Plan: * Superimposed REGINA likely due to sepsis, hypotension. * 10/27/24 creatinine 2.0 (7) Coronary artery disease: Code(s): I25.10 - Atherosclerotic heart disease of tetlin coronary artery without angina pectoris Status: Acute Assessment and Plan: * No sign of ACS or c/o of angina. * Continue home regimen (8) Diastolic dysfunction: Code(s): I51.89 - Other ill-defined heart diseases Status: Acute Assessment and Plan: * Clinically stable. (9) Paroxysmal atrial flutter: Code(s): I48.92 - Unspecified atrial flutter Status: Acute Assessment and Plan: * Clinically stable * Continue home regimen, including Eliquis, reduce dose to 2.5 mg bid pending improvement in renal function (10) Unresponsive episode: Code(s): R40.4 - Transient alteration of awareness Status: Acute Assessment and Plan: * Likely secondary to sepsis, hypotension. * Resolved. Subjective Date/time seen: 10/27/24 10:16 Interval history: Son at bedside. More alert. When asked if he has any pain he points to his lower abdomen. Mute so unable to obtain further history. Review of Systems Review of Systems: ROS unobtainable: Yes unobtainable due to medical condition Exam Narrative: General: Chronically ill-appearing elderly gentleman supine in bed in no acute distress. Weight: 72.7 kg. BMI: 23.0. HEENT: PERRL, EOMI. Sclera anicteric. Hard of hearing. Neck: Supple. Respiratory: Respirations are nonlabored. He is currently on 4 L nasal cannula. Lung sounds are coarse throughout. Cardiovascular: Regular rate and rhythm with S1-S2. Gastrointestinal: Abdomen is soft, nontender, and nondistended with positive bowel sounds. Skin: Warm and dry. Extremities: No cyanosis, clubbing, or edema. Radial and pedal pulses intact. Neurological: Cranial nerves 2-12 are grossly intact. Mute. No obvious facial asymmetry. Generalized weakness. Intermittent coarse tremor of RUE at rest. Psychiatric: Alert. Ox1. Follows commands. Objective Data Vital Signs Vital Signs: Vital Signs - 24 hr 10/26/24 10:21 10/26/24 10:42 10/26/24 10:45 Temperature 97.6 F Pulse Rate 64 64 70 Respiratory Rate 16 22 H 24 H Blood Pressure 72/35 L Pulse Oximetry 90 Oxygen Delivery Oxygen Flow Rate Fraction of Inspired Oxygen 10/26/24 11:00 10/26/24 11:09 10/26/24 11:10 Temperature Pulse Rate 70 63 64 Respiratory Rate 29 H 21 H 16 Blood Pressure 89/50 L Pulse Oximetry 89 L 96 Oxygen Delivery Oxygen Flow Rate Fraction of Inspired Oxygen 10/26/24 11:15 10/26/24 11:16 10/26/24 11:18 Temperature Pulse Rate 63 64 67 Respiratory Rate 19 22 H 18 Blood Pressure 94/50 L Pulse Oximetry 95 93 Oxygen Delivery Oxygen Flow Rate Fraction of Inspired Oxygen 10/26/24 11:24 10/26/24 11:30 10/26/24 11:31 Temperature 97.6 F Pulse Rate 60 58 L 59 L Respiratory Rate 18 19 12 Blood Pressure 94/50 L 106/44 L Pulse Oximetry 97 96 98 Oxygen Delivery Oxygen Flow Rate Fraction of Inspired Oxygen 10/26/24 12:00 10/26/24 12:19 10/26/24 13:00 Temperature Pulse Rate 60 60 Respiratory Rate 17 20 Blood Pressure 132/66 Pulse Oximetry 95 89 L 96 Oxygen Delivery Nasal Cannula Oxygen Flow Rate 4 Fraction of Inspired Oxygen 10/26/24 13:21 10/26/24 13:21 10/26/24 13:30 Temperature Pulse Rate 60 60 61 Respiratory Rate 22 H 20 17 Blood Pressure 102/52 L 103/52 L Pulse Oximetry 94 94 94 Oxygen Delivery Oxygen Flow Rate Fraction of Inspired Oxygen 10/26/24 13:31 10/26/24 13:40 10/26/24 13:45 Temperature Pulse Rate 62 60 60 Respiratory Rate 20 16 18 Blood Pressure 101/50 L Pulse Oximetry 93 Oxygen Delivery Oxygen Flow Rate Fraction of Inspired Oxygen 10/26/24 13:46 10/26/24 13:47 10/26/24 14:30 Temperature Pulse Rate 60 61 61 Respiratory Rate 20 16 16 Blood Pressure 120/55 L 126/52 L Pulse Oximetry Oxygen Delivery Oxygen Flow Rate Fraction of Inspired Oxygen 10/26/24 14:31 10/26/24 14:45 10/26/24 14:46 Temperature Pulse Rate 69 66 68 Respiratory Rate 19 16 18 Blood Pressure 133/56 L Pulse Oximetry 98 98 Oxygen Delivery Oxygen Flow Rate Fraction of Inspired Oxygen 10/26/24 14:47 10/26/24 15:00 10/26/24 15:01 Temperature Pulse Rate 67 59 L 56 L Respiratory Rate 15 18 16 Blood Pressure 133/65 Pulse Oximetry Oxygen Delivery Oxygen Flow Rate Fraction of Inspired Oxygen 10/26/24 15:15 10/26/24 15:22 10/26/24 15:32 Temperature Pulse Rate 65 70 61 Respiratory Rate 21 H 22 H 17 Blood Pressure 131/63 124/60 Pulse Oximetry 96 Oxygen Delivery Oxygen Flow Rate Fraction of Inspired Oxygen 10/26/24 15:46 10/26/24 16:01 10/26/24 16:15 Temperature 98.8 F Pulse Rate 56 L 55 L 68 Respiratory Rate 18 16 20 Blood Pressure 124/59 L 121/64 Pulse Oximetry 96 Oxygen Delivery Oxygen Flow Rate Fraction of Inspired Oxygen 10/26/24 16:47 10/26/24 17:01 10/26/24 17:16 Temperature Pulse Rate 54 L 55 L 58 L Respiratory Rate 16 17 19 Blood Pressure 142/56 H 139/60 137/65 Pulse Oximetry 96 Oxygen Delivery Oxygen Flow Rate Fraction of Inspired Oxygen 10/26/24 17:32 10/26/24 17:46 10/26/24 17:47 Temperature Pulse Rate 64 56 L 77 Respiratory Rate 20 18 18 Blood Pressure 156/82 H 142/123 H Pulse Oximetry 93 96 Oxygen Delivery Oxygen Flow Rate Fraction of Inspired Oxygen 10/26/24 18:00 10/26/24 18:01 10/26/24 18:15 Temperature Pulse Rate 58 L 64 64 Respiratory Rate 18 24 H 17 Blood Pressure 145/77 H Pulse Oximetry Oxygen Delivery Oxygen Flow Rate Fraction of Inspired Oxygen 10/26/24 18:16 10/26/24 18:30 10/26/24 18:32 Temperature Pulse Rate 64 57 L 59 L Respiratory Rate 19 17 16 Blood Pressure 149/63 H 149/64 H Pulse Oximetry Oxygen Delivery Oxygen Flow Rate Fraction of Inspired Oxygen 10/26/24 18:45 10/26/24 18:46 10/26/24 18:49 Temperature Pulse Rate 57 L 56 L 60 Respiratory Rate 16 13 19 Blood Pressure 155/70 H 155/70 H Pulse Oximetry 98 Oxygen Delivery Oxygen Flow Rate Fraction of Inspired Oxygen 10/26/24 19:00 10/26/24 19:01 10/26/24 19:15 Temperature Pulse Rate 57 L 57 L 58 L Respiratory Rate 21 H 20 18 Blood Pressure 141/61 H Pulse Oximetry 95 93 Oxygen Delivery Oxygen Flow Rate Fraction of Inspired Oxygen 10/26/24 19:16 10/26/24 19:30 10/26/24 19:31 Temperature Pulse Rate 56 L 59 L 57 L Respiratory Rate 17 16 16 Blood Pressure 152/65 H 152/63 H Pulse Oximetry Oxygen Delivery Oxygen Flow Rate Fraction of Inspired Oxygen 10/26/24 19:52 10/26/24 20:00 10/26/24 20:15 Temperature Pulse Rate 64 61 61 Respiratory Rate 18 20 19 Blood Pressure Pulse Oximetry 88 L 90 89 L Oxygen Delivery Oxygen Flow Rate Fraction of Inspired Oxygen 10/26/24 20:30 10/26/24 20:45 10/26/24 21:00 Temperature Pulse Rate 61 63 65 Respiratory Rate 20 19 27 H Blood Pressure Pulse Oximetry 87 L 90 90 Oxygen Delivery Oxygen Flow Rate Fraction of Inspired Oxygen 10/26/24 21:15 10/26/24 21:17 10/26/24 21:44 Temperature Pulse Rate 65 66 66 Respiratory Rate 18 21 H 15 Blood Pressure 151/65 H Pulse Oximetry Oxygen Delivery Oxygen Flow Rate Fraction of Inspired Oxygen 10/26/24 22:04 10/26/24 22:33 10/26/24 22:58 Temperature Pulse Rate 66 66 72 Respiratory Rate 22 H 20 15 Blood Pressure Pulse Oximetry Oxygen Delivery Oxygen Flow Rate Fraction of Inspired Oxygen 10/26/24 23:02 10/26/24 23:12 10/26/24 23:30 Temperature Pulse Rate 70 71 71 Respiratory Rate 19 18 Blood Pressure 149/74 H Pulse Oximetry Oxygen Delivery Oxygen Flow Rate Fraction of Inspired Oxygen 10/27/24 00:14 10/27/24 00:30 10/27/24 00:32 Temperature 98.3 F Pulse Rate 71 67 71 Respiratory Rate 18 18 18 Blood Pressure 149/74 H 183/69 H Pulse Oximetry 91 96 91 Oxygen Delivery Nasal Cannula Oxygen Flow Rate 4 Fraction of Inspired Oxygen 10/27/24 00:32 10/27/24 02:00 10/27/24 03:50 Temperature Pulse Rate 68 67 76 Respiratory Rate 20 Blood Pressure Pulse Oximetry 91 Oxygen Delivery Nasal Cannula Oxygen Flow Rate 4 Fraction of Inspired Oxygen 10/27/24 04:00 10/27/24 04:00 10/27/24 06:00 Temperature 99.6 F Pulse Rate 76 63 61 Respiratory Rate 20 Blood Pressure 118/50 L Pulse Oximetry 91 Oxygen Delivery Oxygen Flow Rate Fraction of Inspired Oxygen 10/27/24 08:00 10/27/24 08:00 10/27/24 08:30 Temperature 98.9 F Pulse Rate 59 L Respiratory Rate 14 Blood Pressure 145/53 H Pulse Oximetry 99 100 98 Oxygen Delivery Nasal Cannula Oxygen Flow Rate 4 3 Fraction of Inspired Oxygen 10/27/24 09:22 10/27/24 09:56 Temperature Pulse Rate Respiratory Rate Blood Pressure Pulse Oximetry 95 97 Oxygen Delivery Nasal Cannula Oxygen Flow Rate 4 2 Fraction of Inspired Oxygen 36 Intake/Output Intake/Output: Intake & Output 10/24/24 10/25/24 10/26/24 10/27/24 23:59 23:59 23:59 23:59 Intake Total 1999 0 Output Total 325 Balance 1999 - Meds/Results Medications: Active Medications Generic Name Dose Route Start Last Admin Trade Name Freq PRN Reason Stop Dose Admin Acetaminophen 650 mg 10/26/24 15:55 Acetaminophen 650 Mg Suppository RECTAL Q6H PRN Mild Pain (1-3) or Fever Albuterol/Ipratropium 3 ml 10/26/24 16:21 Ipratropium 0.5 Mg/Albuterol Sulfate 2.5 Mg Ampul.Neb 3 Ml INHALATION Q6HRT PRN Shortness Of Breath Or Wheezing Doxycycline Hyclate 100 mg 10/26/24 18:00 10/27/24 06:47 Doxycycline Hyclate 100 Mg Tablet PO Not Given Q12H GAURAV Ceftriaxone Sodium 1 gm in 50 mls @ 100 mls/hr 10/26/24 21:00 10/26/24 22:42 Rocephin 1 Gm/Ns 50 Ml IVPB Infused Q24H GAURAV Infusion Ondansetron HCl 4 mg 10/26/24 15:55 Ondansetron Inj 4 Mg/2 Ml Vial IV PUSH Q4H PRN Nausea Perflutren Lipid Microsphere 0 ml 10/26/24 16:18 Perflutren Lipid Microspheres 1.5 Ml Vial Diluted To 10 Ml Total Volume IV PUSH 10/29/24 16:18 ONCE PRN adequate visualization Protocol Vancomycin HCl 1 each 10/26/24 14:20 Vancomycin For Acute Kidney Injury IVPB PRN PRN Vancomycin Protocol Radiology Results: ITS Impressions Chest X-Ray 10/26/24 13:00 Impression: Extensive bibasilar consolidation. Correlate for pulmonary edema versus bibasilar pneumonia. Head CT 10/26/24 13:00 IMPRESSION: 1. 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 No acute intracranial process. 2. Age-related changes including moderate diffuse volume loss and moderate scattered white matter hypoattenuation consistent with chronic small vessel ischemic disease. Chest/Abdomen/Pelvis CTA 10/26/24 14:34 IMPRESSION: 1. Dependent and lower lung predominant diffuse bilateral lung disease with dense consolidation in the right middle lobe and lingula which could represent pneumonia, moderate to severe pulmonary edema or combination thereof. 2. Small right pleural effusion. 3. Moderate cardiomegaly with enlargement of the central pulmonary arteries consistent with pulmonary arterial hypertension. 4. The latter gallbladder without wall thickening or pericholecystic inflammatory stranding to suggest acute cholecystitis. 5. Mild to moderate diverticulosis. Labs Labs: Laboratory Results - last 24 hr 10/26/24 10/26/24 10/26/24 11:00 11:01 11:13 WBC RBC Hgb Hct MCV MCH MCHC RDW Plt Count MPV Immature Gran % (Auto) Neut % (Auto) Lymph % (Auto) Titus % (Auto) Eos % (Auto) Baso % (Auto) Lymph # (Auto) Titus # (Auto) Eos # (Auto) Baso # (Auto) Abs Immat Gran (auto) Absolute Neuts (auto) Absolute Nucleated RBC Nucleated RBC % Platelet Estimate Poikilocytosis Anisocytosis Ovalocytes Schistocytes PT INR APTT D-Dimer Puncture Site Left radial ABG pH 7.443 ABG pCO2 41.7 ABG pO2 55.4 L ABG PO2/FiO2 Ratio 2.64 ABG HCO3 27.9 H ABG O2 Saturation 90.0 L ABG O2 Content 16.5 ABG Base Excess 3.4 A-a Gradient 44.4 Oxyhemoglobin 88.1 L Total Hemoglobin 13.3 O2 Delivery Device Not Reportable O2 Liters/Min Not Reportable FiO2 21 Sodium Potassium Chloride Carbon Dioxide Anion Gap BUN Creatinine Estim Creat Clear Calc Estimated GFR Glucose POC Capillary Glucose 141 H Lactic Acid Calcium Magnesium Total Bilirubin AST ALT Alkaline Phosphatase Ammonia Total Creatine Kinase Troponin I NT-Pro-B Natriuret Pep Total Protein Albumin TSH Free T4 Urine Color Urine Appearance Urine pH Ur Specific [place] Urine Protein Urine Glucose (UA) Urine Ketones Ur Blood (Man) Urine Nitrate Urine Bilirubin Urine Urobilinogen Leukocyte Esterase Rfl Urine RBC Urine WBC Ur Squamous Epith Cells Urine Bacteria Urine Casts Nasal MRSA (PCR) Random Vancomycin Salicylates Urine Opiates Screen Urine Methadone Screen Acetaminophen Ur Barbiturates Screen Ur Phencyclidine Scrn Ur Amphetamine Screen U Benzodiazepines Scrn Urine Cocaine Screen U Cannabinoids Screen Ethyl Alcohol Hepatitis A IgM Ab Hep Bs Antigen Hep B Core IgM Ab Hepatitis C Ab Screen Influenza A (RT-PCR) Negative Influenza B (RT-PCR) Negative RSV (RT-PCR) Negative SARS-CoV-2 RNA (RT-PCR) Negative 10/26/24 10/26/24 10/26/24 11:48 11:50 11:52 WBC 14.4 H RBC 4.22 L Hgb 13.3 L D Hct 40.1 L MCV 95.0 MCH 31.5 MCHC 33.2 RDW 16.4 H Plt Count 243 MPV 9.3 Immature Gran % (Auto) 0.5 Neut % (Auto) 93.3 H Lymph % (Auto) 1.7 L Titus % (Auto) 4.2 Eos % (Auto) 0.0 Baso % (Auto) 0.3 Lymph # (Auto) 0.25 L [place] # (Auto) 0.6 Eos # (Auto) 0.0 Baso # (Auto) 0.1 Abs Immat Gran (auto) 0.07 H Absolute Neuts (auto) 13.4 H Absolute Nucleated RBC 0.000 Nucleated RBC % 0.0 Platelet Estimate Adequate Poikilocytosis Anisocytosis Ovalocytes 1+ Schistocytes None seen PT 17.8 H INR 1.4 APTT 28.7 D-Dimer 1.60 H Puncture Site ABG pH ABG pCO2 ABG pO2 ABG PO2/FiO2 Ratio ABG HCO3 ABG O2 Saturation ABG O2 Content ABG Base Excess A-a Gradient Oxyhemoglobin Total Hemoglobin O2 Delivery Device O2 Liters/Min FiO2 Sodium 139 Potassium 3.4 Chloride 106 Carbon Dioxide 30 Anion Gap 3 L BUN 21 H D Creatinine 1.90 H Estim Creat Clear Calc Not Reportable Estimated GFR 34 L Glucose 127 H POC Capillary Glucose Lactic Acid 2.4 H Calcium 8.9 Magnesium 1.9 Total Bilirubin 0.8 AST 158 H ALT 123 H Alkaline Phosphatase 94 Ammonia < 9 L Total Creatine Kinase 85 Troponin I 0.171 H* NT-Pro-B Natriuret Pep 2460 H Total Protein 7.0 Albumin 3.6 TSH 6.610 H Free T4 Urine Color Dark yellow Urine Appearance Clear Urine pH 6.5 Ur Specific [place] 1.020 Urine Protein 2+ H Urine Glucose (UA) Negative Urine Ketones Trace H Ur Blood (Man) Negative Urine Nitrate Negative Urine Bilirubin Negative Urine Urobilinogen 1.0 Leukocyte Esterase Rfl Negative Urine RBC 0-2 Urine WBC 0-5 Ur Squamous Epith Cells None seen Urine Bacteria None seen Urine Casts 0-2 Nasal MRSA (PCR) Random Vancomycin Salicylates < 1.0 L Urine Opiates Screen Negative Urine Methadone Screen Negative Acetaminophen < 10 L Ur Barbiturates Screen Negative Ur Phencyclidine Scrn Negative Ur Amphetamine Screen Negative U Benzodiazepines Scrn Negative Urine Cocaine Screen Negative U Cannabinoids Screen Negative Ethyl Alcohol < 10 Hepatitis A IgM Ab Hep Bs Antigen Hep B Core IgM Ab Hepatitis C Ab Screen Influenza A (RT-PCR) Influenza B (RT-PCR) RSV (RT-PCR) SARS-CoV-2 RNA (RT-PCR) 10/26/24 10/27/24 15:22 05:04 WBC 21.0 H RBC 3.38 L Hgb 10.5 L Hct 32.3 L MCV 95.6 MCH 31.1 MCHC 32.5 RDW 16.7 H Plt Count 209 MPV 9.7 Immature Gran % (Auto) 0.6 H Neut % (Auto) 92.4 H Lymph % (Auto) 3.3 L Titus % (Auto) 3.6 Eos % (Auto) 0.0 Baso % (Auto) 0.1 L Lymph # (Auto) 0.69 L [place] # (Auto) 0.8 H Eos # (Auto) 0.0 Baso # (Auto) 0.0 Abs Immat Gran (auto) 0.13 H Absolute Neuts (auto) 19.4 H Absolute Nucleated RBC 0.000 Nucleated RBC % 0.0 Platelet Estimate Adequate Poikilocytosis 1+ Anisocytosis 1+ Ovalocytes 1+ Schistocytes None seen PT INR APTT D-Dimer Puncture Site ABG pH ABG pCO2 ABG pO2 ABG PO2/FiO2 Ratio ABG HCO3 ABG O2 Saturation ABG O2 Content ABG Base Excess A-a Gradient Oxyhemoglobin Total Hemoglobin O2 Delivery Device O2 Liters/Min FiO2 Sodium 140 Potassium 4.1 Chloride 108 H Carbon Dioxide 30 Anion Gap 2 L BUN 34 H D Creatinine 2.00 H Estim Creat Clear Calc 23 Estimated GFR 32 L Glucose 104 POC Capillary Glucose Lactic Acid 2.1 H Calcium 8.2 L Magnesium 1.8 Total Bilirubin 0.8 AST 720 H ALT 516 H Alkaline Phosphatase 82 Ammonia Total Creatine Kinase Troponin I 0.155 H* NT-Pro-B Natriuret Pep Total Protein 5.0 L Albumin 2.9 L TSH Free T4 2.17 Urine Color Urine Appearance Urine pH Ur Specific [place] Urine Protein Urine Glucose (UA) Urine Ketones Ur Blood (Man) Urine Nitrate Urine Bilirubin Urine Urobilinogen Leukocyte Esterase Rfl Urine RBC Urine WBC Ur Squamous Epith Cells Urine Bacteria Urine Casts Nasal MRSA (PCR) Not detected Random Vancomycin 10.6 Salicylates Urine Opiates Screen Urine Methadone Screen Acetaminophen Ur Barbiturates Screen Ur Phencyclidine Scrn Ur Amphetamine Screen U Benzodiazepines Scrn Urine Cocaine Screen U Cannabinoids Screen Ethyl Alcohol Hepatitis A IgM Ab Negative Hep Bs Antigen Negative Hep B Core IgM Ab Negative Hepatitis C Ab Screen Negative Influenza A (RT-PCR) Influenza B (RT-PCR) RSV (RT-PCR) SARS-CoV-2 RNA (RT-PCR) Hospitalist MIPS Advance Care Plan I have confirmed that the patient's Advanced Care Plan is present, code status is documented, or surrogate decision maker is listed in patient medical record.: Yes
[2024-10-27] MEDS: PERFLUTREN LIPID MICROSPHERES 1.5 ML VIAL DILUTED TO 10 ML TOTAL VOLUME IV PUSH (11:10)
--- NOTE | 2024-10-27 13:27 | IVDEFINITY ---
Prior to administration of IV Definity the patient was educated on the risks and benefits of the imaging enhancing agent including potential adverse side effects. The patient verbalized understanding. Allergies were verified. No exclusion criteria were identified and at least one of the following inclusion criteria were met: 1) physician request, 2) patient technically difficult to image (per the [place] [employer] guidelines of two or more segments not discernable within the apical view), or 3) questionable left ventricular function. ?
--- NOTE | 2024-10-27 14:14 | PCSTNOTE ---
Communication Evaluation This 89 year old male patient was admitted on 10/26/24 d/t weakness and an unresponsive episode. The pt has a history of Parkinson, dementia, and stroke. The pt completed a communication/cognitive evaluation to assess orientation, memory, auditory comprehension, and verbal expression. RN reported that the pt has a hard time getting words out. The pt was able to answer yes/no questions, repeat words and phrases with little repetition, and follow 1-2 step directions. He could label objects and perform rote speech tasks (count to ten, tell the days of the week). The pt demonstrated increased difficulty with finishing rote sentences, temporal/spatial orientation (place, day, year), and answering questions about a short passage that was read aloud. All tasks this date required increased wait time and repetition. Given this assessment, it is recommended that the pt receive ST services 2-3 days/wk to increase spatial/temporal awareness and aid in word finding difficulty. LAUREN Mendoza and Dr. Donnelly have been notified of the results and recommendations of this communication evaluation. Thank you for this referral.
--- NOTE | 2024-10-27 14:15 | PCSTNOTE ---
Order for MBS received but unable to be completed this date d/t no radiologist on site. MBS to be completed 10/29. Pt to remain NPO until completion of MBS. Thank you.
[2024-10-27] MEDS: DEXTROSE 5%/0.9% SOD CHL 1,000 ML 80 ML IV CONT (14:51)
--- NOTE | 2024-10-27 16:18 | ECHO_ITS ---
Patient Info Name: Felipe Haddad Age: 89 years : 1935 Gender: Male Ht: 70 in Wt: 157 lbs BSA: 1.88 m2 HR: 59 bpm BP: 145 / 53 mmHg Technical Quality: Poor Exam Date: 10/27/2024 10:38 AM Exam Location: Echo Lab Patient Status: Inpatient Admit Date: 10/26/2024 Staff Ordering Physician: Alicia Hernandez PA-C [employer] Business Representative: Domingo Clemente RDCS Attending Provider: Ritchie Frey MD Referring Physician: Mary CASANOVA; Exam Type: CA echo doppler color flow Study Info Indications - ELEVATED TROPONIN Complete two-dimensional, color flow and Doppler transthoracic echocardiogram is performed with contrast to opacify the left ventricle and to improve the deliniation of the left ventricle endocardial borders. Contrast/Agitated Saline Contrast/Ag. Saline: Definity Amount: 2.00 ml Existing IV Access: Yes Reason for Poor Study: poor echocardiographic windows Summary 1. There is mild tricuspid valve regurgitation. 2. Mild pulmonary hypertension, estimated pulmonary arterial systolic pressure is 63 mmHg. 3. There is mild mitral valve regurgitation. 4. Dilated inferior vena cava with <50% collapse upon inspiration consistent with elevated right atrial pressure, 8 mmHg. 5. Left atrial chamber dimension is enlarged. 6. Right atrial chamber dimension is enlarged. 7. Left ventricular systolic function is normal with an ejection fraction by Biplane Method of Discs of 64 %. 8. There is moderately increased left ventricular wall thickness. 9. The left ventricular diastolic function is grade I diastolic dysfunction. 10. Left ventricular chamber dimension is normal. 11. Left ventricular septal wall motion is normal. 12. Right ventricular chamber dimension is enlarged. 13. Right ventricular systolic function shows hypokinetic mid free wall, apex moves well. Recommendations * Consider CTPE to r/o pulmonary embolism. Left Ventricle Left ventricular chamber dimension is normal. Left ventricular systolic function is normal with an ejection fraction by Biplane Method of Discs of 64 %. There is moderately increased left ventricular wall thickness. Left ventricular septal wall motion is normal. The left ventricular diastolic function is grade I diastolic dysfunction. Right Ventricle Right ventricular chamber dimension is enlarged. Right ventricular systolic function shows hypokinetic mid free wall, apex moves well. Left Atria Left atrial chamber dimension is enlarged. Right Atria Right atrial chamber dimension is enlarged. Aortic Valve The aortic valve is trileaflet. There is no aortic valve sclerosis. There is no aortic valve stenosis. There is no aortic valve regurgitation. Pulmonic Valve The pulmonic valve is normal. There is no pulmonic valve stenosis. There is no pulmonic regurgitation. Mitral Valve The mitral valve has normal leaflets. There is no mitral valve stenosis. There is mild mitral valve regurgitation. Tricuspid Valve The tricuspid valve leaflets are normal. There is no significant tricuspid valve stenosis. There is mild tricuspid valve regurgitation. Mild pulmonary hypertension, estimated pulmonary arterial systolic pressure is 63 mmHg. Pericardium/Pleural The pericardium appears normal. There is no pericardial effusion. Inferior Vena Cava Dilated inferior vena cava with <50% collapse upon inspiration consistent with elevated right atrial pressure, 8 mmHg. Aorta The aortic root size at the sinus of Valsalva is normal. The prox ascending aorta size is normal. Left Ventricular Outflow Tract Name Value Normal LVOT 2D LVOT Diameter 2.2 cm LVOT Doppler LVOT Peak Velocity 106 cm/s LVOT Peak Gradient 4 mmHg LVOT Mean Gradient 3 mmHg LVOT VTI 24 cm LVOT VTI/AV VTI Ratio 0.6 LVOT Stroke Volume 87 ml LVOT CO 5.2 l/min LVOT CI 2.8 l/min/m2 Pulmonic Valve Name Value Normal RVOT Doppler RVOT Peak Gradient 3 mmHg PV Doppler PV Peak Velocity 98 cm/s PV Peak Gradient 4 mmHg Mitral Valve Name Value Normal MV Doppler MV Decel [place] 279 cm/s2 MV PHT 61 ms MV Area (PHT) 3.6 cm2 4.0-5.0 MV Diastolic Function MV E Peak Velocity 59 cm/s MV A Peak Velocity 103 cm/s MV E/A 0.6 MV Decel Time 210 ms MV Annular TDI MV Septal e' Velocity 4.7 cm/s >=8.0 MV E/e' (Septal) 12.5 <=8.0 MV Lateral e' Velocity 8.4 cm/s >=10.0 MV E/e' (Lateral) 7.0 <=8.0 MV e' Average 6.53 MV E/e' (Average) 9.8 Tricuspid Valve Name Value Normal TV Regurgitation Doppler TR Peak Velocity 369 cm/s TR Peak Gradient 55 mmHg Estimated PAP/RSVP RA Pressure 8 mmHg <=5 PA Systolic Pressure 63 mmHg <36 RV Systolic Pressure 63 mmHg <36 TV Annular TDI TV Lateral [place] s' Velocity 15.0 cm/s 9.5-18.7 Aorta Name Value Normal Ascending Aorta Ao Root Diameter (MM) 4.0 cm Ao Root Diam Index (MM) 2.1 cm/m2 Ao [place] Diameter 3.1 cm 2.6-3.2 Aortic Valve Name Value Normal AV Doppler AV Peak Velocity 187 cm/s AV Peak Gradient 14 mmHg AV Mean Gradient 8 mmHg AV VTI 40 cm AV Area (Cont Eq VTI) 2.1 cm2 >=3.0 AV Area (Cont Eq [place]) 2.1 cm2 AV V1/V2 Ratio 0.57 AV Regurgitation 2D LVOT Area 3.6 cm2 Ventricles Name Value Normal LV Dimensions 2D/MM IVS Diastolic Thickness (2D) 1.5 cm 0.6-1.0 LVID Diastole (2D) 5.3 cm 4.2-5.8 LVIW Diastolic Thickness (2D) 1.7 cm 0.6-1.0 LVID Systole (2D) 3.2 cm 2.5-4.0 LVOT Diameter 2.2 cm LV Mass (2D Cubed) 401.46 g 88.00-224.00 LV Mass Index (2D Cubed) 214 g/m2 49-115 Relative Wall Thickness (2D) 0.65 LV Fractional Shortening/Ejection Fraction 2D/MM LV Fractional Shortening (2D) 41 % 25-43 LV EF (2D Teicholz) 72 % 52-72 LV Diastolic Volume (4C MOD) 122 ml LV EF (4C MOD) 71 % LV Diastolic Volume (2C MOD) 78 ml LV EF (2C MOD) 54 % LV Diastolic Volume (BP MOD) 100 ml 62-150 LV Diastolic Volume Index (BP MOD) 53 ml/m2 34-74 LV Systolic Volume (BP MOD) 36 ml 21-61 LV Systolic Volume Index (BP MOD) 19 ml/m2 11-31 LV EF (BP MOD) 64 % 52-72 LV Diastolic Length (4C) 8.1 cm LV Systolic Length (4C) 6.8 cm LV Stroke Volume (4C MOD) 87 ml Atria Name Value Normal LA Dimensions LA Dimension (MM) 5.3 cm 3.0-4.1 LA Volume (4C A-L) 76 ml LA Volume (BP A-L) 82 ml RA Dimensions RA Area (4C) 25.4 cm2 <=18.0 Report Signatures
--- NOTE | 2024-10-27 17:54 | P.CONCA_ITS ---
Assessment and Plan Assessment and plan (1) Transaminitis: Code(s): R74.01 - Elevation of levels of liver transaminase levels Status: Acute (2) Paroxysmal atrial flutter: Code(s): I48.92 - Unspecified atrial flutter Status: Acute (3) Diastolic dysfunction: Code(s): I51.89 - Other ill-defined heart diseases Status: Acute Plan 1. Paroxysmal atrial fibrillation 2. Pulmonary hypertension 3. Type 2 [place] 4. Acute kidney injury -continue rate control and anticoagulation -consider CT PE to rule out pulmonary embolism. Possibility of changes been chronic due to pulmonary hypertension also there -monitor liver function and renal function -difficult to assess his intravascular status currently IVC shows estimated right atrial pressure of 8-10 mm Hg. No need for IV diuresis -will consider right heart catheterization if worsening liver function. Will need to be transitioned to IV heparin if procedure is planned -no invasive evaluation for elevated troponin -rest of the management as per primary team History of Present Illness History of Present Illness Consult date/time: 10/27/24 17:54 Reason For Visit: PNA/Heart Failure/Altered Mentation/NSTEMI Narrative: 89yo male with Parkinson, dementia, stroke, CAD, diastolic dysfunction, pAFlutter on chronic anticoagulation, HTN, and prostate cancer who presented to the emergency department via private vehicle accompanied by family members for evaluation of weakness and an unresponsive episode. Cardiology consulted for elevated troponin No history available from the patient history as he appeared confused. History from chart review EKG shows right bundle-branch block Open shows blood profile Echo shows preserved LV systolic function, a right ventricular enlargement, pulmonary hypertension Review of Systems 2 Review of Systems: Unable to be obtained accurately due to his underlying dementia. ROS unobtainable: Yes unobtainable due to medical condition [facility] Past Medical History Medical History (Updated 10/28/24 @ 13:39 by Ritchie Frey MD) Asthma Chronic kidney disease, stage 3 Paroxysmal atrial flutter Diastolic dysfunction Kidney stones Cerebrovascular accident Dementia Prostate cancer Hyperlipidemia Hypertension Coronary artery disease Parkinson disease Surgical History Surgical History (Updated 10/26/24 @ 16:11 by Alicia Hernandez PA-C) History of bilateral cataract extraction History of arthroplasty of left knee Family History Family History Mother Non-Hodgkin lymphoma Asthma Son History of blood clots Aneurysm Daughter Hypertension Sibling Prostate carcinoma Lymph node cancer Heart problem Father Old age Son Hypertension Asthma Sibling Social History Social History (Updated 10/26/24 @ 22:19 by Alicia Hernandez PA-C) Social History: Surrogate medical decision maker: Natalie Haddad, spouse. Code status: Full code. Smoking status: Never smoker Second hand tobacco smoke exposure: No Alcohol intake: never Substance use: never Substance use type: does not use Do You Feel Safe in your Home?: Yes Lack of Transportation: No Lack of Food: Never True Current Housing: I Have Housing Concerned About Future Housing: No Difficulty Paying Gas/Electric Bills: No Difficulty Paying for Meds: No Currently Unemployed: No Education: High School Diploma/GED Difficulty w/ Childcare or Family Care: No Spiritual care concerns: No Meds Home Medications and Allergies Home Medications ?Medication ?Instructions ?Recorded ?Confirmed ?Type aspirin 81 mg tablet 81 mg PO DAILY 03/08/24 10/27/24 History atorvastatin 40 mg tablet 40 mg PO QPM 03/08/24 10/27/24 History budesonide-formoterol HFA 80 1 puff inhalation Q12H PRN 03/08/24 10/27/24 History mcg-4.5 mcg/actuation aerosol Shortness Of Breath Or Wheezing inhaler (Symbicort) calcium 260 mg (phos,tribasic)-D3 1 tablet PO DAILY 03/08/24 10/27/24 History 25 mcg-herbal 50 mg chewable tablet (Alive Calcium-Vitamin D3) carbidopa ER 50 mg-levodopa 200 mg 1 tablet PO BID 03/08/24 10/27/24 History tablet,extended release coenzyme [id number] E 100 mg-100 2 cap PO DAILY 03/08/24 10/27/24 History unit capsule donepezil 10 mg tablet 10 mg PO DAILY 03/08/24 10/27/24 History fluoxetine 20 mg capsule 20 mg PO DAILY 03/08/24 10/27/24 History montelukast 10 mg tablet 10 mg PO DAILY 03/08/24 10/27/24 History multivitamin [id number] 1 tablet PO DAILY 03/08/24 10/27/24 History fumarate 18 mg-vitamin K 25 mcg tablet acetaminophen 325 mg tablet 650 mg (2 x 325 mg) PO Q6H PRN 03/18/24 10/27/24 Rx Mild Pain (1-5) Or Fever #30 tabs apixaban 5 mg tablet (Eliquis) 5 mg PO Q12HR #60 tabs 03/18/24 10/27/24 Rx diltiazem HCl 240 mg 240 mg PO QAM #30 caps 03/18/24 10/27/24 Rx capsule,extended release 24 hr, controlled memantine 10 mg tablet 10 mg PO Q12H #60 tabs 03/18/24 10/27/24 Rx metoprolol tartrate 25 mg tablet 25 mg PO Q12HR #60 tabs 03/18/24 10/27/24 Rx pantoprazole 40 mg tablet,delayed 40 mg PO QAM #30 tabs 03/18/24 10/27/24 Rx release sennosides 8.6 mg-docusate sodium 1 tab-cap PO BID PRN Constipation 03/18/24 10/27/24 Rx 50 mg tablet (Senokot-S) #10 tabs Saccharomyces boulardii 250 mg 250 mg PO TID #90 caps 04/06/24 10/27/24 Rx capsule (Florastor) camphor 4 %-methyl salicylate 30 1 applic topical BID PRN 04/06/24 10/27/24 Rx %-menthol 10 % topical cream Muscle/Joint Pain #113 grams (Bengay Ultra Strength) tamsulosin 0.4 mg capsule 0.4 mg PO QAM #30 caps 04/06/24 10/27/24 Rx Allergies Allergy/AdvReac Type Severity Reaction Status Date / Time No Known Allergies Allergy Verified 10/27/24 01:15 Vital Signs Vital Signs - 24 hr 10/26/24 18:00 10/26/24 18:01 10/26/24 18:15 Temperature Pulse Rate 58 L 64 64 Respiratory Rate 18 24 H 17 Blood Pressure 145/77 H Pulse Oximetry Oxygen Delivery Oxygen Flow Rate Fraction of Inspired Oxygen 10/26/24 18:16 10/26/24 18:30 10/26/24 18:32 Temperature Pulse Rate 64 57 L 59 L Respiratory Rate 19 17 16 Blood Pressure 149/63 H 149/64 H Pulse Oximetry Oxygen Delivery Oxygen Flow Rate Fraction of Inspired Oxygen 10/26/24 18:45 10/26/24 18:46 10/26/24 18:49 Temperature Pulse Rate 57 L 56 L 60 Respiratory Rate 16 13 19 Blood Pressure 155/70 H 155/70 H Pulse Oximetry 98 Oxygen Delivery Oxygen Flow Rate Fraction of Inspired Oxygen 10/26/24 19:00 10/26/24 19:01 10/26/24 19:15 Temperature Pulse Rate 57 L 57 L 58 L Respiratory Rate 21 H 20 18 Blood Pressure 141/61 H Pulse Oximetry 95 93 Oxygen Delivery Oxygen Flow Rate Fraction of Inspired Oxygen 10/26/24 19:16 10/26/24 19:30 10/26/24 19:31 Temperature Pulse Rate 56 L 59 L 57 L Respiratory Rate 17 16 16 Blood Pressure 152/65 H 152/63 H Pulse Oximetry Oxygen Delivery Oxygen Flow Rate Fraction of Inspired Oxygen 10/26/24 19:52 10/26/24 20:00 10/26/24 20:15 Temperature Pulse Rate 64 61 61 Respiratory Rate 18 20 19 Blood Pressure Pulse Oximetry 88 L 90 89 L Oxygen Delivery Oxygen Flow Rate Fraction of Inspired Oxygen 10/26/24 20:30 10/26/24 20:45 10/26/24 21:00 Temperature Pulse Rate 61 63 65 Respiratory Rate 20 19 27 H Blood Pressure Pulse Oximetry 87 L 90 90 Oxygen Delivery Oxygen Flow Rate Fraction of Inspired Oxygen 10/26/24 21:15 10/26/24 21:17 10/26/24 21:44 Temperature Pulse Rate 65 66 66 Respiratory Rate 18 21 H 15 Blood Pressure 151/65 H Pulse Oximetry Oxygen Delivery Oxygen Flow Rate Fraction of Inspired Oxygen 10/26/24 22:04 10/26/24 22:33 10/26/24 22:58 Temperature Pulse Rate 66 66 72 Respiratory Rate 22 H 20 15 Blood Pressure Pulse Oximetry Oxygen Delivery Oxygen Flow Rate Fraction of Inspired Oxygen 10/26/24 23:02 10/26/24 23:12 10/26/24 23:30 Temperature Pulse Rate 70 71 71 Respiratory Rate 19 18 Blood Pressure 149/74 H Pulse Oximetry Oxygen Delivery Oxygen Flow Rate Fraction of Inspired Oxygen 10/27/24 00:14 10/27/24 00:30 10/27/24 00:32 Temperature 36.8 C Pulse Rate 71 67 71 Respiratory Rate 18 18 18 Blood Pressure 149/74 H 183/69 H Pulse Oximetry 91 96 91 Oxygen Delivery Nasal Cannula Oxygen Flow Rate 4 Fraction of Inspired Oxygen 10/27/24 00:32 10/27/24 02:00 10/27/24 03:50 Temperature Pulse Rate 68 67 76 Respiratory Rate 20 Blood Pressure Pulse Oximetry 91 Oxygen Delivery Nasal Cannula Oxygen Flow Rate 4 Fraction of Inspired Oxygen 10/27/24 04:00 10/27/24 04:00 10/27/24 06:00 Temperature 37.6 C Pulse Rate 76 63 61 Respiratory Rate 20 Blood Pressure 118/50 L Pulse Oximetry 91 Oxygen Delivery Oxygen Flow Rate Fraction of Inspired Oxygen 10/27/24 08:00 10/27/24 08:00 10/27/24 08:00 Temperature 37.2 C Pulse Rate 59 L 59 L Respiratory Rate 14 Blood Pressure 145/53 H Pulse Oximetry 99 100 Oxygen Delivery Nasal Cannula Oxygen Flow Rate 4 Fraction of Inspired Oxygen 10/27/24 08:30 10/27/24 09:22 10/27/24 09:56 Temperature Pulse Rate Respiratory Rate Blood Pressure Pulse Oximetry 98 95 97 Oxygen Delivery Nasal Cannula Oxygen Flow Rate 3 4 2 Fraction of Inspired Oxygen 36 10/27/24 10:00 10/27/24 11:51 10/27/24 12:00 Temperature 36.8 C Pulse Rate 66 60 Respiratory Rate 20 Blood Pressure 182/60 H Pulse Oximetry 92 96 Oxygen Delivery Nasal Cannula Oxygen Flow Rate 1 Fraction of Inspired Oxygen 10/27/24 12:00 10/27/24 14:00 10/27/24 16:00 Temperature 37.4 C Pulse Rate 59 L 53 L 52 L Respiratory Rate 16 Blood Pressure 153/57 H Pulse Oximetry 96 Oxygen Delivery Oxygen Flow Rate Fraction of Inspired Oxygen Exam 2 Narrative: General: Chronically ill-appearing elderly gentleman supine in bed in no acute distress. Weight: 72.7 kg. BMI: 23.0. HEENT: PERRL, EOMI. Sclera anicteric. Hard of hearing. Neck: Supple. Respiratory: Respirations are nonlabored. He is currently on 4 L nasal cannula. Lung sounds are coarse throughout. Cardiovascular: Regular rate and rhythm with S1-S2. Gastrointestinal: Abdomen is soft, nontender, and nondistended with positive bowel sounds. Skin: Warm and dry. Extremities: No cyanosis, clubbing, or edema. Radial and pedal pulses intact. Neurological: Cranial nerves 2-12 are grossly intact. Mute. No obvious facial asymmetry. Generalized weakness. Intermittent coarse tremor of RUE at rest. Psychiatric: Alert. Ox1. Follows commands. Results Labs and Meds 01/05/25 04:57 10/28/24 04:57 Lab results: Cardiac Enzymes 10/27/24 Range/Units 05:04 AST 720 H (17-59) U/L CBC 10/27/24 Range/Units 05:04 WBC 21.0 H (4.5-10.0) K/mm3 RBC 3.38 L (4.6-6.20) M/mm3 Hgb 10.5 L (14.0-18.0) g/dL Hct 32.3 L (42.0-52.0) % Plt Count 209 (150-375) k/mm3 Lymph # (Auto) 0.69 L (0.9-3.2) K/mm3 [place] # (Auto) 0.8 H (0.1-0.6) K/mm3 Eos # (Auto) 0.0 (0-0.3) K/mm3 Baso # (Auto) 0.0 (0.0-0.1) K/mm3 Comprehensive Metabolic Panel 10/27/24 Range/Units 05:04 Sodium 140 (137-145) mmol/L Potassium 4.1 (3.4-5.0) mmol/L Chloride 108 H (98-107) mmol/L Carbon Dioxide 30 (22-30) mmol/L BUN 34 H D (9-20) mg/dL Creatinine 2.00 H (0.7-1.3) mg/dL Glucose 104 (65-110) mg/dL Calcium 8.2 L (8.4-10.2) mg/dL AST 720 H (17-59) U/L ALT 516 H (6-50) U/L Alkaline Phosphatase 82 (38-126) U/L Total Protein 5.0 L (6.3-8.2) g/dL Albumin 2.9 L (3.5-5.1) g/dL Intake and Output 10/27/24 10/27/24 10/27/24 07:59 15:59 23:59 Intake Total 0 Output Total 325 Balance -325 Intake: Oral 0 Output: Catheter Urine 325 Urethral Catheter 325 Other: Number of Bowel Movements Today 1 Patient Weight 10/27/24 23:59 Weight 71.5 kg
[2024-10-27] MEDS: FLUTICASONE/SALMETEROL 45-21 MCG INHALER 1 PUFF 2 PUFF INHALATION (19:53)
[2024-10-27] MEDS: METOPROLOL TARTRATE INJ 5 MG/5 ML VIAL IV PUSH (20:50)
[2024-10-28] VITALS (20 sets, daily range): BP systolic 152–182; BP diastolic 40–75; PULSE 47–69; RESP 16–20; TEMP 36.6–37.2; O2SAT 90–95
[2024-10-28] MEDS: DEXTROSE 5%/0.9% SOD CHL 1,000 ML 80 ML IV CONT ×2 (03:09→17:20)
[2024-10-28 05:19] LABS: Hematocrit 31.2 % (42.0-52.0); Hemoglobin 10.5 g/dL (14.0-18.0); Mean Corpuscular HGB Conc 33.7 g/dl (32-36); Mean Corpuscular Hemoglobin 31.8 pg (26-34); Mean Corpuscular Volume 94.5 fl (80-100); Mean Platelet Volume 9.6 fl (7.4-10.4); Platelet Count Result 199 k/mm3 (150-375); Red Cell Distribution Width 17.1 % (11.5-14.5); White Blood Count 16.1 K/mm3 (4.5-10.0)
[2024-10-28 05:40] LABS: Albumin Level 2.7 g/dL (3.5-5.1); Alkaline Phosphatase 96 U/L (38-126); Anion Gap 1 mmol/L (4-12); Aspartate Amino Transferase 659 U/L (17-59); Bilirubin,Total 0.8 mg/dL (0.2-1.3); Blood Urea Nitrogen 35 mg/dL (9-20); Calcium 8.2 mg/dL (8.4-10.2); Carbon Dioxide 29 mmol/L (22-30); Chloride 113 mmol/L (98-107); Estimated CRCL calculation 41 ml/min; Estimated Glomerular Filt Rate > 60; Glucose 113 mg/dL (65-110); Potassium 3.5 mmol/L (3.4-5.0); Sodium 143 mmol/L (137-145)
[2024-10-28 05:44] LABS: Vancomycin Random 11.1 ug/mL (10-20)
[2024-10-28 05:54] LABS: Alanine Aminotransferase 992 U/L (6-50)
[2024-10-28] MEDS: VANCOMYCIN 1,500 MG/NS 500 ML 1,500 MG/500 ML BAG 250 MG IVPB (06:22)
[2024-10-28] MEDS: MONTELUKAST SODIUM 10 MG TABLET PO (08:48)
[2024-10-28] MEDS: dilTIAZem HCL CD 240 MG CAP.24HR PO (08:48)
[2024-10-28] MEDS: ASPIRIN 81 MG ENTERIC TABLET PO (08:49)
[2024-10-28] MEDS: SACCHAROMYCES BOULARDII 250 MG CAPSULE PO ×3 (08:49→17:19)
[2024-10-28] MEDS: TAMSULOSIN HCL 0.4 MG CAPSULE PO (08:49)
[2024-10-28] MEDS: DONEPEZIL HCL 10 MG TABLET PO (08:49)
[2024-10-28] MEDS: CARBIDOPA/LEVODOPA 25/100 MG CR TABLET 2 TABLET PO ×2 (08:49→17:19)
[2024-10-28] MEDS: APIXABAN 2.5 MG TABLET PO (08:49)
[2024-10-28] MEDS: FLUoxetine HCL 20 MG CAPSULE PO (08:49)
[2024-10-28] MEDS: PANTOPRAZOLE 40 MG TABLET PO (08:49)
[2024-10-28] MEDS: MEMANTINE 10 MG TABLET PO ×2 (08:50→21:46)
[2024-10-28] MEDS: METOPROLOL TARTRATE 25 MG TABLET PO ×2 (08:50→21:46)
[2024-10-28] MEDS: ACETAMINOPHEN 325 MG TABLET 650 MG PO (08:50)
[2024-10-28] MEDS: FLUTICASONE/SALMETEROL 45-21 MCG INHALER 1 PUFF 2 PUFF INHALATION ×2 (09:32→20:51)
[2024-10-28] MEDS: lisinopriL 5 MG TABLET PO (12:32)
[2024-10-28] MEDS: THERAPEUTIC MULTIVITAMINS/MINERALS TAB (*BKC) 1 TABLET PO (12:32)
[2024-10-28] MEDS: CALCIUM/VITAMIN D 250 MG/3.125 MCG (125 I.U.) TABLET 1 TABLET PO (12:32)
--- NOTE | 2024-10-28 13:09 | PM.IMPN ---
Progress Note: A&P Assessment and Plan (1) Sepsis: Code(s): A41.9 - Sepsis, unspecified organism Status: Acute Assessment and Plan: Likely secondary to pneumonia. WBC trending down. No fevers (2) Pneumonia: Code(s): J18.9 - Pneumonia, unspecified organism Status: Acute Assessment and Plan: Suspect aspiration. Continue vancomycin, rocephin, doxycycline as he is clinically improving. Will need a swallowing evaluation (3) Elevated troponin: Code(s): R79.89 - Other specified abnormal findings of blood chemistry Status: Acute Assessment and Plan: Likely demand ischemia secondary to sepsis w/o ACS. EKG reviewed. Echo showing EF 64%, elevated RAP,Grade I diastolic dysfxn, RV hypokinetic mid free wall. CTA chest to rule out PE is recommended. (4) Acute on chronic renal failure: Code(s): N17.9 - Acute kidney failure, unspecified; N18.9 - Chronic kidney disease, unspecified Status: Acute Assessment and Plan: Cr 2 on admission with normal baseline Cr. With IV fluids, Cr has improved. Follow (5) Parkinson disease: Code(s): G20.A1 - Parkinson's disease without dyskinesia, without mention of fluctuations Status: Acute Assessment and Plan: Speech and MBS (10/29/24) pending. Continue home regimen (6) Transaminitis: Code(s): R74.01 - Elevation of levels of liver transaminase levels Status: Acute Assessment and Plan: Likely secondary to sepsis, hypotension Hepatitis panel negative. CT scan showing dilated GB but no evidence of acute cholecystitis. Liver appears normal (7) Coronary artery disease: Code(s): I25.10 - Atherosclerotic heart disease of [place] coronary artery without angina pectoris Status: Acute Assessment and Plan: No sign of ACS or c/o of angina. Continue home regimen (8) Paroxysmal atrial flutter: Code(s): I48.92 - Unspecified atrial flutter Status: Acute Assessment and Plan: Clinically stable Continue home regimen, including Eliquis (9) Unresponsive episode: Code(s): R40.4 - Transient alteration of awareness Status: Acute Assessment and Plan: Likely secondary to sepsis, hypotension. Resolved. Plan DVT prophylaxis - Eliquis Code status - full Subjective Date/time seen: 10/28/24 13:09 Interval history: 89yo male with Parkinson, dementia, stroke, CAD, diastolic dysfunction, pAFlutter on chronic anticoagulation, HTN, and prostate cancer who presented to the emergency department via private vehicle accompanied by family members for evaluation of weakness and an unresponsive episode. Assuming care. Chart reviewed. Patient is awake but is nonverbal and unable to provide hx. Review of Systems Review of Systems: ROS unobtainable: Yes unobtainable due to mental status Exam Narrative: AF 98.5 171/75 53 18 95% 1L Gen - NARD Chest - coarse BS CV - RRR S1/S2 Abd - Soft, NT/ND, Positive BS - Pérez secured draining clear yellow urine Ext - No pedal edema Neuro - Alert but nonverbal Skin - Warm and dry Objective Data Vital Signs Vital Signs: Vital Signs - 24 hr 10/27/24 14:00 10/27/24 16:00 10/27/24 16:00 Temperature 99.3 F Pulse Rate 53 L 52 L Respiratory Rate 16 Blood Pressure 153/57 H Pulse Oximetry 96 92 Oxygen Delivery Nasal Cannula Oxygen Flow Rate 1 Fraction of Inspired Oxygen 10/27/24 16:00 10/27/24 18:00 10/27/24 19:57 Temperature Pulse Rate 53 L 60 Respiratory Rate Blood Pressure Pulse Oximetry 94 Oxygen Delivery Nasal Cannula Oxygen Flow Rate 2 Fraction of Inspired Oxygen 10/27/24 20:00 10/27/24 20:00 10/27/24 20:00 Temperature 98.3 F Pulse Rate 63 61 Respiratory Rate 19 Blood Pressure 180/56 H Pulse Oximetry 91 91 Oxygen Delivery Nasal Cannula Oxygen Flow Rate 1 Fraction of Inspired Oxygen 10/27/24 20:50 10/27/24 20:51 10/27/24 22:00 Temperature Pulse Rate 60 60 67 Respiratory Rate Blood Pressure Pulse Oximetry Oxygen Delivery Oxygen Flow Rate Fraction of Inspired Oxygen 10/28/24 00:00 10/28/24 00:00 10/28/24 00:00 Temperature 98.7 F Pulse Rate 67 54 L Respiratory Rate 18 Blood Pressure 152/46 H Pulse Oximetry 90 93 Oxygen Delivery Nasal Cannula Oxygen Flow Rate 1 Fraction of Inspired Oxygen 10/28/24 02:00 10/28/24 03:12 10/28/24 04:00 Temperature 97.8 F Pulse Rate 59 L 49 L 68 Respiratory Rate 18 Blood Pressure 182/56 H Pulse Oximetry 94 Oxygen Delivery Oxygen Flow Rate Fraction of Inspired Oxygen 10/28/24 04:00 10/28/24 04:00 10/28/24 06:00 Temperature Pulse Rate 69 63 Respiratory Rate Blood Pressure Pulse Oximetry 94 Oxygen Delivery Nasal Cannula Oxygen Flow Rate 1 Fraction of Inspired Oxygen 10/28/24 07:34 10/28/24 08:00 10/28/24 08:00 Temperature 98.9 F Pulse Rate 56 L 54 L Respiratory Rate 18 Blood Pressure 152/47 H Pulse Oximetry 94 94 Oxygen Delivery Nasal Cannula Oxygen Flow Rate 1 Fraction of Inspired Oxygen 10/28/24 08:50 10/28/24 09:32 10/28/24 12:00 Temperature 98.5 F Pulse Rate 64 53 L Respiratory Rate 18 Blood Pressure 171/75 H Pulse Oximetry 93 95 Oxygen Delivery Nasal Cannula Oxygen Flow Rate 1 Fraction of Inspired Oxygen 24 Intake/Output Intake/Output: Intake & Output 10/25/24 10/26/24 10/27/24 10/28/24 23:59 23:59 23:59 23:59 Intake Total 1999 50 984 Output Total 675 650 Balance 1999 -488 813 Meds/Results Medications: Active Medications Generic Name Dose Route Start Last Admin Trade Name Freq PRN Reason Stop Dose Admin Acetaminophen 650 mg 10/26/24 15:55 Acetaminophen 650 Mg Suppository RECTAL Q6H PRN Mild Pain (1-3) or Fever Acetaminophen 650 mg 10/27/24 10:26 10/28/24 08:50 Acetaminophen 325 Mg Tablet PO 650 mg Q6H PRN Administration Mild Pain (1-5) Or Fever Albuterol/Ipratropium 3 ml 10/26/24 16:21 Ipratropium 0.5 Mg/Albuterol Sulfate 2.5 Mg Ampul.Neb 3 Ml INHALATION Q6HRT PRN Shortness Of Breath Or Wheezing Apixaban 2.5 mg 10/27/24 10:50 10/28/24 08:49 Apixaban 2.5 Mg Tablet PO 2.5 mg Q12HR GAURAV Administration Aspirin 81 mg 10/28/24 09:00 10/28/24 08:49 Aspirin 81 Mg Enteric Tablet PO 11/27/24 08:59 81 mg DAILY GAURAV Administration Atorvastatin Calcium 40 mg 10/27/24 18:00 10/27/24 18:14 Atorvastatin 40 Mg Tablet PO Not Given QPM [facility] Calcium Carbonate 1 tablet 10/27/24 12:00 10/28/24 12:32 Calcium/Vitamin D 250 Mg/3.125 Mcg (125 I.U.) Tablet PO 1 tablet DAILY@1200 GAURAV Administration Carbidopa/Levodopa 2 tablet 10/27/24 11:05 10/28/24 08:49 Carbidopa/Levodopa 25/100 Mg Cr Tablet PO 2 tablet BID GAURAV Administration Diltiazem HCl 240 mg 10/27/24 10:50 10/28/24 08:48 Diltiazem Hcl Cd 240 Mg Cap.24hr PO 240 mg QAM GAURAV Administration Donepezil HCl 10 mg 10/27/24 10:50 10/28/24 08:49 Donepezil Hcl 10 Mg Tablet PO 10 mg DAILY GAURAV Administration Doxycycline Hyclate 100 mg 10/26/24 18:00 10/28/24 05:55 Doxycycline Hyclate 100 Mg Tablet PO Not Given Q12H GAURAV Fluoxetine HCl 20 mg 10/27/24 10:50 10/28/24 08:49 Fluoxetine Hcl 20 Mg Capsule PO 20 mg DAILY GAURAV Administration Ceftriaxone Sodium 1 gm in 50 mls @ 100 mls/hr 10/26/24 21:00 10/27/24 21:13 Rocephin 1 Gm/Ns 50 Ml IVPB Infused Q24H GAURAV Infusion Dextrose/Sodium Chloride 1,000 mls @ 80 mls/hr 10/27/24 10:40 10/28/24 03:09 Dextrose 5% Sodium Chloride 0.9% IV CONT 80 mls/hr .[id number] GAURAV Administration Vancomycin HCl 1,500 mg in 500 mls @ 250 mls/hr 10/28/24 06:00 10/28/24 06:22 Vancomycin 1,500 Mg/Ns 500 Ml IVPB 250 mls/hr Q24H GAURAV Administration Lisinopril 5 mg 10/28/24 10:50 10/28/24 12:32 Lisinopril 5 Mg Tablet PO 5 mg QAM GAURAV Administration Memantine 10 mg 10/27/24 10:50 10/28/24 08:50 Memantine 10 Mg Tablet PO 10 mg Q12HR GAURAV Administration Menthol/Methyl Salicylate 1 applic 10/27/24 10:26 Menthol 10% / Methyl Salicylate 15% 57 Gm Tube TOPICAL BID PRN Muscle/Joint Pain Metoprolol Tartrate 25 mg 10/27/24 10:50 10/28/24 08:50 Metoprolol Tartrate 25 Mg Tablet PO 25 mg Q12HR GAURAV Administration Metoprolol Tartrate 5 mg 10/27/24 20:45 10/28/24 03:12 Metoprolol Tartrate Inj 5 Mg/5 Ml Vial IV PUSH Not Given Q6H [facility] Montelukast Sodium 10 mg 10/27/24 10:50 10/28/24 08:48 Montelukast Sodium 10 Mg Tablet PO 10 mg DAILY GAURAV Administration Multivitamins/Calcium 1 tablet 10/27/24 12:00 10/28/24 12:32 Therapeutic Multivitamins/Minerals Tab (*Bkc) PO 1 tablet DAILY@1200 [facility] Administration Pantoprazole Sodium 40 mg 10/27/24 09:00 10/28/24 08:49 Pantoprazole 40 Mg Tablet PO 40 mg QAM [facility] Administration Saccharomyces Boulardii 250 mg 10/27/24 13:00 10/28/24 12:32 Saccharomyces Boulardii 250 Mg Capsule PO 250 mg TID [facility] Administration Fluticasone/Salmeterol 2 puff 10/27/24 20:00 10/28/24 09:32 Fluticasone/Salmeterol 45-21 Mcg Inhaler 1 Puff INHALATION 2 puff Q12HRT [facility] Administration Senna/Docusate Sodium 1 tab 10/27/24 10:26 Senna/Docusate Sodium Tablet PO BID PRN Constipation Tamsulosin HCl 0.4 mg 10/27/24 10:50 10/28/24 08:49 Tamsulosin Hcl 0.4 Mg Capsule PO 0.4 mg QAM [facility] Administration Radiology Results: ITS Impressions Chest X-Ray 10/26/24 13:00 Impression: Extensive bibasilar consolidation. Correlate for pulmonary edema versus bibasilar pneumonia. Head CT 10/26/24 13:00 IMPRESSION: 1. 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 No acute intracranial process. 2. Age-related changes including moderate diffuse volume loss and moderate scattered white matter hypoattenuation consistent with chronic small vessel ischemic disease. Chest/Abdomen/Pelvis CTA 10/26/24 14:34 IMPRESSION: 1. Dependent and lower lung predominant diffuse bilateral lung disease with dense consolidation in the right middle lobe and lingula which could represent pneumonia, moderate to severe pulmonary edema or combination thereof. 2. Small right pleural effusion. 3. Moderate cardiomegaly with enlargement of the central pulmonary arteries consistent with pulmonary arterial hypertension. 4. The latter gallbladder without wall thickening or pericholecystic inflammatory stranding to suggest acute cholecystitis. 5. Mild to moderate diverticulosis. Labs Labs: Laboratory Results - last 24 hr 10/28/24 04:57 WBC 16.1 H RBC 3.30 L Hgb 10.5 L Hct 31.2 L MCV 94.5 MCH 31.8 MCHC 33.7 RDW 17.1 H Plt Count 199 MPV 9.6 Sodium 143 Potassium 3.5 Chloride 113 H Carbon Dioxide 29 Anion Gap 1 L BUN 35 H Creatinine 1.10 Estim Creat Clear Calc 41 Estimated GFR > 60 Glucose 113 H Calcium 8.2 L Total Bilirubin 0.8 AST 659 H ALT 992 H Alkaline Phosphatase 96 Total Protein 5.0 L Albumin 2.7 L Random Vancomycin 11.1
[2024-10-28] MEDS: DOXYCYCLINE HYCLATE 100 MG TABLET PO (17:19)
[2024-10-28] MEDS: ATORVASTATIN 40 MG TABLET PO (17:19)
[2024-10-28] MEDS: APIXABAN 5 MG TABLET BY MOUTH (21:46)
[2024-10-29] VITALS (17 sets, daily range): BP systolic 107–185; BP diastolic 58–80; PULSE 47–70; RESP 16–22; TEMP 36.8–37; O2SAT 90–100
[2024-10-29 05:07] LABS: Hematocrit 32.1 % (42.0-52.0); Hemoglobin 10.4 g/dL (14.0-18.0); Mean Corpuscular HGB Conc 32.4 g/dl (32-36); Mean Corpuscular Hemoglobin 31.7 pg (26-34); Mean Corpuscular Volume 97.9 fl (80-100); Mean Platelet Volume 10.1 fl (7.4-10.4); Platelet Count Result 200 k/mm3 (150-375); Red Blood Count 3.28 M/mm3 (4.6-6.20); Red Cell Distribution Width 16.8 % (11.5-14.5); White Blood Count 13.6 K/mm3 (4.5-10.0)
[2024-10-29 05:28] LABS: Alanine Aminotransferase 308 U/L (6-50); Albumin Level 2.7 g/dL (3.5-5.1); Alkaline Phosphatase 100 U/L (38-126); Anion Gap 0 mmol/L (4-12); Aspartate Amino Transferase 233 U/L (17-59); Blood Urea Nitrogen 24 mg/dL (9-20); Calcium 8.2 mg/dL (8.4-10.2); Carbon Dioxide 28 mmol/L (22-30); Chloride 116 mmol/L (98-107); Estimated CRCL calculation 50 ml/min; Estimated Glomerular Filt Rate > 60; Glucose 124 mg/dL (65-110); Potassium 3.1 mmol/L (3.4-5.0); Sodium 144 mmol/L (137-145)
[2024-10-29 05:31] LABS: Vancomycin Random 10.8 ug/mL (10-20)
[2024-10-29] MEDS: DEXTROSE 5%/0.9% SOD CHL 1,000 ML 80 ML IV CONT (05:34)
[2024-10-29] MEDS: DOXYCYCLINE HYCLATE 100 MG TABLET PO ×2 (05:34→17:06)
[2024-10-29] MEDS: dilTIAZem HCL 60 MG TABLET PO (05:34)
[2024-10-29] MEDS: VANCOMYCIN 1,500 MG/NS 500 ML 1,500 MG/500 ML BAG 250 MG IVPB (06:58)
[2024-10-29] MEDS: TAMSULOSIN HCL 0.4 MG CAPSULE PO (08:49)
[2024-10-29] MEDS: SACCHAROMYCES BOULARDII 250 MG CAPSULE PO ×2 (08:50→17:06)
[2024-10-29] MEDS: DONEPEZIL HCL 10 MG TABLET PO (08:50)
[2024-10-29] MEDS: MEMANTINE 10 MG TABLET PO ×2 (08:50→22:42)
[2024-10-29] MEDS: PANTOPRAZOLE 40 MG TABLET PO (08:50)
[2024-10-29] MEDS: ASPIRIN 81 MG ENTERIC TABLET PO (08:50)
[2024-10-29] MEDS: MONTELUKAST SODIUM 10 MG TABLET PO (08:50)
[2024-10-29] MEDS: CARBIDOPA/LEVODOPA 25/100 MG CR TABLET 2 TABLET PO ×2 (08:50→17:05)
[2024-10-29] MEDS: lisinopriL 5 MG TABLET PO (08:50)
[2024-10-29] MEDS: FLUoxetine HCL 20 MG CAPSULE PO (08:50)
[2024-10-29] MEDS: APIXABAN 5 MG TABLET BY MOUTH ×2 (08:50→22:42)
[2024-10-29] MEDS: POTASSIUM CHLORIDE 20 MEQ ER TABLET 40 MEQ PO (08:51)
[2024-10-29] MEDS: ACETAMINOPHEN 325 MG TABLET 650 MG PO ×2 (08:53→17:06)
[2024-10-29] MEDS: FLUTICASONE/SALMETEROL 45-21 MCG INHALER 1 PUFF 2 PUFF INHALATION ×2 (10:36→20:55)
[2024-10-29 12:55] LABS: Fractional Inspired Oxygen 40 %; HCO3 ABG 21.7 mEq/l (22.0-26.0); Oxygen Content ABG 14.3 %vol (16.0-22.0); Oxygen Saturation ABG 93.2 % (95.0-100.0); Oxyhemoglobin 91.4 % THb (90.0-100.0); PCO2 ABG 33.4 mmHg (35.0-45.0); PO2 ABG 63.8 mmHg (80.0-100.0); Total Hemoglobin 11.1 g/dL (12.0-18.0); pH ABG 7.431 (7.350-7.450)
[2024-10-29 12:56] LABS: Device NASAL CANNULA; Modified Allen's Test Pass; Site Drawn LEFT RADIAL
--- NOTE | 2024-10-29 13:28 | PCSTNOTE ---
Please refer to the Modified Barium Swallow Evaluation in the EMR. The patient was seated for a lateral view and presented with 5cc of thin liquid barium via a spoon, pudding consistency barium via a spoon, a cracker coated with barium pudding via spoon, moderately thick liquid, as well as mildly thick liquids in uncontrolled amounts via a cup and straw. The oral stages were within functional limits. During the pharyngeal stage, reduced laryngeal elevation and closure were exhibited as evidenced by laryngeal penetration and aspiration during the swallow of thin liquids only. The pt did exhibit a cough reflex but was not able to clear any aspirate. Study modifications were not attempted due to the likelihood or poor carryover. Impression: moderate dysphagia Recommendation: level 6 diet with mildly thick liquids; already on treatment list for communication deficit; will add dysphagia goals
[2024-10-29] MEDS: FUROSEMIDE INJ 40 MG/4 ML VIAL IV PUSH ×2 (14:53→22:00)
--- NOTE | 2024-10-29 15:40 | PM.IMPN ---
Progress Note: A&P Assessment and Plan (1) Sepsis: Code(s): A41.9 - Sepsis, unspecified organism Status: Acute Assessment and Plan: Sepsis present on admission likely secondary to pneumonia. WBC trending down. No fevers BCx NGTD (2) Acute respiratory failure with hypoxia: Code(s): J96.01 - Acute respiratory failure with hypoxia Status: Acute Assessment and Plan: Patient required 4L in admission but had improvement and was able to be weaned to 1L until this morning. Found patient on 10L. Stat CXR and ABG ordered at that time. CXR showing bilateral basal PNA unchanged. ABG 7.43/33/64 on 5L. Lasix IV given with excellent response. Wean O2 as tolerated. Repeat Lasix (3) Pneumonia: Code(s): J18.9 - Pneumonia, unspecified organism Status: Acute Assessment and Plan: Suspect aspiration PNA. Started on vancomycin, rocephin, doxycycline and he was clinically improving. ST felt patient could have Level 6 diet with mildly thickened Level 2 liquids. Diet ordered. MRSA nasal swab negative. Will stop Vanco. Change to oral Doxy. Add CPT (4) Elevated troponin: Code(s): R79.89 - Other specified abnormal findings of blood chemistry Status: Acute Assessment and Plan: Likely demand ischemia secondary to sepsis w/o ACS. EKG reviewed. Echo showing EF 64%, elevated RAP,Grade I diastolic dysfxn, RV hypokinetic mid free wall. CTA chest negative for PE (5) Acute on chronic renal failure: Code(s): N17.9 - Acute kidney failure, unspecified; N18.9 - Chronic kidney disease, unspecified Status: Acute Assessment and Plan: Cr 2 on admission with normal baseline Cr. With IV fluids, Cr has normalized Follow (6) Parkinson disease: Code(s): G20.A1 - Parkinson's disease without dyskinesia, without mention of fluctuations Status: Acute Assessment and Plan: MBS as above Continue home regimen PT/OT (7) Transaminitis: Code(s): R74.01 - Elevation of levels of liver transaminase levels Status: Acute Assessment and Plan: Likely secondary to sepsis, hypotension Hepatitis panel negative. CT scan showing dilated GB but no evidence of acute cholecystitis. Liver appears normal LFTs trending down. (8) Coronary artery disease: Code(s): I25.10 - Atherosclerotic heart disease of [place] coronary artery without angina pectoris Status: Acute Assessment and Plan: No sign of ACS or c/o of angina. Continue home regimen (9) Paroxysmal atrial flutter: Code(s): I48.92 - Unspecified atrial flutter Status: Acute Assessment and Plan: Clinically stable Continue home regimen, including Eliquis (10) Unresponsive episode: Code(s): R40.4 - Transient alteration of awareness Status: Acute Assessment and Plan: Likely secondary to sepsis, hypotension. Resolved. Plan DVT prophylaxis - Eliquis Code status - full Subjective Date/time seen: 10/29/24 15:40 Interval history: 89yo male with Parkinson, dementia, stroke, CAD, diastolic dysfunction, pAFlutter on chronic anticoagulation, HTN, and prostate cancer who presented to the emergency department via private vehicle accompanied by family members for evaluation of weakness and an unresponsive episode. Patient is awake but is mostly nonverbal. He denies having cough, SOB, CP or abd pain but unclear if this is accurate. Exam Narrative: AF 98.6 107/68 47 18 100% 6L Gen - NARD Chest - bibasilar crackles CV - RRR S1/S2. Tele showing no significant dysrhythmias Abd - Soft, NT/ND, Positive BS - Pérez secured draining clear yellow urine Ext - No pedal edema Neuro - Alert but mostly nonverbal Skin - Warm and dry Patient had respiratory failure (going from 1L to 10L this morning). Lasix IV once given with 1200mL in the bag. Repeat exam showing clearer lung long anteriorly and in the flanks. Down to 4L now. Objective Data Vital Signs Vital Signs: Vital Signs - 24 hr 10/28/24 15:52 10/28/24 16:00 10/28/24 16:00 Temperature 98.5 F Pulse Rate 47 L 48 L Respiratory Rate 20 Blood Pressure 178/40 H Pulse Oximetry 95 94 Oxygen Delivery Nasal Cannula Oxygen Flow Rate 1 10/28/24 18:00 10/28/24 20:00 10/28/24 20:00 Temperature Pulse Rate 48 L 48 L 48 L Respiratory Rate 20 Blood Pressure Pulse Oximetry 94 Oxygen Delivery Nasal Cannula Oxygen Flow Rate 1 10/28/24 20:45 10/28/24 20:53 10/28/24 22:00 Temperature 98.5 F Pulse Rate 51 L 55 L Respiratory Rate 16 16 Blood Pressure 161/56 H Pulse Oximetry 94 Oxygen Delivery Oxygen Flow Rate 10/28/24 23:49 10/29/24 00:00 10/29/24 00:00 Temperature 98.5 F Pulse Rate 47 L 53 L 47 L Respiratory Rate 16 16 Blood Pressure 152/64 H Pulse Oximetry 92 92 Oxygen Delivery Nasal Cannula Oxygen Flow Rate 1 10/29/24 03:40 10/29/24 03:48 10/29/24 04:23 Temperature 98.5 F Pulse Rate 64 64 61 Respiratory Rate 16 22 H Blood Pressure 158/58 H Pulse Oximetry 92 90 Oxygen Delivery Nasal Cannula Oxygen Flow Rate 1 10/29/24 06:00 10/29/24 07:52 10/29/24 08:00 Temperature 98.5 F Pulse Rate 62 56 L Respiratory Rate 22 H Blood Pressure 142/78 H Pulse Oximetry 93 90 Oxygen Delivery Nasal Cannula Oxygen Flow Rate 5 10/29/24 08:00 10/29/24 10:00 10/29/24 10:36 Temperature Pulse Rate 51 L 53 L Respiratory Rate Blood Pressure Pulse Oximetry 94 Oxygen Delivery High Flow Nasal Cannula Oxygen Flow Rate 10 10/29/24 10:36 10/29/24 12:00 10/29/24 12:00 Temperature Pulse Rate 68 52 L Respiratory Rate 20 Blood Pressure Pulse Oximetry 92 Oxygen Delivery Nasal Cannula Oxygen Flow Rate 6 10/29/24 12:00 10/29/24 14:00 Temperature 98.6 F Pulse Rate 70 47 L Respiratory Rate 18 Blood Pressure 107/68 Pulse Oximetry 100 Oxygen Delivery Oxygen Flow Rate Intake/Output Intake/Output: Intake & Output 10/26/24 10/27/24 10/28/24 10/29/24 23:59 23:59 23:59 23:59 Intake Total 1999 50 2484 978.7 Output Total 675 1300 450 Balance 1999 - 1184 528.7 Meds/Results Medications: Active Medications Generic Name Dose Route Start Last Admin Trade Name Freq PRN Reason Stop Dose Admin Acetaminophen 650 mg 10/26/24 15:55 Acetaminophen 650 Mg Suppository RECTAL Q6H PRN Mild Pain (1-3) or Fever Acetaminophen 650 mg 10/27/24 10:26 10/29/24 08:53 Acetaminophen 325 Mg Tablet PO 650 mg Q6H PRN Administration Mild Pain (1-5) Or Fever Albuterol/Ipratropium 3 ml 10/26/24 16:21 Ipratropium 0.5 Mg/Albuterol Sulfate 2.5 Mg Ampul.Neb 3 Ml INHALATION Q6HRT PRN Shortness Of Breath Or Wheezing Apixaban 5 mg 10/28/24 21:00 10/29/24 08:50 Apixaban 5 Mg Tablet BY MOUTH 5 mg Q12HR GAURAV Administration Aspirin 81 mg 10/28/24 09:00 10/29/24 08:50 Aspirin 81 Mg Enteric Tablet PO 11/27/24 08:59 81 mg DAILY GAURAV Administration Atorvastatin Calcium 40 mg 10/27/24 18:00 10/28/24 17:19 Atorvastatin 40 Mg Tablet PO 40 mg QPM GAURAV Administration Calcium Carbonate 1 tablet 10/27/24 12:00 10/29/24 11:48 Calcium/Vitamin D 250 Mg/3.125 Mcg (125 I.U.) Tablet PO Not Given DAILY@1200 GAURAV Carbidopa/Levodopa 2 tablet 10/27/24 11:05 10/29/24 08:50 Carbidopa/Levodopa 25/100 Mg Cr Tablet PO 2 tablet BID GAURAV Administration Diltiazem HCl 60 mg 10/29/24 06:00 10/29/24 11:48 Diltiazem Hcl 60 Mg Tablet PO Not Given Q6HR GAURAV Donepezil HCl 10 mg 10/27/24 10:50 10/29/24 08:50 Donepezil Hcl 10 Mg Tablet PO 10 mg DAILY GAURAV Administration Doxycycline Hyclate 100 mg 10/26/24 18:00 10/29/24 05:34 Doxycycline Hyclate 100 Mg Tablet PO 100 mg Q12H GAURAV Administration Fluoxetine HCl 20 mg 10/27/24 10:50 10/29/24 08:50 Fluoxetine Hcl 20 Mg Capsule PO 20 mg DAILY GAURAV Administration Ceftriaxone Sodium 1 gm in 50 mls @ 100 mls/hr 10/26/24 21:00 10/28/24 21:46 Rocephin 1 Gm/Ns 50 Ml IVPB 100 mls/hr Q24H GAURAV Administration Dextrose/Sodium Chloride 1,000 mls @ 80 mls/hr 10/27/24 10:40 10/29/24 05:34 Dextrose 5% Sodium Chloride 0.9% IV CONT 80 mls/hr .[id number] GAURAV Administration Vancomycin HCl 1,500 mg in 500 mls @ 250 mls/hr 10/29/24 07:00 10/29/24 06:58 Vancomycin 1,500 Mg/Ns 500 Ml IVPB 250 mls/hr Q18H GAURAV Administration Lisinopril 5 mg 10/28/24 10:50 10/29/24 08:50 Lisinopril 5 Mg Tablet PO 5 mg QAM GAURAV Administration Memantine 10 mg 10/27/24 10:50 10/29/24 08:50 Memantine 10 Mg Tablet PO 10 mg Q12HR GAURAV Administration Menthol/Methyl Salicylate 1 applic 10/27/24 10:26 Menthol 10% / Methyl Salicylate 15% 57 Gm Tube TOPICAL BID PRN Muscle/Joint Pain Metoprolol Tartrate 25 mg 10/27/24 10:50 10/29/24 08:50 Metoprolol Tartrate 25 Mg Tablet PO Not Given Q12HR [facility] Montelukast Sodium 10 mg 10/27/24 10:50 10/29/24 08:50 Montelukast Sodium 10 Mg Tablet PO 10 mg DAILY GAURAV Administration Multivitamins/Calcium 1 tablet 10/27/24 12:00 10/29/24 11:48 Therapeutic Multivitamins/Minerals Tab (*Bkc) PO Not Given DAILY@1200 [facility] Pantoprazole Sodium 40 mg 10/27/24 09:00 10/29/24 08:50 Pantoprazole 40 Mg Tablet PO 40 mg QAM [facility] Administration Saccharomyces Boulardii 250 mg 10/27/24 13:00 10/29/24 11:49 Saccharomyces Boulardii 250 Mg Capsule PO Not Given TID GAURAV Fluticasone/Salmeterol 2 puff 10/27/24 20:00 10/29/24 10:36 Fluticasone/Salmeterol 45-21 Mcg Inhaler 1 Puff INHALATION 2 puff Q12HRT GAURAV Administration Senna/Docusate Sodium 1 tab 10/27/24 10:26 Senna/Docusate Sodium Tablet PO BID PRN Constipation Tamsulosin HCl 0.4 mg 10/27/24 10:50 10/29/24 08:49 Tamsulosin Hcl 0.4 Mg Capsule PO 0.4 mg QAM GAURAV Administration Radiology Results: ITS Impressions Head CT 10/26/24 13:00 IMPRESSION: 1. 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 No acute intracranial process. 2. Age-related changes including moderate diffuse volume loss and moderate scattered white matter hypoattenuation consistent with chronic small vessel ischemic disease. Chest/Abdomen/Pelvis CTA 10/26/24 14:34 IMPRESSION: 1. Dependent and lower lung predominant diffuse bilateral lung disease with dense consolidation in the right middle lobe and lingula which could represent pneumonia, moderate to severe pulmonary edema or combination thereof. 2. Small right pleural effusion. 3. Moderate cardiomegaly with enlargement of the central pulmonary arteries consistent with pulmonary arterial hypertension. 4. The latter gallbladder without wall thickening or pericholecystic inflammatory stranding to suggest acute cholecystitis. 5. Mild to moderate diverticulosis. Chest CTA 10/28/24 15:40 IMPRESSION: No pulmonary embolus. No aortic dissection or aneurysmal dilatation. Findings suggesting pulmonary hypertension. Consolidation within the right middle lobe, right lower lobe, and left lower lobe demonstrating progression from previous examination performed 48 hours earlier. Trace bilateral pleural effusions. Gallbladder distention and periportal edema. Modified Barium Swallow 10/29/24 10:38 IMPRESSION: 1. Aspiration. 2. Please refer to the speech therapy report for recommendations. Chest X-Ray 10/29/24 12:18 IMPRESSION: Bilateral basal pneumonia unchanged from previous termination. Underlying pulmonary edema is not excluded. Labs Labs: Laboratory Results - last 24 hr 10/29/24 10/29/24 04:43 12:51 WBC 13.6 H RBC 3.28 L Hgb 10.4 L Hct 32.1 L MCV 97.9 MCH 31.7 MCHC 32.4 RDW 16.8 H Plt Count 200 MPV 10.1 Puncture Site Left radial ABG pH 7.431 ABG pCO2 33.4 L ABG pO2 63.8 L ABG PO2/FiO2 Ratio 1.60 ABG HCO3 21.7 L ABG O2 Saturation 93.2 L ABG O2 Content 14.3 L ABG Base Excess -2.0 A-a Gradient 183.0 Oxyhemoglobin 91.4 Total Hemoglobin 11.1 L O2 Delivery Device Nasal cannula O2 Liters/Min 5.0 FiO2 40 Sodium 144 Potassium 3.1 L Chloride 116 H Carbon Dioxide 28 Anion Gap 0 L BUN 24 H D Creatinine 0.90 Estim Creat Clear Calc 50 Estimated GFR > 60 Glucose 124 H Calcium 8.2 L Total Bilirubin 1.0 AST 233 H ALT 308 H Alkaline Phosphatase 100 Total Protein 5.0 L Albumin 2.7 L Random Vancomycin 10.8
[2024-10-29 16:24] LABS: Pneumococcal Antigen Urine NOT DETECTED
[2024-10-29] MEDS: POTASSIUM CHLORIDE 20 MEQ ER TABLET PO (17:06)
[2024-10-29] MEDS: ATORVASTATIN 40 MG TABLET PO (17:06)
[2024-10-29] MEDS: METOPROLOL TARTRATE 25 MG TABLET PO (22:43)
[2024-10-30] VITALS (24 sets, daily range): BP systolic 139–191; BP diastolic 46–72; PULSE 47–63; RESP 20–24; TEMP 36.5–37.7; O2SAT 90–97
[2024-10-30 03:18] LABS: Legionella pneumophila Ag Ur NOT DETECTED
[2024-10-30 05:28] LABS: Hematocrit 33.1 % (42.0-52.0); Hemoglobin 10.9 g/dL (14.0-18.0); Mean Corpuscular HGB Conc 32.9 g/dl (32-36); Mean Corpuscular Hemoglobin 31.5 pg (26-34); Mean Corpuscular Volume 95.7 fl (80-100); Mean Platelet Volume 10.2 fl (7.4-10.4); Platelet Count Result 226 k/mm3 (150-375); Red Blood Count 3.46 M/mm3 (4.6-6.20); Red Cell Distribution Width 16.6 % (11.5-14.5); White Blood Count 12.5 K/mm3 (4.5-10.0)
[2024-10-30 05:57] LABS: Alanine Aminotransferase 381 U/L (6-50); Albumin Level 2.7 g/dL (3.5-5.1); Alkaline Phosphatase 112 U/L (38-126); Anion Gap 5 mmol/L (4-12); Aspartate Amino Transferase 259 U/L (17-59); Bilirubin,Total 1.3 mg/dL (0.2-1.3); Blood Urea Nitrogen 22 mg/dL (9-20); Carbon Dioxide 31 mmol/L (22-30); Chloride 111 mmol/L (98-107); Estimated CRCL calculation 46 ml/min; Estimated Glomerular Filt Rate > 60; Glucose 112 mg/dL (65-110); Magnesium 1.6 mg/dL (1.6-2.3); Phosphorus 2.4 mg/dL (2.5-4.5); Potassium 2.8 mmol/L (3.4-5.0); Sodium 147 mmol/L (137-145)
[2024-10-30] MEDS: FLUTICASONE/SALMETEROL 45-21 MCG INHALER 1 PUFF 2 PUFF INHALATION ×2 (06:11→21:03)
[2024-10-30] MEDS: DOXYCYCLINE HYCLATE 100 MG TABLET PO ×2 (06:56→17:48)
[2024-10-30] MEDS: POTASSIUM CHLORIDE 20 MEQ PACKET (FOR LIQUID) 40 MEQ PO ×2 (06:56→15:19)
[2024-10-30] MEDS: dilTIAZem HCL 60 MG TABLET PO ×3 (06:56→17:48)
[2024-10-30] MEDS: MAGNESIUM SULF 4 GM/WATER100ML 4 GM/100 ML BAG IVPB (06:56)
--- NOTE | 2024-10-30 07:55 | P.CDI_ITS ---
CDI Query Clarification Request BMI: 23.1 Nutritional Diagnostic Statement: Please refer to the comprehensive nutrition assessment for further information. If you agree with diagnosis of Moderate protein calorie malnutrition related to inadequate energy intake as evidenced by a significant weight loss of -5% x 1 month, -14% x 6 months, and NFPE findings for moderate subcutaneous fat loss (cheeks) and moderate muscle wasting (temples). Please specify severity if known: * Mild * Moderate * Severe * Other/Unknown
[2024-10-30] MEDS: lisinopriL 20 MG TABLET PO (08:28)
[2024-10-30] MEDS: DONEPEZIL HCL 10 MG TABLET PO (08:29)
[2024-10-30] MEDS: POTASSIUM/PHOSPHORUS/SODIUM 1.5 GM PACKET 1 PACKET PO (08:29)
[2024-10-30] MEDS: SACCHAROMYCES BOULARDII 250 MG CAPSULE PO ×3 (08:29→17:48)
[2024-10-30] MEDS: METOPROLOL TARTRATE 25 MG TABLET PO ×2 (08:29→21:00)
[2024-10-30] MEDS: APIXABAN 5 MG TABLET BY MOUTH ×2 (08:30→20:59)
[2024-10-30] MEDS: PANTOPRAZOLE 40 MG TABLET PO (08:30)
[2024-10-30] MEDS: MONTELUKAST SODIUM 10 MG TABLET PO (08:30)
[2024-10-30] MEDS: CARBIDOPA/LEVODOPA 25/100 MG CR TABLET 2 TABLET PO ×2 (08:30→17:48)
[2024-10-30] MEDS: ASPIRIN 81 MG ENTERIC TABLET PO (08:30)
[2024-10-30] MEDS: MEMANTINE 10 MG TABLET PO ×2 (08:30→21:00)
[2024-10-30] MEDS: TAMSULOSIN HCL 0.4 MG CAPSULE PO (08:30)
[2024-10-30] MEDS: FLUoxetine HCL 20 MG CAPSULE PO (08:31)
[2024-10-30] MEDS: CALCIUM/VITAMIN D 250 MG/3.125 MCG (125 I.U.) TABLET 1 TABLET PO (12:50)
[2024-10-30] MEDS: THERAPEUTIC MULTIVITAMINS/MINERALS TAB (*BKC) 1 TABLET PO (12:50)
[2024-10-30 12:57] LABS: Anion Gap 3 mmol/L (4-12); Blood Urea Nitrogen 25 mg/dL (9-20); Calcium 7.9 mg/dL (8.4-10.2); Carbon Dioxide 33 mmol/L (22-30); Chloride 112 mmol/L (98-107); Estimated CRCL calculation 45 ml/min; Estimated Glomerular Filt Rate > 60; Glucose 149 mg/dL (65-110); Magnesium 2.7 mg/dL (1.6-2.3); Potassium 3.1 mmol/L (3.4-5.0); Sodium 148 mmol/L (137-145)
[2024-10-30 13:02] LABS: Phosphorus 2.7 mg/dL (2.5-4.5)
--- NOTE | 2024-10-30 13:07 | PCNFU ---
Nutrition Follow-Up Complete: Moderate protein calorie malnutrition related to inadequate energy intake as evidenced by a significant weight loss of -5% x 1 month, -14% x 6 months, and NFPE findings for moderate subcutaneous fat loss (cheeks) and moderate muscle wasting (temples). Goal:Advance diet following MBS if appropriate Alternative nutrition support if necessary *Pt diet advanced per speech to soft and bite sized level 6, level 2 thickened liquids. New goal of 50% intake or greater Pt current nutrition is Soft and bite sized level 6, level 2 mildly thickened liquids. Nutrition recommendation: Increase Ensure compact to TID Last recorded weight is 72.9 kg. Bowel Motility: +BM 10/28 Labs Reviewed: Hgb:10.9, HCT:33.1, NA:147, K:2.8, BUN:22, Glu:112 Meds Noted: MVI, KCL Skin: WNL Additional Notes: Pt advanced to a soft and bite sized diet consistenty, level 2 liquids. Intake is minimal but states pt did drink Ensure compact. Will increase Ensure compact to TID. Encourage intake of meals and supplements. Monitor intake, wt, labs. Follow up in 5 days.
--- NOTE | 2024-10-30 17:17 | PM.IMPN ---
Progress Note: A&P Assessment and Plan (1) Sepsis: Code(s): A41.9 - Sepsis, unspecified organism Status: Acute Assessment and Plan: Sepsis present on admission likely secondary to pneumonia. WBC trending down. No fevers BCx NGTD (2) Acute respiratory failure with hypoxia: Code(s): J96.01 - Acute respiratory failure with hypoxia Status: Acute Assessment and Plan: Patient required 4L in admission but had improvement and was able to be weaned. He was found to be on 10L yesterday morning related to fluid overload. Lasix IV given with excellent response. Wean O2 as tolerated. (3) Pneumonia: Code(s): J18.9 - Pneumonia, unspecified organism Status: Acute Assessment and Plan: Suspect aspiration PNA. Started on vancomycin, rocephin, doxycycline and he was clinically improving. ST felt patient could have Level 6 diet with mildly thickened Level 2 liquids. Diet ordered. MRSA nasal swab negative so Vanco stopped. Changed to oral Doxy. Continue CPT. Change to Augmentin. bronchodilators available prn (4) Elevated troponin: Code(s): R79.89 - Other specified abnormal findings of blood chemistry Status: Acute Assessment and Plan: Likely demand ischemia secondary to sepsis w/o ACS. EKG reviewed. Echo showing EF 64%, elevated RAP,Grade I diastolic dysfxn, RV hypokinetic mid free wall. CTA chest negative for PE Continue ASA, Lipitor and metoprolol (5) Acute on chronic renal failure: Code(s): N17.9 - Acute kidney failure, unspecified; N18.9 - Chronic kidney disease, unspecified Status: Acute Assessment and Plan: Cr 2 on admission with normal baseline Cr. With IV fluids, Cr has normalized Fluids stopped Follow (6) Parkinson disease: Code(s): G20.A1 - Parkinson's disease without dyskinesia, without mention of fluctuations Status: Acute Assessment and Plan: MBS as above Continue home regimen PT/OT (7) Transaminitis: Code(s): R74.01 - Elevation of levels of liver transaminase levels Status: Acute Assessment and Plan: Likely secondary to sepsis, hypotension Hepatitis panel negative. CT scan showing dilated GB but no evidence of acute cholecystitis. Liver appears normal LFTs up today probably related to the fluid overload Follow (8) Coronary artery disease: Code(s): I25.10 - Atherosclerotic heart disease of [place] coronary artery without angina pectoris Status: Acute Assessment and Plan: No sign of ACS or c/o of angina. Continue home regimen (9) Paroxysmal atrial flutter: Code(s): I48.92 - Unspecified atrial flutter Status: Acute Assessment and Plan: Patient with bradycardia when sleeping. He also chewed his Cardizem CD so this was changed to short acting diltiazem. Will monitor on tele. Check Apnea link. Continue home regimen, including Eliquis (10) Unresponsive episode: Code(s): R40.4 - Transient alteration of awareness Status: Acute Assessment and Plan: Likely secondary to sepsis, hypotension. Resolved. Plan DVT prophylaxis - Eliquis Code status - full Subjective Date/time seen: 10/30/24 17:17 Interval history: 89yo male with Parkinson, dementia, stroke, CAD, diastolic dysfunction, pAFlutter on chronic anticoagulation, HTN, and prostate cancer who presented to the emergency department via private vehicle accompanied by family members for evaluation of weakness and an unresponsive episode. Patient is awake and able to converse. Cough is nonproductive. He denies nausea nd vomiting. Denies chest pain. He remains confused so hx is suspect. Exam Narrative: AF 99.9 143/46 60 20 92% 2L Gen - NARD Chest - L>R bibasilar crackles CV - RRR S1/S2. Tele showing no significant dysrhythmias Abd - Soft, NT/ND, Positive BS - Pérez secured draining clear yellow urine Ext - No pedal edema Neuro - Alert and able to converse. In good spirits. remains confused. Skin - Warm and dry Objective Data Vital Signs Vital Signs: Vital Signs - 24 hr 10/29/24 18:00 10/29/24 19:55 10/29/24 20:00 Temperature 98.2 F Pulse Rate 53 L 57 L 57 L Respiratory Rate 22 H 20 Blood Pressure 185/66 H Pulse Oximetry 93 96 Oxygen Delivery Nasal Cannula Oxygen Flow Rate 2 10/29/24 20:00 10/29/24 20:59 10/29/24 20:59 Temperature Pulse Rate 57 L 57 L Respiratory Rate 20 Blood Pressure Pulse Oximetry 96 Oxygen Delivery Nasal Cannula Oxygen Flow Rate 3 10/30/24 00:00 10/30/24 00:00 10/30/24 00:07 Temperature 97.7 F Pulse Rate 47 L 48 L 56 L Respiratory Rate 22 H 22 H Blood Pressure 172/64 H Pulse Oximetry 97 97 Oxygen Delivery Nasal Cannula Oxygen Flow Rate 2 10/30/24 03:14 10/30/24 03:17 10/30/24 03:49 Temperature 97.7 F Pulse Rate 60 60 56 L Respiratory Rate 22 H 22 H Blood Pressure 184/59 H Pulse Oximetry 97 94 Oxygen Delivery Nasal Cannula Oxygen Flow Rate 2 10/30/24 05:45 10/30/24 06:13 10/30/24 07:20 Temperature Pulse Rate 59 L 61 Respiratory Rate 20 Blood Pressure 190/72 H Pulse Oximetry Oxygen Delivery Oxygen Flow Rate 10/30/24 08:00 10/30/24 08:00 10/30/24 08:00 Temperature 99.3 F Pulse Rate 59 L 55 L Respiratory Rate 20 Blood Pressure 191/66 H Pulse Oximetry 95 95 Oxygen Delivery Nasal Cannula Oxygen Flow Rate 2 10/30/24 08:29 10/30/24 10:00 10/30/24 10:20 Temperature Pulse Rate 56 L 54 L Respiratory Rate Blood Pressure 174/68 H Pulse Oximetry Oxygen Delivery Oxygen Flow Rate 10/30/24 12:00 10/30/24 12:00 10/30/24 12:00 Temperature 99.2 F Pulse Rate 53 L 63 Respiratory Rate 24 H Blood Pressure 179/67 H Pulse Oximetry 96 93 Oxygen Delivery Nasal Cannula Oxygen Flow Rate 2 10/30/24 13:34 10/30/24 14:00 10/30/24 14:30 Temperature Pulse Rate 54 L Respiratory Rate Blood Pressure Pulse Oximetry Oxygen Delivery Nasal Cannula Nasal Cannula Oxygen Flow Rate 3 3 10/30/24 15:44 10/30/24 16:00 10/30/24 16:00 Temperature 99.9 F H Pulse Rate 53 L 60 Respiratory Rate 20 Blood Pressure 143/46 H Pulse Oximetry 92 92 Oxygen Delivery Nasal Cannula Oxygen Flow Rate 2 Intake/Output Intake/Output: Intake & Output 10/27/24 10/28/24 10/29/24 10/30/24 23:59 23:59 23:59 23:59 Intake Total 50 2534 2588.7 120 Output Total 675 1300 3050 [address] [place] [address] 1234 -461.3 -2330 Meds/Results Medications: Active Medications Generic Name Dose Route Start Last Admin Trade Name Freq PRN Reason Stop Dose Admin Acetaminophen 650 mg 10/27/24 10:26 10/29/24 17:06 Acetaminophen 325 Mg Tablet PO 650 mg Q6H PRN Administration Mild Pain (1-5) Or Fever Albuterol/Ipratropium 3 ml 10/26/24 16:21 Ipratropium 0.5 Mg/Albuterol Sulfate 2.5 Mg Ampul.Neb 3 Ml INHALATION Q6HRT PRN Shortness Of Breath Or Wheezing Apixaban 5 mg 10/28/24 21:00 10/30/24 08:30 Apixaban 5 Mg Tablet BY MOUTH 5 mg Q12HR GAURAV Administration Aspirin 81 mg 10/28/24 09:00 10/30/24 08:30 Aspirin 81 Mg Enteric Tablet PO 11/27/24 08:59 81 mg DAILY GAURAV Administration Atorvastatin Calcium 40 mg 10/27/24 18:00 10/29/24 17:06 Atorvastatin 40 Mg Tablet PO 40 mg QPM GAURAV Administration Calcium Carbonate 1 tablet 10/27/24 12:00 10/30/24 12:50 Calcium/Vitamin D 250 Mg/3.125 Mcg (125 I.U.) Tablet PO 1 tablet DAILY@1200 GAURAV Administration Carbidopa/Levodopa 2 tablet 10/27/24 11:05 10/30/24 08:30 Carbidopa/Levodopa 25/100 Mg Cr Tablet PO 2 tablet BID GAURAV Administration Diltiazem HCl 60 mg 10/29/24 06:00 10/30/24 12:50 Diltiazem Hcl 60 Mg Tablet PO 60 mg Q6HR GAURAV Administration Donepezil HCl 10 mg 10/27/24 10:50 10/30/24 08:29 Donepezil Hcl 10 Mg Tablet PO 10 mg DAILY GAURAV Administration Doxycycline Hyclate 100 mg 10/26/24 18:00 10/30/24 06:56 Doxycycline Hyclate 100 Mg Tablet PO 10/31/24 06:01 100 mg Q12H GAURAV Administration Fluoxetine HCl 20 mg 10/27/24 10:50 10/30/24 08:31 Fluoxetine Hcl 20 Mg Capsule PO 20 mg DAILY GAURAV Administration Ceftriaxone Sodium 1 gm in 50 mls @ 100 mls/hr 10/26/24 21:00 10/29/24 23:10 Rocephin 1 Gm/Ns 50 Ml IVPB Infused Q24H GAURAV Infusion Lisinopril 20 mg 10/30/24 09:00 10/30/24 08:28 Lisinopril 20 Mg Tablet PO 20 mg QAM GAURAV Administration Memantine 10 mg 10/27/24 10:50 10/30/24 08:30 Memantine 10 Mg Tablet PO 10 mg Q12HR GAURAV Administration Menthol/Methyl Salicylate 1 applic 10/27/24 10:26 Menthol 10% / Methyl Salicylate 15% 57 Gm Tube TOPICAL BID PRN Muscle/Joint Pain Metoprolol Tartrate 25 mg 10/27/24 10:50 10/30/24 08:29 Metoprolol Tartrate 25 Mg Tablet PO 25 mg Q12HR GAURAV Administration Montelukast Sodium 10 mg 10/27/24 10:50 10/30/24 08:30 Montelukast Sodium 10 Mg Tablet PO 10 mg DAILY GAURAV Administration Multivitamins/Calcium 1 tablet 10/27/24 12:00 10/30/24 12:50 Therapeutic Multivitamins/Minerals Tab (*Bkc) PO 1 tablet DAILY@1200 GAURAV Administration Pantoprazole Sodium 40 mg 10/27/24 09:00 10/30/24 08:30 Pantoprazole 40 Mg Tablet PO 40 mg QAM [facility] Administration Saccharomyces Boulardii 250 mg 10/27/24 13:00 10/30/24 12:50 Saccharomyces Boulardii 250 Mg Capsule PO 250 mg TID GAURAV Administration Fluticasone/Salmeterol 2 puff 10/27/24 20:00 10/30/24 06:11 Fluticasone/Salmeterol 45-21 Mcg Inhaler 1 Puff INHALATION 2 puff Q12HRT GAURAV Administration Senna/Docusate Sodium 1 tab 10/27/24 10:26 Senna/Docusate Sodium Tablet PO BID PRN Constipation Tamsulosin HCl 0.4 mg 10/27/24 10:50 10/30/24 08:30 Tamsulosin Hcl 0.4 Mg Capsule PO 0.4 mg QAM GAURAV Administration Radiology Results: ITS Impressions Head CT 10/26/24 13:00 IMPRESSION: 1. 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 No acute intracranial process. 2. Age-related changes including moderate diffuse volume loss and moderate scattered white matter hypoattenuation consistent with chronic small vessel ischemic disease. Chest/Abdomen/Pelvis CTA 10/26/24 14:34 IMPRESSION: 1. Dependent and lower lung predominant diffuse bilateral lung disease with dense consolidation in the right middle lobe and lingula which could represent pneumonia, moderate to severe pulmonary edema or combination thereof. 2. Small right pleural effusion. 3. Moderate cardiomegaly with enlargement of the central pulmonary arteries consistent with pulmonary arterial hypertension. 4. The latter gallbladder without wall thickening or pericholecystic inflammatory stranding to suggest acute cholecystitis. 5. Mild to moderate diverticulosis. Chest CTA 10/28/24 15:40 IMPRESSION: No pulmonary embolus. No aortic dissection or aneurysmal dilatation. Findings suggesting pulmonary hypertension. Consolidation within the right middle lobe, right lower lobe, and left lower lobe demonstrating progression from previous examination performed 48 hours earlier. Trace bilateral pleural effusions. Gallbladder distention and periportal edema. Modified Barium Swallow 10/29/24 10:38 IMPRESSION: 1. Aspiration. 2. Please refer to the speech therapy report for recommendations. Chest X-Ray 10/29/24 12:18 IMPRESSION: Bilateral basal pneumonia unchanged from previous termination. Underlying pulmonary edema is not excluded. Labs Labs: Laboratory Results - last 24 hr 10/26/24 10/30/24 10/30/24 11:48 04:56 12:40 WBC 12.5 H RBC 3.46 L Hgb 10.9 L Hct 33.1 L MCV 95.7 MCH 31.5 MCHC 32.9 RDW 16.6 H Plt Count 226 MPV 10.2 Sodium 147 H 148 H Potassium 2.8 L* 3.1 L Chloride 111 H 112 H Carbon Dioxide 31 H 33 H Anion Gap 5 3 L BUN 22 H 25 H Creatinine 0.99 1.01 Estim Creat Clear Calc 46 45 Estimated GFR > 60 > 60 Glucose 112 H 149 H Calcium 8.0 L 7.9 L Phosphorus 2.4 L 2.7 Magnesium 1.6 Total Bilirubin 1.3 AST 259 H ALT 381 H Alkaline Phosphatase 112 Total Protein 6.0 L Albumin 2.7 L Ur L.pneumophila Ag Not detected 10/30/24 12:40 WBC RBC Hgb Hct MCV MCH MCHC RDW Plt Count MPV Sodium Potassium Chloride Carbon Dioxide Anion Gap BUN Creatinine Estim Creat Clear Calc Estimated GFR Glucose Calcium Phosphorus Cancelled Magnesium 2.7 H Total Bilirubin AST ALT Alkaline Phosphatase Total Protein Albumin Ur L.pneumophila Ag
[2024-10-30 17:32] LABS: T3 Free 1.2 pg/mL (2.3-4.2)
[2024-10-30] MEDS: POTASSIUM CHLORIDE 20 MEQ PACKET (FOR LIQUID) PO (17:48)
[2024-10-30] MEDS: ATORVASTATIN 40 MG TABLET PO (17:48)
[2024-10-30] MEDS: AMOXICILLIN/CLAVULANATE K 875-125 MG TAB 1 TABLET PO (20:59)
[2024-10-31] VITALS (11 sets, daily range): BP systolic 136–194; BP diastolic 44–65; PULSE 46–58; RESP 13–22; TEMP 36.5–37.2; O2SAT 94–97
[2024-10-31] MEDS: DOXYCYCLINE HYCLATE 100 MG TABLET PO (06:05)
[2024-10-31 06:34] LABS: Glucose Point of Care 146 mg/dl (65-105)
[2024-10-31 06:57] LABS: Hematocrit 33.4 % (42.0-52.0); Hemoglobin 10.7 g/dL (14.0-18.0); Mean Corpuscular Hemoglobin 30.9 pg (26-34); Mean Corpuscular Volume 96.5 fl (80-100); Mean Platelet Volume 10.3 fl (7.4-10.4); Platelet Count Result 221 k/mm3 (150-375); Red Blood Count 3.46 M/mm3 (4.6-6.20); Red Cell Distribution Width 16.7 % (11.5-14.5); White Blood Count 13.2 K/mm3 (4.5-10.0)
[2024-10-31 07:27] LABS: Alanine Aminotransferase 479 U/L (6-50); Albumin Level 2.5 g/dL (3.5-5.1); Alkaline Phosphatase 114 U/L (38-126); Anion Gap 2 mmol/L (4-12); Aspartate Amino Transferase 410 U/L (17-59); Bilirubin,Total 1.2 mg/dL (0.2-1.3); Blood Urea Nitrogen 37 mg/dL (9-20); Calcium 7.8 mg/dL (8.4-10.2); Carbon Dioxide 33 mmol/L (22-30); Chloride 115 mmol/L (98-107); Estimated CRCL calculation 41 ml/min; Estimated Glomerular Filt Rate > 60; Glucose 118 mg/dL (65-110); Magnesium 2.5 mg/dL (1.6-2.3); Phosphorus 2.9 mg/dL (2.5-4.5); Potassium 3.4 mmol/L (3.4-5.0); Sodium 150 mmol/L (137-145)
--- NOTE | 2024-10-31 08:22 | PM.IMPN ---
Progress Note: A&P Assessment and Plan (1) Sepsis: Code(s): A41.9 - Sepsis, unspecified organism Status: Acute Assessment and Plan: Sepsis present on admission likely secondary to pneumonia. WBC trending down. No fevers BCx NGTD (2) Acute respiratory failure with hypoxia: Code(s): J96.01 - Acute respiratory failure with hypoxia Status: Acute Assessment and Plan: Patient required 4L in admission but had improvement and was able to be weaned. He was found to be on 10L yesterday morning related to fluid overload. Lasix IV given with excellent response. Wean O2 as tolerated. (3) Pneumonia: Code(s): J18.9 - Pneumonia, unspecified organism Status: Acute Assessment and Plan: Suspect aspiration PNA. Started on vancomycin, rocephin, doxycycline and he was clinically improving. ST felt patient could have Level 6 diet with mildly thickened Level 2 liquids. Diet ordered. MRSA nasal swab negative so Vanco stopped. Changed to oral Doxy. Continue CPT. Change to Augmentin. bronchodilators available prn (4) Elevated troponin: Code(s): R79.89 - Other specified abnormal findings of blood chemistry Status: Acute Assessment and Plan: Likely demand ischemia secondary to sepsis w/o ACS. EKG reviewed. Echo showing EF 64%, elevated RAP,Grade I diastolic dysfxn, RV hypokinetic mid free wall. CTA chest negative for PE Continue ASA, Lipitor and metoprolol (5) Acute on chronic renal failure: Code(s): N17.9 - Acute kidney failure, unspecified; N18.9 - Chronic kidney disease, unspecified Status: Acute Assessment and Plan: Cr 2 on admission with normal baseline Cr. With IV fluids, Cr has normalized Fluids stopped Follow (6) Parkinson disease: Code(s): G20.A1 - Parkinson's disease without dyskinesia, without mention of fluctuations Status: Acute Assessment and Plan: MBS as above Continue home regimen PT/OT (7) Transaminitis: Code(s): R74.01 - Elevation of levels of liver transaminase levels Status: Acute Assessment and Plan: Likely secondary to sepsis, hypotension Hepatitis panel negative. CT scan showing dilated GB but no evidence of acute cholecystitis. Liver appears normal LFTs still elevated likely related to fluid overload Follow (8) Coronary artery disease: Code(s): I25.10 - Atherosclerotic heart disease of [place] coronary artery without angina pectoris Status: Acute Assessment and Plan: No sign of ACS or c/o of angina. Continue home regimen (9) Paroxysmal atrial flutter: Code(s): I48.92 - Unspecified atrial flutter Status: Acute Assessment and Plan: Patient with bradycardia when sleeping. He also chewed his Cardizem CD so this was changed to short acting diltiazem. Will monitor on tele. Apnea link with AHI 2.6 Continue home regimen, including Eliquis (10) Unresponsive episode: Code(s): R40.4 - Transient alteration of awareness Status: Acute Assessment and Plan: Likely secondary to sepsis, hypotension. Resolved. (11) Hypernatremia: Code(s): E87.0 - Hyperosmolality and hypernatremia Status: Acute Assessment and Plan: Worsening. Will give D5 water Plan DVT prophylaxis - Eliquis Code status - full Subjective Date/time seen: 10/31/24 08:22 Interval history: No overnight events reported. Denies any new complaints. Patient awake and conversant. Labs reviewed. Denies any shortness of breath or chest pain. Remains confused Review of Systems Review of Systems: ROS unobtainable: Yes unobtainable due to mental status Exam Narrative: Gen - NARD Chest -coarse breath sounds bilaterally L>R bibasilar crackles CV - RRR S1/S2. Tele showing no significant dysrhythmias Abd - Soft, NT/ND, Positive BS - Pérez secured draining clear yellow urine Ext - No pedal edema Neuro - Alert and able to converse. In good spirits. remains confused. Skin - Warm and dry Objective Data Vital Signs Vital Signs: Vital Signs - 24 hr 10/30/24 08:29 10/30/24 10:00 10/30/24 10:20 Temperature Pulse Rate 56 L 54 L Respiratory Rate Blood Pressure 174/68 H Pulse Oximetry Oxygen Delivery Oxygen Flow Rate 10/30/24 12:00 10/30/24 12:00 10/30/24 12:00 Temperature 99.2 F Pulse Rate 53 L 63 Respiratory Rate 24 H Blood Pressure 179/67 H Pulse Oximetry 96 93 Oxygen Delivery Nasal Cannula Oxygen Flow Rate 2 10/30/24 13:34 10/30/24 14:00 10/30/24 14:30 Temperature Pulse Rate 54 L Respiratory Rate Blood Pressure Pulse Oximetry Oxygen Delivery Nasal Cannula Nasal Cannula Oxygen Flow Rate 3 3 10/30/24 15:44 10/30/24 16:00 10/30/24 16:00 Temperature 99.9 F H Pulse Rate 53 L 60 Respiratory Rate 20 Blood Pressure 143/46 H Pulse Oximetry 92 92 Oxygen Delivery Nasal Cannula Oxygen Flow Rate 2 10/30/24 18:00 10/30/24 20:00 10/30/24 20:00 Temperature Pulse Rate 57 L 57 L 57 L Respiratory Rate 20 Blood Pressure Pulse Oximetry 93 Oxygen Delivery Nasal Cannula Oxygen Flow Rate 2 10/30/24 20:35 10/30/24 21:00 10/30/24 21:09 Temperature 97.7 F Pulse Rate 58 L 62 61 Respiratory Rate 20 Blood Pressure 139/52 L Pulse Oximetry 90 95 Oxygen Delivery Nasal Cannula Oxygen Flow Rate 2 10/30/24 21:35 10/30/24 23:35 10/30/24 23:42 Temperature 97.8 F Pulse Rate 61 51 L 53 L Respiratory Rate 20 Blood Pressure 146/51 H Pulse Oximetry 91 95 Oxygen Delivery Nasal Cannula Oxygen Flow Rate 2 10/31/24 00:00 10/31/24 04:00 Temperature Pulse Rate 50 L 50 L Respiratory Rate Blood Pressure Pulse Oximetry Oxygen Delivery Oxygen Flow Rate Intake/Output Intake/Output: Intake & Output 10/28/24 10/29/24 10/30/24 10/31/24 23:59 23:59 23:59 23:59 Intake Total 2534 2588.7 340 150 Output Total 1300 3050 2850 200 Balance 1234 -461.3 -2510 -50 Meds/Results Medications: Active Medications Generic Name Dose Route Start Last Admin Trade Name Freq PRN Reason Stop Dose Admin Acetaminophen 650 mg 10/27/24 10:26 10/29/24 17:06 Acetaminophen 325 Mg Tablet PO 650 mg Q6H PRN Administration Mild Pain (1-5) Or Fever Albuterol/Ipratropium 3 ml 10/26/24 16:21 Ipratropium 0.5 Mg/Albuterol Sulfate 2.5 Mg Ampul.Neb 3 Ml INHALATION Q6HRT PRN Shortness Of Breath Or Wheezing Amoxicillin/Clavulanate Potassium 1 tablet 10/30/24 21:00 10/30/24 20:59 Amoxicillin/Clavulanate K 875-125 Mg Tab PO 11/02/24 09:01 1 tablet Q12HR GAURAV Administration Apixaban 5 mg 10/28/24 21:00 10/30/24 20:59 Apixaban 5 Mg Tablet BY MOUTH 5 mg Q12HR GAURAV Administration Aspirin 81 mg 10/28/24 09:00 10/30/24 08:30 Aspirin 81 Mg Enteric Tablet PO 11/27/24 08:59 81 mg DAILY GAURAV Administration Atorvastatin Calcium 40 mg 10/27/24 18:00 10/30/24 17:48 Atorvastatin 40 Mg Tablet PO 40 mg QPM GAURAV Administration Calcium Carbonate 1 tablet 10/27/24 12:00 10/30/24 12:50 Calcium/Vitamin D 250 Mg/3.125 Mcg (125 I.U.) Tablet PO 1 tablet DAILY@1200 [facility] Administration Carbidopa/Levodopa 2 tablet 10/27/24 11:05 10/30/24 17:48 Carbidopa/Levodopa 25/100 Mg Cr Tablet PO 2 tablet BID GAURAV Administration Diltiazem HCl 60 mg 10/29/24 06:00 10/31/24 06:05 Diltiazem Hcl 60 Mg Tablet PO Not Given Q6HR [facility] Donepezil HCl 10 mg 10/27/24 10:50 10/30/24 08:29 Donepezil Hcl 10 Mg Tablet PO 10 mg DAILY GAURAV Administration Fluoxetine HCl 20 mg 10/27/24 10:50 10/30/24 08:31 Fluoxetine Hcl 20 Mg Capsule PO 20 mg DAILY GAURAV Administration Lisinopril 20 mg 10/30/24 09:00 10/30/24 08:28 Lisinopril 20 Mg Tablet PO 20 mg QAM GAURAV Administration Memantine 10 mg 10/27/24 10:50 10/30/24 21:00 Memantine 10 Mg Tablet PO 10 mg Q12HR [facility] Administration Menthol/Methyl Salicylate 1 applic 10/27/24 10:26 Menthol 10% / Methyl Salicylate 15% 57 Gm Tube TOPICAL BID PRN Muscle/Joint Pain Metoprolol Tartrate 25 mg 10/27/24 10:50 10/30/24 21:00 Metoprolol Tartrate 25 Mg Tablet PO 25 mg Q12HR GAURAV Administration Montelukast Sodium 10 mg 10/27/24 10:50 10/30/24 08:30 Montelukast Sodium 10 Mg Tablet PO 10 mg DAILY GAURAV Administration Multivitamins/Calcium 1 tablet 10/27/24 12:00 10/30/24 12:50 Therapeutic Multivitamins/Minerals Tab (*Bkc) PO 1 tablet DAILY@1200 GAURAV Administration Pantoprazole Sodium 40 mg 10/27/24 09:00 10/30/24 08:30 Pantoprazole 40 Mg Tablet PO 40 mg QAM GAURAV Administration Saccharomyces Boulardii 250 mg 10/27/24 13:00 10/30/24 17:48 Saccharomyces Boulardii 250 Mg Capsule PO 250 mg TID GAURAV Administration Fluticasone/Salmeterol 2 puff 10/27/24 20:00 10/30/24 21:03 Fluticasone/Salmeterol 45-21 Mcg Inhaler 1 Puff INHALATION 2 puff Q12HRT GAURAV Administration Senna/Docusate Sodium 1 tab 10/27/24 10:26 Senna/Docusate Sodium Tablet PO BID PRN Constipation Tamsulosin HCl 0.4 mg 10/27/24 10:50 10/30/24 08:30 Tamsulosin Hcl 0.4 Mg Capsule PO 0.4 mg QAM GAURAV Administration Radiology Results: ITS Impressions Head CT 10/26/24 13:00 IMPRESSION: 1. 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 No acute intracranial process. 2. Age-related changes including moderate diffuse volume loss and moderate scattered white matter hypoattenuation consistent with chronic small vessel ischemic disease. Chest/Abdomen/Pelvis CTA 10/26/24 14:34 IMPRESSION: 1. Dependent and lower lung predominant diffuse bilateral lung disease with dense consolidation in the right middle lobe and lingula which could represent pneumonia, moderate to severe pulmonary edema or combination thereof. 2. Small right pleural effusion. 3. Moderate cardiomegaly with enlargement of the central pulmonary arteries consistent with pulmonary arterial hypertension. 4. The latter gallbladder without wall thickening or pericholecystic inflammatory stranding to suggest acute cholecystitis. 5. Mild to moderate diverticulosis. Chest CTA 10/28/24 15:40 IMPRESSION: No pulmonary embolus. No aortic dissection or aneurysmal dilatation. Findings suggesting pulmonary hypertension. Consolidation within the right middle lobe, right lower lobe, and left lower lobe demonstrating progression from previous examination performed 48 hours earlier. Trace bilateral pleural effusions. Gallbladder distention and periportal edema. Modified Barium Swallow 10/29/24 10:38 IMPRESSION: 1. Aspiration. 2. Please refer to the speech therapy report for recommendations. Chest X-Ray 10/29/24 12:18 IMPRESSION: Bilateral basal pneumonia unchanged from previous termination. Underlying pulmonary edema is not excluded. Labs Labs: Laboratory Results - last 24 hr 10/26/24 10/30/24 10/30/24 15:22 12:40 12:40 WBC RBC Hgb Hct MCV MCH MCHC RDW Plt Count MPV Sodium 148 H Potassium 3.1 L Chloride 112 H Carbon Dioxide 33 H Anion Gap 3 L BUN 25 H Creatinine 1.01 Estim Creat Clear Calc 45 Estimated GFR > 60 Glucose 149 H POC Capillary Glucose Calcium 7.9 L Phosphorus 2.7 Cancelled Magnesium 2.7 H Total Bilirubin AST ALT Alkaline Phosphatase Total Protein Albumin Free T3 pg/mL 1.2 L 10/30/24 10/31/24 21:09 06:45 WBC 13.2 H RBC 3.46 L Hgb 10.7 L Hct 33.4 L MCV 96.5 MCH 30.9 MCHC 32.0 RDW 16.7 H Plt Count 221 MPV 10.3 Sodium 150 H Potassium 3.4 Chloride 115 H Carbon Dioxide 33 H Anion Gap 2 L BUN 37 H D Creatinine 1.11 Estim Creat Clear Calc 41 Estimated GFR > 60 Glucose 118 H POC Capillary Glucose 146 H Calcium 7.8 L Phosphorus 2.9 Magnesium 2.5 H Total Bilirubin 1.2 AST 410 H ALT 479 H Alkaline Phosphatase 114 Total Protein 5.0 L Albumin 2.5 L Free T3 pg/mL
[2024-10-31] MEDS: FLUoxetine HCL 20 MG CAPSULE PO (09:24)
[2024-10-31] MEDS: ASPIRIN 81 MG ENTERIC TABLET PO (09:24)
[2024-10-31] MEDS: SACCHAROMYCES BOULARDII 250 MG CAPSULE PO ×3 (09:24→19:00)
[2024-10-31] MEDS: DONEPEZIL HCL 10 MG TABLET PO (09:25)
[2024-10-31] MEDS: CARBIDOPA/LEVODOPA 25/100 MG CR TABLET 2 TABLET PO ×2 (09:25→19:00)
[2024-10-31] MEDS: APIXABAN 5 MG TABLET BY MOUTH ×2 (09:25→20:37)
[2024-10-31] MEDS: METOPROLOL TARTRATE 25 MG TABLET PO ×2 (09:25→20:38)
[2024-10-31] MEDS: AMOXICILLIN/CLAVULANATE K 875-125 MG TAB 1 TABLET PO ×2 (09:26→20:37)
[2024-10-31] MEDS: lisinopriL 20 MG TABLET PO (09:26)
[2024-10-31] MEDS: PANTOPRAZOLE 40 MG TABLET PO (09:26)
[2024-10-31] MEDS: TAMSULOSIN HCL 0.4 MG CAPSULE PO (09:26)
[2024-10-31] MEDS: MONTELUKAST SODIUM 10 MG TABLET PO (09:26)
[2024-10-31] MEDS: MEMANTINE 10 MG TABLET PO ×2 (09:26→20:37)
[2024-10-31] MEDS: DEXTROSE 5% 1,000 ML 1,000 ML 100 ML IV CONT ×2 (09:30→18:59)
[2024-10-31] MEDS: FLUTICASONE/SALMETEROL 45-21 MCG INHALER 1 PUFF 2 PUFF INHALATION (10:39)
[2024-10-31] MEDS: CALCIUM/VITAMIN D 250 MG/3.125 MCG (125 I.U.) TABLET 1 TABLET PO (12:57)
[2024-10-31] MEDS: THERAPEUTIC MULTIVITAMINS/MINERALS TAB (*BKC) 1 TABLET PO (12:57)
[2024-10-31] MEDS: dilTIAZem HCL 60 MG TABLET PO ×2 (12:57→19:00)
[2024-10-31 17:39] LABS: Anion Gap 2 mmol/L (4-12); Blood Urea Nitrogen 38 mg/dL (9-20); Calcium 7.7 mg/dL (8.4-10.2); Carbon Dioxide 33 mmol/L (22-30); Chloride 112 mmol/L (98-107); Estimated CRCL calculation 46 ml/min; Estimated Glomerular Filt Rate > 60; Glucose 124 mg/dL (65-110); Potassium 3.3 mmol/L (3.4-5.0); Sodium 147 mmol/L (137-145)
[2024-10-31] MEDS: ATORVASTATIN 40 MG TABLET PO (19:00)
[2024-10-31] MEDS: POTASSIUM CHLORIDE 20 MEQ PACKET (FOR LIQUID) 40 MEQ PO (19:51)
--- NOTE | 2024-10-31 20:29 | PC.NURSE ---
Report called to Kimberly AGUILAR at 2004. Pt transferred by bed to [facility]. Belongings with patient. Patient and family orientated to room and procedures.
[2024-10-31] MEDS: ACETAMINOPHEN 325 MG TABLET 650 MG PO (20:37)
[2024-11-01] VITALS (9 sets, daily range): BP systolic 137–165; BP diastolic 56–61; PULSE 50–64; RESP 16–18; TEMP 36.5–36.6; O2SAT 90–94
[2024-11-01] MEDS: DEXTROSE 5% 1,000 ML 1,000 ML 100 ML IV CONT (06:30)
[2024-11-01] MEDS: dilTIAZem HCL 60 MG TABLET PO ×2 (06:30→13:49)
[2024-11-01] MEDS: FLUTICASONE/SALMETEROL 45-21 MCG INHALER 1 PUFF 2 PUFF INHALATION ×2 (07:00→21:07)
[2024-11-01 07:07] LABS: Hematocrit 32.5 % (42.0-52.0); Hemoglobin 10.2 g/dL (14.0-18.0); Mean Corpuscular HGB Conc 31.4 g/dl (32-36); Mean Corpuscular Hemoglobin 30.8 pg (26-34); Mean Corpuscular Volume 98.2 fl (80-100); Mean Platelet Volume 10.6 fl (7.4-10.4); Platelet Count Result 222 k/mm3 (150-375); Red Blood Count 3.31 M/mm3 (4.6-6.20); Red Cell Distribution Width 16.9 % (11.5-14.5); White Blood Count 11.5 K/mm3 (4.5-10.0)
[2024-11-01 07:34] LABS: Alanine Aminotransferase 543 U/L (6-50); Albumin Level 2.3 g/dL (3.5-5.1); Alkaline Phosphatase 111 U/L (38-126); Anion Gap -1 mmol/L (4-12); Aspartate Amino Transferase 339 U/L (17-59); Bilirubin,Total 1.2 mg/dL (0.2-1.3); Blood Urea Nitrogen 36 mg/dL (9-20); Calcium 7.7 mg/dL (8.4-10.2); Carbon Dioxide 32 mmol/L (22-30); Chloride 110 mmol/L (98-107); Estimated CRCL calculation 48 ml/min; Estimated Glomerular Filt Rate > 60; Glucose 117 mg/dL (65-110); Magnesium 2.2 mg/dL (1.6-2.3); Potassium 3.4 mmol/L (3.4-5.0); Sodium 141 mmol/L (137-145)
--- NOTE | 2024-11-01 08:36 | PM.IMPN ---
Progress Note: A&P Assessment and Plan (1) Sepsis: Code(s): A41.9 - Sepsis, unspecified organism Status: Acute Assessment and Plan: Sepsis present on admission likely secondary to pneumonia. WBC trending down. No fevers BCx NGTD (2) Acute respiratory failure with hypoxia: Code(s): J96.01 - Acute respiratory failure with hypoxia Status: Acute Assessment and Plan: Patient required 4L in admission but had improvement and was able to be weaned. He was found to be on 10L yesterday morning related to fluid overload. Lasix IV given with excellent response. Wean O2 as tolerated. (3) Pneumonia: Code(s): J18.9 - Pneumonia, unspecified organism Status: Acute Assessment and Plan: Suspect aspiration PNA. Started on vancomycin, rocephin, doxycycline and he was clinically improving. ST felt patient could have Level 6 diet with mildly thickened Level 2 liquids. Diet ordered. MRSA nasal swab negative so Vanco stopped. Changed to oral Doxy. Continue CPT. Change to Augmentin. bronchodilators available prn (4) Elevated troponin: Code(s): R79.89 - Other specified abnormal findings of blood chemistry Status: Acute Assessment and Plan: Likely demand ischemia secondary to sepsis w/o ACS. EKG reviewed. Echo showing EF 64%, elevated RAP,Grade I diastolic dysfxn, RV hypokinetic mid free wall. CTA chest negative for PE Continue ASA, Lipitor and metoprolol (5) Acute on chronic renal failure: Code(s): N17.9 - Acute kidney failure, unspecified; N18.9 - Chronic kidney disease, unspecified Status: Acute Assessment and Plan: Cr 2 on admission with normal baseline Cr. With IV fluids, Cr has normalized Fluids stopped Follow (6) Parkinson disease: Code(s): G20.A1 - Parkinson's disease without dyskinesia, without mention of fluctuations Status: Acute Assessment and Plan: MBS as above Continue home regimen PT/OT (7) Transaminitis: Code(s): R74.01 - Elevation of levels of liver transaminase levels Status: Acute Assessment and Plan: Likely secondary to sepsis, hypotension Hepatitis panel negative. CT scan showing dilated GB but no evidence of acute cholecystitis. Liver appears normal LFTs still elevated likely related to fluid overload Follow (8) Coronary artery disease: Code(s): I25.10 - Atherosclerotic heart disease of [place] coronary artery without angina pectoris Status: Acute Assessment and Plan: No sign of ACS or c/o of angina. Continue home regimen (9) Paroxysmal atrial flutter: Code(s): I48.92 - Unspecified atrial flutter Status: Acute Assessment and Plan: Patient with bradycardia when sleeping. He also chewed his Cardizem CD so this was changed to short acting diltiazem. Will monitor on tele. Apnea link with AHI 2.6 Continue home regimen, including Eliquis (10) Unresponsive episode: Code(s): R40.4 - Transient alteration of awareness Status: Acute Assessment and Plan: Likely secondary to sepsis, hypotension. Resolved. (11) Hypernatremia: Code(s): E87.0 - Hyperosmolality and hypernatremia Status: Acute Assessment and Plan: Worsening. Will give D5 water now normalized Stop D5 water enCourage to oral intake Plan DVT prophylaxis - Eliquis Code status - full Subjective Date/time seen: 11/01/24 08:36 Interval history: No overnight events reported. No new complaints. Patient remains confused. Labs reviewed. Review of Systems Review of Systems: ROS unobtainable: Yes unobtainable due to mental status Exam Narrative: Gen - NARD Chest -coarse breath sounds bilaterally L>R bibasilar crackles CV - RRR S1/S2. Tele showing no significant dysrhythmias Abd - Soft, NT/ND, Positive BS - Pérez secured draining clear yellow urine Ext - No pedal edema Neuro - Alert and able to converse. In good spirits. remains confused. Skin - Warm and dry Objective Data Vital Signs Vital Signs: Vital Signs - 24 hr 10/31/24 09:25 10/31/24 10:39 10/31/24 10:45 Temperature Pulse Rate 55 L Respiratory Rate Blood Pressure 153/44 H Pulse Oximetry 95 Oxygen Delivery Nasal Cannula Oxygen Flow Rate 2 10/31/24 12:00 10/31/24 12:00 10/31/24 16:00 Temperature 98.2 F 99 F Pulse Rate 58 L 58 L 51 L Respiratory Rate 22 H 20 Blood Pressure 136/46 L 171/63 H Pulse Oximetry 95 97 Oxygen Delivery Oxygen Flow Rate 10/31/24 16:00 10/31/24 19:56 10/31/24 20:38 Temperature 98.3 F Pulse Rate 46 L 54 L 53 L Respiratory Rate 20 Blood Pressure 166/62 H Pulse Oximetry 95 Oxygen Delivery Oxygen Flow Rate 10/31/24 21:00 11/01/24 06:47 11/01/24 07:00 Temperature 97.7 F 97.7 F Pulse Rate 53 L 55 L 61 Respiratory Rate 13 16 18 Blood Pressure 156/56 H 165/59 H Pulse Oximetry 94 90 93 Oxygen Delivery Nasal Cannula Oxygen Flow Rate 2 11/01/24 07:00 Temperature Pulse Rate 61 Respiratory Rate 18 Blood Pressure Pulse Oximetry Oxygen Delivery Oxygen Flow Rate Intake/Output Intake/Output: Intake & Output 10/29/24 10/30/24 10/31/24 11/01/24 23:59 23:59 23:59 23:59 Intake Total 2588.7 340 1418.3 2200 Output Total 3050 2850 200 50 Balance -461.3 -2510 1218.3 2150 Meds/Results Medications: Active Medications Generic Name Dose Route Start Last Admin Trade Name Freq PRN Reason Stop Dose Admin Acetaminophen 650 mg 10/27/24 10:26 10/31/24 20:37 Acetaminophen 325 Mg Tablet PO 650 mg Q6H PRN Administration Mild Pain (1-5) Or Fever Albuterol/Ipratropium 3 ml 10/26/24 16:21 Ipratropium 0.5 Mg/Albuterol Sulfate 2.5 Mg Ampul.Neb 3 Ml INHALATION Q6HRT PRN Shortness Of Breath Or Wheezing Amoxicillin/Clavulanate Potassium 1 tablet 10/30/24 21:00 10/31/24 20:37 Amoxicillin/Clavulanate K 875-125 Mg Tab PO 11/02/24 09:01 1 tablet Q12HR GAURAV Administration Apixaban 5 mg 10/28/24 21:00 10/31/24 20:37 Apixaban 5 Mg Tablet BY MOUTH 5 mg Q12HR GAURAV Administration Aspirin 81 mg 10/28/24 09:00 10/31/24 09:24 Aspirin 81 Mg Enteric Tablet PO 11/27/24 08:59 81 mg DAILY GAURAV Administration Atorvastatin Calcium 40 mg 10/27/24 18:00 10/31/24 19:00 Atorvastatin 40 Mg Tablet PO 40 mg QPM GAURAV Administration Calcium Carbonate 1 tablet 10/27/24 12:00 10/31/24 12:57 Calcium/Vitamin D 250 Mg/3.125 Mcg (125 I.U.) Tablet PO 1 tablet DAILY@1200 GAURAV Administration Carbidopa/Levodopa 2 tablet 10/27/24 11:05 10/31/24 19:00 Carbidopa/Levodopa 25/100 Mg Cr Tablet PO 2 tablet BID GAURAV Administration Diltiazem HCl 60 mg 10/29/24 06:00 11/01/24 06:30 Diltiazem Hcl 60 Mg Tablet PO 60 mg Q6HR GAURAV Administration Donepezil HCl 10 mg 10/27/24 10:50 10/31/24 09:25 Donepezil Hcl 10 Mg Tablet PO 10 mg DAILY GAURAV Administration Fluoxetine HCl 20 mg 10/27/24 10:50 10/31/24 09:24 Fluoxetine Hcl 20 Mg Capsule PO 20 mg DAILY GAURAV Administration Dextrose 1,000 mls @ 100 mls/hr 10/31/24 08:30 11/01/24 08:03 Dextrose 5% 1,000 Ml IV CONT Infused .Q10H GAURAV Infusion Lisinopril 20 mg 10/30/24 09:00 10/31/24 09:26 Lisinopril 20 Mg Tablet PO 20 mg QAM GAURAV Administration Memantine 10 mg 10/27/24 10:50 10/31/24 20:37 Memantine 10 Mg Tablet PO 10 mg Q12HR GAURAV Administration Menthol/Methyl Salicylate 1 applic 10/27/24 10:26 Menthol 10% / Methyl Salicylate 15% 57 Gm Tube TOPICAL BID PRN Muscle/Joint Pain Metoprolol Tartrate 25 mg 10/27/24 10:50 10/31/24 20:38 Metoprolol Tartrate 25 Mg Tablet PO 25 mg Q12HR GAURAV Administration Montelukast Sodium 10 mg 10/27/24 10:50 10/31/24 09:26 Montelukast Sodium 10 Mg Tablet PO 10 mg DAILY GAURAV Administration Multivitamins/Calcium 1 tablet 10/27/24 12:00 10/31/24 12:57 Therapeutic Multivitamins/Minerals Tab (*Bkc) PO 1 tablet DAILY@1200 GAURAV Administration Pantoprazole Sodium 40 mg 10/27/24 09:00 10/31/24 09:26 Pantoprazole 40 Mg Tablet PO 40 mg QAM GAURAV Administration Saccharomyces Boulardii 250 mg 10/27/24 13:00 10/31/24 19:00 Saccharomyces Boulardii 250 Mg Capsule PO 250 mg TID GAURAV Administration Fluticasone/Salmeterol 2 puff 10/27/24 20:00 11/01/24 07:00 Fluticasone/Salmeterol 45-21 Mcg Inhaler 1 Puff INHALATION 2 puff Q12HRT GAURAV Administration Senna/Docusate Sodium 1 tab 10/27/24 10:26 Senna/Docusate Sodium Tablet PO BID PRN Constipation Tamsulosin HCl 0.4 mg 10/27/24 10:50 10/31/24 09:26 Tamsulosin Hcl 0.4 Mg Capsule PO 0.4 mg QAM GAURAV Administration Radiology Results: ITS Impressions Head CT 10/26/24 13:00 IMPRESSION: 1. 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 No acute intracranial process. 2. Age-related changes including moderate diffuse volume loss and moderate scattered white matter hypoattenuation consistent with chronic small vessel ischemic disease. Chest/Abdomen/Pelvis CTA 10/26/24 14:34 IMPRESSION: 1. Dependent and lower lung predominant diffuse bilateral lung disease with dense consolidation in the right middle lobe and lingula which could represent pneumonia, moderate to severe pulmonary edema or combination thereof. 2. Small right pleural effusion. 3. Moderate cardiomegaly with enlargement of the central pulmonary arteries consistent with pulmonary arterial hypertension. 4. The latter gallbladder without wall thickening or pericholecystic inflammatory stranding to suggest acute cholecystitis. 5. Mild to moderate diverticulosis. Chest CTA 10/28/24 15:40 IMPRESSION: No pulmonary embolus. No aortic dissection or aneurysmal dilatation. Findings suggesting pulmonary hypertension. Consolidation within the right middle lobe, right lower lobe, and left lower lobe demonstrating progression from previous examination performed 48 hours earlier. Trace bilateral pleural effusions. Gallbladder distention and periportal edema. Modified Barium Swallow 10/29/24 10:38 IMPRESSION: 1. Aspiration. 2. Please refer to the speech therapy report for recommendations. Chest X-Ray 10/29/24 12:18 IMPRESSION: Bilateral basal pneumonia unchanged from previous termination. Underlying pulmonary edema is not excluded. Labs Labs: Laboratory Results - last 24 hr 10/31/24 11/01/24 17:24 06:29 WBC 11.5 H RBC 3.31 L Hgb 10.2 L Hct 32.5 L MCV 98.2 MCH 30.8 MCHC 31.4 L RDW 16.9 H Plt Count 222 MPV 10.6 H Sodium 147 H 141 Potassium 3.3 L 3.4 Chloride 112 H 110 H Carbon Dioxide 33 H 32 H Anion Gap 2 L -1 L BUN 38 H 36 H Creatinine 0.99 0.94 Estim Creat Clear Calc 46 48 Estimated GFR > 60 > 60 Glucose 124 H 117 H Calcium 7.7 L 7.7 L Magnesium 2.2 Total Bilirubin 1.2 AST 339 H ALT 543 H Alkaline Phosphatase 111 Total Protein 5.0 L Albumin 2.3 L
[2024-11-01] MEDS: ASPIRIN 81 MG ENTERIC TABLET PO (08:57)
[2024-11-01] MEDS: PANTOPRAZOLE 40 MG TABLET PO (08:57)
[2024-11-01] MEDS: SACCHAROMYCES BOULARDII 250 MG CAPSULE PO ×3 (08:58→18:11)
[2024-11-01] MEDS: AMOXICILLIN/CLAVULANATE K 875-125 MG TAB 1 TABLET PO ×2 (08:58→20:39)
[2024-11-01] MEDS: MONTELUKAST SODIUM 10 MG TABLET PO (08:58)
[2024-11-01] MEDS: DONEPEZIL HCL 10 MG TABLET PO (08:58)
[2024-11-01] MEDS: MEMANTINE 10 MG TABLET PO ×2 (08:58→20:38)
[2024-11-01] MEDS: lisinopriL 20 MG TABLET PO (08:58)
[2024-11-01] MEDS: CARBIDOPA/LEVODOPA 25/100 MG CR TABLET 2 TABLET PO ×2 (08:58→18:11)
[2024-11-01] MEDS: APIXABAN 5 MG TABLET BY MOUTH ×2 (08:58→20:38)
[2024-11-01] MEDS: FLUoxetine HCL 20 MG CAPSULE PO (08:58)
[2024-11-01] MEDS: TAMSULOSIN HCL 0.4 MG CAPSULE PO (08:58)
[2024-11-01] MEDS: METOPROLOL TARTRATE 25 MG TABLET PO ×2 (08:59→20:39)
[2024-11-01] MEDS: CALCIUM/VITAMIN D 250 MG/3.125 MCG (125 I.U.) TABLET 1 TABLET PO (13:49)
[2024-11-01] MEDS: THERAPEUTIC MULTIVITAMINS/MINERALS TAB (*BKC) 1 TABLET PO (13:50)
[2024-11-01] MEDS: ATORVASTATIN 40 MG TABLET PO (18:11)
[2024-11-02] VITALS (7 sets, daily range): BP systolic 148–160; BP diastolic 49–92; PULSE 48–62; RESP 16–20; TEMP 36.3–36.6; O2SAT 92–97
[2024-11-02] MEDS: dilTIAZem HCL 60 MG TABLET PO ×3 (06:01→17:12)
[2024-11-02 06:44] LABS: Basophils Percent Auto 0.1 % (0.2-1.2); Eosinophils Absolute Auto 0.1 K/mm3 (0-0.3); Eosinophils Percent Auto 0.8 % (0-4.4); Hematocrit 32.6 % (42.0-52.0); Hemoglobin 10.3 g/dL (14.0-18.0); Immature Granulocyte Absolute 0.12 K/mm3 (0.00-0.031); Immature Granulocyte Percent A 1.2 % (0-0.5); Lymphocytes Absolute Auto 0.89 K/mm3 (0.9-3.2); Lymphocytes Percent Auto 8.8 % (18.3-44.2); Mean Corpuscular HGB Conc 31.6 g/dl (32-36); Mean Corpuscular Hemoglobin 30.9 pg (26-34); Mean Corpuscular Volume 97.9 fl (80-100); Mean Platelet Volume 10.8 fl (7.4-10.4); Monocytes Absolute Auto 0.4 K/mm3 (0.1-0.6); Monocytes Percent Auto 3.8 % (2.6-8.5); Neutrophils Absolute Auto 8.7 K/mm3 (1.3-6.7); Neutrophils Percent Auto 85.3 % (45.5-73.1); Platelet Count Result 242 k/mm3 (150-375); Red Blood Count 3.33 M/mm3 (4.6-6.20); Red Cell Distribution Width 16.6 % (11.5-14.5); White Blood Count 10.1 K/mm3 (4.5-10.0)
[2024-11-02 07:01] LABS: Alanine Aminotransferase 438 U/L (6-50); Albumin Level 2.3 g/dL (3.5-5.1); Alkaline Phosphatase 117 U/L (38-126); Anion Gap 2 mmol/L (4-12); Aspartate Amino Transferase 288 U/L (17-59); Bilirubin,Total 1.3 mg/dL (0.2-1.3); Blood Urea Nitrogen 38 mg/dL (9-20); Calcium 7.7 mg/dL (8.4-10.2); Carbon Dioxide 32 mmol/L (22-30); Chloride 108 mmol/L (98-107); Estimated CRCL calculation 49 ml/min; Estimated Glomerular Filt Rate > 60; Glucose 102 mg/dL (65-110); Magnesium 2.2 mg/dL (1.6-2.3); Potassium 3.5 mmol/L (3.4-5.0); Sodium 142 mmol/L (137-145)
[2024-11-02] MEDS: FLUTICASONE/SALMETEROL 45-21 MCG INHALER 1 PUFF 2 PUFF INHALATION (07:51)
[2024-11-02] MEDS: DONEPEZIL HCL 10 MG TABLET PO (08:46)
[2024-11-02] MEDS: MEMANTINE 10 MG TABLET PO (08:46)
[2024-11-02] MEDS: SACCHAROMYCES BOULARDII 250 MG CAPSULE PO ×2 (08:46→17:12)
[2024-11-02] MEDS: lisinopriL 20 MG TABLET PO (08:47)
[2024-11-02] MEDS: FLUoxetine HCL 20 MG CAPSULE PO (08:47)
[2024-11-02] MEDS: AMOXICILLIN/CLAVULANATE K 875-125 MG TAB 1 TABLET PO (08:47)
[2024-11-02] MEDS: TAMSULOSIN HCL 0.4 MG CAPSULE PO (08:47)
[2024-11-02] MEDS: PANTOPRAZOLE 40 MG TABLET PO (08:47)
[2024-11-02] MEDS: APIXABAN 5 MG TABLET BY MOUTH (08:47)
[2024-11-02] MEDS: ASPIRIN 81 MG ENTERIC TABLET PO (08:48)
[2024-11-02] MEDS: CARBIDOPA/LEVODOPA 25/100 MG CR TABLET 2 TABLET PO ×2 (08:48→17:12)
[2024-11-02] MEDS: MONTELUKAST SODIUM 10 MG TABLET PO (08:48)
[2024-11-02] MEDS: METOPROLOL TARTRATE 25 MG TABLET PO (09:03)
[2024-11-02] MEDS: THERAPEUTIC MULTIVITAMINS/MINERALS TAB (*BKC) 1 TABLET PO (11:29)
[2024-11-02] MEDS: CALCIUM/VITAMIN D 250 MG/3.125 MCG (125 I.U.) TABLET 1 TABLET PO (11:30)
--- NOTE | 2024-11-02 11:50 | PCOTNOTE ---
Attempted to see Patient this A.M. for OT treatment session. Patient refused stating, to tired, not now . Patient's present and attempted to encourage Patient as well. Patient verbalized maybe this afternoon.
--- NOTE | 2024-11-02 13:18 | P.DS_ITS ---
DS: Admitting Diagnosis Discharge Date 11/02/2024 Admitting Diagnosis Shortness of breath DS: Discharge Diagnosis Discharge Diagnosis (1) Sepsis: Code(s): A41.9 - Sepsis, unspecified organism Status: Acute (2) Acute respiratory failure with hypoxia: Code(s): J96.01 - Acute respiratory failure with hypoxia Status: Acute (3) Pneumonia: Code(s): J18.9 - Pneumonia, unspecified organism Status: Acute (4) Elevated troponin: Code(s): R79.89 - Other specified abnormal findings of blood chemistry Status: Acute (5) Acute on chronic renal failure: Code(s): N17.9 - Acute kidney failure, unspecified; N18.9 - Chronic kidney disease, unspecified Status: Acute (6) Parkinson disease: Code(s): G20.A1 - Parkinson's disease without dyskinesia, without mention of fluctuations Status: Acute (7) Transaminitis: Code(s): R74.01 - Elevation of levels of liver transaminase levels Status: Acute (8) Coronary artery disease: Code(s): I25.10 - Atherosclerotic heart disease of [place] coronary artery without angina pectoris Status: Acute (9) Paroxysmal atrial flutter: Code(s): I48.92 - Unspecified atrial flutter Status: Acute (10) Unresponsive episode: Code(s): R40.4 - Transient alteration of awareness Status: Acute (11) Hypernatremia: Code(s): E87.0 - Hyperosmolality and hypernatremia Status: Acute DS: Summary Hospital Course Hospital Course: # Sepsis: Sepsis present on admission likely secondary to pneumonia. WBC trending down. No fevers BCx NGTD # Acute respiratory failure with hypoxia: Patient required 4L in admission but had improvement and was able to be weaned. He was found to be on 10L during the hospital stay likely related to fluid overload. Lasix IV given with excellent response. Wean O2 as tolerated. Still requiring some oxygen much improved. Wean as tolerated # Pneumonia: Suspect aspiration PNA. Started on vancomycin, rocephin, doxycycline and he was clinically improving. ST felt patient could have Level 6 diet with mildly thickened Level 2 liquids. Diet ordered. MRSA nasal swab negative so Vanco stopped. Changed to oral Doxy. Continue CPT. Change to Augmentin. bronchodilators available prn # Elevated troponin: Likely demand ischemia secondary to sepsis w/o ACS. EKG reviewed. Echo showing EF 64%, elevated RAP,Grade I diastolic dysfxn, RV hypokinetic mid free wall. CTA chest negative for PE Continue ASA, Lipitor and metoprolol # Acute on chronic renal failure: Cr 2 on admission with normal baseline Cr. With IV fluids, Cr has normalized Fluids stopped Follow # Parkinson disease: MBS as above Continue home regimen PT/OT # Transaminitis: Likely secondary to sepsis, hypotension Hepatitis panel negative. CT scan showing dilated GB but no evidence of acute cholecystitis. Liver appears normal LFTs still elevated likely related to fluid overload Follow # Coronary artery disease: No sign of ACS or c/o of angina. Continue home regimen # Paroxysmal atrial flutter: Patient with bradycardia when sleeping. He also chewed his Cardizem CD so this was changed to short acting diltiazem. Will monitor on tele. Apnea link with AHI 2.6 Continue home regimen, including Eliquis # Unresponsive episode: Likely secondary to sepsis, hypotension. Resolved. # Hypernatremia: During hospital stay treated with D5 water enCourage to oral intake # DVT prophylaxis - Eliquis # Code status - unit aid Spent with Patient Time attestation: Total time spent providing and/or coordinating discharge services: 45 minutes Exam Narrative: Gen - NARD Chest -coarse breath sounds bilaterally L>R bibasilar crackles CV - RRR S1/S2. Abd - Soft, NT/ND, Positive BS Ext - No pedal edema Neuro - Alert and able to converse. In good spirits. remains intermittently confused. Skin - Warm and dry DS: Data Data Completed and Pending Completed studies during hospitalization: Exam Type: CA echo doppler color flow Study Info Indications - ELEVATED TROPONIN Complete two-dimensional, color flow and Doppler transthoracic echocardiogram is performed with contrast to opacify the left ventricle and to improve the deliniation of the left ventricle endocardial borders. Contrast/Agitated Saline Contrast/Ag. Saline: Definity Amount: 2.00 ml Existing IV Access: Yes Reason for Poor Study: poor echocardiographic windows Summary 1. There is mild tricuspid valve regurgitation. 2. Mild pulmonary hypertension, estimated pulmonary arterial systolic pressure is 63 mmHg. 3. There is mild mitral valve regurgitation. 4. Dilated inferior vena cava with <50% collapse upon inspiration consistent with elevated right atrial pressure, 8 mmHg. 5. Left atrial chamber dimension is enlarged. 6. Right atrial chamber dimension is enlarged. 7. Left ventricular systolic function is normal with an ejection fraction by Biplane Method of Discs of 64 %. 8. There is moderately increased left ventricular wall thickness. 9. The left ventricular diastolic function is grade I diastolic dysfunction. 10. Left ventricular chamber dimension is normal. 11. Left ventricular septal wall motion is normal. 12. Right ventricular chamber dimension is enlarged. 13. Right ventricular systolic function shows hypokinetic mid free wall, apex moves well. Recommendations * Consider CTPE to r/o pulmonary embolism. Left Ventricle Left ventricular chamber dimension is normal. Left ventricular systolic function is normal with an ejection fraction by Biplane Method of Discs of 64 %. There is moderately increased left ventricular wall thickness. Left ventricular septal wall motion is normal. The left ventricular diastolic function is grade I diastolic dysfunction. Right Ventricle Right ventricular chamber dimension is enlarged. Right ventricular systolic function shows hypokinetic mid free wall, apex moves well. Left Atria Left atrial chamber dimension is enlarged. Right Atria Right atrial chamber dimension is enlarged. Aortic Valve The aortic valve is trileaflet. There is no aortic valve sclerosis. There is no aortic valve stenosis. There is no aortic valve regurgitation. Pulmonic Valve The pulmonic valve is normal. There is no pulmonic valve stenosis. There is no pulmonic regurgitation. Mitral Valve The mitral valve has normal leaflets. There is no mitral valve stenosis. There is mild mitral valve regurgitation. Tricuspid Valve The tricuspid valve leaflets are normal. There is no significant tricuspid valve stenosis. There is mild tricuspid valve regurgitation. Mild pulmonary hypertension, estimated pulmonary arterial systolic pressure is 63 mmHg. Pericardium/Pleural The pericardium appears normal. There is no pericardial effusion. Inferior Vena Cava Dilated inferior vena cava with <50% collapse upon inspiration consistent with elevated right atrial pressure, 8 mmHg. Aorta The aortic root size at the sinus of Valsalva is normal. The prox ascending aorta size is normal. Labs on day of discharge: Labs from last 24 hours 11/02/24 05:59 WBC 10.1 H RBC 3.33 L Hgb 10.3 L Hct 32.6 L MCV 97.9 MCH 30.9 MCHC 31.6 L RDW 16.6 H Plt Count 242 MPV 10.8 H Immature Gran % (Auto) 1.2 H Neut % (Auto) 85.3 H Lymph % (Auto) 8.8 L [place] % (Auto) 3.8 Eos % (Auto) 0.8 Baso % (Auto) 0.1 L Lymph # (Auto) 0.89 L [place] # (Auto) 0.4 Eos # (Auto) 0.1 Baso # (Auto) 0.0 Abs Immat Gran (auto) 0.12 H Absolute Neuts (auto) 8.7 H Absolute Nucleated RBC 0.000 Nucleated RBC % 0.0 Sodium 142 Potassium 3.5 Chloride 108 H Carbon Dioxide 32 H Anion Gap 2 L BUN 38 H Creatinine 0.92 Estim Creat Clear Calc 49 Estimated GFR > 60 Glucose 102 Calcium 7.7 L Magnesium 2.2 Total Bilirubin 1.3 AST 288 H ALT 438 H Alkaline Phosphatase 117 Total Protein 5.0 L Albumin 2.3 L Imaging Radiologist's impression: ITS Impressions Chest X-Ray 10/26/24 13:00 Impression: Extensive bibasilar consolidation. Correlate for pulmonary edema versus bibasilar pneumonia. Head CT 10/26/24 13:00 IMPRESSION: 1. 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 No acute intracranial process. 2. Age-related changes including moderate diffuse volume loss and moderate scattered white matter hypoattenuation consistent with chronic small vessel ischemic disease. Chest/Abdomen/Pelvis CTA 10/26/24 14:34 IMPRESSION: 1. Dependent and lower lung predominant diffuse bilateral lung disease with dense consolidation in the right middle lobe and lingula which could represent pneumonia, moderate to severe pulmonary edema or combination thereof. 2. Small right pleural effusion. 3. Moderate cardiomegaly with enlargement of the central pulmonary arteries consistent with pulmonary arterial hypertension. 4. The latter gallbladder without wall thickening or pericholecystic inflammatory stranding to suggest acute cholecystitis. 5. Mild to moderate diverticulosis. Chest CTA 10/28/24 15:40 IMPRESSION: No pulmonary embolus. No aortic dissection or aneurysmal dilatation. Findings suggesting pulmonary hypertension. Consolidation within the right middle lobe, right lower lobe, and left lower lobe demonstrating progression from previous examination performed 48 hours earlier. Trace bilateral pleural effusions. Gallbladder distention and periportal edema. Modified Barium Swallow 10/29/24 10:38 IMPRESSION: 1. Aspiration. 2. Please refer to the speech therapy report for recommendations. Chest X-Ray 10/29/24 12:18 IMPRESSION: Bilateral basal pneumonia unchanged from previous termination. Underlying pulmonary edema is not excluded. Discharge Plan Discharge Attending physician on discharge: Tim Mccarty Consulting providers: Erasto Mon Discharging Clinician: Tim Mccarty Anticipated Discharge Date/Time: 11/02/24 13:23 Patient Disposition: Hospital Swing Bed Activity: as tolerated Diet: other - see discharge instructions Discharge Instructions: Heart healthy diet. Pureed level 4 diet with thickened liquids Patient Instructions: Antibiotic Form, Apixaban (By mouth), Heart Failure (DC), Pérez Catheter Placement and Care (DC), Pneumonia (DC) Patient Language: Citizen Of [place] Stand Alone Forms: General Discharge Information Follow-up/Referrals: Armando Meade MD [Physician] - 2 Weeks Medrano,MD Rigo [Primary Care Provider] - 1 Week Discharge Medications: New lisinopril 20 mg Tablet 20 mg PO QAM Qty: 30 0RF Continued Saccharomyces boulardii [Florastor] 250 mg Capsule 250 mg PO TID Qty: 90 0RF tamsulosin 0.4 mg Capsule 0.4 mg PO QAM Qty: 30 0RF [place] Ultra Strength 4-30-10 % Cream 1 applic topical BID PRN (Reason: Muscle/Joint Pain) Qty: 113 0RF atorvastatin 40 mg tablet 40 mg PO QPM donepezil 10 mg tablet 10 mg PO DAILY carbidopa-levodopa 50-200 mg tablet extended release 1 tablet PO BID montelukast 10 mg tablet 10 mg PO DAILY aspirin 81 mg Tablet 81 mg PO DAILY Patient Comments: currently on hold until provider reorders fluoxetine 20 mg capsule 20 mg PO DAILY coenzyme [id number] 100-100 mg-unit Capsule 2 cap PO DAILY budesonide-formoterol [Symbicort] 80-4.5 mcg/actuation Hfa Aerosol Inhaler 1 puff INHALATION Q12H PRN (Reason: Shortness Of Breath Or Wheezing) kilwpgyj-eum-bqso-vitamin K 18 mg iron-25 mcg Tablet 1 tablet PO DAILY Alive Calcium-Vitamin D3 260 mg calcium- 25 mcg-50 mg Tablet,Chewable 1 tablet PO DAILY acetaminophen 325 mg Tablet 650 mg PO Q6H PRN (Reason: Mild Pain (1-5) Or Fever) Qty: 30 0RF Eliquis 5 mg Tablet 5 mg PO Q12HR Qty: 60 0RF pantoprazole 40 mg Tablet,Delayed Release (Dr/Ec) 40 mg PO QAM Qty: 30 0RF metoprolol tartrate 25 mg Tablet 25 mg PO Q12HR Qty: 60 0RF sennosides-docusate sodium [Senokot-S] 8.6-50 mg Tablet 1 tab-cap PO BID PRN (Reason: Constipation) Qty: 10 0RF diltiazem HCl 240 mg Capsule,Ext.Rel 24h Degradable 240 mg PO QAM Qty: 30 0RF memantine 10 mg tablet 10 mg PO Q12H Qty: 60 0RF Date of admission: 10/26/24 15:55 Primary Care Provider: MarcelaRigo Admitting Provider: Ritchie Frey Attending physician on admission: Ritchie Frey Condition: Serious
[2024-11-02] MEDS: ATORVASTATIN 40 MG TABLET PO (17:12)
[2024-11-03 19:08] LABS: Mycoplasma IgM Antibody Titer 22 U/mL
== END 2024-11-02 17:52 | disposition swing bed (61) | DRG 871 ==
LOC: ANHED 10:39 → ANHIMU 18:11 → ANH3MEDSUR 11-01 08:16 → ANHIMU 11-05 09:01
PROVIDERS: Internal Medicine; Physician Assistant; Admitting Provider Internal Medicine; Emergency Provider Student in an Organized Health Care Education/Training Program; PCP Family Medicine; Visit Provider Internal Medicine
DX: A41.9 Sepsis, unspecified organism (principal); J69.0 Pneumonitis due to inhalation of food and vomit; J96.01 Acute respiratory failure with hypoxia; I24.89 Other forms of acute ischemic heart disease; N17.9 Acute kidney failure, unspecified; E44.0 Moderate protein-calorie malnutrition; I48.92 Unspecified atrial flutter; E87.0 Hyperosmolality and hypernatremia; I51.89 Other ill-defined heart diseases; R74.01 Elevation of levels of liver transaminase levels; G20.A1 Parkinson's disease without dyskinesia, without mention of fluctuations; I25.10 Atherosclerotic heart disease of native coronary artery without angina pectoris; N18.30 Chronic kidney disease, stage 3 unspecified; E87.70 Fluid overload, unspecified; I12.9 Hypertensive chronic kidney disease with stage 1 through stage 4 chronic kidney disease, or unspecified chronic kidney disease; I27.20 Pulmonary hypertension, unspecified; C61 Malignant neoplasm of prostate; Z79.01 Long term (current) use of anticoagulants; Z68.23 Body mass index [BMI] 23.0-23.9, adult; Z86.73 Personal history of transient ischemic attack (TIA), and cerebral infarction without residual deficits
CPT/HCPCS: 36415; 36600; 70450; 71045; 71046; 71275; 74174; 80048; 80053; 80074; 80143; 80179; 80202; 80307; 81001; 82077; 82140; 82550; 82805; 82948; 83605; 83735; 83880; 84100; 84439; 84443; 84480; 84484; 85018; 85025; 85027; 85380; 85610; 85730; 86738; 87040; 87449; 87637; 87641; 87899; 92523; 92526; 92611; 93005; 94640; 94762; 96361; 96365; 97110; 97161; 97165; 97530; 97535; 99285; A9270; C8929; J0692; J0696; J1940; J3370; J3475; J7030; J7042; J7070; J7120; Q9957; Q9967

== ENCOUNTER 2024-11-02 18:27 | Inpatient (IN) | payer MEDICARE, OTHER, SELFPAY ==
--- NOTE | ~2024-11-02 | US_ITS ---
EXAMINATION: US abdomen limited DATE: 11/08/2024 11:18 INDICATION: Transaminitis, gallbladder distention and midsternal chest pain TECHNIQUE: Multiple grayscale and Doppler ultrasound images of the abdomen were obtained. COMPARISON: CT dated 10/26/2024 FINDINGS: The pancreatic head and body are normal in appearance. The pancreatic tail is not visualized. Liver has normal echogenicity and contour, with a smooth surface. No liver lesion identified. No intrahepat ic biliary duct dilation suspected. Portal venous flow was seen in the hepatopetal, normal direction and has normal Doppler waveform. The visualized proximal inferior vena cava is normal. The gallbladde r and measures 11.0 x 4.7 cm and is normal in appearance with no abnormal wall thickening. There is no cholelithiasis. The common bile duct measures 7 mm, which is within normal limits for age. Sonogra phic Gale sign was reported as negative by the utility worker. IMPRESSION: 1. Unremarkable for age right upper quadrant ultrasound. Reviewed, dictated and finalized at location B. CIATE ACCOUNTANT
--- NOTE | ~2024-11-02 | XR_ITS ---
Clinical Indication: Decreased lung sounds PA and lateral views of the chest: Comparison: 11/08/2024 Findings: There is worsening diffuse bilateral pulmonary consolidation. There are small bilateral ple ural effusions.. Cardiomediastinal silhouette is within normal limits. Bones and soft tissues are un remarkable. Impression: Worsening diffuse bilateral pulmonary consolidation, compatible with severe pulmonary edema, or possi shailesh ARDS. Small bilateral pleural effusions. Stable cardiomegaly. Reviewed, dictated and finalized at location . FOUNTAIN OPERATOR Impression: Worsening diffuse bilateral pulmonary consolidation, compatible with severe pul monary edema, or possibly ARDS. Small bilateral pleural effusions. Stable cardiomegaly.
--- NOTE | ~2024-11-02 | XR_ITS ---
XR chest 1V portable Ordering provider: Niecy Vega APRN History: 89 years Male with . Pneumonia,RT SIDE CP,SOB . Comparison: November 05, 2023 FINDINGS: MEDIASTINUM: The cardiac silhouette is slightly enlarged. Congestive jeremy. LUNGS: No pneumothorax. Bibasilar opacification. Right pleural effusion. OTHER: No free air under the diaphragm. IMPRESSION: Bibasilar opacification suggestive of atelectasis versus pneumonia. Minimal right pleural effusion. Underlying cardiomegaly with cardiac decompensation and pulmonary edema. Reviewed, dictated and finalized at location A. FEEDER IMPRESSION: Bibasilar opacification suggestive of atelectasis versus pneumonia. Minimal rig ht pleural effusion. Underlying cardiomegaly with cardiac decompensation and pulmonary edema.
--- NOTE | ~2024-11-02 | XR_ITS ---
EXAMINATION: XR chest 1V portable DATE: 11/05/2024 10:12 INDICATION: Cough. TECHNIQUE: A single frontal view of the chest was obtained. COMPARISON: Chest single view 10/29/2024, chest CT 10/28/2024 FINDINGS: There are airspace opacities in right mid and lower lung zones and left lower lung zone. Th ere is a small right pleural effusion. No pneumothorax. Cardiomegaly is noted. IMPRESSION: 1. Airspace opacities in right mid and lower lung zones and left lower lung zone with improvement on the left, consistent with pneumonia. 2. Worsened small right pleural effusion. 3. Cardiomegaly. Reviewed, dictated and finalized at location A. ARE DIRECTOR IMPRESSION: 1. Airspace opacities in right mid and lower lung zones and left lower lung zon e with improvement on the left, consistent with pneumonia. 2. Worsened small right pleural effusion. 3. Cardiomegaly.
[2024-11-02 19:30] VITALS: O2SAT 90
[2024-11-02 19:34] VITALS: BMI 22.7
--- NOTE | 2024-11-02 19:34 | ADMGEN ---
This patient, Felipe Haddad, was admitted to 2nd Floor Room 208-1. Patient/family oriented to hospital policies and general routines including ID bracelet, bed and alarms, visiting hours, pain management, procedures, bathroom and other care routines, personal items, smoking policy, room service/diet, and visiting hours. Information on how to activate the Rapid Response Team has been discussed. Patient/Family are encouraged to report perceived risks to care and to ask questions if they do not understand what they are told or what they should do.
[2024-11-02 20:00] VITALS: O2SAT 90
[2024-11-02] MEDS: APIXABAN 2.5 MG TABLET 5 MG PO (21:51)
[2024-11-02] MEDS: MEMANTINE 5 MG TABLET 10 MG PO (21:51)
[2024-11-02 21:52] VITALS: PULSE 60
[2024-11-02] MEDS: METOPROLOL TARTRATE 25 MG TABLET PO (21:52)
[2024-11-02] MEDS: QUEtiapine FUMARATE 25 MG TABLET PO (22:29)
[2024-11-02] MEDS: CARBIDOPA/LEVODOPA 25/100 MG CR TABLET 2 TABLET PO (22:29)
[2024-11-03] VITALS: BP 158/43; PULSE 60; RESP 18; TEMP 36.6; O2SAT 92
[2024-11-03 05:30] VITALS: O2SAT 91
[2024-11-03] MEDS: SALMET XINAFT/FLUTIC PROPIN 100 MCG/50 MCG INH CAP 1 PUFF INHALATION ×2 (06:25→19:00)
--- NOTE | 2024-11-03 07:47 | P.HP_ITS ---
H&P: HPI History of Present Illness Date/Time: 11/03/24 07:47 Chief Complaint: Rehab Narrative: This is an 89 year old male with a significant past medical history of asthma, chronic kidney disease stage 3, paroxysmal atrial flutter, CVA, dementia, prostate cancer, hyperlipidemia, hypertension, coronary artery disease, Parkinson's disease who presented to [facility] program after hospitalization for sepsis with pneumonia and transaminitis at [facility]. He finished his antibiotics while inpatient at [facility]. He worked with PT and OT who recommended swing bed for additional rehab needs due to weakness from his illness. He is currently on 2 L nasal cannula which is his baseline, vital signs are stable, he is afebrile. He is sleepy on exam today and minimally interactive. and son are at the bedside. He was reported to have some agitation last night and Seroquel was given. He did not sleep well according to nursing. Review of Systems Review of Systems: All systems reviewed & are unremarkable except as noted in HPI and below Constitutional: Constitutional: Reports as per HPI and Reports no additional constitutional complaints Eyes: Eyes: Reports as per HPI and Reports no additional eye complaints ENT: Reports system reviewed and no additional complaints, except as documented and Reports as per HPI Cardiovascular: Cardiovascular: Reports as per HPI and Reports no additional cardiovascular complaints Respiratory: Respiratory: Reports as per HPI and Reports no additional respiratory complaints Gastrointestinal: Gastrointestinal: Reports as per HPI and Reports no additional gastrointestinal complaints Genitourinary: Genitourinary: Reports no additional male genitourinary complaints and Reports as per HPI Musculoskeletal: Musculoskeletal: Reports no additional musculoskeletal complaints and Reports as per HPI Integumentary/Breasts: Skin/Breast: Reports system reviewed and no additional complaints, except as docu and Reports as per HPI Neurologic: Reports system reviewed and no additional complaints, except as documented and Reports as per HPI Psychiatric: Psychiatric: Reports no additional psychiatric complaints and Reports as per HPI [facility] Past Medical History Medical History Asthma Chronic kidney disease, stage 3 Paroxysmal atrial flutter Diastolic dysfunction Kidney stones Cerebrovascular accident Dementia Prostate cancer Hyperlipidemia Hypertension Coronary artery disease Parkinson disease Surgical History Surgical History History of bilateral cataract extraction History of arthroplasty of left knee Family History Family History Mother Non-Hodgkin lymphoma Asthma Son History of blood clots Aneurysm Daughter Hypertension Sibling Prostate carcinoma Lymph node cancer Heart problem Father Old age Son Hypertension Asthma Sibling Social History Social History Social History: Surrogate medical decision maker: Nataliebaldemar Haddad, spouse. Code status: Full code. Smoking status: Never smoker Second hand tobacco smoke exposure: No Alcohol intake: never Substance use: never Substance use type: does not use Do You Feel Safe in your Home?: Yes Lack of Transportation: No Lack of Food: Never True Current Housing: I Have Housing Concerned About Future Housing: No Difficulty Paying Gas/Electric Bills: No Difficulty Paying for Meds: No Currently Unemployed: No Education: High School Diploma/GED Difficulty w/ Childcare or Family Care: No Spiritual care concerns: Yes (Episcopal) Meds Home Medications and Allergies Home Medications ?Medication ?Instructions ?Recorded ?Confirmed ?Type aspirin 81 mg tablet 81 mg PO DAILY 03/08/24 11/02/24 History atorvastatin 40 mg tablet 40 mg PO QPM 03/08/24 11/02/24 History budesonide-formoterol HFA 80 1 puff inhalation Q12H PRN 03/08/24 11/02/24 History mcg-4.5 mcg/actuation aerosol Shortness Of Breath Or Wheezing inhaler (Symbicort) calcium 260 mg (phos,tribasic)-D3 1 tablet PO DAILY 03/08/24 11/02/24 History 25 mcg-herbal 50 mg chewable tablet (Alive Calcium-Vitamin D3) carbidopa ER 50 mg-levodopa 200 mg 1 tablet PO BID 03/08/24 11/02/24 History tablet,extended release coenzyme G29-pbmbsol E 100 mg-100 2 cap PO DAILY 03/08/24 11/02/24 History unit capsule donepezil 10 mg tablet 10 mg PO DAILY 03/08/24 11/02/24 History fluoxetine 20 mg capsule 20 mg PO DAILY 03/08/24 11/02/24 History montelukast 10 mg tablet 10 mg PO DAILY 03/08/24 11/02/24 History multivitamin p-shqcybwr-hgxccfd 1 tablet PO DAILY 03/08/24 11/02/24 History fumarate 18 mg-vitamin K 25 mcg tablet acetaminophen 325 mg tablet 650 mg (2 x 325 mg) PO Q6H PRN 03/18/24 11/02/24 Rx Mild Pain (1-5) Or Fever #30 tabs apixaban 5 mg tablet (Eliquis) 5 mg PO Q12HR #60 tabs 03/18/24 11/02/24 Rx diltiazem HCl 240 mg 240 mg PO QAM #30 caps 03/18/24 11/02/24 Rx capsule,extended release 24 hr, controlled memantine 10 mg tablet 10 mg PO Q12H #60 tabs 03/18/24 11/02/24 Rx metoprolol tartrate 25 mg tablet 25 mg PO Q12HR #60 tabs 03/18/24 11/02/24 Rx pantoprazole 40 mg tablet,delayed 40 mg PO QAM #30 tabs 03/18/24 11/02/24 Rx release sennosides 8.6 mg-docusate sodium 1 tab-cap PO BID PRN Constipation 03/18/24 11/02/24 Rx 50 mg tablet (Senokot-S) #10 tabs Saccharomyces boulardii 250 mg 250 mg PO TID #90 caps 04/06/24 11/02/24 Rx capsule (Florastor) camphor 4 %-methyl salicylate 30 1 applic topical BID PRN 04/06/24 11/02/24 Rx %-menthol 10 % topical cream Muscle/Joint Pain #113 grams (Bengay Ultra Strength) tamsulosin 0.4 mg capsule 0.4 mg PO QAM #30 caps 04/06/24 11/02/24 Rx lisinopril 20 mg tablet 20 mg PO QAM #30 tabs 11/02/24 11/02/24 Rx Allergies Allergy/AdvReac Type Severity Reaction Status Date / Time No Known Allergies Allergy Verified 10/27/24 01:15 Vital Signs Vital Signs - 24 hr 11/02/24 20:00 11/02/24 21:52 11/03/24 00:00 Temperature 97.8 F Pulse Rate 60 60 Respiratory Rate 18 Blood Pressure 158/43 H Pulse Oximetry 90 92 Oxygen Delivery Nasal Cannula Nasal Cannula Oxygen Flow Rate 3 2 Exam Narrative: General: In no acute distress, well nourished Head: atraumatic, no encephalopathy Eyes: PERRLA, sclera clear ENT: excessively dry mucous membranes, nasal passages clear Neck: supple, no JVD, no adenopathy, trachea midline Cardiac: Normal S1 and S2. No murmur, gallops or friction rubs, peripheral pulses intact. Respiratory: Lungs clear to auscultation, no adventitious lung sounds, currently on 2L NC Gastrointestinal: soft, non-distended, non tender, normoactive bowel sounds. : voiding without difficulty. Extremities: moves all extremities well, no edema Skin: clean, dry, intact. No wounds or lesions. Neuro: Alert to voice Psych: minimally interactive today, unable to assess fully Assessment and Plan Assessment and plan (1) Physical deconditioning: Code(s): R53.81 - Other malaise Status: Acute Assessment and Plan: * here at [facility] for rehab after hospitalization for sepsis with pneumonia * continue PT and OT * Case coordination following * continue fall precautions (2) Hypertension: Code(s): I10 - Essential (primary) hypertension Status: Acute Assessment and Plan: * blood pressures ranging 148/56 to 158/43 * continue lisinopril (3) Paroxysmal atrial flutter: Code(s): I48.92 - Unspecified atrial flutter Status: Acute Assessment and Plan: * continue Eliquis and metoprolol (4) Chronic kidney disease, stage 3: Code(s): N18.30 - Chronic kidney disease, stage 3 unspecified Status: Acute Assessment and Plan: * labs from yesterday shown creatinine of 0.92, EGFR 60 which is his baseline (5) Parkinsons disease: Code(s): G20.A1 - Parkinson's disease without dyskinesia, without mention of fluctuations Status: Acute Assessment and Plan: * continue Namenda and carbidopa/levodopa * Seroquel was given last night and today he is too sleepy. Wakes to voice but drifts back to sleep. * Will give Seroquel at 1700 tonight for agitation. (6) Coronary artery disease: Code(s): I25.10 - Atherosclerotic heart disease of [place] coronary artery without angina pectoris Status: Acute Assessment and Plan: * continue aspirin and Lipitor Quality VTE Prophylaxis VTE prophylaxis: pharmacologic ordered Hospitalist MIPS Advance Care Plan I have confirmed that the patient's Advanced Care Plan is present, code status is documented, or surrogate decision maker is listed in patient medical record.: Yes Medication Reconciliation I have utilized all available resources to obtain, update and review the patients current medications (includes all prescriptions, OTC, herbals, cannabis, and nutritional supplements).: Yes
[2024-11-03 08:00] VITALS: BP 175/75; PULSE 69; RESP 14; RESP 16; TEMP 36.8; O2SAT 90
[2024-11-03] MEDS: lisinopriL 20 MG TABLET PO (11:40)
[2024-11-03] MEDS: CARBIDOPA/LEVODOPA 25/100 MG CR TABLET 2 TABLET PO ×2 (11:40→18:09)
[2024-11-03 11:41] VITALS: PULSE 68
[2024-11-03] MEDS: METOPROLOL TARTRATE 25 MG TABLET PO ×2 (11:41→21:16)
[2024-11-03] MEDS: DONEPEZIL HCL 5 MG TABLET 10 MG PO (11:41)
[2024-11-03] MEDS: dilTIAZem HCL CD 240 MG CAP.24HR PO (11:42)
[2024-11-03] MEDS: MONTELUKAST SODIUM 10 MG TABLET PO (13:27)
[2024-11-03] MEDS: FLUoxetine HCL 20 MG CAPSULE PO (13:27)
[2024-11-03] MEDS: MEMANTINE 5 MG TABLET 10 MG PO ×2 (13:27→21:16)
[2024-11-03] MEDS: APIXABAN 2.5 MG TABLET 5 MG PO ×2 (13:28→21:16)
[2024-11-03] MEDS: PANTOPRAZOLE 40 MG TABLET PO (13:28)
[2024-11-03] MEDS: TAMSULOSIN HCL 0.4 MG CAPSULE PO (13:28)
[2024-11-03] MEDS: SACCHAROMYCES BOULARDII 250 MG CAPSULE PO ×3 (13:28→18:08)
[2024-11-03] MEDS: ASPIRIN 81 MG CHEWABLE TABLET PO (13:28)
[2024-11-03] MEDS: THERAPEUTIC MULTIVITAMINS/MINERALS TAB (*BKC) 1 TABLET PO (13:29)
--- NOTE | 2024-11-03 13:36 | PC.NURSE ---
The pthas been sleeping very deeply this shift.Pt took the last of his AM meds at 1330, crushed in apple sauce. Pt has been taking thickened water a strawful at a time. Does not converse but will open his eyes.
[2024-11-03 15:52] VITALS: BP 166/72; PULSE 62; RESP 17; TEMP 36.6; O2SAT 92
[2024-11-03 21:16] VITALS: PULSE 80
[2024-11-04] VITALS (12 sets, daily range): BP systolic 100–150; BP diastolic 49–74; PULSE 54–71; RESP 16–18; TEMP 36.5–36.8; O2SAT 90–98
[2024-11-04] MEDS: SALMET XINAFT/FLUTIC PROPIN 100 MCG/50 MCG INH CAP 1 PUFF INHALATION ×2 (05:51→17:21)
--- NOTE | 2024-11-04 09:00 | PC.NURSE ---
Pt able to wake enough to take medications and a few sips of liquid, then falls asleep quickly. Unable to attempt any activities at this time. Pt is not able to participate with Physical or occupational therapy for evaluation.
[2024-11-04] MEDS: THERAPEUTIC MULTIVITAMINS/MINERALS TAB (*BKC) 1 TABLET PO (09:19)
[2024-11-04] MEDS: FLUoxetine HCL 20 MG CAPSULE PO (09:19)
[2024-11-04] MEDS: DONEPEZIL HCL 5 MG TABLET 10 MG PO (09:19)
[2024-11-04] MEDS: lisinopriL 20 MG TABLET PO (09:19)
[2024-11-04] MEDS: TAMSULOSIN HCL 0.4 MG CAPSULE PO (09:19)
[2024-11-04] MEDS: ASPIRIN 81 MG CHEWABLE TABLET PO (09:19)
[2024-11-04] MEDS: SACCHAROMYCES BOULARDII 250 MG CAPSULE PO ×2 (09:19→17:19)
[2024-11-04] MEDS: MEMANTINE 5 MG TABLET 10 MG PO ×2 (09:19→21:03)
[2024-11-04] MEDS: MONTELUKAST SODIUM 10 MG TABLET PO (09:19)
[2024-11-04] MEDS: CARBIDOPA/LEVODOPA 25/100 MG CR TABLET 2 TABLET PO ×2 (09:19→17:20)
[2024-11-04] MEDS: dilTIAZem HCL CD 240 MG CAP.24HR PO (09:19)
[2024-11-04] MEDS: PANTOPRAZOLE 40 MG TABLET PO (09:20)
[2024-11-04] MEDS: APIXABAN 2.5 MG TABLET 5 MG PO ×2 (09:20→21:03)
[2024-11-04] MEDS: METOPROLOL TARTRATE 25 MG TABLET PO ×2 (09:20→21:03)
--- NOTE | 2024-11-04 14:03 | PM.IMPN ---
Progress Note: A&P Assessment and Plan (1) Physical deconditioning: Code(s): R53.81 - Other malaise Status: Acute Assessment and Plan: here at [facility] for rehab after hospitalization for sepsis with pneumonia continue PT and OT Case coordination following continue fall precautions (2) Hypertension: Code(s): I10 - Essential (primary) hypertension Status: Acute Assessment and Plan: blood pressures ranging 148/56 to 158/43 continue lisinopril (3) Paroxysmal atrial flutter: Code(s): I48.92 - Unspecified atrial flutter Status: Acute Assessment and Plan: continue Eliquis and metoprolol (4) Chronic kidney disease, stage 3: Code(s): N18.30 - Chronic kidney disease, stage 3 unspecified Status: Acute Assessment and Plan: labs from yesterday shown creatinine of 0.92, EGFR 60 which is his baseline (5) Parkinsons disease: Code(s): G20.A1 - Parkinson's disease without dyskinesia, without mention of fluctuations Status: Acute Assessment and Plan: continue Namenda and carbidopa/levodopa Seroquel was given last night and today he is too sleepy. Wakes to voice but drifts back to sleep. 11/04 Discontinued Seroquel yesterday due to sedative effect. He is more alert and oriented today. (6) Transaminitis: Code(s): R74.01 - Elevation of levels of liver transaminase levels Status: Acute Assessment and Plan: Last set of labs on 11/02/2024 showed AST of 288, ALT 438 will recheck labs today Avoid antipsychotic meds such as Seroquel considering the sedating effect (7) Coronary artery disease: Code(s): I25.10 - Atherosclerotic heart disease of [place] coronary artery without angina pectoris Status: Acute Assessment and Plan: continue aspirin and Lipitor Time Spent With Patient Time with patient: Greater than 35 minutes Subjective Date/time seen: 11/04/24 14:03 Interval history: Interval history: This is an 89 year old male with a significant past medical history of asthma, chronic kidney disease stage 3, paroxysmal atrial flutter, CVA, dementia, prostate cancer, hyperlipidemia, hypertension, coronary artery disease, Parkinson's disease who presented to [facility] program after hospitalization for sepsis with pneumonia and transaminitis at [facility]. He finished his antibiotics while inpatient at [place]. He worked with PT and OT who recommended swing bed for additional rehab needs due to weakness from his illness. He is currently on 2 L nasal cannula which is his baseline, vital signs are stable, he is afebrile. He is sleepy on exam today and minimally interactive. and son are at the bedside. He was reported to have some agitation last night and Seroquel was given. He did not sleep well according to nursing. Subjective: Patient is more alert today than yesterday. He denies any new complaints today. Review of Systems Review of Systems: All systems reviewed & are unremarkable except as noted in HPI and below Constitutional: Constitutional: Reports as per HPI and Reports no additional constitutional complaints Eyes: Eyes: Reports as per HPI and Reports no additional eye complaints ENT: Reports system reviewed and no additional complaints, except as documented and Reports as per HPI Cardiovascular: Cardiovascular: Reports as per HPI and Reports no additional cardiovascular complaints Respiratory: Respiratory: Reports as per HPI and Reports no additional respiratory complaints Gastrointestinal: Gastrointestinal: Reports as per HPI and Reports no additional gastrointestinal complaints Genitourinary: Genitourinary: Reports no additional male genitourinary complaints and Reports as per HPI Musculoskeletal: Musculoskeletal: Reports no additional musculoskeletal complaints and Reports as per HPI Integumentary/Breasts: Skin/Breast: Reports system reviewed and no additional complaints, except as docu and Reports as per HPI Neurologic: Reports system reviewed and no additional complaints, except as documented and Reports as per HPI Psychiatric: Psychiatric: Reports no additional psychiatric complaints and Reports as per HPI Exam Narrative: General: In no acute distress, well nourished Cardiac: Normal S1 and S2 Respiratory: Lungs clear to auscultation, no adventitious lung sounds, currently on 2L NC Gastrointestinal: soft, non-distended, non tender, normoactive bowel sounds. : voiding without difficulty. Neuro: Alert to voice and oriented x3, less sleepy today Objective Data Vital Signs Vital Signs: Vital Signs - 24 hr 11/03/24 15:52 11/03/24 21:16 11/04/24 00:00 Temperature 98 F 97.7 F Pulse Rate 62 80 63 Respiratory Rate 17 16 Blood Pressure 166/72 H 149/65 H Pulse Oximetry 92 95 Oxygen Delivery Nasal Cannula Room Air Oxygen Flow Rate 3 11/04/24 08:00 11/04/24 09:20 Temperature 97.8 F Pulse Rate 54 L 54 L Respiratory Rate 17 Blood Pressure 150/59 H Pulse Oximetry 98 Oxygen Delivery Nasal Cannula Oxygen Flow Rate 3 Intake/Output Intake/Output: Intake & Output 11/01/24 11/02/24 11/03/24 11/04/24 23:59 23:59 23:59 23:59 Intake Total 725 500 Balance 725 500 Meds/Results Medications: Active Medications Generic Name Dose Route Start Last Admin Trade Name Freq PRN Reason Stop Dose Admin Acetaminophen 650 mg 11/02/24 19:35 Acetaminophen 325 Mg Tablet PO Q6H PRN Mild Pain (1-5) Or Fever Apixaban 5 mg 11/02/24 21:00 11/04/24 09:20 Apixaban 2.5 Mg Tablet PO 5 mg Q12HR GAURAV Administration Aspirin 81 mg 11/03/24 09:00 11/04/24 09:19 Aspirin 81 Mg Chewable Tablet PO 81 mg DAILY GAURAV Administration Atorvastatin Calcium 40 mg 11/03/24 18:00 11/03/24 18:09 Atorvastatin 40 Mg Tablet PO Not Given QPM GAURAV Carbidopa/Levodopa 2 tablet 11/02/24 22:15 11/04/24 09:19 Carbidopa/Levodopa 25/100 Mg Cr Tablet PO 2 tablet BID GAURAV Administration Diltiazem HCl 240 mg 11/03/24 09:00 11/04/24 09:19 Diltiazem Hcl Cd 240 Mg Cap.24hr PO 240 mg QAM GAURAV Administration Donepezil HCl 10 mg 11/03/24 09:00 11/04/24 09:19 Donepezil Hcl 5 Mg Tablet PO 10 mg DAILY GAURAV Administration Fluoxetine HCl 20 mg 11/03/24 09:00 11/04/24 09:19 Fluoxetine Hcl 20 Mg Capsule PO 20 mg DAILY GAURAV Administration Hydralazine HCl 10 mg 11/03/24 14:53 Hydralazine Hcl 20 Mg/Ml Vial IV PUSH Q8H PRN Blood Pressure - High Lisinopril 20 mg 11/03/24 09:00 11/04/24 09:19 Lisinopril 20 Mg Tablet PO 20 mg QAM GAURAV Administration Memantine 10 mg 11/02/24 21:00 11/04/24 09:19 Memantine 5 Mg Tablet PO 10 mg Q12H GAURAV Administration Menthol/Methyl Salicylate 1 applic 01/10/25 19:35 Menthol 10% / Methyl Salicylate 15% 57 Gm Tube TOPICAL BID PRN Muscle/Joint Pain Metoprolol Tartrate 25 mg 11/02/24 21:00 11/04/24 09:20 Metoprolol Tartrate 25 Mg Tablet PO 25 mg Q12HR GAURAV Administration Montelukast Sodium 10 mg 11/03/24 09:00 11/04/24 09:19 Montelukast Sodium 10 Mg Tablet PO 10 mg DAILY [facility] Administration Multivitamins/Calcium 1 tablet 11/03/24 09:00 11/04/24 09:19 Therapeutic Multivitamins/Minerals Tab (*Bkc) PO 1 tablet DAILY [facility] Administration Pantoprazole Sodium 40 mg 11/03/24 09:00 11/04/24 09:20 Pantoprazole 40 Mg Tablet PO 40 mg QAM [facility] Administration Saccharomyces Boulardii 250 mg 11/03/24 09:00 11/04/24 09:19 Saccharomyces Boulardii 250 Mg Capsule PO 250 mg TID [facility] Administration Fluticasone/Salmeterol 1 puff 11/03/24 06:30 11/04/24 05:51 Salmet Xinaft/Flutic Propin 100 Mcg/50 Mcg Inh Cap INHALATION 1 puff Q12HRT [facility] Administration Senna/Docusate Sodium 1 tab 11/02/24 19:35 Senna/Docusate Sodium Tablet PO BID PRN Constipation Tamsulosin HCl 0.4 mg 11/03/24 09:00 11/04/24 09:19 Tamsulosin Hcl 0.4 Mg Capsule PO 0.4 mg QAM [facility] Administration Quality VTE Prophylaxis VTE prophylaxis: pharmacologic ordered
[2024-11-04] MEDS: ATORVASTATIN 40 MG TABLET PO (17:19)
[2024-11-04 17:56] LABS: Basophils Absolute Auto 0.03 K/mm3 (0.00-0.10); Basophils Percent Auto 0.2 % (0.0-1.0); Eosinophils Absolute Auto 0.01 K/mm3 (0.02-0.50); Eosinophils Percent Auto 0.1 % (1.0-6.0); Hematocrit 35.1 % (37.0-46.0); Hemoglobin 10.9 g/dL (12.4-15.3); Immature Granulocyte Absolute 0.16 K/mm3 (0.00-0.00); Immature Granulocyte Percent A 0.9 % (0.0-0.0); Lymphocytes Absolute Auto 0.76 K/mm3 (1.10-4.50); Lymphocytes Percent Auto 4.1 % (18.0-42.0); Mean Corpuscular HGB Conc 31.1 g/dL (32-36); Mean Corpuscular Hemoglobin 30.2 pg (27.0-31.0); Mean Corpuscular Volume 97.2 fL (78.0-102.0); Mean Platelet Volume 10.2 fl (8.7-11.0); Monocytes Absolute Auto 0.82 K/mm3 (0.10-0.90); Monocytes Percent Auto 4.4 % (2.0-11.0); Neutrophils Absolute Auto 16.76 K/mm3 (1.70-7.20); Neutrophils Percent Auto 90.3 % (50.0-70.0); Platelet Count Result 345 K/mm3 (150-420); Red Blood Count 3.61 M/mm3 (4.70-6.10); Red Cell Distribution Width 16.6 % (11.6-14.4); White Blood Count 18.5 K/mm3 (4.8-10.8)
[2024-11-04 18:12] LABS: Alanine Aminotransferase 250 U/L (16-63); Alkaline Phosphatase 148 U/L (46-116); Anion Gap 7 mmol/L (4-12); Aspartate Amino Transferase 147 U/L (15-37); Bilirubin,Total 1.6 mg/dL (0.00-1.00); Blood Urea Nitrogen 28 mg/dL (7-18); Calcium 8.1 mg/dL (8.5-10.1); Carbon Dioxide 31 mmol/L (21-32); Chloride 109 mmol/L (98-108); Estimated CRCL calculation 41 ml/min; Estimated Glomerular Filt Rate > 60; Glucose 155 mg/dL (70-99); Osmolality Calculated 312 mOsm/kg (285-295); Sodium 147 mmol/L (136-145); Total Protein 5.6 g/dL (6.4-8.2)
--- NOTE | 2024-11-04 23:58 | ECG_ITS ---
Test Date: 2024-11-05 00:15:58 Measurements Intervals [place] Rate: 62 P: -22 NV: 211 QRS: 125 QRSD: 110 T: 14 QT: 463 QTc: 473 Interpretive Statements SINUS RHYTHM WITH FIRST DEGREE AV BLOCK INCOMPLETE RIGHT BUNDLE BRANCH BLOCK [90+ ms QRS DURATION, TERMINAL R IN V1/V2, 40+ ms S IN I/aVL/V4/V5/V6] POSSIBLE RIGHT VENTRICULAR HYPERTROPHY [SOME/ALL OF: PROMINENT R IN V1, LATE TRANSITION, RAD, AVELINO, SSS] SEPTAL MYOCARDIAL INFARCTION , OF INDETERMINATE AGE [40+ ms Q WAVE IN V1/V2] Compared to ECG 10/26/2024 11:03:45 Incomplete right bundle-branch block now present Myocardial infarct finding now present Right bundle-branch block no longer present Left posterior fascicular block no longer present Electronically Signed On 11-05-2024 21:55:04 LABORATORY CLERK by Reymundo Andrade M.D.
[2024-11-05] VITALS (7 sets, daily range): BP systolic 112–138; BP diastolic 50–63; PULSE 61–63; RESP 18; TEMP 36.3–36.9; O2SAT 92–97
[2024-11-05 01:00] LABS: Troponin I 54.2 ng/L (0.00-60.4)
--- NOTE | 2024-11-05 01:13 | PC.NURSE ---
Lab results and EKG results reported to Delmer Carrington NP. New orders were received and noted.
[2024-11-05] MEDS: MORPHINE SULFATE (*CRX) 2 MG/ML INJ IV PUSH (01:58)
[2024-11-05] MEDS: ASPIRIN 81 MG CHEWABLE TABLET 324 MG PO (02:13)
[2024-11-05 04:10] LABS: Troponin I 56.4 ng/L (0.00-60.4)
[2024-11-05 05:43] LABS: Troponin I 57.1 ng/L (0.00-60.4)
[2024-11-05] MEDS: SALMET XINAFT/FLUTIC PROPIN 100 MCG/50 MCG INH CAP 1 PUFF INHALATION ×2 (06:27→18:43)
[2024-11-05] MEDS: PANTOPRAZOLE 40 MG TABLET PO ×2 (09:01→17:14)
[2024-11-05] MEDS: FLUoxetine HCL 20 MG CAPSULE PO (09:01)
[2024-11-05] MEDS: TAMSULOSIN HCL 0.4 MG CAPSULE PO (09:02)
[2024-11-05] MEDS: SACCHAROMYCES BOULARDII 250 MG CAPSULE PO ×3 (09:02→17:14)
[2024-11-05] MEDS: dilTIAZem HCL CD 240 MG CAP.24HR PO (09:02)
[2024-11-05] MEDS: DONEPEZIL HCL 5 MG TABLET 10 MG PO (09:02)
[2024-11-05] MEDS: CARBIDOPA/LEVODOPA 25/100 MG CR TABLET 2 TABLET PO ×2 (09:03→17:13)
[2024-11-05] MEDS: THERAPEUTIC MULTIVITAMINS/MINERALS TAB (*BKC) 1 TABLET PO (09:03)
[2024-11-05] MEDS: ASPIRIN 81 MG CHEWABLE TABLET PO (09:04)
[2024-11-05] MEDS: MONTELUKAST SODIUM 10 MG TABLET PO (09:04)
[2024-11-05] MEDS: MEMANTINE 5 MG TABLET 10 MG PO ×2 (09:04→20:53)
[2024-11-05] MEDS: APIXABAN 2.5 MG TABLET 5 MG PO ×2 (09:04→20:53)
[2024-11-05] MEDS: lisinopriL 20 MG TABLET PO (09:05)
[2024-11-05] MEDS: METOPROLOL TARTRATE 25 MG TABLET PO ×2 (09:05→20:53)
--- NOTE | 2024-11-05 14:05 | PC.NURSE ---
Patient c/o O2 tubing rubbing tops of ears. Automobile Mechanic Motor tried O2 padding, but patient found it to be uncomfortable. Automobile Mechanic Motor used smallest round bandaids on the top edge of both ears and patient states that he is more comfortable.
--- NOTE | 2024-11-05 15:53 | P.PNIM_ITS ---
Progress Note: A&P Assessment and Plan (1) Physical deconditioning: Code(s): R53.81 - Other malaise Status: Acute Assessment and Plan: * here at [facility] program for rehab after hospitalization for sepsis with pneumonia * continue PT and OT * Case coordination following * continue fall precautions 11/05 * continue PT and OT * continue fall precautions (2) Hypertension: Code(s): I10 - Essential (primary) hypertension Status: Acute Assessment and Plan: * blood pressures ranging 148/56 to 158/43 * continue lisinopril 11/05 * no change to current treatment plan (3) Paroxysmal atrial flutter: Code(s): I48.92 - Unspecified atrial flutter Status: Acute Assessment and Plan: * continue Eliquis and metoprolol 11/05 * no change to current treatment plan (4) Chronic kidney disease, stage 3: Code(s): N18.30 - Chronic kidney disease, stage 3 unspecified Status: Acute Assessment and Plan: * labs from yesterday shown creatinine of 0.92, EGFR 60 which is his baseline (5) Parkinsons disease: Code(s): G20.A1 - Parkinson's disease without dyskinesia, without mention of fluctuations Status: Acute Assessment and Plan: * continue Namenda and carbidopa/levodopa * Seroquel was given last night and today he is too sleepy. Wakes to voice but drifts back to sleep. 11/04 * Discontinued Seroquel yesterday due to sedative effect. He is more alert and oriented today. (6) Transaminitis: Code(s): R74.01 - Elevation of levels of liver transaminase levels Status: Acute Assessment and Plan: * Last set of labs on 11/02/2024 showed AST of 288, ALT 438 * will recheck labs today * Avoid antipsychotic meds such as Seroquel considering the sedating effect 11/05 * last set of labs show a total bili of 1.6, AST 147, ALT 250, alk-phos 148 (7) Coronary artery disease: Code(s): I25.10 - Atherosclerotic heart disease of [place] coronary artery without angina pectoris Status: Acute Assessment and Plan: * continue aspirin and Lipitor (8) Chest pain: Code(s): R07.9 - Chest pain, unspecified Status: Acute Assessment and Plan: 11/05 * patient reporting chest pain overnight * troponin 56.4> 57.1 * EKG did not show any ST elevation * patient reporting chest pain when lying flat in the bed. Likely acid reflux * will increase his Protonix to 40 mg b.i.d. Time Spent With Patient Time with patient: 25 - 35 minutes Subjective Date/time seen: 11/05/24 15:53 Interval history: Interval history: This is an 89 year old male with a significant past medical history of asthma, chronic kidney disease stage 3, paroxysmal atrial flutter, CVA, dementia, prostate cancer, hyperlipidemia, hypertension, coronary artery disease, Parkinson's disease who presented to [facility] swing bed program after hospitalization for sepsis with pneumonia and transaminitis at [facility]. He finished his antibiotics while inpatient at [facility]. He worked with PT and OT who recommended swing bed for additional rehab needs due to weakness from his illness. He is currently on 2 L nasal cannula which is his baseline, vital signs are stable, he is afebrile. He is sleepy on exam today and minimally interactive. and son are at the bedside. He was reported to have some agitation last night and Seroquel was given. He did not sleep well according to nursing. Subjective: Patient was reported to have chest pain overnight by nursing. he denies chest pain now. His sister is at the bedside.Labs and EKG reviewed. Review of Systems Review of Systems: All systems reviewed & are unremarkable except as noted in HPI and below Constitutional: Constitutional: Reports as per HPI and Reports no additional constitutional complaints Eyes: Eyes: Reports as per HPI and Reports no additional eye complaints ENT: Reports system reviewed and no additional complaints, except as documente d and Reports as per HPI Cardiovascular: Cardiovascular: Reports as per HPI and Reports no additional cardiovascular complaints Respiratory: Respiratory: Reports as per HPI and Reports no additional respiratory complaints Gastrointestinal: Gastrointestinal: Reports as per HPI and Reports no additional gastrointestinal complaints Genitourinary: Genitourinary: Reports no additional male genitourinary complaints and Reports as per HPI Musculoskeletal: Musculoskeletal: Reports no additional musculoskeletal complaints and Reports as per HPI Integumentary/Breasts: Skin/Breast: Reports system reviewed and no additional complaints, except as docu and Reports as per HPI Neurologic: Reports system reviewed and no additional complaints, except as documented and Reports as per HPI Psychiatric: Psychiatric: Reports no additional psychiatric complaints and Reports as per HPI Exam Narrative: General: In no acute distress, well nourished Cardiac: Normal S1 and S2 Respiratory: Lungs clear to auscultation, no adventitious lung sounds, currently on 2L NC Gastrointestinal: soft, non-distended, non tender, normoactive bowel sounds. : voiding without difficulty. Neuro: Alert to voice and oriented x3, less sleepy today Objective Data Vital Signs Vital Signs: Vital Signs - 24 hr 11/04/24 16:00 11/04/24 20:00 11/04/24 20:00 Temperature 98.1 F Pulse Rate 59 L Respiratory Rate 17 Blood Pressure 100/55 L 126/55 L Pulse Oximetry 91 90 Oxygen Delivery Nasal Cannula Nasal Cannula Oxygen Flow Rate 2 2 11/04/24 21:03 11/04/24 23:00 11/04/24 23:10 Temperature 98.3 F Pulse Rate 71 70 Respiratory Rate 18 Blood Pressure 131/74 Pulse Oximetry 96 92 Oxygen Delivery Simple Face Mask Simple Face Mask Oxygen Flow Rate 4 4 11/04/24 23:20 11/04/24 23:35 11/04/24 23:58 Temperature Pulse Rate 62 Respiratory Rate Blood Pressure 140/62 126/49 L Pulse Oximetry Oxygen Delivery Oxygen Flow Rate 11/05/24 01:00 11/05/24 03:30 11/05/24 06:28 Temperature Pulse Rate 63 Respiratory Rate Blood Pressure 138/63 129/61 Pulse Oximetry 97 Oxygen Delivery Nasal Cannula Oxygen Flow Rate 2 11/05/24 08:00 11/05/24 09:05 Temperature 98.5 F Pulse Rate 62 62 Respiratory Rate 18 Blood Pressure 112/53 L Pulse Oximetry 93 Oxygen Delivery Nasal Cannula Oxygen Flow Rate 2 Intake/Output Intake/Output: Intake & Output 11/02/24 11/03/24 11/04/24 11/05/24 23:59 23:59 23:59 23:59 Intake Total 725 1100 500 Balance 725 1100 500 Meds/Results Medications: Active Medications Generic Name Dose Route Start Last Admin Trade Name Freq PRN Reason Stop Dose Admin Acetaminophen 650 mg 11/02/24 19:35 Acetaminophen 325 Mg Tablet PO Q6H PRN Mild Pain (1-5) Or Fever Al Hydrox/Mg Hydrox/Simethicone 30 ml 11/05/24 13:09 Mag Hydrox/Al Hydrox/Simeth 30 Ml Udc PO Q6H PRN Indigestion Apixaban 5 mg 11/02/24 21:00 11/05/24 09:04 Apixaban 2.5 Mg Tablet PO 5 mg Q12HR GAURAV Administration Aspirin 81 mg 11/03/24 09:00 11/05/24 09:04 Aspirin 81 Mg Chewable Tablet PO 81 mg DAILY GAURAV Administration Atorvastatin Calcium 40 mg 11/03/24 18:00 11/04/24 17:19 Atorvastatin 40 Mg Tablet PO 40 mg QPM GAURAV Administration Carbidopa/Levodopa 2 tablet 11/02/24 22:15 11/05/24 09:03 Carbidopa/Levodopa 25/100 Mg Cr Tablet PO 2 tablet BID GAURAV Administration Diltiazem HCl 240 mg 11/03/24 09:00 11/05/24 09:02 Diltiazem Hcl Cd 240 Mg Cap.24hr PO 240 mg QAM GAURAV Administration Donepezil HCl 10 mg 11/03/24 09:00 11/05/24 09:02 Donepezil Hcl 5 Mg Tablet PO 10 mg DAILY GAURAV Administration Fluoxetine HCl 20 mg 11/03/24 09:00 11/05/24 09:01 Fluoxetine Hcl 20 Mg Capsule PO 20 mg DAILY GAURAV Administration Hydralazine HCl 10 mg 11/03/24 14:53 Hydralazine Hcl 20 Mg/Ml Vial IV PUSH Q8H PRN Blood Pressure - High Lisinopril 20 mg 11/03/24 09:00 11/05/24 09:05 Lisinopril 20 Mg Tablet PO 20 mg QAM GAURAV Administration Memantine 10 mg 11/02/24 21:00 11/05/24 09:04 Memantine 5 Mg Tablet PO 10 mg Q12H GAURAV Administration Menthol/Methyl Salicylate 1 applic 11/02/24 19:35 Menthol 10% / Methyl Salicylate 15% 57 Gm Tube TOPICAL BID PRN Muscle/Joint Pain Metoprolol Tartrate 25 mg 11/02/24 21:00 11/05/24 09:05 Metoprolol Tartrate 25 Mg Tablet PO 25 mg Q12HR GAURAV Administration Montelukast Sodium 10 mg 11/03/24 09:00 11/05/24 09:04 Montelukast Sodium 10 Mg Tablet PO 10 mg DAILY GAURAV Administration Multivitamins/Calcium 1 tablet 11/03/24 09:00 11/05/24 09:03 Therapeutic Multivitamins/Minerals Tab (*Bkc) PO 1 tablet DAILY GAURAV Administration Pantoprazole Sodium 40 mg 11/05/24 17:00 Pantoprazole 40 Mg Tablet PO BID [facility] Saccharomyces Boulardii 250 mg 11/03/24 09:00 11/05/24 12:12 Saccharomyces Boulardii 250 Mg Capsule PO 250 mg TID GAURAV Administration Fluticasone/Salmeterol 1 puff 11/03/24 06:30 11/05/24 06:27 Salmet Xinaft/Flutic Propin 100 Mcg/50 Mcg Inh Cap INHALATION 1 puff Q12HRT GAURAV Administration Senna/Docusate Sodium 1 tab 11/02/24 19:35 Senna/Docusate Sodium Tablet PO BID PRN Constipation Tamsulosin HCl 0.4 mg 11/03/24 09:00 11/05/24 09:02 Tamsulosin Hcl 0.4 Mg Capsule PO 0.4 mg QAM GAURAV Administration Radiology Results: ITS Impressions Chest X-Ray 11/05/24 10:13 IMPRESSION: 1. Airspace opacities in right mid and lower lung zones and left lower lung zone with improvement on the left, consistent with pneumonia. 2. Worsened small right pleural effusion. 3. Cardiomegaly. Labs Labs: Laboratory Results - last 24 hr 11/04/24 11/05/24 11/05/24 14:26 00:25 03:23 WBC 18.5 H RBC 3.61 L Hgb 10.9 L Hct 35.1 L MCV 97.2 MCH 30.2 MCHC 31.1 L RDW 16.6 H Plt Count 345 MPV 10.2 Immature Gran % (Auto) 0.9 H Neut % (Auto) 90.3 H Lymph % (Auto) 4.1 L [place] % (Auto) 4.4 Eos % (Auto) 0.1 L Baso % (Auto) 0.2 Lymph # (Auto) 0.76 L [place] # (Auto) 0.82 Eos # (Auto) 0.01 L Baso # (Auto) 0.03 Abs Immat Gran (auto) 0.16 H Absolute Neuts (auto) 16.76 H Absolute Nucleated RBC 0.00 Nucleated RBC % 0.0 Sodium 147 H Potassium 4.0 Chloride 109 H Carbon Dioxide 31 Anion Gap 7 BUN 28 H Creatinine 1.10 Estim Creat Clear Calc 41 Estimated GFR > 60 Glucose 155 H Calculated Osmolality 312 H Calcium 8.1 L Total Bilirubin 1.6 H AST 147 H ALT 250 H Alkaline Phosphatase 148 H Troponin I 54.2 56.4 Total Protein 5.6 L Albumin 2.0 L 11/05/24 05:17 WBC RBC Hgb Hct MCV MCH MCHC RDW Plt Count MPV Immature Gran % (Auto) Neut % (Auto) Lymph % (Auto) [place] % (Auto) Eos % (Auto) Baso % (Auto) Lymph # (Auto) [place] # (Auto) Eos # (Auto) Baso # (Auto) Abs Immat Gran (auto) Absolute Neuts (auto) Absolute Nucleated RBC Nucleated RBC % Sodium Potassium Chloride Carbon Dioxide Anion Gap BUN Creatinine Estim Creat Clear Calc Estimated GFR Glucose Calculated Osmolality Calcium Total Bilirubin AST ALT Alkaline Phosphatase Troponin I 57.1 Total Protein Albumin Quality VTE Prophylaxis VTE prophylaxis: pharmacologic ordered
[2024-11-05] MEDS: ATORVASTATIN 40 MG TABLET PO (17:14)
[2024-11-06] VITALS: BP 103/44; PULSE 62; RESP 18; TEMP 36.4; O2SAT 92
[2024-11-06 05:30] VITALS: O2SAT 94
[2024-11-06] MEDS: SALMET XINAFT/FLUTIC PROPIN 100 MCG/50 MCG INH CAP 1 PUFF INHALATION ×2 (05:49→18:39)
[2024-11-06 08:00] VITALS: BP 125/47; PULSE 60; RESP 16; TEMP 36.5; O2SAT 94
[2024-11-06] MEDS: MENTHOL 10% / METHYL SALICYLATE 15% 57 GM TUBE 1 APPLIC TOPICAL (08:40)
[2024-11-06] MEDS: SACCHAROMYCES BOULARDII 250 MG CAPSULE PO ×3 (08:42→17:33)
[2024-11-06] MEDS: CARBIDOPA/LEVODOPA 25/100 MG CR TABLET 2 TABLET PO ×2 (08:42→17:32)
[2024-11-06] MEDS: THERAPEUTIC MULTIVITAMINS/MINERALS TAB (*BKC) 1 TABLET PO (08:42)
[2024-11-06] MEDS: ACETAMINOPHEN 325 MG TABLET 650 MG PO ×2 (08:42→17:31)
[2024-11-06] MEDS: TAMSULOSIN HCL 0.4 MG CAPSULE PO (08:43)
[2024-11-06] MEDS: PANTOPRAZOLE 40 MG TABLET PO ×2 (08:43→17:32)
[2024-11-06] MEDS: FLUoxetine HCL 20 MG CAPSULE PO (08:43)
[2024-11-06 08:44] VITALS: PULSE 60
[2024-11-06] MEDS: METOPROLOL TARTRATE 25 MG TABLET PO (08:44)
[2024-11-06] MEDS: lisinopriL 20 MG TABLET PO (08:44)
[2024-11-06] MEDS: dilTIAZem HCL CD 240 MG CAP.24HR PO (08:44)
[2024-11-06] MEDS: ASPIRIN 81 MG CHEWABLE TABLET PO (08:44)
[2024-11-06] MEDS: MONTELUKAST SODIUM 10 MG TABLET PO (08:45)
[2024-11-06] MEDS: DONEPEZIL HCL 5 MG TABLET 10 MG PO (08:45)
[2024-11-06] MEDS: MEMANTINE 5 MG TABLET 10 MG PO ×2 (08:45→20:12)
[2024-11-06] MEDS: APIXABAN 2.5 MG TABLET 5 MG PO ×2 (08:46→20:12)
[2024-11-06 16:00] VITALS: BP 116/47; PULSE 54; RESP 16; TEMP 35.7; O2SAT 95
[2024-11-06] MEDS: ATORVASTATIN 40 MG TABLET PO (17:32)
[2024-11-06 20:00] VITALS: PULSE 54; RESP 16; O2SAT 95
[2024-11-07] VITALS (7 sets, daily range): BP systolic 119–138; BP diastolic 48–58; PULSE 57–68; RESP 14–20; TEMP 36.1–36.6; O2SAT 91–96
[2024-11-07] MEDS: SALMET XINAFT/FLUTIC PROPIN 100 MCG/50 MCG INH CAP 1 PUFF INHALATION ×2 (06:07→17:35)
[2024-11-07] MEDS: TAMSULOSIN HCL 0.4 MG CAPSULE PO (09:15)
[2024-11-07] MEDS: METOPROLOL TARTRATE 25 MG TABLET PO ×2 (09:15→20:39)
[2024-11-07] MEDS: CARBIDOPA/LEVODOPA 25/100 MG CR TABLET 2 TABLET PO ×2 (09:15→17:34)
[2024-11-07] MEDS: lisinopriL 20 MG TABLET PO (09:15)
[2024-11-07] MEDS: APIXABAN 2.5 MG TABLET 5 MG PO ×2 (09:16→20:42)
[2024-11-07] MEDS: dilTIAZem HCL CD 240 MG CAP.24HR PO (09:16)
[2024-11-07] MEDS: PANTOPRAZOLE 40 MG TABLET PO ×2 (09:16→17:35)
[2024-11-07] MEDS: FLUoxetine HCL 20 MG CAPSULE PO (09:17)
[2024-11-07] MEDS: ASPIRIN 81 MG CHEWABLE TABLET PO (09:17)
[2024-11-07] MEDS: DONEPEZIL HCL 5 MG TABLET 10 MG PO (09:17)
[2024-11-07] MEDS: MONTELUKAST SODIUM 10 MG TABLET PO (09:17)
[2024-11-07] MEDS: MEMANTINE 5 MG TABLET 10 MG PO ×2 (09:17→20:42)
[2024-11-07] MEDS: THERAPEUTIC MULTIVITAMINS/MINERALS TAB (*BKC) 1 TABLET PO (09:18)
[2024-11-07] MEDS: SACCHAROMYCES BOULARDII 250 MG CAPSULE PO ×2 (12:58→17:34)
[2024-11-07] MEDS: ATORVASTATIN 40 MG TABLET PO (17:34)
[2024-11-08 05:30] VITALS: O2SAT 92
[2024-11-08] MEDS: SALMET XINAFT/FLUTIC PROPIN 100 MCG/50 MCG INH CAP 1 PUFF INHALATION ×2 (06:51→18:14)
[2024-11-08 08:00] VITALS: BP 133/57; PULSE 65; PULSE 68; RESP 14; TEMP 36.4; O2SAT 93; O2SAT 95
--- NOTE | 2024-11-08 08:02 | P.PNIM_ITS ---
Progress Note: A&P Assessment and Plan (1) Physical deconditioning: Code(s): R53.81 - Other malaise Status: Acute Assessment and Plan: * here at [facility] program for rehab after hospitalization for sepsis with pneumonia * continue PT and OT * Case coordination following * continue fall precautions 11/05 * continue PT and OT * continue fall precautions (2) Transaminitis: Code(s): R74.01 - Elevation of levels of liver transaminase levels Status: Acute Assessment and Plan: * Last set of labs on 11/02/2024 showed AST of 288, ALT 438 * will recheck labs today * Avoid antipsychotic meds such as Seroquel considering the sedating effect 11/05 * last set of labs show a total bili of 1.6, AST 147, ALT 250, alk-phos 148 11/08/2024: * Midsternal chest pain reported ACS R/O HX of distended gallbladder * US pending * Liver enzymes improving but continues to have pain * Lipase pending (3) Chest pain: Code(s): R07.9 - Chest pain, unspecified Status: Acute Assessment and Plan: 11/05 * patient reporting chest pain overnight * troponin 56.4> 57.1 * EKG did not show any ST elevation * patient reporting chest pain when lying flat in the bed. Likely acid reflux * will increase his Protonix to 40 mg b.i.d. 11/08/2024 * atypical chest pain midsternal reproducible midsternal tenderness to touch * troponin negative * EKG with no changes or ST/ T elevation * BNP pending * CXR did show some pulmonary edema * IV Lasix x1 dose (4) Hypertension: Code(s): I10 - Essential (primary) hypertension Status: Acute Assessment and Plan: * blood pressures ranging 148/56 to 158/43 * continue lisinopril 11/05 * no change to current treatment plan (5) Paroxysmal atrial flutter: Code(s): I48.92 - Unspecified atrial flutter Status: Acute Assessment and Plan: * continue Eliquis and metoprolol 11/05 * no change to current treatment plan (6) Chronic kidney disease, stage 3: Code(s): N18.30 - Chronic kidney disease, stage 3 unspecified Status: Acute Assessment and Plan: * labs from yesterday shown creatinine of 0.92, EGFR 60 which is his baseline (7) Parkinsons disease: Code(s): G20.A1 - Parkinson's disease without dyskinesia, without mention of fluctuations Status: Acute Assessment and Plan: * continue Namenda and carbidopa/levodopa * Seroquel was given last night and today he is too sleepy. Wakes to voice but drifts back to sleep. 11/04 * Discontinued Seroquel yesterday due to sedative effect. He is more alert and oriented today. (8) Coronary artery disease: Code(s): I25.10 - Atherosclerotic heart disease of [place] coronary artery without angina pectoris Status: Acute Assessment and Plan: * continue aspirin and Lipitor (9) Low serum albumin: Code(s): R77.0 - Abnormality of albumin Status: Acute Assessment and Plan: * Albumin 1.7 today * Poor appetite some concern was could be secondary to his gallbladder * albumin IVPB x2 bags * added protein shakes each meal Plan Code status: Full code per patient DVT prophylaxis: Eliquis Stress ulcer prophylaxis: switch to Pepcid PT/OT notes: SWING BED Disposition: patient continues admission to [facility] for continued rehabilitation patient continues to complaints midsternal atypical chest pain he does have transaminitis and distended gallbladder could be likely cause ACS ruled out. Ultrasound is pending for further evaluation. Plan is for patient to return home with after rehab Time Spent With Patient Time with patient: 15 - 25 minutes Subjective Date/time seen: 11/08/24 08:02 Interval history: Patient is an 89-year-old male who was admitted to [facility] for continued rehabilitation 11/08/2024: Patient did have some chest pain while laying down EKG with no acute changes and troponins were negative however chest x-ray with Cardiomegaly and pulmonary edema, troponin negative and EKG with no ST / T changes showing sinus rhythm with first-degree AV block. transaminitis ladder gallbladder without wall thickening/ gallbladder distention and periportal edema. Denied N/V, SOB, Fever or chills. Review of Systems Review of Systems: All systems reviewed & are unremarkable except as noted in HPI and below Exam Narrative: General: In no acute distress, well nourished Cardiac: Normal S1 and S2 Respiratory: Lungs clear to auscultation, no adventitious lung sounds, currently on 2L NC Gastrointestinal: soft, non-distended, midsternal tenderness, normoactive bowel sounds. : voiding without difficulty. Neuro: Alert to voice and oriented x3, less sleepy today Objective Data Vital Signs Vital Signs: Vital Signs - 24 hr 11/07/24 09:15 11/07/24 16:00 11/07/24 20:39 Temperature 97 F L Pulse Rate 68 58 L 59 L Respiratory Rate 18 Blood Pressure 136/58 L Pulse Oximetry 95 Oxygen Delivery Room Air Oxygen Flow Rate 11/07/24 23:40 Temperature 97.8 F Pulse Rate 58 L Respiratory Rate 20 Blood Pressure 138/54 L Pulse Oximetry 92 Oxygen Delivery Nasal Cannula Oxygen Flow Rate 2 Intake/Output Intake/Output: Intake & Output 11/05/24 11/06/24 11/07/24 11/08/24 23:59 23:59 23:59 23:59 Intake Total 950 1425 1230 240 Output Total 250 Balance 950 1425 1230 -10 Meds/Results Medications: Active Medications Generic Name Dose Route Start Last Admin Trade Name Freq PRN Reason Stop Dose Admin Acetaminophen 650 mg 11/02/24 19:35 11/06/24 17:31 Acetaminophen 325 Mg Tablet PO 650 mg Q6H PRN Administration Mild Pain (1-5) Or Fever Al Hydrox/Mg Hydrox/Simethicone 30 ml 11/05/24 13:09 Mag Hydrox/Al Hydrox/Simeth 30 Ml Udc PO Q6H PRN Indigestion Apixaban 5 mg 11/02/24 21:00 11/07/24 20:42 Apixaban 2.5 Mg Tablet PO 5 mg Q12HR GAURAV Administration Aspirin 81 mg 11/03/24 09:00 11/07/24 09:17 Aspirin 81 Mg Chewable Tablet PO 81 mg DAILY GAURAV Administration Atorvastatin Calcium 40 mg 11/03/24 18:00 11/07/24 17:34 Atorvastatin 40 Mg Tablet PO 40 mg QPM GAURAV Administration Carbidopa/Levodopa 2 tablet 11/02/24 22:15 11/07/24 17:34 Carbidopa/Levodopa 25/100 Mg Cr Tablet PO 2 tablet BID GAURAV Administration Diltiazem HCl 240 mg 11/03/24 09:00 11/07/24 09:16 Diltiazem Hcl Cd 240 Mg Cap.24hr PO 240 mg QAM GAURAV Administration Donepezil HCl 10 mg 11/03/24 09:00 11/07/24 09:17 Donepezil Hcl 5 Mg Tablet PO 10 mg DAILY GAURAV Administration Fluoxetine HCl 20 mg 11/03/24 09:00 11/07/24 09:17 Fluoxetine Hcl 20 Mg Capsule PO 20 mg DAILY GAURAV Administration Hydralazine HCl 10 mg 11/03/24 14:53 Hydralazine Hcl 20 Mg/Ml Vial IV PUSH Q8H PRN Blood Pressure - High Lisinopril 20 mg 11/03/24 09:00 11/07/24 09:15 Lisinopril 20 Mg Tablet PO 20 mg QAM GAURAV Administration Memantine 10 mg 11/02/24 21:00 11/07/24 20:42 Memantine 5 Mg Tablet PO 10 mg Q12H GAURAV Administration Menthol/Methyl Salicylate 1 applic 11/02/24 19:35 11/06/24 08:40 Menthol 10% / Methyl Salicylate 15% 57 Gm Tube TOPICAL 1 applic BID PRN Administration Muscle/Joint Pain Metoprolol Tartrate 25 mg 11/02/24 21:00 11/07/24 20:39 Metoprolol Tartrate 25 Mg Tablet PO 25 mg Q12HR GAURAV Administration Montelukast Sodium 10 mg 11/03/24 09:00 11/07/24 09:17 Montelukast Sodium 10 Mg Tablet PO 10 mg DAILY GAURAV Administration Multivitamins/Calcium 1 tablet 11/03/24 09:00 11/07/24 09:18 Therapeutic Multivitamins/Minerals Tab (*Bkc) PO 1 tablet DAILY GAURAV Administration Pantoprazole Sodium 40 mg 11/05/24 17:00 11/07/24 17:35 Pantoprazole 40 Mg Tablet PO 40 mg BID GAURAV Administration Saccharomyces Boulardii 250 mg 11/03/24 09:00 11/07/24 17:34 Saccharomyces Boulardii 250 Mg Capsule PO 250 mg TID GAURAV Administration Fluticasone/Salmeterol 1 puff 11/03/24 06:30 11/08/24 06:51 Salmet Xinaft/Flutic Propin 100 Mcg/50 Mcg Inh Cap INHALATION 1 puff Q12HRT GAURAV Administration Senna/Docusate Sodium 1 tab 11/02/24 19:35 Senna/Docusate Sodium Tablet PO BID PRN Constipation Tamsulosin HCl 0.4 mg 11/03/24 09:00 11/07/24 09:15 Tamsulosin Hcl 0.4 Mg Capsule PO 0.4 mg QAM GAURAV Administration Radiology Results: ITS Impressions Chest X-Ray 11/05/24 10:13 IMPRESSION: 1. Airspace opacities in right mid and lower lung zones and left lower lung zone with improvement on the left, consistent with pneumonia. 2. Worsened small right pleural effusion. 3. Cardiomegaly. Quality VTE Prophylaxis VTE prophylaxis: pharmacologic ordered -Patient's previous records reviewed on admission -ER notes reviewed in detail on admission -discussed all findings and current treatment plan with patient/Family/POA -Consultations reviewed for recommendations -Patient's disposition for safe discharge discussed with family service caseworker Dictation performed by [place] direct speech recognition software, therefore floral merchandiser variants and typographical errors may occur. Hospitalist MIPS Advance Care Plan I have confirmed that the patient's Advanced Care Plan is present, code status is documented, or surrogate decision maker is listed in patient medical record.: Yes Medication Reconciliation I have utilized all available resources to obtain, update and review the patients current medications (includes all prescriptions, OTC, herbals, cannabis, and nutritional supplements).: Yes The patient is not eligible for med reconciliation; the patient is in a emergent medical situation where delaying treatment would jeopardize the patients health.: No
--- NOTE | 2024-11-08 08:44 | ECG_ITS ---
Test Date: 2024-11-08 08:56:57 Measurements Intervals [place] Rate: 63 P: 25 MD: 219 QRS: 134 QRSD: 113 T: 6 QT: 364 QTc: 373 Interpretive Statements SINUS RHYTHM WITH FIRST DEGREE AV BLOCK RIGHT AXIS DEVIATION [QRS AXIS > 100] INCOMPLETE RIGHT BUNDLE BRANCH BLOCK [120+ ms QRS DURATION, UPRIGHT V1, 40+ ms S IN I/aVL/V4/V5/V6] Compared to ECG 11/05/2024 00:15:58 Right-axis deviation now present Myocardial infarct finding no longer present Electronically Signed On 11-08-2024 09:24:19 SYSTEMS SECURITY ANALYST by Armando Meade M.D.
[2024-11-08 08:50] LABS: Hematocrit 29.3 % (37.0-46.0); Hemoglobin 9.4 g/dL (12.4-15.3); Mean Corpuscular HGB Conc 32.1 g/dL (32-36); Mean Corpuscular Hemoglobin 30.3 pg (27.0-31.0); Mean Corpuscular Volume 94.5 fL (78.0-102.0); Mean Platelet Volume 9.8 fl (8.7-11.0); Platelet Count Result 442 K/mm3 (150-420); Red Cell Distribution Width 16.8 % (11.6-14.4); White Blood Count 11.3 K/mm3 (4.8-10.8)
[2024-11-08 09:09] LABS: Alanine Aminotransferase 146 U/L (16-63); Albumin Level 1.7 g/dL (3.4-5.0); Alkaline Phosphatase 144 U/L (46-116); Anion Gap 7 mmol/L (4-12); Aspartate Amino Transferase 88 U/L (15-37); Bilirubin,Total 1.4 mg/dL (0.00-1.00); Blood Urea Nitrogen 41 mg/dL (7-18); Calcium 7.9 mg/dL (8.5-10.1); Carbon Dioxide 31 mmol/L (21-32); Chloride 107 mmol/L (98-108); Estimated CRCL calculation 32 ml/min; Estimated Glomerular Filt Rate 47; Glucose 113 mg/dL (70-99); Osmolality Calculated 311 mOsm/kg (285-295); Potassium 3.6 mmol/L (3.5-5.1); Sodium 145 mmol/L (136-145); Total Protein 5.3 g/dL (6.4-8.2)
[2024-11-08 09:23] LABS: Troponin I 50.5 ng/L (0.00-60.4)
[2024-11-08] MEDS: MEMANTINE 5 MG TABLET 10 MG PO ×2 (09:24→20:19)
[2024-11-08] MEDS: MONTELUKAST SODIUM 10 MG TABLET PO (09:24)
[2024-11-08] MEDS: THERAPEUTIC MULTIVITAMINS/MINERALS TAB (*BKC) 1 TABLET PO (09:24)
[2024-11-08] MEDS: TAMSULOSIN HCL 0.4 MG CAPSULE PO (09:24)
[2024-11-08] MEDS: SACCHAROMYCES BOULARDII 250 MG CAPSULE PO ×3 (09:24→18:14)
[2024-11-08] MEDS: PANTOPRAZOLE 40 MG TABLET PO (09:24)
[2024-11-08] MEDS: lisinopriL 20 MG TABLET PO (09:24)
[2024-11-08 09:25] VITALS: PULSE 62
[2024-11-08] MEDS: CARBIDOPA/LEVODOPA 25/100 MG CR TABLET 2 TABLET PO ×2 (09:25→18:14)
[2024-11-08] MEDS: METOPROLOL TARTRATE 25 MG TABLET PO ×2 (09:25→20:19)
[2024-11-08] MEDS: APIXABAN 2.5 MG TABLET 5 MG PO ×2 (09:25→20:19)
[2024-11-08] MEDS: ASPIRIN 81 MG CHEWABLE TABLET PO (09:26)
[2024-11-08] MEDS: dilTIAZem HCL CD 240 MG CAP.24HR PO (09:27)
[2024-11-08] MEDS: DONEPEZIL HCL 5 MG TABLET 10 MG PO (09:27)
[2024-11-08] MEDS: FLUoxetine HCL 20 MG CAPSULE PO (09:28)
[2024-11-08 10:17] LABS: NT Pro B Type Natriuretic Pept 1543 pg/mL (0-450)
[2024-11-08 10:18] LABS: Lipase 28 U/L (16-77)
[2024-11-08] MEDS: FUROSEMIDE INJ 40 MG/4 ML VIAL (13:20)
[2024-11-08] MEDS: FAMOTIDINE 20 MG TABLET PO ×2 (13:20→20:19)
[2024-11-08] MEDS: ALBUMIN HUMAN 25% 25 GM/100 ML 100 ML IVPB ×2 (13:21→18:14)
--- NOTE | 2024-11-08 14:53 | PC.NURSE ---
RN did bladder scan at 1300. Scan showed 221 ml in bladder. 16F du placed after bladder scan with immediate return of 500ml tea colored clear urine.
[2024-11-08 16:35] VITALS: BP 144/62; PULSE 62; RESP 20; TEMP 36.3; O2SAT 98
[2024-11-08] MEDS: ATORVASTATIN 40 MG TABLET PO (18:14)
[2024-11-08 20:00] VITALS: O2SAT 92
[2024-11-08 20:19] VITALS: PULSE 60
[2024-11-09] VITALS (7 sets, daily range): BP systolic 94–147; BP diastolic 46–62; PULSE 59–69; RESP 14–20; TEMP 35.7–37; O2SAT 91–96
[2024-11-09] MEDS: SALMET XINAFT/FLUTIC PROPIN 100 MCG/50 MCG INH CAP 1 PUFF INHALATION (06:40)
[2024-11-09] MEDS: dilTIAZem HCL CD 240 MG CAP.24HR PO (09:11)
[2024-11-09] MEDS: lisinopriL 20 MG TABLET PO (09:12)
[2024-11-09] MEDS: SACCHAROMYCES BOULARDII 250 MG CAPSULE PO (09:12)
[2024-11-09] MEDS: MEMANTINE 5 MG TABLET 10 MG PO (09:12)
[2024-11-09] MEDS: THERAPEUTIC MULTIVITAMINS/MINERALS TAB (*BKC) 1 TABLET PO (09:12)
[2024-11-09] MEDS: MONTELUKAST SODIUM 10 MG TABLET PO (09:12)
[2024-11-09] MEDS: DONEPEZIL HCL 5 MG TABLET 10 MG PO (09:13)
[2024-11-09] MEDS: CARBIDOPA/LEVODOPA 25/100 MG CR TABLET 2 TABLET PO (09:13)
[2024-11-09] MEDS: TAMSULOSIN HCL 0.4 MG CAPSULE PO (09:13)
[2024-11-09] MEDS: METOPROLOL TARTRATE 25 MG TABLET PO (09:13)
[2024-11-09] MEDS: FLUoxetine HCL 20 MG CAPSULE PO (09:13)
[2024-11-09] MEDS: FAMOTIDINE 20 MG TABLET PO (09:14)
[2024-11-09] MEDS: APIXABAN 2.5 MG TABLET 5 MG PO (09:14)
[2024-11-09] MEDS: ASPIRIN 81 MG CHEWABLE TABLET PO (09:14)
--- NOTE | 2024-11-09 16:15 | PC.NURSE ---
supercharger mechanic contacting provider due to concerns of dark urine, not waking up well, has not ate or drank since breakfast, low blood pressure, daughter concerned, patient remains full code at this time, therapy was unable to get patient to wake for session.
--- NOTE | 2024-11-09 16:25 | PCPTNOTE ---
attempted treatment with pt but pt would not open eyes or follow commands with rolling only grunted when saying his name. daughter present and was voicing concern on status. spoke with nursing stating he had a low blood pressure and has been lethargic since lunch.
[2024-11-09] MEDS: SODIUM CHLORIDE 0.9% IV 1,000 ML 75 ML IV CONT (17:16)
[2024-11-10] VITALS (7 sets, daily range): BP systolic 95–145; BP diastolic 48–75; PULSE 60–72; RESP 16; TEMP 36.4–36.5; O2SAT 90–92
[2024-11-10] MEDS: SODIUM CHLORIDE 0.9% IV 1,000 ML 75 ML IV CONT ×2 (06:00→20:02)
[2024-11-10] MEDS: SALMET XINAFT/FLUTIC PROPIN 100 MCG/50 MCG INH CAP 1 PUFF INHALATION ×2 (06:29→17:33)
[2024-11-10] MEDS: FLUoxetine HCL 20 MG CAPSULE PO (08:57)
[2024-11-10] MEDS: MONTELUKAST SODIUM 10 MG TABLET PO (08:57)
[2024-11-10] MEDS: ACETAMINOPHEN 325 MG TABLET 650 MG PO (08:57)
[2024-11-10] MEDS: THERAPEUTIC MULTIVITAMINS/MINERALS TAB (*BKC) 1 TABLET PO (08:57)
[2024-11-10] MEDS: METOPROLOL TARTRATE 25 MG TABLET PO ×2 (08:58→20:02)
[2024-11-10] MEDS: MEMANTINE 5 MG TABLET 10 MG PO ×2 (08:58→20:01)
[2024-11-10] MEDS: ASPIRIN 81 MG CHEWABLE TABLET PO (08:59)
[2024-11-10] MEDS: TAMSULOSIN HCL 0.4 MG CAPSULE PO (08:59)
[2024-11-10] MEDS: DONEPEZIL HCL 5 MG TABLET 10 MG PO (08:59)
[2024-11-10] MEDS: FAMOTIDINE 20 MG TABLET PO ×2 (08:59→20:01)
[2024-11-10] MEDS: SACCHAROMYCES BOULARDII 250 MG CAPSULE PO ×3 (09:00→17:32)
[2024-11-10] MEDS: lisinopriL 20 MG TABLET PO (09:00)
[2024-11-10] MEDS: APIXABAN 2.5 MG TABLET 5 MG PO ×2 (09:00→20:01)
[2024-11-10] MEDS: dilTIAZem HCL CD 240 MG CAP.24HR PO (09:00)
[2024-11-10] MEDS: CARBIDOPA/LEVODOPA 25/100 MG CR TABLET 2 TABLET PO ×2 (09:00→17:31)
[2024-11-10] MEDS: ATORVASTATIN 40 MG TABLET PO (17:32)
--- NOTE | 2024-11-10 18:48 | PC.NURSE ---
Patient had an output of 75ml this shift. COMMERCIAL REAL ESTATE AGENT aware. Bladder scan showed 250ml in bladder. Game Preserve Manager deflated catheter balloon and repositioned in bladder and got approximately 100 ml more out. Will continue to monitor. If no improvement in output, catheter may need replaced.
--- NOTE | 2024-11-10 19:03 | PC.NURSE ---
Report passed onto next shift about decreased output. Incoming Nurse states that he will continue to monitor the output and replace catheter as necessary.
[2024-11-10 23:06] LABS: Basophils Absolute Auto 0.01 K/mm3 (0.00-0.10); Basophils Percent Auto 0.1 % (0.0-1.0); Hematocrit 24.4 % (37.0-46.0); Hemoglobin 7.7 g/dL (12.4-15.3); Immature Granulocyte Percent A 1.3 % (0.0-0.0); Lymphocytes Absolute Auto 0.71 K/mm3 (1.10-4.50); Lymphocytes Percent Auto 4.7 % (18.0-42.0); Mean Corpuscular HGB Conc 31.6 g/dL (32-36); Mean Corpuscular Hemoglobin 30.7 pg (27.0-31.0); Mean Corpuscular Volume 97.2 fL (78.0-102.0); Mean Platelet Volume 9.7 fl (8.7-11.0); Monocytes Absolute Auto 0.77 K/mm3 (0.10-0.90); Monocytes Percent Auto 5.1 % (2.0-11.0); Neutrophils Absolute Auto 13.37 K/mm3 (1.70-7.20); Neutrophils Percent Auto 88.8 % (50.0-70.0); Platelet Count Result 454 K/mm3 (150-420); Red Blood Count 2.51 M/mm3 (4.70-6.10); White Blood Count 15.1 K/mm3 (4.8-10.8)
[2024-11-10 23:24] LABS: Alanine Aminotransferase 41 U/L (16-63); Albumin Level 1.9 g/dL (3.4-5.0); Alkaline Phosphatase 142 U/L (46-116); Anion Gap 9 mmol/L (4-12); Aspartate Amino Transferase 46 U/L (15-37); Bilirubin,Total 0.7 mg/dL (0.00-1.00); Blood Urea Nitrogen 46 mg/dL (7-18); Calcium 7.6 mg/dL (8.5-10.1); Carbon Dioxide 29 mmol/L (21-32); Chloride 110 mmol/L (98-108); Estimated CRCL calculation 21 ml/min; Estimated Glomerular Filt Rate 28; Glucose 155 mg/dL (70-99); NT Pro B Type Natriuretic Pept 2344 pg/mL (0-450); Osmolality Calculated 320 mOsm/kg (285-295); Potassium 3.6 mmol/L (3.5-5.1); Sodium 148 mmol/L (136-145); Total Protein 5.4 g/dL (6.4-8.2)
[2024-11-11] VITALS: BP 109/58; PULSE 70; RESP 20; TEMP 36.4; O2SAT 90
[2024-11-11 05:30] VITALS: O2SAT 93
[2024-11-11] MEDS: SALMET XINAFT/FLUTIC PROPIN 100 MCG/50 MCG INH CAP 1 PUFF INHALATION ×2 (06:42→17:45)
[2024-11-11 08:00] VITALS: BP 105/51; PULSE 67; RESP 16; TEMP 36.7; O2SAT 90
[2024-11-11 08:57] VITALS: PULSE 67
[2024-11-11] MEDS: dilTIAZem HCL CD 240 MG CAP.24HR PO (08:57)
[2024-11-11] MEDS: METOPROLOL TARTRATE 25 MG TABLET PO ×2 (08:57→21:19)
[2024-11-11] MEDS: MEMANTINE 5 MG TABLET 10 MG PO ×2 (08:58→21:23)
[2024-11-11] MEDS: lisinopriL 20 MG TABLET PO (08:58)
[2024-11-11] MEDS: FAMOTIDINE 20 MG TABLET PO ×2 (08:58→21:23)
[2024-11-11] MEDS: MONTELUKAST SODIUM 10 MG TABLET PO (08:58)
[2024-11-11] MEDS: DONEPEZIL HCL 5 MG TABLET 10 MG PO (08:59)
[2024-11-11] MEDS: ACETAMINOPHEN 325 MG TABLET 650 MG PO (08:59)
[2024-11-11] MEDS: ASPIRIN 81 MG CHEWABLE TABLET PO (08:59)
[2024-11-11] MEDS: CARBIDOPA/LEVODOPA 25/100 MG CR TABLET 2 TABLET PO ×2 (08:59→17:46)
[2024-11-11] MEDS: TAMSULOSIN HCL 0.4 MG CAPSULE PO (09:00)
[2024-11-11] MEDS: SACCHAROMYCES BOULARDII 250 MG CAPSULE PO ×3 (09:00→17:47)
[2024-11-11] MEDS: FLUoxetine HCL 20 MG CAPSULE PO (09:00)
[2024-11-11] MEDS: APIXABAN 2.5 MG TABLET 5 MG PO ×2 (09:00→21:19)
[2024-11-11] MEDS: THERAPEUTIC MULTIVITAMINS/MINERALS TAB (*BKC) 1 TABLET PO (09:01)
[2024-11-11] MEDS: SODIUM CHLORIDE 0.9% IV 1,000 ML 75 ML IV CONT (09:06)
--- NOTE | 2024-11-11 10:39 | P.PNIM_ITS ---
Progress Note: A&P Assessment and Plan (1) Physical deconditioning: Code(s): R53.81 - Other malaise Status: Acute Assessment and Plan: * here at [facility] program for rehab after hospitalization for sepsis with pneumonia * continue PT and OT * Case coordination following * continue fall precautions 11/05 * continue PT and OT * continue fall precautions (2) Transaminitis: Code(s): R74.01 - Elevation of levels of liver transaminase levels Status: Acute Assessment and Plan: * Last set of labs on 11/02/2024 showed AST of 288, ALT 438 * will recheck labs today * Avoid antipsychotic meds such as Seroquel considering the sedating effect 11/05 * last set of labs show a total bili of 1.6, AST 147, ALT 250, alk-phos 148 11/08/2024: * Midsternal chest pain reported ACS R/O HX of distended gallbladder * US pending * Liver enzymes improving but continues to have pain * Lipase pending 11/11 * US was unremarkable * total bili 0.7, AST 46, ALT 41, alkaline phosphate 142 (3) Chest pain: Code(s): R07.9 - Chest pain, unspecified Status: Acute Assessment and Plan: 11/05 * patient reporting chest pain overnight * troponin 56.4> 57.1 * EKG did not show any ST elevation * patient reporting chest pain when lying flat in the bed. Likely acid reflux * will increase his Protonix to 40 mg b.i.d. 11/08/2024 * atypical chest pain midsternal reproducible midsternal tenderness to touch * troponin negative * EKG with no changes or ST/ T elevation * BNP pending * CXR did show some pulmonary edema * IV Lasix x1 dose 11/11 * denies chest pain * Mild crackles left lung base today * proBNP 2344 (4) Hypertension: Code(s): I10 - Essential (primary) hypertension Status: Acute Assessment and Plan: * blood pressures ranging 148/56 to 158/43 * continue lisinopril 11/05 * no change to current treatment plan (5) Paroxysmal atrial flutter: Code(s): I48.92 - Unspecified atrial flutter Status: Acute Assessment and Plan: * continue Eliquis and metoprolol 11/05 * no change to current treatment plan (6) Chronic kidney disease, stage 3: Code(s): N18.30 - Chronic kidney disease, stage 3 unspecified Status: Acute Assessment and Plan: * labs from yesterday shown creatinine of 0.92, EGFR 60 which is his baseline 11/11 * nursing minimal urine output * creatinine 2.21-REGINA * will give 500 mL normal saline bolus and restart fluids at 100 mil per hour considering amount of diarrhea * will recheck labs in the morning (7) Parkinsons disease: Code(s): G20.A1 - Parkinson's disease without dyskinesia, without mention of fluctuations Status: Acute Assessment and Plan: * continue Namenda and carbidopa/levodopa * Seroquel was given last night and today he is too sleepy. Wakes to voice but drifts back to sleep. 11/04 * Discontinued Seroquel yesterday due to sedative effect. He is more alert and oriented today. (8) Coronary artery disease: Code(s): I25.10 - Atherosclerotic heart disease of [place] coronary artery without angina pectoris Status: Acute Assessment and Plan: * continue aspirin and Lipitor (9) Low serum albumin: Code(s): R77.0 - Abnormality of albumin Status: Acute Assessment and Plan: * Albumin 1.7 today * Poor appetite some concern was could be secondary to his gallbladder * albumin IVPB x2 bags * added protein shakes each meal (10) Diarrhea: Code(s): R19.7 - Diarrhea, unspecified Status: Acute Assessment and Plan: 11/11 * 7 BM's last 2 days * Will check occult blood and stool culture * WBC 15.1, Hgb down to 7.7 * No signs or symptoms of active bleeding, currently on Eliquis * decrease protein shakes to once a day Plan Code status: Full code per patient DVT prophylaxis: Eliquis Stress ulcer prophylaxis: switch to Pepcid PT/OT notes: SWING BED Disposition: patient continues admission to [facility] for continued rehabilitation patient continues to complaints midsternal atypical chest pain he does have transaminitis and distended gallbladder could be likely cause ACS ruled out. Ultrasound is pending for further evaluation. Plan is for patient to return home with after rehab Subjective Date/time seen: 11/11/24 10:39 Interval history: Interval history: This is an 89 year old male with a significant past medical history of asthma, chronic kidney disease stage 3, paroxysmal atrial flutter, CVA, dementia, prostate cancer, hyperlipidemia, hypertension, coronary artery disease, Parkinson's disease who presented to [place] swing bed program after hospitalization for sepsis with pneumonia and transaminitis at [facility]. He finished his antibiotics while inpatient at [facility]. He worked with PT and OT who recommended swing bed for additional rehab needs due to weakness from his illness. He is currently on 2 L nasal cannula which is his baseline, vital signs are stable, he is afebrile. He is sleepy on exam today and minimally interactive. and son are at the bedside. He was reported to have some agitation last night and Seroquel was given. He did not sleep well according to nursing. Subjective: Patient denies any new complaints today. Nursing reporting frequent stools and decreased urine output. He is currently on 2L NC. Family at bedside. Labs reviewed. Review of Systems Review of Systems: All systems reviewed & are unremarkable except as noted in HPI and below Constitutional: Constitutional: Reports as per HPI and Reports no additional constitutional complaints Eyes: Eyes: Reports as per HPI and Reports no additional eye complaints ENT: Reports system reviewed and no additional complaints, except as documented and Reports as per HPI Cardiovascular: Cardiovascular: Reports as per HPI and Reports no additional cardiovascular complaints Respiratory: Respiratory: Reports as per HPI and Reports no additional respiratory complaints Gastrointestinal: Gastrointestinal: Reports as per HPI and Reports no additional gastrointestinal complaints Genitourinary: Genitourinary: Reports no additional male genitourinary complaints and Reports as per HPI Musculoskeletal: Musculoskeletal: Reports no additional musculoskeletal complaints and Reports as per HPI Integumentary/Breasts: Skin/Breast: Reports system reviewed and no additional complaints, except as docu and Reports as per HPI Neurologic: Reports system reviewed and no additional complaints, except as documented and Reports as per HPI Psychiatric: Psychiatric: Reports no additional psychiatric complaints and Reports as per HPI Exam Narrative: General: In no acute distress, well nourished Cardiac: Normal S1 and S2 Respiratory: Lungs clear to auscultation, no adventitious lung sounds, currently on 2L NC Gastrointestinal: soft, non-distended, midsternal tenderness, normoactive bowel sounds. : voiding without difficulty dark laura urine Neuro: Alert to voice and oriented x3, less sleepy today Objective Data Vital Signs Vital Signs: Vital Signs - 24 hr 11/10/24 16:00 11/10/24 20:00 11/10/24 20:02 Temperature 97.7 F Pulse Rate 65 60 Respiratory Rate 16 Blood Pressure 95/48 L Pulse Oximetry 92 90 Oxygen Delivery Nasal Cannula Nasal Cannula Oxygen Flow Rate 2 2 11/11/24 00:00 11/11/24 08:00 11/11/24 08:57 Temperature 97.6 F 98.1 F Pulse Rate 70 67 67 Respiratory Rate 20 16 Blood Pressure 109/58 L 105/51 L Pulse Oximetry 90 90 Oxygen Delivery Nasal Cannula Nasal Cannula Oxygen Flow Rate 2 3 Intake/Output Intake/Output: Intake & Output 11/08/24 11/09/24 11/10/24 11/11/24 23:59 23:59 23:59 23:59 Intake Total 2230 330 3855 1320 Output Total 1650 550 300 175 Balance 580 -220 3555 1145 Meds/Results Medications: Active Medications Generic Name Dose Route Start Last Admin Trade Name Freq PRN Reason Stop Dose Admin Acetaminophen 650 mg 11/02/24 19:35 11/11/24 08:59 Acetaminophen 325 Mg Tablet PO 650 mg Q6H PRN Administration Mild Pain (1-5) Or Fever Al Hydrox/Mg Hydrox/Simethicone 30 ml 11/05/24 13:09 Mag Hydrox/Al Hydrox/Simeth 30 Ml Udc PO Q6H PRN Indigestion Al Hydrox/Mg Hydrox/Simethicone 30 ml 11/09/24 10:47 Mag Hydrox/Al Hydrox/Simeth 30 Ml Udc PO Q6H PRN Indigestion Apixaban 5 mg 11/02/24 21:00 11/11/24 09:00 Apixaban 2.5 Mg Tablet PO 5 mg Q12HR GAURAV Administration Aspirin 81 mg 11/03/24 09:00 11/11/24 08:59 Aspirin 81 Mg Chewable Tablet PO 81 mg DAILY GAURAV Administration Atorvastatin Calcium 40 mg 11/03/24 18:00 11/10/24 17:32 Atorvastatin 40 Mg Tablet PO 40 mg QPM GAURAV Administration Calcium Carbonate 200 mg 11/09/24 10:47 Calcium Carbonate (Tums) 500 Mg (200 Mg Elemental) PO Q6H PRN Indigestion Carbidopa/Levodopa 2 tablet 11/02/24 22:15 11/11/24 08:59 Carbidopa/Levodopa 25/100 Mg Cr Tablet PO 2 tablet BID GAURAV Administration Diltiazem HCl 240 mg 11/03/24 09:00 11/11/24 08:57 Diltiazem Hcl Cd 240 Mg Cap.24hr PO 240 mg QAM GAURAV Administration Donepezil HCl 10 mg 11/03/24 09:00 11/11/24 08:59 Donepezil Hcl 5 Mg Tablet PO 10 mg DAILY GAURAV Administration Famotidine 20 mg 11/08/24 10:20 11/11/24 08:58 Famotidine 20 Mg Tablet PO 20 mg Q12HR GAURAV Administration Fluoxetine HCl 20 mg 11/03/24 09:00 11/11/24 09:00 Fluoxetine Hcl 20 Mg Capsule PO 20 mg DAILY GAURAV Administration Hydralazine HCl 10 mg 11/03/24 14:53 Hydralazine Hcl 20 Mg/Ml Vial IV PUSH Q8H PRN Blood Pressure - High Lisinopril 20 mg 11/03/24 09:00 11/11/24 08:58 Lisinopril 20 Mg Tablet PO 20 mg QAM GAURAV Administration Memantine 10 mg 11/02/24 21:00 11/11/24 08:58 Memantine 5 Mg Tablet PO 10 mg Q12H GAURAV Administration Menthol/Methyl Salicylate 1 applic 11/02/24 19:35 11/06/24 08:40 Menthol 10% / Methyl Salicylate 15% 57 Gm Tube TOPICAL 1 applic BID PRN Administration Muscle/Joint Pain Metoprolol Tartrate 25 mg 11/02/24 21:00 11/11/24 08:57 Metoprolol Tartrate 25 Mg Tablet PO 25 mg Q12HR GAURAV Administration Montelukast Sodium 10 mg 11/03/24 09:00 11/11/24 08:58 Montelukast Sodium 10 Mg Tablet PO 10 mg DAILY GAURAV Administration Multivitamins/Calcium 1 tablet 11/03/24 09:00 11/11/24 09:01 Therapeutic Multivitamins/Minerals Tab (*Bkc) PO 1 tablet DAILY GAURAV Administration Saccharomyces Boulardii 250 mg 11/03/24 09:00 11/11/24 09:00 Saccharomyces Boulardii 250 Mg Capsule PO 250 mg TID GAURAV Administration Fluticasone/Salmeterol 1 puff 11/03/24 06:30 11/11/24 06:42 Salmet Xinaft/Flutic Propin 100 Mcg/50 Mcg Inh Cap INHALATION 1 puff Q12HRT GAURAV Administration Senna/Docusate Sodium 1 tab 11/02/24 19:35 Senna/Docusate Sodium Tablet PO BID PRN Constipation Tamsulosin HCl 0.4 mg 11/03/24 09:00 11/11/24 09:00 Tamsulosin Hcl 0.4 Mg Capsule PO 0.4 mg QAM GAURAV Administration Radiology Results: ITS Impressions Chest X-Ray 11/08/24 09:18 IMPRESSION: Bibasilar opacification suggestive of atelectasis versus pneumonia. Minimal right pleural effusion. Underlying cardiomegaly with cardiac decompensation and pulmonary edema. Abdomen Ultrasound 11/08/24 11:24 IMPRESSION: 1. Unremarkable for age right upper quadrant ultrasound. Labs Labs: Laboratory Results - last 24 hr 11/10/24 22:52 WBC 15.1 H RBC 2.51 L Hgb 7.7 L Hct 24.4 L MCV 97.2 MCH 30.7 MCHC 31.6 L RDW 17.0 H Plt Count 454 H MPV 9.7 Immature Gran % (Auto) 1.3 H Neut % (Auto) 88.8 H Lymph % (Auto) 4.7 L Forrest % (Auto) 5.1 Eos % (Auto) 0.0 L Baso % (Auto) 0.1 Lymph # (Auto) 0.71 L Forrest # (Auto) 0.77 Eos # (Auto) 0.00 L Baso # (Auto) 0.01 Abs Immat Gran (auto) 0.20 H Absolute Neuts (auto) 13.37 H Absolute Nucleated RBC 0.00 Nucleated RBC % 0.0 Sodium 148 H Potassium 3.6 Chloride 110 H Carbon Dioxide 29 Anion Gap 9 BUN 46 H Creatinine 2.21 H Estim Creat Clear Calc 21 Estimated GFR 28 L Glucose 155 H Calculated Osmolality 320 H Calcium 7.6 L Total Bilirubin 0.7 AST 46 H ALT 41 Alkaline Phosphatase 142 H NT-Pro-B Natriuret Pep 2344 H Total Protein 5.4 L Albumin 1.9 L Quality VTE Prophylaxis VTE prophylaxis: pharmacologic ordered
[2024-11-11] MEDS: FUROSEMIDE 20 MG TABLET PO (13:10)
[2024-11-11 16:00] VITALS: BP 102/45; PULSE 60; RESP 16; TEMP 36.7; O2SAT 93
[2024-11-11] MEDS: SODIUM CHLORIDE 0.9% IV 500 ML IV CONT (16:40)
[2024-11-11] MEDS: ATORVASTATIN 40 MG TABLET PO (17:46)
[2024-11-11] MEDS: SODIUM CHLORIDE 0.9% IV 1,000 ML 100 ML IV CONT (17:50)
[2024-11-11 21:19] VITALS: PULSE 63
[2024-11-11 23:12] LABS: Alanine Aminotransferase 32 U/L (16-63); Albumin Level 1.8 g/dL (3.4-5.0); Alkaline Phosphatase 126 U/L (46-116); Anion Gap 7 mmol/L (4-12); Aspartate Amino Transferase 38 U/L (15-37); Bilirubin,Total 0.6 mg/dL (0.00-1.00); Blood Urea Nitrogen 47 mg/dL (7-18); Calcium 7.6 mg/dL (8.5-10.1); Carbon Dioxide 29 mmol/L (21-32); Chloride 109 mmol/L (98-108); Estimated CRCL calculation 24 ml/min; Estimated Glomerular Filt Rate 32; Glucose 132 mg/dL (70-99); Osmolality Calculated 314 mOsm/kg (285-295); Potassium 3.4 mmol/L (3.5-5.1); Sodium 145 mmol/L (136-145); Total Protein 5.3 g/dL (6.4-8.2)
[2024-11-12] VITALS (11 sets, daily range): BP systolic 120–158; BP diastolic 53–80; PULSE 60–72; RESP 16–18; TEMP 36.2–36.6; O2SAT 90–97
[2024-11-12 03:04] LABS: Occult Blood Positive (Negative)
[2024-11-12] MEDS: SODIUM CHLORIDE 0.9% IV 1,000 ML 100 ML IV CONT (04:01)
[2024-11-12 05:46] LABS: Alanine Aminotransferase 50 U/L (16-63); Albumin Level 1.8 g/dL (3.4-5.0); Alkaline Phosphatase 126 U/L (46-116); Anion Gap 10 mmol/L (4-12); Aspartate Amino Transferase 37 U/L (15-37); Bilirubin,Total 0.7 mg/dL (0.00-1.00); Blood Urea Nitrogen 46 mg/dL (7-18); Calcium 7.5 mg/dL (8.5-10.1); Carbon Dioxide 26 mmol/L (21-32); Chloride 110 mmol/L (98-108); Estimated CRCL calculation 28 ml/min; Estimated Glomerular Filt Rate 39; Glucose 117 mg/dL (70-99); Osmolality Calculated 314 mOsm/kg (285-295); Potassium 3.8 mmol/L (3.5-5.1); Sodium 146 mmol/L (136-145); Total Protein 4.8 g/dL (6.4-8.2)
[2024-11-12] MEDS: SALMET XINAFT/FLUTIC PROPIN 100 MCG/50 MCG INH CAP 1 PUFF INHALATION ×2 (06:14→17:19)
[2024-11-12 06:35] LABS: Basophils Absolute Auto 0.01 K/mm3 (0.00-0.10); Basophils Percent Auto 0.1 % (0.0-1.0); Eosinophils Absolute Auto 0.02 K/mm3 (0.02-0.50); Eosinophils Percent Auto 0.2 % (1.0-6.0); Hematocrit 23.7 % (37.0-46.0); Hemoglobin 7.3 g/dL (12.4-15.3); Immature Granulocyte Absolute 0.18 K/mm3 (0.00-0.00); Immature Granulocyte Percent A 1.4 % (0.0-0.0); Lymphocytes Absolute Auto 1.03 K/mm3 (1.10-4.50); Lymphocytes Percent Auto 7.9 % (18.0-42.0); Mean Corpuscular HGB Conc 30.8 g/dL (32-36); Mean Corpuscular Hemoglobin 30.4 pg (27.0-31.0); Mean Corpuscular Volume 98.8 fL (78.0-102.0); Mean Platelet Volume 9.7 fl (8.7-11.0); Monocytes Absolute Auto 0.82 K/mm3 (0.10-0.90); Monocytes Percent Auto 6.3 % (2.0-11.0); Neutrophils Absolute Auto 10.94 K/mm3 (1.70-7.20); Neutrophils Percent Auto 84.1 % (50.0-70.0); Platelet Count Result 470 K/mm3 (150-420); Red Cell Distribution Width 17.2 % (11.6-14.4)
[2024-11-12] MEDS: dilTIAZem HCL CD 240 MG CAP.24HR PO (09:20)
[2024-11-12] MEDS: PANTOPRAZOLE SODIUM IV 40 MG VIAL IV PUSH ×2 (09:20→21:56)
[2024-11-12] MEDS: MONTELUKAST SODIUM 10 MG TABLET PO (09:20)
[2024-11-12] MEDS: FLUoxetine HCL 20 MG CAPSULE PO (09:20)
[2024-11-12] MEDS: SACCHAROMYCES BOULARDII 250 MG CAPSULE PO ×2 (09:20→17:19)
[2024-11-12] MEDS: THERAPEUTIC MULTIVITAMINS/MINERALS TAB (*BKC) 1 TABLET PO (09:20)
[2024-11-12] MEDS: TAMSULOSIN HCL 0.4 MG CAPSULE PO (09:20)
[2024-11-12] MEDS: METOPROLOL TARTRATE 25 MG TABLET PO ×2 (09:21→21:56)
[2024-11-12] MEDS: lisinopriL 20 MG TABLET PO (09:21)
[2024-11-12] MEDS: FAMOTIDINE 20 MG TABLET PO ×2 (09:21→21:55)
[2024-11-12] MEDS: DONEPEZIL HCL 5 MG TABLET 10 MG PO (09:21)
[2024-11-12] MEDS: MEMANTINE 5 MG TABLET 10 MG PO ×2 (09:21→21:55)
[2024-11-12] MEDS: CARBIDOPA/LEVODOPA 25/100 MG CR TABLET 2 TABLET PO ×2 (09:21→17:19)
--- NOTE | 2024-11-12 10:14 | P.PNIM_ITS ---
Progress Note: A&P Assessment and Plan (1) Anemia: Code(s): D64.9 - Anemia, unspecified Status: Acute Assessment and Plan: patient has had decreasing hemoglobin levels initially 10.9 on admission is currently down to 7.2 with episodes hypotension * occult stool was positive * will place ASA and Eliquis on hold * spoke with normal patient's will start with conservative therapy * PPI b.i.d. * hemodynamically stable at this time * iron panel pending will add ferrous sulfate if needed * H&H Q6hr * Transfuse PRBC if Hgb <7.0 (2) Physical deconditioning: Code(s): R53.81 - Other malaise Status: Acute Assessment and Plan: * here at [facility] for rehab after hospitalization for sepsis with pneumonia * continue PT and OT * Case coordination following * continue fall precautions 11/05 * continue PT and OT * continue fall precautions (3) Transaminitis: Code(s): R74.01 - Elevation of levels of liver transaminase levels Status: Acute Assessment and Plan: * Last set of labs on 11/02/2024 showed AST of 288, ALT 438 * will recheck labs today * Avoid antipsychotic meds such as Seroquel considering the sedating effect 11/05 * last set of labs show a total bili of 1.6, AST 147, ALT 250, alk-phos 148 11/08/2024: * Midsternal chest pain reported ACS R/O HX of distended gallbladder * US pending * Liver enzymes improving but continues to have pain * Lipase pending 11/11 * US was unremarkable * total bili 0.7, AST 46, ALT 41, alkaline phosphate 142 (4) Chest pain: Code(s): R07.9 - Chest pain, unspecified Status: Acute Assessment and Plan: 11/05 * patient reporting chest pain overnight * troponin 56.4> 57.1 * EKG did not show any ST elevation * patient reporting chest pain when lying flat in the bed. Likely acid reflux * will increase his Protonix to 40 mg b.i.d. 11/08/2024 * atypical chest pain midsternal reproducible midsternal tenderness to touch * troponin negative * EKG with no changes or ST/ T elevation * BNP pending * CXR did show some pulmonary edema * IV Lasix x1 dose 11/11 * denies chest pain * Mild crackles left lung base today * proBNP 8073 11/12: * 20mg Lasix daily (5) Hypertension: Code(s): I10 - Essential (primary) hypertension Status: Acute Assessment and Plan: * blood pressures ranging 148/56 to 158/43 * continue lisinopril 11/05 * no change to current treatment plan (6) Paroxysmal atrial flutter: Code(s): I48.92 - Unspecified atrial flutter Status: Acute Assessment and Plan: * continue Eliquis and metoprolol 11/05 * no change to current treatment plan (7) Chronic kidney disease, stage 3: Code(s): N18.30 - Chronic kidney disease, stage 3 unspecified Status: Acute Assessment and Plan: * labs from yesterday shown creatinine of 0.92, EGFR 60 which is his baseline 11/11 * nursing minimal urine output * creatinine 2.21-REGINA * will give 500 mL normal saline bolus and restart fluids at 100 mil per hour considering amount of diarrhea * will recheck labs in the morning 11/12: * Cr improving (8) Parkinsons disease: Code(s): G20.A1 - Parkinson's disease without dyskinesia, without mention of fluctuations Status: Acute Assessment and Plan: * continue Namenda and carbidopa/levodopa * Seroquel was given last night and today he is too sleepy. Wakes to voice but drifts back to sleep. 11/04 * Discontinued Seroquel yesterday due to sedative effect. He is more alert and oriented today. (9) Coronary artery disease: Code(s): I25.10 - Atherosclerotic heart disease of [place] coronary artery without angina pectoris Status: Acute Assessment and Plan: * continue aspirin and Lipitor (10) Low serum albumin: Code(s): R77.0 - Abnormality of albumin Status: Acute Assessment and Plan: * Albumin 1.7 today * Poor appetite some concern was could be secondary to his gallbladder * albumin IVPB x2 bags * added protein shakes each meal 11/12 * albumin 25mg IVPB (11) Diarrhea: Code(s): R19.7 - Diarrhea, unspecified Status: Acute Assessment and Plan: 11/11 * 7 BM's last 2 days * Will check occult blood and stool culture * WBC 15.1, Hgb down to 7.7 * No signs or symptoms of active bleeding, currently on Eliquis * decrease protein shakes to once a day Plan Code status: Full code per patient DVT prophylaxis: Eliquis on hold for possible GI bleed Stress ulcer prophylaxis: switch to Pepcid PT/OT notes: SWING BED Disposition: patient continues admission to [facility] for continued rehabilitation patient with positive occult stool and decreasing hemoglobin currently hemodynamically stable spoke with patient's Natalie will attempt conservative therapy with PPI and close monitoring of hemoglobin will reassess for possible transfer to [facility] if they are wanting any type further diagnostic such as EGD. Time Spent With Patient Time with patient: 15 - 25 minutes Subjective Date/time seen: 11/12/24 10:14 Interval history: Interval history: This is an 89 year old male with a significant past medical history of asthma, chronic kidney disease stage 3, paroxysmal atrial flutter, CVA, dementia, prostate cancer, hyperlipidemia, hypertension, coronary artery disease, Parkinson's disease who presented to [facility] after hospitalization for sepsis with pneumonia and transaminitis at [facility]. He finished his antibiotics while inpatient at [facility]. He worked with PT and OT who recommended swing bed for additional rehab needs due to weakness from his illness. He is currently on 2 L nasal cannula which is his baseline, vital signs are stable, he is afebrile. He is sleepy on exam today and minimally interactive. and son are at the bedside. He was reported to have some agitation last night and Seroquel was given. He did not sleep well according to nursing. 11/12/24: patient up in chair denied any complaints other than he needed to have a BM more alert less lethargic today denied any chest pain or shortness for breath. hemoglobin did drop to 7.2 occult stool was positive. spoke with patient's Natalie about possible need for transfer if she wants further aggressive interventions such as a EGD currently we will proceed with conservative treatment we will initiate PPI and monitor H&H Q 6 patient currently hemodynamically stable. Review of Systems Review of Systems: All systems reviewed & are unremarkable except as noted in HPI and below Exam Narrative: General: In no acute distress, well nourished, alert answering questions Cardiac: Normal S1 and S2 Respiratory: Lungs clear to auscultation, no adventitious lung sounds, currently on 2L NC Gastrointestinal: soft, non-distended, midsternal tenderness, normoactive bowel sounds. : voiding without difficulty dark laura urine Neuro: Alert to voice and oriented x3, less sleepy today Objective Data Vital Signs Vital Signs: Vital Signs - 24 hr 11/11/24 16:00 11/11/24 21:19 11/12/24 00:00 Temperature 98.1 F 97.5 F L Pulse Rate 60 63 60 Respiratory Rate 16 16 Blood Pressure 102/45 L 120/53 L Pulse Oximetry 93 97 Oxygen Delivery Nasal Cannula Nasal Cannula Oxygen Flow Rate 3 3.5 11/12/24 09:21 Temperature Pulse Rate 72 Respiratory Rate Blood Pressure Pulse Oximetry Oxygen Delivery Oxygen Flow Rate Intake/Output Intake/Output: Intake & Output 11/09/24 11/10/24 11/11/24 11/12/24 23:59 23:59 23:59 23:59 Intake Total 330 3855 2490 1100 Output Total 550 300 425 300 Balance -220 3555 2065 800 Meds/Results Medications: Active Medications Generic Name Dose Route Start Last Admin Trade Name Freq PRN Reason Stop Dose Admin Acetaminophen 650 mg 11/02/24 19:35 11/11/24 08:59 Acetaminophen 325 Mg Tablet PO 650 mg Q6H PRN Administration Mild Pain (1-5) Or Fever Al Hydrox/Mg Hydrox/Simethicone 30 ml 11/05/24 13:09 Mag Hydrox/Al Hydrox/Simeth 30 Ml Udc PO Q6H PRN Indigestion Al Hydrox/Mg Hydrox/Simethicone 30 ml 11/09/24 10:47 Mag Hydrox/Al Hydrox/Simeth 30 Ml Udc PO Q6H PRN Indigestion Apixaban 5 mg 11/02/24 21:00 11/11/24 21:19 Apixaban 2.5 Mg Tablet PO 5 mg Q12HR GAURAV Administration Aspirin 81 mg 11/03/24 09:00 11/11/24 08:59 Aspirin 81 Mg Chewable Tablet PO 81 mg DAILY GAURAV Administration Atorvastatin Calcium 40 mg 11/03/24 18:00 11/11/24 17:46 Atorvastatin 40 Mg Tablet PO 40 mg QPM GAURAV Administration Calcium Carbonate 200 mg 11/09/24 10:47 Calcium Carbonate (Tums) 500 Mg (200 Mg Elemental) PO Q6H PRN Indigestion Carbidopa/Levodopa 2 tablet 11/02/24 22:15 11/12/24 09:21 Carbidopa/Levodopa 25/100 Mg Cr Tablet PO 2 tablet BID GAURAV Administration Diltiazem HCl 240 mg 11/03/24 09:00 11/12/24 09:20 Diltiazem Hcl Cd 240 Mg Cap.24hr PO 240 mg QAM GAURAV Administration Donepezil HCl 10 mg 11/03/24 09:00 11/12/24 09:21 Donepezil Hcl 5 Mg Tablet PO 10 mg DAILY GAURAV Administration Famotidine 20 mg 11/08/24 10:20 11/12/24 09:21 Famotidine 20 Mg Tablet PO 20 mg Q12HR GAURAV Administration Fluoxetine HCl 20 mg 11/03/24 09:00 11/12/24 09:20 Fluoxetine Hcl 20 Mg Capsule PO 20 mg DAILY GAURAV Administration Hydralazine HCl 10 mg 11/03/24 14:53 Hydralazine Hcl 20 Mg/Ml Vial IV PUSH Q8H PRN Blood Pressure - High Sodium Chloride 1,000 mls @ 100 mls/hr 11/11/24 16:25 11/12/24 04:01 Normal Saline Iv IV CONT 100 mls/hr .Q10H GAURAV Administration Lisinopril 20 mg 11/03/24 09:00 11/12/24 09:21 Lisinopril 20 Mg Tablet PO 20 mg QAM GAURAV Administration Memantine 10 mg 11/02/24 21:00 11/12/24 09:21 Memantine 5 Mg Tablet PO 10 mg Q12H GAURAV Administration Menthol/Methyl Salicylate 1 applic 11/02/24 19:35 11/06/24 08:40 Menthol 10% / Methyl Salicylate 15% 57 Gm Tube TOPICAL 1 applic BID PRN Administration Muscle/Joint Pain Metoprolol Tartrate 25 mg 11/02/24 21:00 11/12/24 09:21 Metoprolol Tartrate 25 Mg Tablet PO 25 mg Q12HR GAURAV Administration Montelukast Sodium 10 mg 11/03/24 09:00 11/12/24 09:20 Montelukast Sodium 10 Mg Tablet PO 10 mg DAILY GAURAV Administration Multivitamins/Calcium 1 tablet 11/03/24 09:00 11/12/24 09:20 Therapeutic Multivitamins/Minerals Tab (*Bkc) PO 1 tablet DAILY GAURAV Administration Pantoprazole Sodium 40 mg 11/12/24 09:00 11/12/24 09:20 Pantoprazole Sodium Iv 40 Mg Vial IV PUSH 40 mg Q12HR GAURAV Administration Saccharomyces Boulardii 250 mg 11/03/24 09:00 11/12/24 09:20 Saccharomyces Boulardii 250 Mg Capsule PO 250 mg TID GAURAV Administration Fluticasone/Salmeterol 1 puff 11/03/24 06:30 11/12/24 06:14 Salmet Xinaft/Flutic Propin 100 Mcg/50 Mcg Inh Cap INHALATION 1 puff Q12HRT GAURAV Administration Senna/Docusate Sodium 1 tab 11/02/24 19:35 Senna/Docusate Sodium Tablet PO BID PRN Constipation Tamsulosin HCl 0.4 mg 11/03/24 09:00 11/12/24 09:20 Tamsulosin Hcl 0.4 Mg Capsule PO 0.4 mg QAM GAURAV Administration Radiology Results: ITS Impressions Chest X-Ray 11/08/24 09:18 IMPRESSION: Bibasilar opacification suggestive of atelectasis versus pneumonia. Minimal right pleural effusion. Underlying cardiomegaly with cardiac decompensation and pulmonary edema. Abdomen Ultrasound 11/08/24 11:24 IMPRESSION: 1. Unremarkable for age right upper quadrant ultrasound. Labs Labs: Laboratory Results - last 24 hr 11/11/24 11/12/24 11/12/24 21:56 00:31 05:00 WBC RBC Hgb Hct MCV MCH MCHC RDW Plt Count MPV Immature Gran % (Auto) Neut % (Auto) Lymph % (Auto) [place] % (Auto) Eos % (Auto) Baso % (Auto) Lymph # (Auto) [place] # (Auto) Eos # (Auto) Baso # (Auto) Abs Immat Gran (auto) Absolute Neuts (auto) Absolute Nucleated RBC Nucleated RBC % Sodium 145 146 H Potassium 3.4 L 3.8 Chloride 109 H 110 H Carbon Dioxide 29 26 Anion Gap 7 10 BUN 47 H 46 H Creatinine 1.97 H 1.68 H Estim Creat Clear Calc 24 28 Estimated GFR 32 L 39 L Glucose 132 H 117 H Calculated Osmolality 314 H 314 H Calcium 7.6 L 7.5 L Total Bilirubin 0.6 0.7 AST 38 H 37 ALT 32 50 Alkaline Phosphatase 126 H 126 H Total Protein 5.3 L 4.8 L Albumin 1.8 L 1.8 L Stool Occult Blood Positive A 11/12/24 06:33 WBC 13.0 H RBC 2.40 L Hgb 7.3 L Hct 23.7 L MCV 98.8 MCH 30.4 MCHC 30.8 L RDW 17.2 H Plt Count 470 H MPV 9.7 Immature Gran % (Auto) 1.4 H Neut % (Auto) 84.1 H Lymph % (Auto) 7.9 L [place] % (Auto) 6.3 Eos % (Auto) 0.2 L Baso % (Auto) 0.1 Lymph # (Auto) 1.03 L [place] # (Auto) 0.82 Eos # (Auto) 0.02 Baso # (Auto) 0.01 Abs Immat Gran (auto) 0.18 H Absolute Neuts (auto) 10.94 H Absolute Nucleated RBC 0.00 Nucleated RBC % 0.0 Sodium Potassium Chloride Carbon Dioxide Anion Gap BUN Creatinine Estim Creat Clear Calc Estimated GFR Glucose Calculated Osmolality Calcium Total Bilirubin AST ALT Alkaline Phosphatase Total Protein Albumin Stool Occult Blood Quality VTE Prophylaxis VTE prophylaxis: pharmacologic ordered (On hold) -Patient's previous records reviewed on admission -ER notes reviewed in detail on admission -discussed all findings and current treatment plan with patient/Family/POA -Consultations reviewed for recommendations -Patient's disposition for safe discharge discussed with case mgr Dictation performed by [employer] direct speech recognition software, ther [employer] canary raiser variants and typographical errors may occur. Hospitalist MIPS Advance Care Plan I have confirmed that the patient's Advanced Care Plan is present, code status is documented, or surrogate decision maker is listed in patient medical record.: Yes Medication Reconciliation I have utilized all available resources to obtain, update and review the patients current medications (includes all prescriptions, OTC, herbals, cannabis, and nutritional supplements).: Yes The patient is not eligible for med reconciliation; the patient is in a emergent medical situation where delaying treatment would jeopardize the patients health.: No
[2024-11-12 10:52] LABS: Iron 15 ug/dL (65-175); Percent Iron Saturation 12 % (12-57)
[2024-11-12] MEDS: ALBUMIN HUMAN 25% 25 GM/100 ML 100 ML IVPB (10:54)
[2024-11-12 13:31] LABS: Hematocrit 21.4 % (37.0-46.0)
[2024-11-12 13:34] LABS: Hemoglobin 6.7 g/dL (12.4-15.3)
--- NOTE | 2024-11-12 13:44 | PC.NURSE ---
Informed HAIR WORKER of Hemoglobin 6.7 and hematocrit 21.4
--- NOTE | 2024-11-12 13:56 | PC.NURSE ---
1 unit PRBC ordered at this time per NECKTIES PAINTER.
--- NOTE | 2024-11-12 14:30 | PC.NURSE ---
Spoke with patient and his about patients need for blood due to having a low hemaglobin of 6.7. Both parties state understanding. Consent formed signed by due to patient not being able to sign at this time.
[2024-11-12] MEDS: SODIUM CHLORIDE 0.9% IV 250 ML 30 ML IV CONT (14:57)
[2024-11-12] MEDS: FERROUS SULFATE 325 MG TABLET DR PO (17:19)
[2024-11-12] MEDS: ATORVASTATIN 40 MG TABLET PO (17:19)
[2024-11-12 18:18] LABS: Hematocrit 25.1 % (37.0-46.0); Hemoglobin 7.9 g/dL (12.4-15.3)
[2024-11-12] MEDS: ACETAMINOPHEN 325 MG TABLET 650 MG PO (19:36)
[2024-11-12] MEDS: MAG HYDROX/AL HYDROX/SIMETH 30 ML UDC PO (19:36)
[2024-11-12 20:58] LABS: Toxigenic C. Diff NEGATIVE (NEGATIVE)
[2024-11-13] VITALS (8 sets, daily range): BP systolic 129–149; BP diastolic 53–70; PULSE 62–72; RESP 18–20; TEMP 36.3–36.6; O2SAT 90–94
[2024-11-13] MEDS: SALMET XINAFT/FLUTIC PROPIN 100 MCG/50 MCG INH CAP 1 PUFF INHALATION ×2 (06:36→17:37)
[2024-11-13 06:46] LABS: Hematocrit 24.5 % (37.0-46.0); Hemoglobin 7.7 g/dL (12.4-15.3); Mean Corpuscular HGB Conc 31.4 g/dL (32-36); Mean Corpuscular Volume 95.3 fL (78.0-102.0); Mean Platelet Volume 9.7 fl (8.7-11.0); Platelet Count Result 484 K/mm3 (150-420); Red Blood Count 2.57 M/mm3 (4.70-6.10); Red Cell Distribution Width 17.8 % (11.6-14.4); White Blood Count 11.4 K/mm3 (4.8-10.8)
[2024-11-13 07:03] LABS: Alanine Aminotransferase 63 U/L (16-63); Albumin Level 2.1 g/dL (3.4-5.0); Alkaline Phosphatase 130 U/L (46-116); Anion Gap 7 mmol/L (4-12); Aspartate Amino Transferase 41 U/L (15-37); Blood Urea Nitrogen 43 mg/dL (7-18); Calcium 7.7 mg/dL (8.5-10.1); Carbon Dioxide 27 mmol/L (21-32); Chloride 111 mmol/L (98-108); Estimated CRCL calculation 31 ml/min; Estimated Glomerular Filt Rate 43; Glucose 112 mg/dL (70-99); Osmolality Calculated 311 mOsm/kg (285-295); Potassium 3.9 mmol/L (3.5-5.1); Sodium 145 mmol/L (136-145); Total Protein 5.6 g/dL (6.4-8.2)
[2024-11-13] MEDS: PANTOPRAZOLE SODIUM IV 40 MG VIAL IV PUSH ×2 (09:02→20:27)
[2024-11-13] MEDS: THERAPEUTIC MULTIVITAMINS/MINERALS TAB (*BKC) 1 TABLET PO (09:03)
[2024-11-13] MEDS: FERROUS SULFATE 325 MG TABLET DR PO ×2 (09:03→17:37)
[2024-11-13] MEDS: TAMSULOSIN HCL 0.4 MG CAPSULE PO (09:03)
[2024-11-13] MEDS: MONTELUKAST SODIUM 10 MG TABLET PO (09:03)
[2024-11-13] MEDS: SACCHAROMYCES BOULARDII 250 MG CAPSULE PO ×3 (09:03→17:37)
[2024-11-13] MEDS: dilTIAZem HCL CD 240 MG CAP.24HR PO (09:03)
[2024-11-13] MEDS: FAMOTIDINE 20 MG TABLET PO ×2 (09:03→20:28)
[2024-11-13] MEDS: DONEPEZIL HCL 5 MG TABLET 10 MG PO (09:03)
[2024-11-13] MEDS: CARBIDOPA/LEVODOPA 25/100 MG CR TABLET 2 TABLET PO ×2 (09:03→17:37)
[2024-11-13] MEDS: METOPROLOL TARTRATE 25 MG TABLET PO ×2 (09:03→20:28)
[2024-11-13] MEDS: FLUoxetine HCL 20 MG CAPSULE PO (09:04)
[2024-11-13] MEDS: MEMANTINE 5 MG TABLET 10 MG PO ×2 (09:04→20:28)
[2024-11-13] MEDS: FUROSEMIDE 20 MG TABLET PO (09:04)
[2024-11-13] MEDS: lisinopriL 20 MG TABLET PO (09:04)
--- NOTE | 2024-11-13 10:41 | P.PNIM_ITS ---
Progress Note: A&P Assessment and Plan (1) Anemia: Code(s): D64.9 - Anemia, unspecified Status: Acute Assessment and Plan: patient has had decreasing hemoglobin levels initially 10.9 on admission is currently down to 7.2 with episodes hypotension * occult stool was positive * will place ASA and Eliquis on hold * spoke with normal patient's will start with conservative therapy * PPI b.i.d. * hemodynamically stable at this time * iron panel pending will add ferrous sulfate if needed * H&H Q6hr * Transfuse PRBC if Hgb <7.0 11/13 * Hgb dropped to 6.7 * transfused 1 unit PRBC * Conitnue PPI * added Ferrous sulfate BID * H&H Q6H * would recommend only continued patient's ASA at discharge and discontinuing his Eliquis (2) Physical deconditioning: Code(s): R53.81 - Other malaise Status: Acute Assessment and Plan: * here at [facility] for rehab after hospitalization for sepsis with pneumonia * continue PT and OT * Case coordination following * continue fall precautions 11/05 * continue PT and OT * continue fall precautions (3) Transaminitis: Code(s): R74.01 - Elevation of levels of liver transaminase levels Status: Acute Assessment and Plan: * Last set of labs on 11/02/2024 showed AST of 288, ALT 438 * will recheck labs today * Avoid antipsychotic meds such as Seroquel considering the sedating effect 11/05 * last set of labs show a total bili of 1.6, AST 147, ALT 250, alk-phos 148 11/08/2024: * Midsternal chest pain reported ACS R/O HX of distended gallbladder * US pending * Liver enzymes improving but continues to have pain * Lipase pending 11/11 * US was unremarkable * total bili 0.7, AST 46, ALT 41, alkaline phosphate 142 (4) Chest pain: Code(s): R07.9 - Chest pain, unspecified Status: Acute Assessment and Plan: 11/05 * patient reporting chest pain overnight * troponin 56.4> 57.1 * EKG did not show any ST elevation * patient reporting chest pain when lying flat in the bed. Likely acid reflux * will increase his Protonix to 40 mg b.i.d. 11/08/2024 * atypical chest pain midsternal reproducible midsternal tenderness to touch * troponin negative * EKG with no changes or ST/ T elevation * BNP pending * CXR did show some pulmonary edema * IV Lasix x1 dose 11/11 * denies chest pain * Mild crackles left lung base today * proBNP 3166 11/12: * 20mg Lasix daily (5) Hypertension: Code(s): I10 - Essential (primary) hypertension Status: Acute Assessment and Plan: * blood pressures ranging 148/56 to 158/43 * continue lisinopril 11/05 * no change to current treatment plan (6) Paroxysmal atrial flutter: Code(s): I48.92 - Unspecified atrial flutter Status: Acute Assessment and Plan: * continue Eliquis and metoprolol 11/05 * no change to current treatment plan (7) Chronic kidney disease, stage 3: Code(s): N18.30 - Chronic kidney disease, stage 3 unspecified Status: Acute Assessment and Plan: * labs from yesterday shown creatinine of 0.92, EGFR 60 which is his baseline 11/11 * nursing minimal urine output * creatinine 2.21-REGINA * will give 500 mL normal saline bolus and restart fluids at 100 mil per hour considering amount of diarrhea * will recheck labs in the morning 11/12: * Cr improving (8) Parkinsons disease: Code(s): G20.A1 - Parkinson's disease without dyskinesia, without mention of fluctuations Status: Acute Assessment and Plan: * continue Namenda and carbidopa/levodopa * Seroquel was given last night and today he is too sleepy. Wakes to voice but drifts back to sleep. 11/04 * Discontinued Seroquel yesterday due to sedative effect. He is more alert and oriented today. (9) Coronary artery disease: Code(s): I25.10 - Atherosclerotic heart disease of [place] coronary artery without angina pectoris Status: Acute Assessment and Plan: * continue aspirin and Lipitor (10) Low serum albumin: Code(s): R77.0 - Abnormality of albumin Status: Acute Assessment and Plan: * Albumin 1.7 today * Poor appetite some concern was could be secondary to his gallbladder * albumin IVPB x2 bags * added protein shakes each meal 11/12 * albumin 25mg IVPB (11) Diarrhea: Code(s): R19.7 - Diarrhea, unspecified Status: Acute Assessment and Plan: 11/11 * 7 BM's last 2 days * Will check occult blood and stool culture * WBC 15.1, Hgb down to 7.7 * No signs or symptoms of active bleeding, currently on Eliquis * decrease protein shakes to once a day * C-diff negative Plan Code status: Full code per patient DVT prophylaxis: Eliquis on hold for possible GI bleed Stress ulcer prophylaxis: switch to Pepcid PT/OT notes: SWING BED Disposition: patient continues admission to [facility] for continued rehabilitation patient with positive occult stool and decreasing hemoglobin currently hemodynamically stable spoke with patient's Natalie will attempt conservative therapy with PPI and close monitoring of hemoglobin will reassess for possible transfer to [place] if they are wanting any type further diagnostic such as EGD. Time Spent With Patient Time with patient: 15 - 25 minutes Subjective Date/time seen: 11/13/24 10:41 Interval history: Interval history: This is an 89 year old male with a significant past medical history of asthma, chronic kidney disease stage 3, paroxysmal atrial flutter, CVA, dementia, prostate cancer, hyperlipidemia, hypertension, coronary artery disease, Parkinson's disease who presented to [place] swing bed program after hospitalization for sepsis with pneumonia and transaminitis at [facility]. He finished his antibiotics while inpatient at [place]. He worked with PT and OT who recommended swing bed for additional rehab needs due to weakness from his illness. He is currently on 2 L nasal cannula which is his baseline, vital signs are stable, he is afebrile. He is sleepy on exam today and minimally interactive. and son are at the bedside. He was reported to have some agitation last night and Seroquel was given. He did not sleep well according to nursing. 11/13/24: patient's hemoglobin did drop to 6.7 did get 1 unit PRBCs yesterday and started on PPI b.i.d. follow-up hemoglobin 7.7 today patient denies any blood in stool hemodynamically stable at this time we will continue with conservative treatment. If patient's family decides they would like further evaluation with EGD will need to transfer over to [place] but currently they would prefer conservative treatment. Review of Systems Review of Systems: All systems reviewed & are unremarkable except as noted in HPI and below Exam Narrative: General: In no acute distress, well nourished, alert answering questions Cardiac: Normal S1 and S2 Respiratory: Lungs clear to auscultation, no adventitious lung sounds, currently on 2L NC Gastrointestinal: soft, non-distended, midsternal tenderness, normoactive bowel sounds. : voiding without difficulty dark laura urine Neuro: Alert to voice and oriented x3, less sleepy today Objective Data Vital Signs Vital Signs: Vital Signs - 24 hr 11/12/24 14:56 11/12/24 15:12 11/12/24 16:10 Temperature 97.1 F L 97.7 F 97.4 F L Pulse Rate 67 71 65 Respiratory Rate 18 18 18 Blood Pressure 133/68 122/67 128/67 Pulse Oximetry 92 91 95 Oxygen Delivery Nasal Cannula Oxygen Flow Rate 3 11/12/24 16:12 11/12/24 17:12 11/12/24 17:40 Temperature 97.4 F L 97.3 F L 97.2 F L Pulse Rate 65 70 68 Respiratory Rate 18 16 18 Blood Pressure 128/67 158/80 H 144/70 H Pulse Oximetry 95 90 92 Oxygen Delivery Oxygen Flow Rate 11/12/24 21:56 11/13/24 00:00 11/13/24 07:45 Temperature 97.5 F L 97.9 F Pulse Rate 60 66 68 Respiratory Rate 18 18 Blood Pressure 145/63 H 149/70 H Pulse Oximetry 93 94 Oxygen Delivery Room Air Nasal Cannula Oxygen Flow Rate 3 11/13/24 09:03 Temperature Pulse Rate 68 Respiratory Rate Blood Pressure Pulse Oximetry Oxygen Delivery Oxygen Flow Rate Intake/Output Intake/Output: Intake & Output 11/10/24 11/11/24 11/12/24 11/13/24 23:59 23:59 23:59 23:59 Intake Total 3855 2490 2820 240 Output Total 300 425 700 200 Balance 3555 2065 2120 40 Meds/Results Medications: Active Medications Generic Name Dose Route Start Last Admin Trade Name Freq PRN Reason Stop Dose Admin Acetaminophen 650 mg 11/02/24 19:35 11/12/24 19:36 Acetaminophen 325 Mg Tablet PO 650 mg Q6H PRN Administration Mild Pain (1-5) Or Fever Al Hydrox/Mg Hydrox/Simethicone 30 ml 11/05/24 13:09 11/12/24 19:36 Mag Hydrox/Al Hydrox/Simeth 30 Ml Udc PO 30 ml Q6H PRN Administration Indigestion Al Hydrox/Mg Hydrox/Simethicone 30 ml 11/09/24 10:47 Mag Hydrox/Al Hydrox/Simeth 30 Ml Udc PO Q6H PRN Indigestion Apixaban 5 mg 11/02/24 21:00 11/11/24 21:19 Apixaban 2.5 Mg Tablet PO 5 mg Q12HR GAURAV Administration Aspirin 81 mg 11/03/24 09:00 11/11/24 08:59 Aspirin 81 Mg Chewable Tablet PO 81 mg DAILY GAURAV Administration Atorvastatin Calcium 40 mg 11/03/24 18:00 11/12/24 17:19 Atorvastatin 40 Mg Tablet PO 40 mg QPM GAURAV Administration Calcium Carbonate 200 mg 11/09/24 10:47 Calcium Carbonate (Tums) 500 Mg (200 Mg Elemental) PO Q6H PRN Indigestion Carbidopa/Levodopa 2 tablet 11/02/24 22:15 11/13/24 09:03 Carbidopa/Levodopa 25/100 Mg Cr Tablet PO 2 tablet BID GAURAV Administration Diltiazem HCl 240 mg 11/03/24 09:00 11/13/24 09:03 Diltiazem Hcl Cd 240 Mg Cap.24hr PO 240 mg QAM GAURAV Administration Donepezil HCl 10 mg 11/03/24 09:00 11/13/24 09:03 Donepezil Hcl 5 Mg Tablet PO 10 mg DAILY GAURAV Administration Famotidine 20 mg 11/08/24 10:20 11/13/24 09:03 Famotidine 20 Mg Tablet PO 20 mg Q12HR GAURAV Administration Ferrous Sulfate 325 mg 11/12/24 17:00 11/13/24 09:03 Ferrous Sulfate [address] PO 325 mg BID GAURAV Administration Fluoxetine HCl 20 mg 11/03/24 09:00 11/13/24 09:04 Fluoxetine Hcl 20 Mg Capsule PO 20 mg DAILY GAURAV Administration Furosemide 20 mg 11/13/24 09:00 11/13/24 09:04 Furosemide 20 Mg Tablet PO 20 mg DAILY GAURAV Administration Hydralazine HCl 10 mg 11/03/24 14:53 Hydralazine Hcl 20 Mg/Ml Vial IV PUSH Q8H PRN Blood Pressure - High Lisinopril 20 mg 11/03/24 09:00 11/13/24 09:04 Lisinopril 20 Mg Tablet PO 20 mg QAM GAURAV Administration Memantine 10 mg 11/02/24 21:00 11/13/24 09:04 Memantine 5 Mg Tablet PO 10 mg Q12H GAURAV Administration Menthol/Methyl Salicylate 1 applic 11/02/24 19:35 11/06/24 08:40 Menthol 10% / Methyl Salicylate 15% 57 Gm Tube TOPICAL 1 applic BID PRN Administration Muscle/Joint Pain Metoprolol Tartrate 25 mg 11/02/24 21:00 11/13/24 09:03 Metoprolol Tartrate 25 Mg Tablet PO 25 mg Q12HR GAURAV Administration Montelukast Sodium 10 mg 11/03/24 09:00 11/13/24 09:03 Montelukast Sodium 10 Mg Tablet PO 10 mg DAILY GAURAV Administration Multivitamins/Calcium 1 tablet 11/03/24 09:00 11/13/24 09:03 Therapeutic Multivitamins/Minerals Tab (*Bkc) PO 1 tablet DAILY GAURAV Administration Pantoprazole Sodium 40 mg 11/12/24 09:00 11/13/24 09:02 Pantoprazole Sodium Iv 40 Mg Vial IV PUSH 40 mg Q12HR GAURAV Administration Saccharomyces Boulardii 250 mg 11/03/24 09:00 11/13/24 09:03 Saccharomyces Boulardii 250 Mg Capsule PO 250 mg TID GAURAV Administration Fluticasone/Salmeterol 1 puff 11/03/24 06:30 11/13/24 06:36 Salmet Xinaft/Flutic Propin 100 Mcg/50 Mcg Inh Cap INHALATION 1 puff Q12HRT GAURAV Administration Senna/Docusate Sodium 1 tab 11/02/24 19:35 Senna/Docusate Sodium Tablet PO BID PRN Constipation Tamsulosin HCl 0.4 mg 11/03/24 09:00 11/13/24 09:03 Tamsulosin Hcl 0.4 Mg Capsule PO 0.4 mg QAM GAURAV Administration Radiology Results: ITS Impressions Chest X-Ray 11/08/24 09:18 IMPRESSION: Bibasilar opacification suggestive of atelectasis versus pneumonia. Minimal right pleural effusion. Underlying cardiomegaly with cardiac decompensation and pulmonary edema. Abdomen Ultrasound 11/08/24 11:24 IMPRESSION: 1. Unremarkable for age right upper quadrant ultrasound. Labs Labs: Laboratory Results - last 24 hr 11/12/24 11/12/24 11/12/24 05:00 13:26 18:13 WBC RBC Hgb 6.7 L* 7.9 L Hct 21.4 L 25.1 L MCV MCH MCHC RDW Plt Count MPV Sodium Potassium Chloride Carbon Dioxide Anion Gap BUN Creatinine Estim Creat Clear Calc Estimated GFR Glucose Calculated Osmolality Calcium Iron 15 L TIBC 123 L % Saturation 12 Total Bilirubin AST ALT Alkaline Phosphatase Total Protein Albumin C. difficile (PCR) Blood Type AB Negative Antibody Screen Negative Crossmatch See Detail 11/12/24 11/13/24 19:15 06:18 WBC 11.4 H RBC 2.57 L Hgb 7.7 L Hct 24.5 L MCV 95.3 MCH 30.0 MCHC 31.4 L RDW 17.8 H Plt Count 484 H MPV 9.7 Sodium 145 Potassium 3.9 Chloride 111 H Carbon Dioxide 27 Anion Gap 7 BUN 43 H Creatinine 1.52 H Estim Creat Clear Calc 31 Estimated GFR 43 L Glucose 112 H Calculated Osmolality 311 H Calcium 7.7 L Iron TIBC % Saturation Total Bilirubin 1.0 AST 41 H ALT 63 Alkaline Phosphatase 130 H Total Protein 5.6 L Albumin 2.1 L C. difficile (PCR) Negative Blood Type Antibody Screen Crossmatch Quality VTE Prophylaxis VTE prophylaxis: pharmacologic ordered (On hold) -Patient's previous records reviewed on admission -ER notes reviewed in detail on admission -discussed all findings and current treatment plan with patient/Family/POA -Consultations reviewed for recommendations -Patient's disposition for safe discharge discussed with field case manager Dictation performed by [employer] direct speech recognition software, therefore batteryman variants and typographical errors may occur. Hospitalist MIPS Advance Care Plan I have confirmed that the patient's Advanced Care Plan is present, code status is documented, or surrogate decision maker is listed in patient medical record.: Yes Medication Reconciliation I have utilized all available resources to obtain, update and review the patients current medications (includes all prescriptions, OTC, herbals, cannabis, and nutritional supplements).: Yes The patient is not eligible for med reconciliation; the patient is in a emergent medical situation where delaying treatment would jeopardize the patients health.: No
[2024-11-13 12:51] LABS: Hematocrit 24.7 % (37.0-46.0); Hemoglobin 7.7 g/dL (12.4-15.3)
[2024-11-13] MEDS: ATORVASTATIN 40 MG TABLET PO (17:37)
[2024-11-13 19:11] LABS: Hemoglobin 7.9 g/dL (12.4-15.3)
[2024-11-14 01:28] LABS: Hematocrit 24.1 % (37.0-46.0); Hemoglobin 7.7 g/dL (12.4-15.3)
[2024-11-14 05:30] VITALS: O2SAT 90
[2024-11-14] MEDS: SALMET XINAFT/FLUTIC PROPIN 100 MCG/50 MCG INH CAP 1 PUFF INHALATION ×2 (05:34→18:25)
[2024-11-14 08:00] VITALS: BP 175/72; PULSE 65; RESP 14; TEMP 36.6; O2SAT 90
--- NOTE | 2024-11-14 08:57 | P.PNIM_ITS ---
Progress Note: A&P Assessment and Plan (1) Anemia: Code(s): D64.9 - Anemia, unspecified Status: Acute Assessment and Plan: patient has had decreasing hemoglobin levels initially 10.9 on admission is currently down to 7.2 with episodes hypotension * occult stool was positive * will place ASA and Eliquis on hold * spoke with normal patient's will start with conservative therapy * PPI b.i.d. * hemodynamically stable at this time * iron panel pending will add ferrous sulfate if needed * H&H Q6hr * Transfuse PRBC if Hgb <7.0 11/13 * Hgb dropped to 6.7 * transfused 1 unit PRBC * Conitnue PPI * added Ferrous sulfate BID * H&H Q6H * would recommend only continued patient's ASA at discharge and discontinuing his Eliquis 11/14 * Hgb remained stable at 7.7 * continue ferrous sulfate * DC H&H series (2) Physical deconditioning: Code(s): R53.81 - Other malaise Status: Acute Assessment and Plan: * here at [facility] for rehab after hospitalization for sepsis with pneumonia * continue PT and OT * Case coordination following * continue fall precautions 11/05 * continue PT and OT * continue fall precautions 11/14 * no change to current treatment plan (3) Transaminitis: Code(s): R74.01 - Elevation of levels of liver transaminase levels Status: Acute Assessment and Plan: * Last set of labs on 11/02/2024 showed AST of 288, ALT 438 * will recheck labs today * Avoid antipsychotic meds such as Seroquel considering the sedating effect 11/05 * last set of labs show a total bili of 1.6, AST 147, ALT 250, alk-phos 148 11/08/2024: * Midsternal chest pain reported ACS R/O HX of distended gallbladder * US pending * Liver enzymes improving but continues to have pain * Lipase pending 11/11 * US was unremarkable * total bili 0.7, AST 46, ALT 41, alkaline phosphate 142 11/14 * total bilirubin 0.7, AST 49, ALT 61, alkaline phosphate 152 (4) Chest pain: Code(s): R07.9 - Chest pain, unspecified Status: Acute Assessment and Plan: 11/05 * patient reporting chest pain overnight * troponin 56.4> 57.1 * EKG did not show any ST elevation * patient reporting chest pain when lying flat in the bed. Likely acid reflux * will increase his Protonix to 40 mg b.i.d. 11/08/2024 * atypical chest pain midsternal reproducible midsternal tenderness to touch * troponin negative * EKG with no changes or ST/ T elevation * BNP pending * CXR did show some pulmonary edema * IV Lasix x1 dose 11/11 * denies chest pain * Mild crackles left lung base today * proBNP 2344 11/12: * 20mg Lasix daily 11/14 * patient denies any chest pain * Lasix 20 mg on hold due to REGINA (5) Chronic kidney disease, stage 3: Code(s): N18.30 - Chronic kidney disease, stage 3 unspecified Status: Acute Assessment and Plan: * labs from yesterday shown creatinine of 0.92, EGFR 60 which is his baseline 11/11 * nursing minimal urine output * creatinine 2.21-REGINA * will give 500 mL normal saline bolus and restart fluids at 100 mil per hour considering amount of diarrhea * will recheck labs in the morning 11/12: * Cr improving 11/14 * will hold Lasix and lisinopril today due to REGINA * baseline creatinine 0.92 * today creatinine is 1.54 (6) Hypertension: Code(s): I10 - Essential (primary) hypertension Status: Acute Assessment and Plan: * blood pressures ranging 148/56 to 158/43 * continue lisinopril 11/05 * no change to current treatment plan 11/14 * hold lisinopril due to REGINA (7) Paroxysmal atrial flutter: Code(s): I48.92 - Unspecified atrial flutter Status: Acute Assessment and Plan: * continue Eliquis and metoprolol 11/05 * no change to current treatment plan (8) Parkinsons disease: Code(s): G20.A1 - Parkinson's disease without dyskinesia, without mention of fluctuations Status: Acute Assessment and Plan: * continue Namenda and carbidopa/levodopa * Seroquel was given last night and today he is too sleepy. Wakes to voice but drifts back to sleep. 11/04 * Discontinued Seroquel yesterday due to sedative effect. He is more alert and oriented today. (9) Coronary artery disease: Code(s): I25.10 - Atherosclerotic heart disease of [place] coronary artery without angina pectoris Status: Acute Assessment and Plan: * continue aspirin and Lipitor (10) Low serum albumin: Code(s): R77.0 - Abnormality of albumin Status: Acute Assessment and Plan: * Albumin 1.7 today * Poor appetite some concern was could be secondary to his gallbladder * albumin IVPB x2 bags * added protein shakes each meal 11/12 * albumin 25mg IVPB (11) Diarrhea: Code(s): R19.7 - Diarrhea, unspecified Status: Acute Assessment and Plan: 11/11 * 7 BM's last 2 days * Will check occult blood and stool culture * WBC 15.1, Hgb down to 7.7 * No signs or symptoms of active bleeding, currently on Eliquis * decrease protein shakes to once a day * C-diff negative 11/14 * stool culture so far coming back negative, still waiting on salmonella shigella culture * bowel movements have been less Plan Time Spent With Patient Time with patient: 25 - 35 minutes Subjective Date/time seen: 11/14/24 08:57 Interval history: Interval history: This is an 89 year old male with a significant past medical history of asthma, chronic kidney disease stage 3, paroxysmal atrial flutter, CVA, dementia, prostate cancer, hyperlipidemia, hypertension, coronary artery disease, Parkinson's disease who presented to [facility] swing bed program after hospitalization for sepsis with pneumonia and transaminitis at [facility]. He finished his antibiotics while inpatient at [facility]. He worked with PT and OT who recommended swing bed for additional rehab needs due to weakness from his illness. He is currently on 2 L nasal cannula which is his baseline, vital signs are stable, he is afebrile. He is sleepy on exam today and minimally interactive. and son are at the bedside. He was reported to have some agitation last night and Seroquel was given. He did not sleep well according to nursing. Subjective: Patient denies any new complaints today. Labs reviewed. Review of Systems Review of Systems: All systems reviewed & are unremarkable except as noted in HPI and below Constitutional: Constitutional: Reports as per HPI and Reports no additional constitutional complaints Eyes: Eyes: Reports as per HPI and Reports no additional eye complaints ENT: Reports system reviewed and no additional complaints, except as documented and Reports as per HPI Cardiovascular: Cardiovascular: Reports as per HPI and Reports no additional cardiovascular complaints Respiratory: Respiratory: Reports as per HPI and Reports no additional respiratory complaints Gastrointestinal: Gastrointestinal: Reports as per HPI and Reports no additional gastrointestinal complaints Genitourinary: Genitourinary: Reports no additional male genitourinary complaints and Reports as per HPI Musculoskeletal: Musculoskeletal: Reports no additional musculoskeletal complaints and Reports as per HPI Integumentary/Breasts: Skin/Breast: Reports system reviewed and no additional complaints, except as docu and Reports as per HPI Neurologic: Reports system reviewed and no additional complaints, except as documented and Reports as per HPI Psychiatric: Psychiatric: Reports no additional psychiatric complaints and Reports as per HPI Exam Narrative: General: In no acute distress, well nourished Cardiac: Normal S1 and S2 Respiratory: Lungs clear to auscultation, no adventitious lung sounds, currently on 2L NC Gastrointestinal: soft, non-distended, midsternal tenderness, normoactive bowel sounds. : voiding without difficulty dark laura urine Neuro: Alert to voice and oriented x3, less sleepy today Objective Data Vital Signs Vital Signs: Vital Signs - 24 hr 11/13/24 09:03 11/13/24 16:35 11/13/24 20:00 Temperature 97.4 F L Pulse Rate 68 66 Respiratory Rate 18 Blood Pressure 134/63 Pulse Oximetry 94 90 Oxygen Delivery Nasal Cannula Nasal Cannula Oxygen Flow Rate 3 3 11/13/24 20:28 11/13/24 23:01 Temperature 98 F Pulse Rate 62 72 Respiratory Rate 20 Blood Pressure 129/53 L Pulse Oximetry 90 Oxygen Delivery Nasal Cannula Oxygen Flow Rate 3 Intake/Output Intake/Output: Intake & Output 11/11/24 11/12/24 11/13/24 11/14/24 23:59 23:59 23:59 23:59 Intake Total 2490 2820 1110 Output Total 425 700 625 250 Balance 2065 2120 485 -250 Meds/Results Medications: Active Medications Generic Name Dose Route Start Last Admin Trade Name Freq PRN Reason Stop Dose Admin Acetaminophen 650 mg 11/02/24 19:35 11/12/24 19:36 Acetaminophen 325 Mg Tablet PO 650 mg Q6H PRN Administration Mild Pain (1-5) Or Fever Al Hydrox/Mg Hydrox/Simethicone 30 ml 11/05/24 13:09 11/12/24 19:36 Mag Hydrox/Al Hydrox/Simeth 30 Ml Udc PO 30 ml Q6H PRN Administration Indigestion Al Hydrox/Mg Hydrox/Simethicone 30 ml 11/09/24 10:47 Mag Hydrox/Al Hydrox/Simeth 30 Ml Udc PO Q6H PRN Indigestion Apixaban 5 mg 11/02/24 21:00 11/11/24 21:19 Apixaban 2.5 Mg Tablet PO 5 mg Q12HR GAURAV Administration Aspirin 81 mg 11/03/24 09:00 11/11/24 08:59 Aspirin 81 Mg Chewable Tablet PO 81 mg DAILY GAURAV Administration Atorvastatin Calcium 40 mg 11/03/24 18:00 11/13/24 17:37 Atorvastatin 40 Mg Tablet PO 40 mg QPM GAURAV Administration Calcium Carbonate 200 mg 11/09/24 10:47 Calcium Carbonate (Tums) 500 Mg (200 Mg Elemental) PO Q6H PRN Indigestion Carbidopa/Levodopa 2 tablet 11/02/24 22:15 11/13/24 17:37 Carbidopa/Levodopa 25/100 Mg Cr Tablet PO 2 tablet BID GAURAV Administration Diltiazem HCl 240 mg 11/03/24 09:00 11/13/24 09:03 Diltiazem Hcl Cd 240 Mg Cap.24hr PO 240 mg QAM GAURAV Administration Donepezil HCl 10 mg 11/03/24 09:00 11/13/24 09:03 Donepezil Hcl 5 Mg Tablet PO 10 mg DAILY GAURAV Administration Famotidine 20 mg 11/08/24 10:20 11/13/24 20:28 Famotidine 20 Mg Tablet PO 20 mg Q12HR GAURAV Administration Ferrous Sulfate 325 mg 11/12/24 17:00 11/13/24 17:37 Ferrous Sulfate [address] PO 325 mg BID GAURAV Administration Fluoxetine HCl 20 mg 11/03/24 09:00 11/13/24 09:04 Fluoxetine Hcl 20 Mg Capsule PO 20 mg DAILY GAURAV Administration Furosemide 20 mg 11/13/24 09:00 11/13/24 09:04 Furosemide 20 Mg Tablet PO 20 mg DAILY GAURAV Administration Hydralazine HCl 10 mg 11/03/24 14:53 Hydralazine Hcl 20 Mg/Ml Vial IV PUSH Q8H PRN Blood Pressure - High Lisinopril 20 mg 11/03/24 09:00 11/13/24 09:04 Lisinopril 20 Mg Tablet PO 20 mg QAM GAURAV Administration Memantine 10 mg 11/02/24 21:00 11/13/24 20:28 Memantine 5 Mg Tablet PO 10 mg Q12H GAURAV Administration Menthol/Methyl Salicylate 1 applic 11/02/24 19:35 11/06/24 08:40 Menthol 10% / Methyl Salicylate 15% 57 Gm Tube TOPICAL 1 applic BID PRN Administration Muscle/Joint Pain Metoprolol Tartrate 25 mg 11/02/24 21:00 11/13/24 20:28 Metoprolol Tartrate 25 Mg Tablet PO 25 mg Q12HR GAURAV Administration Montelukast Sodium 10 mg 11/03/24 09:00 11/13/24 09:03 Montelukast Sodium 10 Mg Tablet PO 10 mg DAILY GAURAV Administration Multivitamins/Calcium 1 tablet 11/03/24 09:00 11/13/24 09:03 Therapeutic Multivitamins/Minerals Tab (*Bkc) PO 1 tablet DAILY GAURAV Administration Pantoprazole Sodium 40 mg 11/12/24 09:00 11/13/24 20:27 Pantoprazole Sodium Iv 40 Mg Vial IV PUSH 40 mg Q12HR GAURAV Administration Saccharomyces Boulardii 250 mg 11/03/24 09:00 11/13/24 17:37 Saccharomyces Boulardii 250 Mg Capsule PO 250 mg TID GAURAV Administration Fluticasone/Salmeterol 1 puff 11/03/24 06:30 11/14/24 05:34 Salmet Xinaft/Flutic Propin 100 Mcg/50 Mcg Inh Cap INHALATION 1 puff Q12HRT GAURAV Administration Senna/Docusate Sodium 1 tab 11/02/24 19:35 Senna/Docusate Sodium Tablet PO BID PRN Constipation Tamsulosin HCl 0.4 mg 11/03/24 09:00 11/13/24 09:03 Tamsulosin Hcl 0.4 Mg Capsule PO 0.4 mg QAM GAUARV Administration Radiology Results: ITS Impressions Chest X-Ray 11/08/24 09:18 IMPRESSION: Bibasilar opacification suggestive of atelectasis versus pneumonia. Minimal right pleural effusion. Underlying cardiomegaly with cardiac decompensation and pulmonary edema. Abdomen Ultrasound 11/08/24 11:24 IMPRESSION: 1. Unremarkable for age right upper quadrant ultrasound. Labs Labs: Laboratory Results - last 24 hr 11/13/24 11/13/24 11/14/24 12:47 19:07 01:07 Hgb 7.7 L 7.9 L 7.7 L Hct 24.7 L 25.0 L 24.1 L Quality VTE Prophylaxis VTE prophylaxis: pharmacologic ordered (On hold)
[2024-11-14 09:22] LABS: Basophils Absolute Auto 0.01 K/mm3 (0.00-0.10); Basophils Percent Auto 0.1 % (0.0-1.0); Eosinophils Absolute Auto 0.01 K/mm3 (0.02-0.50); Eosinophils Percent Auto 0.1 % (1.0-6.0); Immature Granulocyte Absolute 0.18 K/mm3 (0.00-0.00); Immature Granulocyte Percent A 1.4 % (0.0-0.0); Lymphocytes Absolute Auto 0.61 K/mm3 (1.10-4.50); Lymphocytes Percent Auto 4.9 % (18.0-42.0); Mean Corpuscular HGB Conc 30.8 g/dL (32-36); Mean Corpuscular Hemoglobin 30.3 pg (27.0-31.0); Mean Corpuscular Volume 98.4 fL (78.0-102.0); Mean Platelet Volume 10.4 fl (8.7-11.0); Monocytes Absolute Auto 0.87 K/mm3 (0.10-0.90); Neutrophils Absolute Auto 10.75 K/mm3 (1.70-7.20); Neutrophils Percent Auto 86.5 % (50.0-70.0); Platelet Count Result 494 K/mm3 (150-420); Red Blood Count 2.54 M/mm3 (4.70-6.10); Red Cell Distribution Width 17.8 % (11.6-14.4); White Blood Count 12.4 K/mm3 (4.8-10.8)
[2024-11-14] MEDS: SACCHAROMYCES BOULARDII 250 MG CAPSULE PO ×2 (09:24→17:07)
[2024-11-14] MEDS: TAMSULOSIN HCL 0.4 MG CAPSULE PO (09:24)
[2024-11-14] MEDS: lisinopriL 20 MG TABLET PO (09:24)
[2024-11-14] MEDS: PANTOPRAZOLE SODIUM IV 40 MG VIAL IV PUSH ×2 (09:24→20:51)
[2024-11-14] MEDS: CARBIDOPA/LEVODOPA 25/100 MG CR TABLET 2 TABLET PO ×2 (09:24→17:06)
[2024-11-14] MEDS: FLUoxetine HCL 20 MG CAPSULE PO (09:24)
[2024-11-14] MEDS: FERROUS SULFATE 325 MG TABLET DR PO ×2 (09:24→17:03)
[2024-11-14] MEDS: THERAPEUTIC MULTIVITAMINS/MINERALS TAB (*BKC) 1 TABLET PO (09:24)
[2024-11-14] MEDS: MEMANTINE 5 MG TABLET 10 MG PO ×2 (09:25→20:52)
[2024-11-14] MEDS: MONTELUKAST SODIUM 10 MG TABLET PO (09:25)
[2024-11-14] MEDS: DONEPEZIL HCL 5 MG TABLET 10 MG PO (09:25)
[2024-11-14] MEDS: FUROSEMIDE 20 MG TABLET PO (09:25)
[2024-11-14] MEDS: FAMOTIDINE 20 MG TABLET PO ×2 (09:25→20:52)
[2024-11-14 09:26] VITALS: PULSE 65
[2024-11-14] MEDS: METOPROLOL TARTRATE 25 MG TABLET PO ×2 (09:26→20:53)
[2024-11-14] MEDS: dilTIAZem HCL CD 240 MG CAP.24HR PO (09:26)
[2024-11-14 09:33] LABS: Alanine Aminotransferase 61 U/L (16-63); Albumin Level 2.1 g/dL (3.4-5.0); Alkaline Phosphatase 152 U/L (46-116); Anion Gap 8 mmol/L (4-12); Aspartate Amino Transferase 49 U/L (15-37); Bilirubin,Total 0.7 mg/dL (0.00-1.00); Blood Urea Nitrogen 42 mg/dL (7-18); Carbon Dioxide 28 mmol/L (21-32); Chloride 110 mmol/L (98-108); Estimated CRCL calculation 30 ml/min; Estimated Glomerular Filt Rate 43; Glucose 143 mg/dL (70-99); Osmolality Calculated 314 mOsm/kg (285-295); Potassium 3.9 mmol/L (3.5-5.1); Sodium 146 mmol/L (136-145); Total Protein 5.8 g/dL (6.4-8.2)
[2024-11-14 16:00] VITALS: BP 150/74; PULSE 70; RESP 18; TEMP 36.3; O2SAT 70
[2024-11-14] MEDS: ATORVASTATIN 40 MG TABLET PO (17:03)
--- NOTE | 2024-11-14 17:35 | PC.NURSE ---
Patient in bed with HOB elevated. feeding patient supper. Pérez cath patent and draining clear yellow urine. Answers questions. No c/o offered. SR up x2 bed alarm on.
--- NOTE | 2024-11-14 20:52 | PC.NURSE ---
Delmer Carrington, CERTIFIED DRIVER EXAMINER/Hospitalist, notified that patient's O2 saturation was in the 60s with his nasal cannula out of his nose when nurse went into room to give HS meds. Patient had been placed on nonrebreather mask and sats came up to 95%. Order received to be sure patient leaves his oxygen on.
[2024-11-14 20:53] VITALS: PULSE 75
--- NOTE | 2024-11-14 23:25 | PC.NURSE ---
At 2300 rounds pt lying in bed w/ Nonreb mask off, tachypneic and undressed. Pt placed back on mask, SPO2 increased to 95% w/ mask on. Pt assisted to side lying position of comfort. Continuing to monitor.
[2024-11-14 23:50] VITALS: BP 116/52; PULSE 72; RESP 20; TEMP 36.5; O2SAT 95
--- NOTE | 2024-11-15 02:40 | PC.NURSE ---
Pt in bed, restless on rounding check, Nonreb mask on floor, pt is diaphoretic and confused, RR slightly labored and tachypneic at rate of 28. Pt had moderate amt black tarry stool in diaper, pt cleaned and redressed, nonreb mask replaced on pt. Noted SPO2 85% when not on O2 and confused, Plced back on mask and Spo2 increased to 92% Certified Personal Chef Holly assisted w/ pt care and noted to let MANAGER MOUNTAIN Olga Carrington know about pt change in status when giving report this morning.
[2024-11-15 05:30] VITALS: O2SAT 95
[2024-11-15] MEDS: SALMET XINAFT/FLUTIC PROPIN 100 MCG/50 MCG INH CAP 1 PUFF INHALATION (06:14)
[2024-11-15 08:00] VITALS: BP 177/66; PULSE 63; RESP 30; TEMP 36.9; O2SAT 97
--- NOTE | 2024-11-15 08:07 | PC.NURSE ---
Patient's family notified of change in condition and are on their way to hospital to see patient. Patient remains on 15L non rebreather with respirations of 30 and SPO2 of 97%. GIZZARD PULLER notified of continued decline in condition.
--- NOTE | 2024-11-15 08:22 | PC.NURSE ---
Spoke with LEARNING COACH r/t patients status discussed with nurse taking care of patient. Using accessory muscles to breath, Lung sounds abnormal/coarse, Respirations 30, SATS 97% on 15L nonrebreather. Verbal order given per LEARNING COACH for STAT CMP,CBC,ABG,CXR,BNP. Orders read back and confirmed. Orders placed after confirmation.
[2024-11-15 08:51] LABS: Base Excess ABG 2.2 mmol/L (0-2); Basophils Absolute Auto 0.01 K/mm3 (0.00-0.10); Basophils Percent Auto 0.1 % (0.0-1.0); Device NON-REBREATHER MASK; Eosinophils Absolute Auto 0.01 K/mm3 (0.02-0.50); Eosinophils Percent Auto 0.1 % (1.0-6.0); HCO3 ABG 27.7 mmol/L (23-29); Hematocrit 24.4 % (37.0-46.0); Hemoglobin 7.5 g/dL (12.4-15.3); Immature Granulocyte Absolute 0.18 K/mm3 (0.00-0.00); Immature Granulocyte Percent A 1.2 % (0.0-0.0); Lymphocytes Absolute Auto 0.86 K/mm3 (1.10-4.50); Lymphocytes Percent Auto 5.9 % (18.0-42.0); Mean Corpuscular HGB Conc 30.7 g/dL (32-36); Mean Corpuscular Hemoglobin 30.4 pg (27.0-31.0); Mean Corpuscular Volume 98.8 fL (78.0-102.0); Mean Platelet Volume 9.1 fl (8.7-11.0); Modified Allen's Test Pass; Monocytes Absolute Auto 1.04 K/mm3 (0.10-0.90); Monocytes Percent Auto 7.1 % (2.0-11.0); Neutrophils Absolute Auto 12.53 K/mm3 (1.70-7.20); Neutrophils Percent Auto 85.6 % (50.0-70.0); Oxygen Content ABG 10.7 %vol (16.0-22.0); Oxyhemoglobin 91.3 % (94-100); PCO2 ABG 47.5 mmHg (35-45); PO2 ABG 68.8 mmHg (75-85); Platelet Count Result 446 K/mm3 (150-420); Red Blood Count 2.47 M/mm3 (4.70-6.10); Red Cell Distribution Width 17.2 % (11.6-14.4); Site Drawn LEFT RADIAL; White Blood Count 14.6 K/mm3 (4.8-10.8); pH ABG 7.38 (7.35-7.45)
[2024-11-15 09:14] LABS: Alanine Aminotransferase 68 U/L (16-63); Alkaline Phosphatase 135 U/L (46-116); Anion Gap 8 mmol/L (4-12); Aspartate Amino Transferase 41 U/L (15-37); Bilirubin,Total 0.9 mg/dL (0.00-1.00); Blood Urea Nitrogen 36 mg/dL (7-18); Carbon Dioxide 30 mmol/L (21-32); Chloride 112 mmol/L (98-108); Estimated CRCL calculation 34 ml/min; Estimated Glomerular Filt Rate 50; Glucose 122 mg/dL (70-99); NT Pro B Type Natriuretic Pept 3774 pg/mL (0-450); Osmolality Calculated 319 mOsm/kg (285-295); Potassium 4.5 mmol/L (3.5-5.1); Sodium 150 mmol/L (136-145); Total Protein 5.7 g/dL (6.4-8.2)
--- NOTE | 2024-11-15 09:24 | PC.NURSE ---
0850 OVERNIGHT BABYSITTER called, New orders for blood cx and Urine with reflux. Read back and confirmed. orders placed.
[2024-11-15 09:34] LABS: Add Urine Microscopic? YES; Appearance Urine Sl Cloudy (Clear); Bilirubin Urine Negative (Negative); Blood Urine Trace-intact (Negative); Color Urine Yellow (Yellow); Glucose Urine UA Negative (Negative); Ketones Urine Negative (Negative); Leukocyte Esterase Ur 2+ LEU/UL (Negative); Nitrate Urine Positive (Negative); Protein Urine 1+ (Negative)
[2024-11-15 09:50] LABS: Bacteria Urine 2+ /hpf; RBC Urine None seen /hpf (0-2); WBC Urine 31-50 /hpf (0-3)
[2024-11-15] MEDS: FUROSEMIDE INJ 40 MG/4 ML VIAL IV PUSH (10:02)
[2024-11-15 10:12] LABS: Lactic Acid Reflex 0.9 mmol/L (0.4-2.0)
[2024-11-15 10:30] VITALS: PULSE 64; RESP 18; O2SAT 98
--- NOTE | 2024-11-15 10:37 | P.TS_ITS ---
Transfer Discharge Sum: Prov Provider Date of admission: 11/02/24 18:27 Primary care physician: Rigo Medrano, Admitting clinician: Jimbo Frey MD Attending physician on discharge: Ritchie Frey Discharging clinician: Olga Carrington Anticipated date of transfer: 11/15/24 [facility] DS: Admitting Diagnosis Discharge Date 11/15/24 Admitting Diagnosis Physical deconditioning hypertension Paroxysmal atrial flutter Chronic kidney disease, stage 3 Parkinsons disease Coronary artery disease DS: Discharge Diagnosis Discharge Diagnosis (1) Anemia: Code(s): D64.9 - Anemia, unspecified Status: Acute (2) Physical deconditioning: Code(s): R53.81 - Other malaise Status: Acute (3) Transaminitis: Code(s): R74.01 - Elevation of levels of liver transaminase levels Status: Acute (4) Chest pain: Code(s): R07.9 - Chest pain, unspecified Status: Acute (5) Chronic kidney disease, stage 3: Code(s): N18.30 - Chronic kidney disease, stage 3 unspecified Status: Acute (6) Hypertension: Code(s): I10 - Essential (primary) hypertension Status: Chronic (7) Paroxysmal atrial flutter: Code(s): I48.92 - Unspecified atrial flutter Status: Acute (8) Parkinsons disease: Code(s): G20.A1 - Parkinson's disease without dyskinesia, without mention of fluctuations Status: Chronic (9) Coronary artery disease: Code(s): I25.10 - Atherosclerotic heart disease of [place] coronary artery without angina pectoris Status: Acute (10) Low serum albumin: Code(s): R77.0 - Abnormality of albumin Status: Acute (11) Diarrhea: Code(s): R19.7 - Diarrhea, unspecified Status: Acute (12) Sepsis: Code(s): A41.9 - Sepsis, unspecified organism Status: Acute (13) Pneumonia: Code(s): J18.9 - Pneumonia, unspecified organism Status: Acute (14) Acute UTI: Code(s): N39.0 - Urinary tract infection, site not specified Status: Acute Transfer Discharge Sum: Med Medications Active and Home Medications: Home Medications aspirin 81 mg tablet 81 mg PO DAILY 03/08/24 [History Confirmed 11/02/24] atorvastatin 40 mg tablet 40 mg PO QPM 03/08/24 [History Confirmed 11/02/24] budesonide-formoterol HFA 80 mcg-4.5 mcg/actuation aerosol inhaler (Symbicort) 1 puff inhalation Q12H PRN Shortness Of Breath Or Wheezing 03/08/24 [History Confirmed 11/02/24] calcium 260 mg (phos,tribasic)-D3 25 mcg-herbal 50 mg chewable tablet (Alive Calcium-Vitamin D3) 1 tablet PO DAILY 03/08/24 [History Confirmed 11/02/24] carbidopa ER 50 mg-levodopa 200 mg tablet,extended release 1 tablet PO BID 03/08/24 [History Confirmed 11/02/24] coenzyme Q42-czuwkyn E 100 mg-100 unit capsule 2 cap PO DAILY 03/08/24 [History Confirmed 11/02/24] donepezil 10 mg tablet 10 mg PO DAILY 03/08/24 [History Confirmed 11/02/24] fluoxetine 20 mg capsule 20 mg PO DAILY 03/08/24 [History Confirmed 11/02/24] montelukast 10 mg tablet 10 mg PO DAILY 03/08/24 [History Confirmed 11/02/24] multivitamin x-iqhhgiyh-wrutoeb fumarate 18 mg-vitamin K 25 mcg tablet 1 tablet PO DAILY 03/08/24 [History Confirmed 11/02/24] acetaminophen 325 mg tablet 650 mg (2 x 325 mg) PO Q6H PRN Mild Pain (1-5) Or Fever #30 tabs 03/18/24 [Rx Confirmed 11/02/24] apixaban 5 mg tablet (Eliquis) 5 mg PO Q12HR #60 tabs 03/18/24 [Rx Confirmed 11/02/24] diltiazem HCl 240 mg capsule,extended release 24 hr, controlled 240 mg PO QAM #30 caps 03/18/24 [Rx Confirmed 11/02/24] memantine 10 mg tablet 10 mg PO Q12H #60 tabs 03/18/24 [Rx Confirmed 11/02/24] metoprolol tartrate 25 mg tablet 25 mg PO Q12HR #60 tabs 03/18/24 [Rx Confirmed 11/02/24] pantoprazole 40 mg tablet,delayed release 40 mg PO QAM #30 tabs 03/18/24 [Rx Confirmed 11/02/24] sennosides 8.6 mg-docusate sodium 50 mg tablet (Senokot-S) 1 tab-cap PO BID PRN Constipation #10 tabs 03/18/24 [Rx Confirmed 11/02/24] Saccharomyces boulardii 250 mg capsule (Florastor) 250 mg PO TID #90 caps 04/06/24 [Rx Confirmed 11/02/24] camphor 4 %-methyl salicylate 30 %-menthol 10 % topical cream (Bengay Ultra Strength) 1 applic topical BID PRN Muscle/Joint Pain #113 grams 04/06/24 [Rx Confirmed 11/02/24] tamsulosin 0.4 mg capsule 0.4 mg PO QAM #30 caps 04/06/24 [Rx Confirmed 11/02/24] lisinopril 20 mg tablet 20 mg PO QAM #30 tabs 11/02/24 [Rx Confirmed 11/02/24] Active Medications Acetaminophen (Acetaminophen 325 Mg Tablet) 650 mg PO Q6H PRN PRN Reason: Mild Pain (1-5) Or Fever Last Admin: 11/12/24 19:36 Dose: 650 mg Al Hydrox/Mg Hydrox/Simethicone (Mag Hydrox/Al Hydrox/Simeth 30 Ml Udc) 30 ml PO Q6H PRN PRN Reason: Indigestion Last Admin: 11/12/24 19:36 Dose: 30 ml Al Hydrox/Mg Hydrox/Simethicone (Mag Hydrox/Al Hydrox/Simeth 30 Ml Udc) 30 ml PO Q6H PRN PRN Reason: Indigestion Apixaban (Apixaban 2.5 Mg Tablet) 5 mg PO Q12HR [facility] Last Admin: 11/11/24 21:19 Dose: 5 mg Aspirin (Aspirin 81 Mg Chewable Tablet) 81 mg PO DAILY [facility] Last Admin: 11/11/24 08:59 Dose: 81 mg Atorvastatin Calcium (Atorvastatin 40 Mg Tablet) 40 mg PO QPM [facility] Last Admin: 11/14/24 17:03 Dose: 40 mg Calcium Carbonate (Calcium Carbonate (Tums) 500 Mg (200 Mg Elemental)) 200 mg PO Q6H PRN PRN Reason: Indigestion Carbidopa/Levodopa (Carbidopa/Levodopa 25/100 Mg Cr Tablet) 2 tablet PO BID [facility] Last Admin: 11/15/24 10:16 Dose: Not Given Diltiazem HCl (Diltiazem Hcl Cd 240 Mg Cap.24hr) 240 mg PO QAM [facility] Last Admin: 11/15/24 10:16 Dose: Not Given Donepezil HCl (Donepezil Hcl 5 Mg Tablet) 10 mg PO DAILY [facility] Last Admin: 11/15/24 10:16 Dose: Not Given Famotidine (Famotidine 20 Mg Tablet) 20 mg PO Q12HR [facility] Last Admin: 11/15/24 10:16 Dose: Not Given Ferrous Sulfate (Ferrous Sulfate [address]) 325 mg PO BID [facility] Last Admin: 11/15/24 10:16 Dose: Not Given Fluoxetine HCl (Fluoxetine Hcl 20 Mg Capsule) 20 mg PO DAILY [facility] Last Admin: 11/15/24 10:17 Dose: Not Given Furosemide (Furosemide 20 Mg Tablet) 20 mg PO DAILY [facility] Last Admin: 11/14/24 09:25 Dose: 20 mg Hydralazine HCl (Hydralazine Hcl 20 Mg/Ml Vial) 10 mg IV PUSH Q8H PRN PRN Reason: Blood Pressure - High Levofloxacin/Dextrose (Levaquin 750 Mg/D5w 150 Ml) 750 mg in 150 mls @ 100 mls/hr IVPB Q48H [facility] Lisinopril (Lisinopril 20 Mg Tablet) 20 mg PO QAM [facility] Last Admin: 11/14/24 09:24 Dose: 20 mg Memantine (Memantine 5 Mg Tablet) 10 mg PO Q12H [facility] Last Admin: 11/15/24 10:17 Dose: Not Given Menthol/Methyl Salicylate (Menthol 10% / Methyl Salicylate 15% 57 Gm Tube) 1 applic TOPICAL BID PRN PRN Reason: Muscle/Joint Pain Last Admin: 11/06/24 08:40 Dose: 1 applic Methylprednisolone Sodium Succinate (Methylprednisolone Sod Succ 125 Mg Vial) 125 mg IV PUSH ONCE ONE Stop: 11/15/24 10:04 Metoprolol Tartrate (Metoprolol Tartrate 25 Mg Tablet) 25 mg PO Q12HR [facility] Last Admin: 11/15/24 10:17 Dose: Not Given Montelukast Sodium (Montelukast Sodium 10 Mg Tablet) 10 mg PO DAILY [facility] Last Admin: 11/15/24 10:19 Dose: Not Given Multivitamins/Calcium (Therapeutic Multivitamins/Minerals Tab (*Bkc)) 1 tablet PO DAILY [facility] Last Admin: 11/15/24 10:17 Dose: Not Given Pantoprazole Sodium (Pantoprazole Sodium Iv 40 Mg Vial) 40 mg IV PUSH Q12HR [facility] Last Admin: 11/15/24 10:17 Dose: Not Given Saccharomyces Boulardii (Saccharomyces Boulardii 250 Mg Capsule) 250 mg PO TID [facility] Last Admin: 11/15/24 10:17 Dose: Not Given Fluticasone/Salmeterol (Salmet Xinaft/Flutic Propin 100 Mcg/50 Mcg Inh Cap) 1 puff INHALATION Q12HRT [facility] Last Admin: 11/15/24 06:14 Dose: 1 puff Senna/Docusate Sodium (Senna/Docusate Sodium Tablet) 1 tab PO BID PRN PRN Reason: Constipation Tamsulosin HCl (Tamsulosin Hcl 0.4 Mg Capsule) 0.4 mg PO QAM [facility] Last Admin: 11/15/24 10:19 Dose: Not Given Transfer Discharge Sum: Hosp Hospital Course Hospital course: Felipe Haddad is a 89 year old male with a significant past medical history of asthma, chronic kidney disease stage 3, paroxysmal atrial flutter, CVA, dementia, prostate cancer, hyperlipidemia, hypertension, coronary artery disease, Parkinson's disease who presented to [place] swing bed program after hospitalization for sepsis with pneumonia and transaminitis at [facility]. He finished his antibiotics while inpatient at [facility]. He worked with PT and OT who recommended swing bed for additional rehab needs due to weakness from his illness. When he arrived to [place] he was given Seroquel his first night which made him very sleepy the next day. The Seroquel was discontinued. patient then reported chest pain that occured when the patient lied flat. He was thought to have GERD and Protonix was increased. He then had reoccuring chest pain on 11.08. CXR shown pulmonary edema and he was given a one time dose of Lasix. On the patient was noted to have increased creatinine of 2.21. He was given a 500 ml bolus and then started on IVF with improvement in his creatinine. He was noted to have 7 bouts of diarrhea between the and the . On 11/12 labs were rechecked and he was found to have a hemaglobin of 6.7. He was given 1 unit PRBC and started on ferrous sulfate. His Hgb remained stable. Stool cultures were sent and shown no growth. Overnight nursing reported that he was taking his O2 off and desaturating in the 70's. They placed him on non-rebreather. I instructed nursing to get his O2 saturation back up and then place him back to his 2L NC. This morning nursing called stating patient has been on non rebreather overnight and that he was difficult to arouse. Labs, ABG, and chest x-ray were ordered. white blood cell count went up to 14.6, hemoglobin 7.5, sodium 150, chloride 112, creatinine 1.35, EGFR 50, lactic acid was normal at 0.9, AST 41, ALT 68, alkaline phosphate 135, proBNP 3774, procalcitonin 0.4. ABG showed a normal pH of 7.44, pCO2 40.8, PO2 52 point, bicarb 27.2 on 15 L non-rebreather. Chest x-ray showed worsening diffuse bilateral pulmonary consolidation compatible with severe pulmonary edema or possible ARDS, small bilateral pleural effusion, stable cardiomegaly. He was given 1 dose of Lasix 40 mg IV push and was started on BiPAP 14/6 with a backup rate of 14 and 60% FiO2. UA was obtained and showed cloudy urine appearance, 1+ urine protein, trace urine blood, positive nitrate, 2+ leukocytes, 31-50 urine wbc's, 2+ urine bacteria. Blood and urine cultures were obtained. He was started on IV Levaquin, given 125 mg IV push Solu-Medrol, and was given a DuoNeb. repeat ABG showed a pH of 7.44, pCO2 40.8, PO2 52.5, bicarb 27.2 on BiPAP settings of 12/6. BiPAP setting was increased to 12/7 with a backup rate of 14, 60% FiO2. Considering the severe pulmonary edema it was decided to send the patient back to [facility] for further evaluation and closer monitoring[facility]. [facility] accepting transfer. Transfer Condition: serious Final diagnosis: physical deconditioning, Sepsis, Pneumonia, Acute UTI, acute hypoxic respiratory failure Time Spent with Patient Time attestation: Total time spent providing and/or coordinating transfer services: Total time spent: Less than 30 minutes Exam Narrative: General: In no acute distress, well nourished Cardiac: Normal S1 and S2 Respiratory: Lungs course bilaterally with use of accessory muscles, currently on Bipap 60% FIO2 Gastrointestinal: soft, non-distended, midsternal tenderness, normoactive bowel sounds. : voiding without difficulty dark laura urine Neuro: Alert to voice but drifts back to sleep DS: Data Data Completed and Pending Completed studies during hospitalization: CXR x3 Abdomen Ultrasound Pending studies at discharge: Urine and blood cultures Labs on day of discharge: Labs from last 24 hours 11/15/24 11/15/24 11/15/24 09:07 08:44 08:36 WBC 14.6 H RBC 2.47 L Hgb 7.5 L Hct 24.4 L MCV 98.8 MCH 30.4 MCHC 30.7 L RDW 17.2 H Plt Count 446 H MPV 9.1 Immature Gran % (Auto) 1.2 H Neut % (Auto) 85.6 H Lymph % (Auto) 5.9 L [place] % (Auto) 7.1 Eos % (Auto) 0.1 L Baso % (Auto) 0.1 Lymph # (Auto) 0.86 L [place] # (Auto) 1.04 H Eos # (Auto) 0.01 L Baso # (Auto) 0.01 Abs Immat Gran (auto) 0.18 H Absolute Neuts (auto) 12.53 H Absolute Nucleated RBC 0.00 Nucleated RBC % 0.0 Puncture Site Left radial ABG pH 7.38 ABG pCO2 47.5 H ABG pO2 68.8 L ABG PO2/FiO2 Ratio Not Reportable ABG HCO3 27.7 ABG O2 Saturation 92.0 L ABG O2 Content 10.7 L ABG Base Excess 2.2 H A-a Gradient Not Reportable Oxyhemoglobin 91.3 L Total Hemoglobin Pending O2 Delivery Device Non-rebreather mask O2 Liters/Min 15.0 Sodium 150 H Potassium 4.5 Chloride 112 H Carbon Dioxide 30 Anion Gap 8 BUN 36 H Creatinine 1.35 H Estim Creat Clear Calc 34 Estimated GFR 50 L Glucose 122 H Calculated Osmolality 319 H Lactic Acid 0.9 Calcium 8.0 L Total Bilirubin 0.9 AST 41 H ALT 68 H Alkaline Phosphatase 135 H NT-Pro-B Natriuret Pep 3774 H Total Protein 5.7 L Albumin 2.0 L Procalcitonin Pending Urine Color Yellow Urine Appearance Sl cloudy A Urine pH 6.0 Ur Specific [place] 1.020 Urine Protein 1+ H Urine Glucose (UA) Negative Urine Ketones Negative Ur Blood (Man) Trace-intact H Urine Nitrate Positive H Urine Bilirubin Negative Urine Urobilinogen 1.0 Leukocyte Esterase Rfl 2+ H Urine RBC None seen Urine WBC 31-50 H Urine Bacteria 2+ H Procedures/Treatments: None Imaging Radiologist's impression: PA and lateral views of the chest: Comparison: 11/08/2024 Findings: There is worsening diffuse bilateral pulmonary consolidation. There are small bilateral pleural effusions.. Cardiomediastinal silhouette is within normal limits. Bones and soft tissues are unremarkable. Impression: Worsening diffuse bilateral pulmonary consolidation, compatible with severe pulmonary edema, or possibly ARDS. Small bilateral pleural effusions. Stable cardiomegaly. Reviewed, dictated and finalized at location . 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
--- NOTE | 2024-11-15 10:39 | PC.NURSE ---
Report called to Marlin at [facility]. Marlin voiced understanding in patient change in condition, labs and current respiratory needs.
[2024-11-15] MEDS: methylPREDNISolone SOD SUCC 125 MG VIAL IV PUSH (10:50)
[2024-11-15] MEDS: levoFLOXacin 750 MG/D5W 150 ML 750 MG/150 ML BAG 100 MG IVPB (10:51)
--- NOTE | 2024-11-15 11:01 | PC.NURSE ---
Patient on Bi pap and IVP steroids and ABT started.
[2024-11-15 11:38] LABS: Total Hemoglobin 8.3 g/dL (12.0-18.0)
[2024-11-15 11:47] LABS: Base Excess ABG 2.8 mmol/L (0-2); HCO3 ABG 27.2 mmol/L (23-29); Oxygen Content ABG 6.4 %vol (16.0-22.0); Oxygen Saturation ABG 84.7 % (95-97); Oxyhemoglobin 84.2 % (94-100); PCO2 ABG 40.8 mmHg (35-45); PO2 ABG 52.5 mmHg (75-85); pH ABG 7.44 (7.35-7.45)
[2024-11-15 11:49] LABS: Device BIPAP; Modified Allen's Test Pass; Site Drawn LEFT RADIAL
[2024-11-15 11:50] LABS: Expiratory Pressure 6 cmH2O; Inspiratory Pressure 12 cmH2O
[2024-11-15 12:02] VITALS: PULSE 78; RESP 20; O2SAT 97
[2024-11-15 12:10] LABS: MRSA (PCR) NOT DETECTED (NOT DETECTE)
--- NOTE | 2024-11-15 13:02 | PC.NURSE ---
Called [facility] to transfer patient to [facility] for admission. [facility] informs they would not have any trucks available to several hours. [facility] informs it could be up to 4 hours or longer before a truck would get here for transfer. Called [facility] service who informs it would be 3 hours, gave all info needed to transfer patient at this service at this time.
[2024-11-15 13:07] VITALS: PULSE 80; RESP 21; O2SAT 98
--- NOTE | 2024-11-15 13:20 | PC.NURSE ---
[facility] called, able to transport sooner than other services, informed this property underwriter they were on their way. Caller [facility] and cancelled pickup with them.
--- NOTE | 2024-11-15 14:10 | PC.NURSE ---
[facility] here to transport patient to [place] [facility] room 204. Patient switched over to portable bi pap by EMS. Patient required 4 assist to transfer from bed to stretcher.
--- NOTE | 2024-11-15 14:21 | PCPTNOTE ---
Nurse states to hold therapy at this time due to patient being in respiratory distress. Discussed possibility of patient being transferred due to respiratory distress as well.
[2024-11-15 19:15] LABS: Procalcitonin 0.4 ng/mL
== END 2024-11-15 14:10 | disposition short-term general hospital (02) | DRG 947 ==
PROVIDERS: Nurse Practitioner Family; Admitting Provider Internal Medicine; PCP Family Medicine; Visit Provider Nurse Practitioner Acute Care
DX: R53.81 Other malaise (principal); A41.9 Sepsis, unspecified organism; J96.01 Acute respiratory failure with hypoxia; I48.92 Unspecified atrial flutter; N17.9 Acute kidney failure, unspecified; N39.0 Urinary tract infection, site not specified; I25.10 Atherosclerotic heart disease of native coronary artery without angina pectoris; I12.9 Hypertensive chronic kidney disease with stage 1 through stage 4 chronic kidney disease, or unspecified chronic kidney disease; N18.30 Chronic kidney disease, stage 3 unspecified; J45.909 Unspecified asthma, uncomplicated; C61 Malignant neoplasm of prostate; D64.9 Anemia, unspecified; E78.5 Hyperlipidemia, unspecified; R07.9 Chest pain, unspecified; R77.0 Abnormality of albumin; R74.01 Elevation of levels of liver transaminase levels; R19.7 Diarrhea, unspecified; G20.A1 Parkinson's disease without dyskinesia, without mention of fluctuations; F02.80 Dementia in other diseases classified elsewhere, unspecified severity, without behavioral disturbance, psychotic disturbance, mood disturbance, and anxiety; Z11.52 Encounter for screening for COVID-19; Z79.82 Long term (current) use of aspirin; Z79.01 Long term (current) use of anticoagulants
CPT/HCPCS: 36415; 36430; 36600; 71045; 71046; 76705; 80053; 81001; 82805; 83540; 83550; 83605; 83690; 83880; 84145; 84484; 85014; 85018; 85025; 85027; 86850; 86900; 86901; 86920; 87040; 87045; 87086; 87186; 87427; 87449; 87493; 87641; 93005; 97110; 97162; 97165; 97530; 97535; A9270; J1940; J1956; J2270; J2470; J2919; J7030; J7040; J7050; P9016; P9047

== ENCOUNTER 2024-11-15 16:14 | Inpatient (IN) | payer MEDICARE, OTHER, SELFPAY ==
[2024-11-15] VITALS (13 sets, daily range): BP systolic 140–151; BP diastolic 55; PULSE 58–78; RESP 20–35; TEMP 36.5–36.6; O2SAT 94–100; BMI 24.2
--- NOTE | ~2024-11-15 | CT_ITS ---
EXAMINATION:CT diagnostic chest wo con DATE: 11/16/2024 09:19 INDICATION: Abnormal chest radiographs. TECHNIQUE: Computed tomography (CT) of the chest was performed without intravenous contrast. Automate d exposure control and iterative reconstruction technique were employed. The dose-length product (DLP ) was 231.57 mGy-cm. COMPARISON: Chest CT 10/28/2024, chest 2 views 11/15/2024 FINDINGS: There are small pleural effusions, right worse than left. There are airspace opacities and septal thickening in all lobes. There is crazy paving in the upper lobes, right middle lobe, and righ t lower lobe. A calcified right lung nodule is consistent with old granulomatous disease. Cardiomegal y is noted. There are coronary artery calcifications. There is a moderate-sized pericardial effusion. Calcifications in the spleen are consistent with old granulomatous disease. There are old healed rib fractures bilaterally. There is severe cervical and thoracic spondylosis. There is a chronic diane abhijit fracture of T12. IMPRESSION: 1. Diffuse lung disease, consistent with some combination of pneumonia, pulmonary edema, and diffuse alveolar damage. 2. Small pleural effusions, right worse than left. 3. Moderate-sized pericardial effusion, new from 10/28/2024. Reviewed, dictated and finalized at location B. [facility] IMPRESSION: 1. Diffuse lung disease, consistent with some combination of pneumonia, pulmona ry edema, and diffuse alveolar damage. 2. Small pleural effusions, right worse than left. 3. Moderate-sized pericardial effusion, new from 10/28/2024.
--- NOTE | 2024-11-15 14:45 | ADMGEN ---
This patient, Felipe Haddad, was admitted to IMU Room 204-01. Patient/family oriented to hospital policies and general routines including ID bracelet, bed and alarms, visiting hours, pain management, procedures, bathroom and other care routines, personal items, smoking policy, room service/diet, and visiting hours. Information on how to activate the Rapid Response Team has been discussed. Patient/Family are encouraged to report perceived risks to care and to ask questions if they do not understand what they are told or what they should do.
--- NOTE | 2024-11-15 14:50 | P.HP_ITS ---
H&P: HPI History of Present Illness Date/Time: 11/15/24 14:50 Chief Complaint: Shortness of Breath Narrative: 89 y/o M presents here with shortness of breath and hypoxia with PMH of asthma, CKD stage 3, paroxysmal atrial flutter, diastolic dysfunction, CVA, kidney stones, dementia, prostate cancer, hyperlipidemia, hypertension, coronary artery disease and Parkinson's disease. The patient presents here from [facility] for further management of shortness of breath and hypoxia. The patient was initially admitted on 10/26/2024 at [facility] for weakness and an episode of unresponsiveness. The patient had been living at home with his who has been his main social professionals. Two days prior to admission he was requiring more assistance with transfers. Or while passing a bowel movem ent, the patient had an unresponsive episode which was witnessed by . She reports he had loss of consciousness for a few minutes which prompted her to call 911. She also noted recently he had been holding his chest postprandial, experiencing intermittent hiccups, and occasional vomiting postprandial. No confirmed aspiration episodes. She arrived to the emergency department hypoxic at 80% on room air with a blood pressure of 72/35. CXR showed a extensive bibasilar consolidation. His blood pressure was responsive to 1 L. He was started on cefepime and vancomycin. During his admission he tested negative for MRSA. He was transitioned to oral doxycycline and Augmentin. He also underwent CPT. He he did have a mild increase in his troponin, attributed to demand ischemia likely secondary to sepsis/hypoperfusion due to hypotension. Patient was discharged on 11/02/2024 to swing bed at [facility] for additional rehab services. While at [facility] he became slightly somnolent on 11/04 secondary to nighttime dose of Seroquel which was discontinued. Patient reported chest pain overnight on 11/05, however troponin was negative x2, EKG did not show any ST elevation, and chest pain was occurring when the patient would like flat. Symptom was attributed to GERD, Protonix was increased. Patient continued to again complained of chest pain on 11/08. CXR showed pulmonary edema. He was given a 1 time dose of Lasix. Noted on exam that patient had mild crackles to the left lung base on 11/11. Creatinine now newly elevated as well, 2.21. He was given a 500 mL bolus -> 100 mL/hour. Patient also reported diarrhea (7 BM in 48 hours). On 11/12, the patient's hemoglobin down trended from 10.9 -> 7.2 with a positive stool occult and C diff negative. ASA and Eliquis were held. Patient was also restarted on Lasix 20 mg daily. On 11/13, the patient's hemoglobin further down trended to 6.7 and he was transfused 1 unit of PRBC. Patient was started on iron b.i.d.. Yesterday (11/14), the patient's hemoglobin remained stable at 7.7. However the patient's Lasix and lisinopril were held due to REGINA. Stool cultures thus far negative and number of bowel movements had decreased. Per vital sign documentation, the patient desatted to 70% on 2L NC around 1600 on 11/14. He was then placed on a NRB which increased saturation to 95%. The patient had a repeat chest x-ray performed which showed worsening diffuse bilateral pulmonary consolidation, small bilateral pleural effusions, in stable cardiomegaly. He was then placed on BiPAP and transferred here for further management. VS at D/C from [facility]: 98.4? F, HR 80, RR 21, and 98% on BiPAP. Current workup showed: WBC 14.6 (up trend since the ), hemoglobin 7.5, ABG showed pH of 7.44/O2 52.5/O2 saturation 84.7% on BiPAP. Sodium 150, creatinine 1.35 and GFR 34, calculated osmolality 319, lactic acid 0.9, AST 41, ALT 68, BNP 3 774, albumin 2.0, and procalcitonin pending. UA is suggestive of UTI. Nasal MRSA negative. Review of Systems Review of Systems: ROS unobtainable: Yes unobtainable due to mental status (Somnolent) [facility] Past Medical History Medical History Asthma Chronic kidney disease, stage 3 Paroxysmal atrial flutter Diastolic dysfunction Kidney stones Cerebrovascular accident residual expressive aphasia Dementia Prostate cancer Hyperlipidemia Hypertension Coronary artery disease Parkinson disease Surgical History Surgical History History of bilateral cataract extraction History of arthroplasty of left knee Family History Family History Mother Non-Hodgkin lymphoma Asthma Son History of blood clots Aneurysm Daughter Hypertension Sibling Prostate carcinoma Lymph node cancer Heart problem Father Old age Son Hypertension Asthma Sibling Social History Social History Social History: Surrogate medical decision maker: Natalie Haddad, spouse. Code status: Full code. Smoking status: Never smoker Second hand tobacco smoke exposure: No Alcohol intake: never Substance use: never Substance use type: does not use Do You Feel Safe in your Home?: Yes Lack of Transportation: No Lack of Food: Never True Current Housing: I Have Housing Concerned About Future Housing: No Difficulty Paying Gas/Electric Bills: No Difficulty Paying for Meds: No Currently Unemployed: No Education: High School Diploma/GED Difficulty w/ Childcare or Family Care: No Spiritual care concerns: Yes (yazidi) Meds Home Medications and Allergies Home Medications ?Medication ?Instructions ?Recorded ?Confirmed ?Type aspirin 81 mg tablet 81 mg PO DAILY 03/08/24 11/15/24 History atorvastatin 40 mg tablet 40 mg PO QPM 03/08/24 11/15/24 History budesonide-formoterol HFA 80 1 puff inhalation Q12H PRN 03/08/24 11/15/24 History mcg-4.5 mcg/actuation aerosol Shortness Of Breath Or Wheezing inhaler (Symbicort) calcium 260 mg (phos,tribasic)-D3 1 tablet PO DAILY 03/08/24 11/15/24 History 25 mcg-herbal 50 mg chewable tablet (Alive Calcium-Vitamin D3) carbidopa ER 50 mg-levodopa 200 mg 1 tablet PO BID 03/08/24 11/15/24 History tablet,extended release coenzyme A24-scozpyo E 100 mg-100 2 cap PO DAILY 03/08/24 11/15/24 History unit capsule donepezil 10 mg tablet 10 mg PO DAILY 03/08/24 11/15/24 History fluoxetine 20 mg capsule 20 mg PO DAILY 03/08/24 11/15/24 History montelukast 10 mg tablet 10 mg PO DAILY 03/08/24 11/15/24 History multivitamin s-cdmgwdnf-lrjhero 1 tablet PO DAILY 03/08/24 11/15/24 History fumarate 18 mg-vitamin K 25 mcg tablet acetaminophen 325 mg tablet 650 mg (2 x 325 mg) PO Q6H PRN 03/18/24 11/15/24 Rx Mild Pain (1-5) Or Fever #30 tabs diltiazem HCl 240 mg 240 mg PO QAM #30 caps 03/18/24 11/15/24 Rx capsule,extended release 24 hr, controlled memantine 10 mg tablet 10 mg PO Q12H #60 tabs 03/18/24 11/15/24 Rx metoprolol tartrate 25 mg tablet 25 mg PO Q12HR #60 tabs 03/18/24 11/15/24 Rx pantoprazole 40 mg tablet,delayed 40 mg PO QAM #30 tabs 03/18/24 11/15/24 Rx release sennosides 8.6 mg-docusate sodium 1 tab-cap PO BID PRN Constipation 03/18/24 11/15/24 Rx 50 mg tablet (Senokot-S) #10 tabs Saccharomyces boulardii 250 mg 250 mg PO TID #90 caps 04/06/24 11/15/24 Rx capsule (Florastor) camphor 4 %-methyl salicylate 30 1 applic topical BID PRN 04/06/24 11/15/24 Rx %-menthol 10 % topical cream Muscle/Joint Pain #113 grams (Bengay Ultra Strength) tamsulosin 0.4 mg capsule 0.4 mg PO QAM #30 caps 04/06/24 11/15/24 Rx famotidine 20 mg tablet 20 mg PO Q12H 11/15/24 11/15/24 History ferrous sulfate 325 mg (65 mg 325 mg PO BID 11/15/24 11/15/24 History iron) tablet,delayed release Allergies Allergy/AdvReac Type Severity Reaction Status Date / Time No Known Allergies Allergy Verified 10/27/24 01:15 Exam Const: General: comfortable and no acute distress Other: , male, elderly, ill-appearing HENMT: Face/Nose/Sinus: Normal nares present Mouth: Yes dry mucous membranes Other: BiPAP in place Eyes: General: appearance normal, both eyes and all related structures Sclera: sclerae normal Pupils: Equal, round and reactive pupils present (2 mm bilaterally) EOM: EOMs intact bilaterally Resp: Other: +tachypnea without increased work of kimberly athing. diffuse crackles in all lung long. No wheezing. Cardio: Rate: regular rate Rhythm: regular rhythm Other: S1-S2 present without murmur, rub, ectopy GI: Other: Abdomen soft, nondistended, nontender. Urinary Catheter: Urinary Catheter: patent and draining and urine cloudy (Sediment) Skin: General skin exam: normal color and no rashes or lesions noted Wounds: no wounds Neuro: Other: +generalized weakness, moving all extrem ities. Will briefly awaken to voice and modest physical stimuli. Not able to sustain wakefulness. Nods appropriately. Unable to assess further. Extrem: Other: 2+ pitting edema to BLE. mild edema to BL hands. Psych: Other: Poor insight and judgment at present. Assessment and Plan Assessment and plan (1) Sepsis: Qualifiers: Acute respiratory failure type: with hypoxia Sepsis acute organ dysfunction status: with acute organ dysfunction Sepsis type: sepsis due to unspecified organism Severe sepsis acute organ dysfunction type: acute resp iratory failure Severe sepsis shock status: without septic shock Qualified Code(s): A41.9 - Sepsis, unspecified organism; R65.20 - Severe sepsis without septic shock; J96.01 - Acute respiratory failure with hypoxia Code(s): A41.9 - Sepsis, unspecified organism Status: Acute Assessment and Plan: - meets SIRS criteria: RR, WBC - lactic acid: 0.9 - procalcitonin 0.4 - will hold on typical 30 mL/kg bolus, concern for volume overload as well as multifocal pneumonia - suspected source: Pneumonia, UTI - started on meropenem and azithromycin on 11/15 - blood cultures drawn on 11/15 - monitor hemodynamic stability (2) Acute respiratory failure with hypoxia: Code(s): J96.01 - Acute respiratory failure with hypoxia Status: Acute Assessment and Plan: - CXR: Worsening diffuse bilateral pulmonary consolidation, compatible with severe pulmonary edema, or possibly ARDS. Small bilateral pleural effusions. Stable cardiomegaly. - currently requiring BiPAP, will attempt trial off this evening - trend ABG while on BiPAP (3) Pneumonia: Qualifiers: Laterality: bilateral Lung location: unspecified part of lung Pn eumonia type: due to unspecified organism Qualified Code(s): J18.9 - Pneumonia, unspecified organism Code(s): J18.9 - Pneumonia, unspecified organism Status: Acute Assessment and Plan: - CXR c/f multifocal pneumonia, previous history of concern for aspiration pneumonia - risk factors and complicating factors: Possible ARDS, volume overload, UTI, recent antibiotic administration and hospitalization for pneumonia - started on HAP: Meropenem and azithromycin - MRSA PCR negative on 10/26/2024 and 11/15/2024 - repeat Viral PCR - sputum culture, if obtainable - supportive care - currently requiring BiPAP (4) Acute UTI: Code(s): N39.0 - Urinary tract infection, site not specified Status: Acute Assessment and Plan: - UA: Cloudy, 1+ protein, trace intact blood, positive nitrates, 2+ leuks, 31- 50 WBC, 2+ bacteria. - UC pending, follow - previous micro reviewed, no previous resistances - started on meropenem on 11/15, concurrent HAP (5) Diastolic dysfunction: Code(s): I51.89 - Other ill-defined heart diseases Status: Acute Assessment and Plan: - BNP 3774 - most recent echo (10/27/24): Mild pulmonary hypertension, dilated IVC, estimated EF 64%, normal systolic function, grade 1 diastolic dysfunction. See report for full details. - not on daily diuretic, will trial 1 time dose of Lasix 40 mg IV. - monitor I&Os and daily weights - trend renal function (6) Acute on chronic renal failure: Qualifiers: Acute renal failure type: unspecified Chronic kidney disease stage: unspecified stage Qualified Code(s): N17.9 - Acute kidney failure, unspecified; N18.9 - Chronic kidney disease, unspecified Code(s): N17.9 - Acute kidney failure, unspecified; N18.9 - Chronic kidney disease, unspecified Status: Acute Assessment and Plan: - creatinine 1.35 and GFR 50, previously 1.54 and GFR 43 on 11/14/2024 - nephrology consulted - trend renal function - trend electrolytes, correct as needed (7) Anemia: Qualifiers: Anemia type: iron deficiency Iron deficiency anemia type: unspecified iron deficiency Qualified Code(s): D50.9 - Iron deficiency anemia, unspecified Code(s): D64.9 - Anemia, unspecified Status: Acute Assessment and Plan: - Hgb 7.5, previously 7.7 on 11/14/2024 - MCV 98.8, MCHC 30.7 - stool occult positive on 11/12/2024, Eliquis and ASA held - continue iron b.i.d. - transfuse if less than 7 - trend (8) Hypernatremia: Code(s): E87.0 - Hyperosmolality and hypernatremia Status: Acute Assessment and Plan: - Na 150 - nephrology consulted (9) Low serum albumin: Code(s): R77.0 - Abnormality of albumin Status: Acute Assessment and Plan: - albumin 2.0 - albumin 25 G q.6, DC when appropriate - trend (10) Transaminitis: Code(s): R74.01 - Elevation of levels of liver transaminase levels Status: Acute Assessment and Plan: - initially elevated during 1st admission earlier this month due to shock/sepsis, has been down trending. Continue to follow. 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 (12) Hypertension: Qualifiers: Hypertension type: unspecified Qualified Code(s): I10 - Essential (primary) hypertension Code(s): I10 - Essential (primary) hypertension Status: Chronic Assessment and Plan: - chronic, currently 140/55 - continue home medications: Metoprolol 25 mg b.i.d. - monitor Plan Diet: NPO except ice chips and sips of water while on BiPAP, heart healthy once off BiPAP GI Prophylaxis: Pantoprazole IV DVT Prophylaxis: SCDs Lines: Peripheral Code Status: Full code Quality VTE Prophylaxis VTE prophylaxis: mechanical ordered Critical Care Time: I personally spent 70 minutes of direct patient care including (but not limited to) the physical examination, decision-making, bedside evaluation, review of medical records, review of labs and imaging, discussion with nursing staff and other providers for collaborative, critical care management of this patient. Hospitalist [facility] Advance Care Plan I have confirmed that the patient's Advanced Care Plan is present, code status is documented, or surrogate decision maker is listed in patient medical record.: Yes Medication Reconciliation I have utilized all available resources to obtain, update and review the patients current medications (includes all prescriptions, OTC, herbals, cannabis, and nutritional supplements).: Yes
--- NOTE | 2024-11-15 15:11 | PCRCNOTE ---
Patient is a direct admit from [facility], patient was on cont. bipap, RT placed pt on bipap settings per MD at [facility] of Ipap of 12, Epap of 7, rate of 14, Fio2 of 60%. Patient's vitals are stable on those settings with HR of 74 and SpO2 levels of 100%.On bipap VTE is 590, Leak of 11, R 22, and MV of 12.6. [facility] MD is to come evaluate patient and will place bipap order in chart when MD has completed evaluation.
[2024-11-15 15:53] LABS: Estimated CRCL calculation 42 ml/min; Estimated Glomerular Filt Rate > 60
[2024-11-15 16:37] LABS: Alveolar/Arterial O2 Gradient 242.8 mmHg; Base Excess ABG 4.1 mEq/l (+/-2.0); Fractional Inspired Oxygen 60 %; HCO3 ABG 28.4 mEq/l (22.0-26.0); Oxygen Content ABG 11.3 %vol (16.0-22.0); Oxygen Saturation ABG 98.9 % (95.0-100.0); Oxyhemoglobin 97.5 % THb (90.0-100.0); PCO2 ABG 41.2 mmHg (35.0-45.0); PO2 ABG 139.7 mmHg (80.0-100.0); PO2 FiO2 Ratio Arterial Blood 2.33 %; pH ABG 7.456 (7.350-7.450)
[2024-11-15 16:39] LABS: Site Drawn LEFT BRACHIAL
[2024-11-15 16:40] LABS: Device NON-INVASIVE VENT; Non-Invasive Expiratory Pressure 7 CMH2O; Non-Invasive Inspiratory Pressure 12 CMH2O; Non-Invasive Vent Rate 14 /MIN
[2024-11-15 17:50] LABS: Influenza A QL RT-PCR Negative (Negative); Influenza B QL RT-PCR Negative (Negative); RSV RNA, RT-PCR Negative (Negative); SARS-CoV-2 RNA PCR Negative (Negative)
[2024-11-15] MEDS: MEROPENEM 1 GM/NS 100 ML 1 GM/100 ML BAG IVPB (18:05)
[2024-11-15] MEDS: AZITHROMYCIN 500 MG/NS 250 ML 500 MG/250 ML BAG 250 MG IVPB (18:07)
[2024-11-15] MEDS: ALBUMIN HUMAN 25% 25 GM/100 ML 100 ML IVPB ×2 (18:25→23:52)
[2024-11-15] MEDS: FUROSEMIDE INJ 40 MG/4 ML VIAL IV PUSH (21:08)
[2024-11-15] MEDS: PANTOPRAZOLE SODIUM IV 40 MG VIAL IV PUSH (21:08)
[2024-11-15] MEDS: MEMANTINE 10 MG TABLET PO (21:26)
[2024-11-15] MEDS: CARBIDOPA/LEVODOPA 25/100 MG CR TABLET 1 TABLET PO (21:26)
[2024-11-15] MEDS: guaiFENesin 12 HR 600 MG TABCR PO (21:26)
[2024-11-15] MEDS: METOPROLOL TARTRATE 25 MG TABLET PO (21:26)
--- NOTE | 2024-11-15 23:40 | PC.NURSE ---
Tried patient on HI FLow NC. Unable to keep saturations up while patient sleeping. Bipap back on. Patient tolerating it well.
[2024-11-16] VITALS (21 sets, daily range): BP systolic 108–154; BP diastolic 51–85; PULSE 56–99; RESP 17–27; TEMP 36.3–36.8; O2SAT 90–100; BMI 24.5
--- NOTE | 2024-11-16 03:56 | PC.NURSE ---
New du catheter placed per Jackelyntash Marin's orders. Patient tolerated procedure well
--- NOTE | 2024-11-16 03:57 | PC.NURSE ---
Had patient on nasal cannula. Entered room to find patient with nc off and desatted to the 52. Bipap put back on. Patient is tolerating Bipap very well.
[2024-11-16] MEDS: ALBUMIN HUMAN 25% 25 GM/100 ML 100 ML IVPB ×3 (05:04→18:07)
[2024-11-16 05:12] LABS: Basophils Percent Auto 0.1 % (0.2-1.2); Hematocrit 21.1 % (42.0-52.0); Immature Granulocyte Absolute 0.11 K/mm3 (0.00-0.031); Immature Granulocyte Percent A 0.9 % (0-0.5); Lymphocytes Absolute Auto 0.31 K/mm3 (0.9-3.2); Lymphocytes Percent Auto 2.4 % (18.3-44.2); Mean Corpuscular HGB Conc 31.8 g/dl (32-36); Mean Corpuscular Hemoglobin 31.2 pg (26-34); Mean Corpuscular Volume 98.1 fl (80-100); Mean Platelet Volume 9.8 fl (7.4-10.4); Monocytes Absolute Auto 0.8 K/mm3 (0.1-0.6); Neutrophils Absolute Auto 11.6 K/mm3 (1.3-6.7); Neutrophils Percent Auto 90.6 % (45.5-73.1); Platelet Count Result 409 k/mm3 (150-375); Red Blood Count 2.15 M/mm3 (4.6-6.20); Red Cell Distribution Width 17.1 % (11.5-14.5); White Blood Count 12.7 K/mm3 (4.5-10.0)
[2024-11-16 05:20] LABS: Alanine Aminotransferase 31 U/L (6-50); Albumin Level 2.8 g/dL (3.5-5.1); Alkaline Phosphatase 108 U/L (38-126); Anion Gap 6 mmol/L (4-12); Aspartate Amino Transferase 49 U/L (17-59); Bilirubin,Total 1.2 mg/dL (0.2-1.3); Blood Urea Nitrogen 38 mg/dL (9-20); Calcium 7.9 mg/dL (8.4-10.2); Carbon Dioxide 29 mmol/L (22-30); Chloride 111 mmol/L (98-107); Estimated CRCL calculation 38 ml/min; Estimated Glomerular Filt Rate 56; Glucose 134 mg/dL (65-110); Magnesium 2.2 mg/dL (1.6-2.3); Phosphorus 4.7 mg/dL (2.5-4.5); Potassium 3.8 mmol/L (3.4-5.0); Sodium 146 mmol/L (137-145)
[2024-11-16 05:40] LABS: Anisocytosis 1+; Hemoglobin 6.7 g/dL (14.0-18.0); Hypochromasia 1+; Platelet Estimate Increased (Adequate); Poikilocytosis 1+
[2024-11-16 05:41] LABS: Ovalocytes 1+; Schistocytes None Seen
--- OUTSIDE RECORDS SUMMARY | 2024-11-16 05:49 | XMS_ITS ---
Author Organization Unknown Address [address] [place] [address] [phone] Phone Care Team Providers Care Oil Expeller Operator Name Role Phone DELMIS ASENCIO Attending Unavailable KATHARINE Min Primary Unavailable Immunization Immunization Date Status Additional Notes Code Code System Td (adult), 2 Lf tetanus toxoid, preservative free, adsorbed 05/20/2020 Completed 09 CVX rabies, intramuscular injection 05/26/2012 Completed 18 CVX rabies, intramuscular injection 06/02/2012 Completed 18 CVX rabies, intradermal injection 06/16/2012 Completed 40 CVX influenza, unspecified formulation 08/04/2021 Completed 88 CVX Influenza, split virus, trivalent, preservative 07/07/2011 Completed 141 CVX Influenza, split virus, quadrivalent, preservative 07/09/2021 Completed 158 C VX Influenza, split virus, quadrivalent, preservative 07/01/2022 Completed 158 C VX Influenza, adjuvanted, trivalent, PF 07/05/2024 Completed 168 CVX zoster recombinant 04/29/2021 Completed 187 CVX zoster recombinant 08/04/2021 Completed 187 CVX Influenza, adjuvanted, quadrivalent, PF 06/30/2023 Completed 205 CVX COVID-19, mRNA, LNP-S, PF, 1 00 mcg/0.5mL dose or 50 mcg/0.25mL dose 11/14/2020 Completed 207 CVX COVID-19, mRNA, LNP-S, PF, 1 00 mcg/0.5mL dose or 50 mcg/0.25mL dose 12/12/2020 Completed 207 CVX COVID-19, mRNA, LNP-S, PF, 1 00 mcg/0.5mL dose or 50 mcg/0.25mL dose 08/18/2021 Completed 207 CVX COVID-19, mRNA, LNP-S, PF, 1 00 mcg/0.5mL dose or 50 mcg/0.25mL dose 02/24/2022 Completed 207 CVX COVID-19, mRNA, LNP-S, bivalent, PF, 50 mcg/0.5 mL or 25mcg/0.25 mL dose 07/20/2022 Completed 229 CVX RSV, recombinant, protein subunit RSVpreF, adjuvant reconstituted, 0.5 mL, PF 11/01/2023 Completed 303 CV X COVID-19, mRNA, LNP-S, PF, prudencio-sucrose, 30 mcg/0.3 mL 11/01/2023 Completed 309 CVX Social History Type Status Start Date End Date Code Code Syst em Smoking History Never smoker (Never Smoked) [id number] SNOMED CT Sex Male Hospital Discharge Instructions Should you have any questions prior to discharge, please contact a member of your healthcare team. If you have left the hospital and have any questions, please contact your primary care physician. Reason For Referral No Data Found Plan of Treatment No Data Found Encounters Encounter Diagnosis Start Date Code Code Sys tem Atrial fibrillation 10/11/2024 [id number] SNOMED-C T Personal Care Team Section Performer Name Performer Role Active Date Inactive YOJANA Nj PCP - Primary care physician 2024-10-08
--- OUTSIDE RECORDS SUMMARY | 2024-11-16 05:50 | XMS_ITS | Data Portability ---
Author Organization [facility], [address] [place] [address] Neurology (ID) Address [address] [place] [id number] Care Team Providers Care Studio Sales Associate Name Role Phone YOJANA ALCANTAR Primary Care Provider Assessment Encounter Date Assessment Date Assessment LastModified by Organization Details LastModified Time 02/15/2024 02/15/2024 ASSESSMENT: 88-year-old male with a history of pelvic radiation for prostate cancer and prostate seeds; asymmetric thickening of the rectum on CT scan. PLAN: I discussed with Feliep and his the finding on the CT scan. There was also some thickening of the bladder that is probably radiation related. However, given his erratic bowels and the fact that he has not had a colonoscopy in the recent past it would be reasonable to do a flexible sigmoidoscopy to rule out neoplasm or polyp or cancer in the rectum and to see if he has a significant amount of radiation proctitis. In addition, we can take some biopsies to help with the diarrhea workup. Colonoscopy would be an option as well but is probably unwarranted given that the most concerning findings are in the rectum and given his age. They are in agreement with the plan. He was scheduled here in [facility]. gf gfarrar Not available 02/16/2024 08:59:42 Plan of Treatment Reminders Order Date Submit Date Provider Last Modified By Organization Details Last Modified Time Details Appointments None record ed. Lab None record ed. Referral None record ed. Procedures None record ed. Surgeries None record ed. Imaging None record ed. Medication Orders None record ed. Patient TargetsNo targets recorded. Patient InstructionsNo instructions recorded. Reason for Referral None Reported. Results Created Date Observation Date Name Description Value Unit Range Abnormal Flag Note LastModifiedBy Organization Detail LastModifiedTime 08/21/2011/03/2023 imagi ng/di agnos tic resul t No observ ation record ed. [email or web address] Not Available 04:22:11 08/21/20 24 11/03/2023 imagi ng/di agnos tic resul t No observ ation record ed. [email or web address] Not Available 04:22:12 Result Notes None recorded. Problems Name Problem SNOMED Code Status Onset Date Resolution Date Notes Provider Name and Address Organization Details Recorded Time Atrial fibrillatio n 58549538 [facility] 14:[facility]16 Essential hypertensio n 23115003 Active 2023 [facility] 4 14:35:23 Hyperlipide william 76768499 Active 2023 [facility] 4 14:35:52 Asthma 101105323 Active 2023 [facility] 4 14:36:12 Carcinoma of prostate 879632751 Active 2023 [facility] 4 14:36:29 Cerebrovasc ular accident 874702248 Active 2023 [facility] 14:36:40 Disorder of anus 72436191 Active 2023 [facility] 4 03:33:42 Altered bowel function 62639698 Active 2023 Tameka [facility] 4 03:33:48 CT of abdomen abnormal 9413065023952 9107 Active 2023 [facility] 4 11:12:31 Problem Notes None recorded. Procedures Surgical History Date Name Laterality Status Provider Name and Address Organization Details Recorded Time Total knee arthroplasty completed [facility] 02/15/2024 14:30:45 Appendectomy completed [facility] 02/15/2024 14:30:53 procedure on spine completed [facility] 02/15/2024 14:31:07 Imaging Results Imaging Date Name Status LastModified by Organiz ation Details LastModified Time 11/03/2023 imaging/diag nostic result completed Information not available 08/21/2024 04:22:11 11/03/2023 imaging/diag nostic result completed Information not available 08/21/2024 04:22:12 Procedure Notes None recorded. Medical Equipment None Reported. Allergies No known drug allergies Medications Name Sig Start Date Stop Date Status Note LastModified by Organization Details LastModified Time atorvastatin 40 mg tablet active Not Available Not Available Not Available donepezil 10 mg tablet active Not Available Not Available No t Available meloxicam 15 mg tablet active Not Available Not Available No t Available carbidopa ER 50 mg-levodopa 200 mg tablet,extende d release active Not Available Not Available No t Available verapamil ER (SR) 240 mg tablet,extende d release active Not Available Not Available No t Available montelukast 10 mg tablet active Not Available Not Available No t Available lisinopril 40 mg tablet active Not Available Not Available No t Available fluoxetine 20 mg capsule active Not Available Not Available N ot Available memantine 10 mg tablet active Not Available Not Available No t Available Vitals Date Recorded Body weight Provider Name an d Address Organization Details Last Updated DateTime 02/15/2024 95919.18 g [facility] 02/15/2024 14:26:55 Date Recorded Heart rate Provider Name an d Address Organization Details Last Updated DateTime 02/15/2024 65 /min [facility] 02/15/2024 14:28:03 Date Recorded Heart rate Body height Body weight Body mass index (BMI) Provider Name and Address Organization Details Last Updated DateTime 07/31/2024 62 /min 177.8 cm 74744.365 56 g 26.98 kg/m2 Not Available [facility] 07/31/2024 21:37:02 Date Recorded Systolic blood pressure Diastolic blood pressure Provider Name and Address Organization Details Last Updated DateTime 02/15/2024 161 mm[Hg] 77 mm[Hg] [facility] 02/15/2024 14:27:59 Date Recorded Systolic blood pressure Diastolic blood pressure Provider Name and Address Organization Details Last Updated DateTime 08/01/2024 175 mm[Hg] 87 mm[Hg] Not Available [facility] 1 06:16:21 Social History None recorded. Functional Status None recorded. Mental Status None recorded. Family History Relationship Description Onset Age of this Age Resolved Age Notes LastModified by Organization Details LastModified Time Mother Malignant neoplastic disease amoriconi Not available 2023 14:30:01 Notes:denied family history of Colon cancer Medical History No medical history recorded. Past Encounters Encounter ID Performer Location Encounter Start Date Encounter Closed Date Diagnosis/Indication Diagnosis SNOMED-CT Code Diagnosis ICD10 Code Diagnosis Note [id number] Marcell Michael MD [facility] ([place]) [address] [place] [address] 02/15/2024 14:17:25 02/20/2024 11:22:24 Disorder of anus 53850589 K62.89 Altered herb wel function 52860770 R19.4 Health Concerns Section Related Observation LastModified by Organization Detai ls LastModified Time None Recorded Concern Status LastModified by Organization Details LastModified Time None Recorded Advance Directives Directive None Recorded Payers Encounter Date Sequence Insurance Name Policy Number Policy [place] Covered Member ID Costa Member ID Guarantor Name 02/15/2024 1 [place] Felipe Serna Boo [id number] Felipe Anthony Haddad Notes Date Note Type Note Provider Name and Address Organization Details Recorded Time 02/15/2024 text/html Felipe is an 88-year-old male, a patient of Dr. Alcantar. He is here with his , Natalie. Felipe has had chronic issues with some diarrhea. Sometimes it will be watery. At other times he will have constipation. He recently had a CT scan that shows eccentric wall thickening of the rectum and physical exam or proctoscopy was recommended. He has no family history of colorectal cancer. He has not seen any blood per rectum. He has had radiation therapy for prostate cancer, both external beam and prostate seeds. He denies any abdominal or pelvic pain.gf Marcell Michael MD [facility] [address], [address], [facility] 02/17/2024 08:23:23
--- OUTSIDE RECORDS SUMMARY | 2024-11-16 05:55 | XMS_ITS ---
Author Organization Unknown Address [address] [place] [phone] Phone Care Team Providers Care Human Resource Statistician Name Role Phone DELMIS ASENCIO Attending Unavailable [...] em Smoking History Never smoker (Never Smoked) [id number] SNOMED CT Sex Male Hospital Discharge Instructions Should you have any questions prior to discharge, please contact a member of your healthcare team. If you have left the hospital and have any questions, please contact your primary care physician. Reason For Referral No Data Found Plan of Treatment No Data Found Encounters Encounter Diagnosis Start Date Code Code Sys tem Atrial fibrillation 10/11/2024 [id number] SNOMED-C T Personal Care Team Section Performer Name Performer Role Active Date Inactive YOJANA Nj PCP - Primary care physician 2024-10-08
[2024-11-16] MEDS: MEROPENEM 1 GM/NS 100 ML 1 GM/100 ML BAG IVPB ×2 (06:16→18:06)
[2024-11-16 08:09] LABS: Iron 31 ug/dL (49-181)
--- NOTE | 2024-11-16 08:11 | P.CONGI_ITS ---
<Statement entered by Deonte Valdez MD - 11/16/24 14:30> I, Deonte Valdez MD, have provided a substantive portion of the care of this patient and discussed the patient with my Nurse Practitioner. I have reviewed any new relevant radiographic and laboratory results including medications. I agree with her documentation as noted below.?I personally performed the medical decision making and much of the history and exam for this encounter. briefly, he has multiple medical problems with recent hospitalization. Here with sepsis, pneumonia with infiltrates and respiratory failure now on bipap, REGINA. Noted lower hemoglobin, + FOBT but no overt gib. He is still on respiratory support and sick. He has dementia and can not provide history also he is in respiratory distress (reviewed recent CT chest with more pulmonary edema/infiltrate and pericardial effusion). and daughter at bedside, they think that he had colonoscopy but many years ago. He is not a candidate for endoscopy evaluation and I recommend conservative approach if possible unless obvious bleeding. Family is agreeable. Will monitor for any changes and assess if urgent scope is needed. Assessment and Plan Assessment and plan (1) Normocytic anemia: Code(s): D64.9 - Anemia, unspecified Status: Acute (2) Leukocytosis: Qualifiers: Leukocytosis type: unspecified Qualified Code(s): D72.829 - Elevated white blood cell count, unspecified Code(s): D72.829 - Elevated white blood cell count, unspecified Status: Acute (3) Acute respiratory failure with hypoxia: Code(s): J96.01 - Acute respiratory failure with hypoxia Status: Acute (4) Aspiration into airway: Qualifiers: Encounter type: initial encounter Qualified Code(s): T17.908A - Unspecified foreign body in respiratory tract, part unspecified causing other injury, initial encounter Code(s): T17.908A - Unspecified foreign body in respiratory tract, part unspecified causing other injury, initial encounter Status: Acute (5) Pneumonia: Qualifiers: Laterality: bilateral Lung location: unspecified part of lung P neumonia type: due to unspecified organism Qualified Code(s): J18.9 - Pneumonia, unspecified organism Code(s): J18.9 - Pneumonia, unspecified organism Status: Acute Plan 1. Anemia/heme positive stool/melena: EGD and colonoscopy Hx unknown as patient was unable to provide subjective information. No stool present on rectal exam. Per RN the patient had melena this admission but was unable to say when the last episode was. Labs today showed WBCs 13, HGB 7, HCT 21, MCV 98, platelets 409, total iron 31, TIBC 157, iron saturation 20% and ferritin pending. CTA 10/26/2024 showed mild to moderate diverticulosis but was otherwise unremarkable from a GI standpoint. Appears that patient was on oral iron supplement, Eliquis and aspirin 81 mg daily prior to admission. Fecal occult blood positive 11/12/2024. C-Diff negative. Patient on BiPap and per RN previous attempt to get patient off BiPap was unsuccessful. O2 sat this morning at 92%. Etiology of anemia likely multifactorial. * Primary care team to continue monitoring H/H and transfuse as needed to keep Hgb >7 * Continue BID PPI * Care with NSAID's, ASA and anticoags * once patient is more stable respiratory nieto we will consider EGD +/- colonoscopy based on clinical presentation to further evaluate for GI source of blood loss 2. Leukocytosis/ pneumonia/acute respiratory failure/sepsis: WBC's trending down slowly since admission 15-->13. Patient on azithromycin and meropenem. Still on BiPap. Modified barium swallow 10/29/2024 showed aspiration, speech therapy recommendations not available. * continue ABX * management/treatment per primary care team * EGD once stable to further eval aspiration Thank you very much for allowing me to share in the care of this patient. This report may have been done utilizing a voice recognition system. Attempts have been made to correct errors. However, there may be uncorrected grammatical, spelling, and recognition errors present. GI Consult Note Consult date/time: 11/16/24 08:11 Reason for consult: Anemia HPI: Felipe Haddad is a 89 year old male with PMSH of asthma, CKD stage 3, A-Fib, Diastolic dysfunction, dementia, prostate cancer, HLD, HTN, CAD and Parkinson's. GI has been consulted for anemia. Patient was transferred from [facility] 11/15/2024 for SOB and hypoxia. Admitted to [place] for Acute respiratory failure, pneumonia, severe sepsis, and acute renal failure. The patient admitted on 10/26/2024 to [facility] for weakness and an episode of unresponsiveness. The patient had been living at home with his who has been his main senior group manager. Two days prior to admission he was requiring more assistance with transfers. Or while passing a bowel movement, the patient had an unresponsive episode which was witnessed by . She reports he had loss of consciousness for a few minutes which prompted her to call 911. Patient was discharged on 11/02/2024 to swing bed at [facility] for additional rehab services. Patient with dementia and currently on BiPap so was unable to provide subjective information and medical history. ENDOSCOPY HISTORY: EGD and colonoscopy history unknown LABS AND STOOL STUDIES: LABS 11/16/2024: Sodium 146, potassium 3.8, BUN 38, creatinine 1.21, GFR 56 WBC is 13, HGB 7, HCT 21, MCV 98, platelets 409 (INR 10/26/2024 at 1.4) Total bilirubin 1.2, AST 49, ALT 31, alkaline phosphatase 108, albumin 2.8 Total iron 1.0, TIBC 157, iron sat 20%, ferritin Calcium 7.9, phosphorus 4.7, magnesium 2.2 LABS 11/15/2024: WBCs 15, HGB 8, HCT 24, MCV 99, platelets 446 LABS 11/12/2024: Total bilirubin 1.1, AST 41, ALT 63, alkaline phosphatase 130 Hepatitis panel negative Fecal occult blood positive, C diff negative Total iron 15, TIBC 123, iron saturation 12% IMAGING: CTA chest/abd/pelvis 10/26/2024 IMPRESSION: 1. Dependent and lower lung predominant diffuse bilateral lung disease with dense consolidation in the right middle lobe and lingula which could represent pneumonia, moderate to severe pulmonary edema or combination thereof. 2. Small right pleural effusion. 3. Moderate cardiomegaly with enlargement of the central pulmonary arteries consistent with pulmonary arterial hypertension. 4. The latter gallbladder without wall thickening or pericholecystic inflammatory stranding to suggest acute cholecystitis. 5. Mild to moderate diverticulosis Modified Barium Swallow 10/29/2024 IMPRESSION: 1. Aspiration. 2. Please refer to the speech therapy report for recommendations. Chest Xray 11/15/2024 Impression: Worsening diffuse bilateral pulmonary consolidation, compatible with severe pulmonary edema, or possibly ARDS. Small bilateral pleural effusions. Stable cardiomegaly. Abdominal Ultrasound 11/08/2024 FINDINGS: The pancreatic head and body are normal in appearance. The pancreatic tail is not visualized. Liver has normal echogenicity and contour, with a smooth surface. No liver lesion identified. No intrahepatic biliary duct dilation suspected. Portal venous flow was seen in the hepatopetal, normal direction and has normal Doppler waveform. The visualized proximal inferior vena cava is normal. The gallbladder and measures 11.0 x 4.7 cm and is normal in appearance with no abnormal wall thickening. There is no cholelithiasis. The common bile duct measures 7 mm, which is within normal limits for age. Sonographic Gale sign was reported as negative by the crane man. IMPRESSION: 1. Unremarkable for age right upper quadrant ultrasound. Review of Systems 2 Review of Systems: ROS unobtainable: Yes unobtainable due to medical condition and unobtainable due to mental status PMFSH Past Medical History Medical History Asthma Chronic kidney disease, stage 3 Paroxysmal atrial flutter Diastolic dysfunction Kidney stones Cerebrovascular accident residual expressive aphasia Dementia Prostate cancer Hyperlipidemia Hypertension Coronary artery disease Parkinson disease Surgical History Surgical History History of bilateral cataract extraction History of arthroplasty of left knee Family History Family History Mother Non-Hodgkin lymphoma Asthma Son History of blood clots Aneurysm Daughter Hypertension Sibling Prostate carcinoma Lymph node cancer Heart problem Father Old age Son Hypertension Asthma Sibling Social History Social History Social History: Surrogate medical decision maker: Natalie Haddad, spouse. Code status: Full code. Smoking status: Never smoker Second hand tobacco smoke exposure: No Alcohol intake: never Substance use: never Substance use type: does not use Do You Feel Safe in your Home?: Yes Lack of Transportation: No Lack of Food: Never True Current Housing: I Have Housing Concerned About Future Housing: No Difficulty Paying Gas/Electric Bills: No Difficulty Paying for Meds: No Currently Unemployed: No Education: High School Diploma/GED Difficulty w/ Childcare or Family Care: No Spiritual care concerns: Yes (religion) Meds Home Medications and Allergies Home Medications ?Medication ?Instructions ?Recorded ?Confirmed ?Type aspirin 81 mg tablet 81 mg PO DAILY 03/08/24 11/15/24 History atorvastatin 40 mg tablet 40 mg PO QPM 03/08/24 11/15/24 History budesonide-formoterol HFA 80 1 puff inhalation Q12H PRN 03/08/24 11/15/24 History mcg-4.5 mcg/actuation aerosol Shortness Of Breath Or Wheezing inhaler (Symbicort) calcium 260 mg (phos,tribasic)-D3 1 tablet PO DAILY 03/08/24 11/15/24 History 25 mcg-herbal 50 mg chewable tablet (Alive Calcium-Vitamin D3) carbidopa ER 50 mg-levodopa 200 mg 1 tablet PO BID 03/08/24 11/15/24 History tablet,extended release coenzyme R87-jgrnfig E 100 mg-100 2 cap PO DAILY 03/08/24 11/15/24 History unit capsule donepezil 10 mg tablet 10 mg PO DAILY 03/08/24 11/15/24 History fluoxetine 20 mg capsule 20 mg PO DAILY 03/08/24 11/15/24 History montelukast 10 mg tablet 10 mg PO DAILY 03/08/24 11/15/24 History multivitamin l-doxpiipl-rqkqrcq 1 tablet PO DAILY 03/08/24 11/15/24 History fumarate 18 mg-vitamin K 25 mcg tablet acetaminophen 325 mg tablet 650 mg (2 x 325 mg) PO Q6H PRN 03/18/24 11/15/24 Rx Mild Pain (1-5) Or Fever #30 tabs diltiazem HCl 240 mg 240 mg PO QAM #30 caps 03/18/24 11/15/24 Rx capsule,extended release 24 hr, controlled memantine 10 mg tablet 10 mg PO Q12H #60 tabs 03/18/24 11/15/24 Rx metoprolol tartrate 25 mg tablet 25 mg PO Q12HR #60 tabs 03/18/24 11/15/24 Rx pantoprazole 40 mg tablet,delayed 40 mg PO QAM #30 tabs 03/18/24 11/15/24 Rx release sennosides 8.6 mg-docusate sodium 1 tab-cap PO BID PRN Constipation 03/18/24 11/15/24 Rx 50 mg tablet (Senokot-S) #10 tabs Saccharomyces boulardii 250 mg 250 mg PO TID #90 caps 04/06/24 11/15/24 Rx capsule (Florastor) camphor 4 %-methyl salicylate 30 1 applic topical BID PRN 04/06/24 11/15/24 Rx %-menthol 10 % topical cream Muscle/Joint Pain #113 grams (Bengay Ultra Strength) tamsulosin 0.4 mg capsule 0.4 mg PO QAM #30 caps 04/06/24 11/15/24 Rx famotidine 20 mg tablet 20 mg PO Q12H 11/15/24 11/15/24 History ferrous sulfate 325 mg (65 mg 325 mg PO BID 11/15/24 11/15/24 History iron) tablet,delayed release Allergies Allergy/AdvReac Type Severity Reaction Status Date / Time No Known Allergies Allergy Verified 10/27/24 01:15 Vital Signs Vital Signs - 24 hr 11/15/24 15:38 11/15/24 16:00 11/15/24 16:00 Temperature 97.8 F Pulse Rate 67 64 Respiratory Rate 23 H Blood Pressure 151/55 H Pulse Oximetry 99 99 Oxygen Delivery BiPAP Oxygen Flow Rate Fraction of Inspired Oxygen 40 11/15/24 16:12 11/15/24 16:50 11/15/24 17:29 Temperature Pulse Rate 63 Respiratory Rate 35 H Blood Pressure Pulse Oximetry 100 100 99 Oxygen Delivery BiPAP Oxygen Flow Rate Fraction of Inspired Oxygen 11/15/24 18:00 11/15/24 19:46 11/15/24 19:54 Temperature 97.7 F Pulse Rate 65 58 L Respiratory Rate 20 Blood Pressure 140/55 L Pulse Oximetry 99 98 Oxygen Delivery BiPAP Oxygen Flow Rate Fraction of Inspired Oxygen 30 11/15/24 20:00 11/15/24 20:40 11/15/24 21:23 Temperature Pulse Rate 58 L 58 L 62 Respiratory Rate 21 H Blood Pressure Pulse Oximetry 100 94 Oxygen Delivery BiPAP Nasal Cannula Oxygen Flow Rate 3 Fraction of Inspired Oxygen 11/15/24 21:26 11/15/24 22:14 11/16/24 00:00 Temperature 97.7 F Pulse Rate 63 78 61 Respiratory Rate 23 H Blood Pressure 136/56 L Pulse Oximetry 98 Oxygen Delivery Oxygen Flow Rate Fraction of Inspired Oxygen 11/16/24 00:00 11/16/24 00:00 11/16/24 01:53 Temperature Pulse Rate 56 L 90 Respiratory Rate Blood Pressure Pulse Oximetry 99 Oxygen Delivery BiPAP Oxygen Flow Rate Fraction of Inspired Oxygen 30 11/16/24 04:00 11/16/24 04:00 11/16/24 04:00 Temperature 98 F Pulse Rate 57 L 57 L Respiratory Rate 17 Blood Pressure 125/51 L Pulse Oximetry 99 93 Oxygen Delivery BiPAP Oxygen Flow Rate Fraction of Inspired Oxygen 30 11/16/24 06:11 Temperature Pulse Rate 98 Respiratory Rate Blood Pressure Pulse Oximetry Oxygen Delivery Oxygen Flow Rate Fraction of Inspired Oxygen Exam 2 Const: General: comfortable and no acute distress HENMT: Face/Nose/Sinus: Normal nares present Mouth: Yes moist mucous membranes Eyes: General: appearance normal, both eyes and all related structures S clera: sclerae normal Pupils: Equal, round and reactive pupils present Neck: Neck: supple Resp: Auscultation: clear to auscultation bilaterally Other: Patient on Bipap Cardio: Rate: regular rate Rhythm: regular rhythm GI: Inspection: distended GI Palp: Yes Soft to palpation, Yes Firmness to palpation present (GI), No Tenderness to palpation present (GI) and No Guarding due to palpation present (GI) Auscultation: normal bowel sounds Skin: Other: bruising Neuro: Speech: normal speech Extrem: General: normal to inspection Psych: Mental Status: mental status grossly normal Other: confusion Results Labs 11/16/24 04:35 11/16/24 04:35 Labs: Short CBC 11/16/24 Range/Units 04:35 WBC 12.7 H (4.5-10.0) K/mm3 Hgb 6.7 L* D (14.0-18.0) g/dL Hct 21.1 L (42.0-52.0) % Plt Count 409 H D (150-375) k/mm3 BMP 11/15/24 11/16/24 15:36 04:35 Sodium 146 H Potassium 3.8 Chloride 111 H Carbon Dioxide 29 BUN 38 H Creatinine 1.10 1.21 Glucose 134 H Calcium 7.9 L Liver Function 11/16/24 Range/Units 04:35 Total Bilirubin 1.2 (0.2-1.3) mg/dL AST 49 (17-59) U/L ALT 31 (6-50) U/L Alkaline Phosphatase 108 (38-126) U/L Albumin 2.8 L (3.5-5.1) g/dL
[2024-11-16 08:19] LABS: Percent Iron Saturation 20 % (20-50)
[2024-11-16] MEDS: SACCHAROMYCES BOULARDII 250 MG CAPSULE PO (09:28)
[2024-11-16] MEDS: PANTOPRAZOLE SODIUM IV 40 MG VIAL IV PUSH ×2 (09:28→20:48)
[2024-11-16] MEDS: FLUoxetine HCL 20 MG CAPSULE PO (09:28)
[2024-11-16] MEDS: METOPROLOL TARTRATE 25 MG TABLET PO ×2 (09:28→20:48)
[2024-11-16] MEDS: THERAPEUTIC MULTIVITAMINS/MINERALS TAB (*BKC) 1 TABLET PO (09:28)
[2024-11-16] MEDS: MONTELUKAST SODIUM 10 MG TABLET PO (09:28)
[2024-11-16] MEDS: MEMANTINE 10 MG TABLET PO ×2 (09:29→20:48)
[2024-11-16] MEDS: TAMSULOSIN HCL 0.4 MG CAPSULE PO (09:29)
[2024-11-16] MEDS: guaiFENesin 12 HR 600 MG TABCR PO ×2 (09:30→20:47)
[2024-11-16] MEDS: CARBIDOPA/LEVODOPA 25/100 MG CR TABLET 1 TABLET PO (09:30)
[2024-11-16] MEDS: DONEPEZIL HCL 10 MG TABLET PO (09:30)
[2024-11-16] MEDS: FERROUS SULFATE 325 MG TABLET DR PO (09:30)
[2024-11-16] MEDS: CALCIUM/VITAMIN D 250 MG/3.125 MCG (125 I.U.) TABLET 1 TABLET PO (09:30)
[2024-11-16] MEDS: dilTIAZem HCL CD 240 MG CAP.24HR PO (09:30)
[2024-11-16] MEDS: TUBING, BLOOD PLUM PUMP TUBING 1 EACH XX (14:13)
[2024-11-16] MEDS: SODIUM CHLORIDE 0.9% IV 250 ML 30 ML IV CONT (14:14)
[2024-11-16] MEDS: AZITHROMYCIN 500 MG/NS 250 ML 500 MG/250 ML BAG 250 MG IVPB (14:19)
--- NOTE | 2024-11-16 16:24 | P.PNIM_ITS ---
Progress Note: A&P Assessment and Plan (1) Sepsis: Qualifiers: Sepsis type: sepsis due to unspecified organism Sepsis acute organ dysfunction status: with acute organ dysfunction Severe sepsis acute organ dysfunction type: acute respiratory failure Acute respiratory failure type: with hypoxia Severe sepsis shock status: without septic shock Qualified Code(s): A41.9 - Sepsis, unspecified organism; R65.20 - Severe sepsis without septic shock; J96.01 - Acute respiratory failure with hypoxia Code(s): A41.9 - Sepsis, unspecified organism Status: Acute Assessment and Plan: improving From Pneumonia continue IVF and Meropenem and Azithromycin Monitor cultures (2) Acute respiratory failure with hypoxia: Code(s): J96.01 - Acute respiratory failure with hypoxia Status: Acute Assessment and Plan: Ct chest showed combined pneumonia and pulm edema Contine above antibiotics Gentle diuresis and adjust with clinical course titrate oxygen (3) Pneumonia: Qualifiers: Laterality: bilateral Lung location: unspecified part of lung Pneumonia type: due to unspecified organism Qualified Code(s): J18.9 - Pneumonia, unspecified organism Code(s): J18.9 - Pneumonia, unspecified organism Status: Acute Assessment and Plan: Ct chest reviewed continue above care and monitor cultures (4) Acute UTI: Code(s): N39.0 - Urinary tract infection, site not specified Status: Acute Assessment and Plan: - UA: Cloudy, 1+ protein, trace intact blood, positive nitrates, 2+ leuks, 31- 50 WBC, 2+ bacteria. - UC pending, follow - previous micro reviewed, no previous resistances - started on meropenem on 11/15, concurrent HAP (5) Diastolic dysfunction: Code(s): I51.89 - Other ill-defined heart diseases Status: Acute Assessment and Plan: - BNP 3774 - most recent echo (10/27/24): Mild pulmonary hypertension, dilated IVC, estimated EF 64%, normal systolic function, grade 1 diastolic dysfunction. See report for full details. - not on daily diuretic, will trial 1 time dose of Lasix 40 mg IV. - monitor I&Os and daily weights - trend renal function (6) Acute on chronic renal failure: Qualifiers: Acute renal failure type: unspecified Chronic kidney disease stage: unspecified stage Qualified Code(s): N17.9 - Acute kidney failure, unspecified; N18.9 - Chronic kidney disease, unspecified Code(s): N17.9 - Acute kidney failure, unspecified; N18.9 - Chronic kidney disease, unspecified Status: Acute Assessment and Plan: resolving cr 1.21 from 1.5 on admission - nephrology consulted - trend renal function - trend electrolytes, correct as needed (7) Anemia: Qualifiers: Anemia type: iron deficiency Iron deficiency anemia type: unspecified iron deficiency Qualified Code(s): D50.9 - Iron deficiency anemia, unspecified Code(s): D64.9 - Anemia, unspecified Status: Acute Assessment and Plan: Hb 6.7 today transfuse 1 unit ISat 20 and Ferritin 894, appears iron replete FOBT pending hold ELiquis and ASpirin continue PPI GI consulted (8) Hypernatremia: Code(s): E87.0 - Hyperosmolality and hypernatremia Status: Acute Assessment and Plan: rsolving Na 146 today monitor (9) Low serum albumin: Code(s): R77.0 - Abnormality of albumin Status: Acute Assessment and Plan: - albumin 2.8 today s/p Albumin infusion - trend (10) Transaminitis: Code(s): R74.01 - Elevation of levels of liver transaminase levels Status: Acute Assessment and Plan: - initially elevated during 1st admission earlier this month due to shock/sepsis, has been down trending. Continue to follow. 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 (12) Hypertension: Qualifiers: Hypertension type: unspecified Qualified Code(s): I10 - Essential (primary) hypertension Code(s): I10 - Essential (primary) hypertension Status: Chronic Assessment and Plan: - chronic, currently 140/55 - continue home medications: Metoprolol 25 mg b.i.d. - monitor Plan Diet: Heart healthy once patient passes bedside swallow eval GI Prophylaxis: Pantoprazole IV DVT Prophylaxis: SCDs Lines: Peripheral Code Status: Full code Subjective Date/time seen: 11/16/24 16:24 Interval history: patient was comfortable at bedside Review of Systems Review of Systems: ROS unobtainable: Yes unobtainable due to mental status (Somnolent) Exam Narrative: diffuse crackles in all lung long 2+ pitting edema to BLE. mild edema to BL hands. abdomen is fine. patient somnolent and able to now, no attempts at speech. (family reports he was able to have a short conversation, unclear if confused earlier). Const: General: comfortable and no acute distress Other: , male, elderly, ill-appearing HENMT: Face/Nose/Sinus: Normal nares present Mouth: Yes dry mucous membranes Other: BiPAP in place Eyes: General: appearance normal, both eyes and all related structures Sclera: sclerae normal Pupils: Equal, round and reactive pupils present (2 mm bilaterally) EOM: EOMs intact bilaterally Resp: Other: +tachypnea without increased work of kimberly athing. diffuse crackles in all lung long. No wheezing. Cardio: Rate: regular rate Rhythm: regular rhythm Other: S1-S2 present without murmur, rub, ectopy GI: Other: Abdomen soft, nondistended, nontender. Urinary Catheter: Urinary Catheter: patent and draining and urine cloudy (Sediment) Skin: General skin exam: normal color and no rashes or lesions noted Wounds: no wounds Neuro: Cranial nerves: Yes Equal, round and reactive pupils present (2 mm bilaterally) Other: +generalized weakness, moving all extrem ities. Will briefly awaken to voice and modest physical stimuli. Not able to sustain wakefulness. Nods appropriately. Unable to assess further. Extrem: Other: 2+ pitting edema to BLE. mild edema to BL hands. Psych: Other: Poor insight and judgment at present. Objective Data Vital Signs Vital Signs: Vital Signs - 24 hr 11/15/24 16:50 11/15/24 17:29 11/15/24 18:00 Temperature Pulse Rate 65 Respiratory Rate Blood Pressure Pulse Oximetry 100 99 Oxygen Delivery Oxygen Flow Rate Fraction of Inspired Oxygen 11/15/24 19:46 11/15/24 19:54 11/15/24 20:00 Temperature 97.7 F Pulse Rate 58 L 58 L Respiratory Rate 20 Blood Pressure 140/55 L Pulse Oximetry 99 98 Oxygen Delivery BiPAP Oxygen Flow Rate Fraction of Inspired Oxygen 30 11/15/24 20:40 11/15/24 21:23 11/15/24 21:26 Temperature Pulse Rate 58 L 62 63 Respiratory Rate 21 H Blood Pressure Pulse Oximetry 100 94 Oxygen Delivery BiPAP Nasal Cannula Oxygen Flow Rate 3 Fraction of Inspired Oxygen 11/15/24 22:14 11/16/24 00:00 11/16/24 00:00 Temperature 97.7 F Pulse Rate 78 61 Respiratory Rate 23 H Blood Pressure 136/56 L Pulse Oximetry 98 99 Oxygen Delivery BiPAP Oxygen Flow Rate Fraction of Inspired Oxygen 30 11/16/24 00:00 11/16/24 01:53 11/16/24 04:00 Temperature Pulse Rate 56 L 90 Respiratory Rate Blood Pressure Pulse Oximetry 99 Oxygen Delivery BiPAP Oxygen Flow Rate Fraction of Inspired Oxygen 30 11/16/24 04:00 11/16/24 04:00 11/16/24 06:11 Temperature 98 F Pulse Rate 57 L 57 L 98 Respiratory Rate 17 Blood Pressure 125/51 L Pulse Oximetry 93 Oxygen Delivery Oxygen Flow Rate Fraction of Inspired Oxygen 11/16/24 08:00 11/16/24 12:00 11/16/24 12:08 Temperature 97.7 F 98.2 F 98.2 F Pulse Rate 97 99 99 Respiratory Rate 26 H 25 H 25 H Blood Pressure 121/69 108/63 108/63 Pulse Oximetry 92 99 99 Oxygen Delivery Oxygen Flow Rate Fraction of Inspired Oxygen 11/16/24 12:32 11/16/24 13:32 11/16/24 14:32 Temperature 97.9 F 97.6 F 97.4 F L Pulse Rate 92 95 90 Respiratory Rate 24 H 20 24 H Blood Pressure 124/73 124/75 127/76 Pulse Oximetry 96 96 96 Oxygen Delivery Oxygen Flow Rate Fraction of Inspired Oxygen Intake/Output Intake/Output: Intake & Output 11/13/24 11/14/24 11/15/24 11/16/24 23:59 23:59 23:59 23:59 Intake Total 450 500 Output Total 350 1000 Balance 100 -500 Meds/Results Medications: Active Medications Generic Name Dose Route Start Last Admin Trade Name Freq PRN Reason Stop Dose Admin Acetaminophen 650 mg 11/15/24 14:50 Acetaminophen 325 Mg Tablet PO Q4H PRN Mild Pain (1-3) or Fever Albuterol/Ipratropium 3 ml 11/15/24 15:36 Ipratropium 0.5 Mg/Albuterol Sulfate 2.5 Mg Ampul.Neb 3 Ml INHALATION Q6HRT PRN Shortness Of Breath Or Wheezing Atorvastatin Calcium 40 mg 11/16/24 18:00 Atorvastatin 40 Mg Tablet PO QPM GAURAV Bisacodyl 5 mg 11/15/24 14:50 Bisacodyl 5 Mg Tablet Ec PO DAILY PRN Constipation Calcium Carbonate 1 tablet 11/16/24 09:00 11/16/24 09:30 Calcium/Vitamin D 250 Mg/3.125 Mcg (125 I.U.) Tablet PO 1 tablet DAILY GAURAV Administration Carbidopa/Levodopa 1 tablet 11/15/24 20:45 11/16/24 09:30 Carbidopa/Levodopa 25/100 Mg Cr Tablet PO 1 tablet BID GAURAV Administration Collagenase 1 applic 11/16/24 09:00 Collagenase Oint 30 Gm Tube TOPICAL QAM [facility] Diltiazem HCl 240 mg 11/16/24 09:00 11/16/24 09:30 Diltiazem Hcl Cd 240 Mg Cap.24hr PO 240 mg QAM GAURAV Administration Donepezil HCl 10 mg 11/16/24 09:00 11/16/24 09:30 Donepezil Hcl 10 Mg Tablet PO 10 mg DAILY GAURAV Administration Ferrous Sulfate 325 mg 11/16/24 09:00 11/16/24 09:30 Ferrous Sulfate [address] PO 325 mg BID GAURAV Administration Fluoxetine HCl 20 mg 11/16/24 09:00 11/16/24 09:28 Fluoxetine Hcl 20 Mg Capsule PO 20 mg DAILY GAURAV Administration Guaifenesin 600 mg 11/15/24 21:00 11/16/24 09:30 Guaifenesin 12 Hr 600 Mg Tabcr PO 600 mg Q12HR GAURAV Administration Meropenem 1 gm in 100 mls @ 200 mls/hr 11/15/24 18:00 11/16/24 06:16 IVPB 200 mls/hr Q12H GAURAV Administration Azithromycin 500 mg in 250 mls @ 250 mls/hr 11/15/24 15:00 11/16/24 14:19 Zithromax IVPB 250 mls/hr DAILY@1200 GAURAV Administration Albumin Human 100 mls @ 60 mls/hr 11/15/24 18:00 11/16/24 12:29 Albutein IVPB 60 mls/hr Q6HR GAURAV Administration Memantine 10 mg 11/15/24 21:00 11/16/24 09:29 Memantine 10 Mg Tablet PO 10 mg Q12H GAURAV Administration Menthol/Methyl Salicylate 1 applic 11/15/24 20:23 Menthol 10% / Methyl Salicylate 15% 57 Gm Tube TOPICAL BID PRN Muscle/Joint Pain Metoprolol Tartrate 25 mg 11/15/24 21:00 11/16/24 09:28 Metoprolol Tartrate 25 Mg Tablet PO 25 mg Q12HR GAURAV Administration Montelukast Sodium 10 mg 11/16/24 09:00 11/16/24 09:28 Montelukast Sodium 10 Mg Tablet PO 10 mg DAILY GAURAV Administration Multivitamins/Calcium 1 tablet 11/16/24 09:00 11/16/24 09:28 Therapeutic Multivitamins/Minerals Tab (*Bkc) PO 1 tablet DAILY GAURAV Administration Non-Formulary Medication 1 each 11/15/24 20:43 Nonformulary Nutritional Supplement XX 11/16/24 20:42 PRN PRN PROTOCOL Ondansetron HCl 4 mg 11/15/24 14:50 Ondansetron Inj 4 Mg/2 Ml Vial IV PUSH Q6H PRN Nausea And Vomiting Pantoprazole Sodium 40 mg 11/15/24 21:00 11/16/24 14:13 Pantoprazole Sodium Iv 40 Mg Vial IV PUSH Not Given Q12HR GAURAV Pantoprazole Sodium 40 mg 11/16/24 09:00 11/16/24 09:28 Pantoprazole Sodium Iv 40 Mg Vial IV PUSH 40 mg Q12HR GAURAV Administration Saccharomyces Boulardii 250 mg 11/16/24 09:00 11/16/24 14:19 Saccharomyces Boulardii 250 Mg Capsule PO Not Given TID GAURAV Fluticasone/Salmeterol 2 puff 11/16/24 08:00 11/16/24 13:44 Fluticasone/Salmeterol 45-21 Mcg Inhaler 1 Puff INHALATION Not Given Q12HRT GAURAV Senna/Docusate Sodium 1 tab 11/15/24 20:23 Senna/Docusate Sodium Tablet PO BID PRN Constipation Tamsulosin HCl 0.4 mg 11/16/24 09:00 11/16/24 09:29 Tamsulosin Hcl 0.4 Mg Capsule PO 0.4 mg QAM GAURAV Administration Radiology Results: ITS Impressions Chest CT 11/16/24 09:25 IMPRESSION: 1. Diffuse lung disease, consistent with some combination of pneumonia, pulmonary edema, and diffuse alveolar damage. 2. Small pleural effusions, right worse than left. 3. Moderate-sized pericardial effusion, new from 10/28/2024. Labs Labs: Laboratory Results - last 24 hr 11/15/24 11/15/24 11/16/24 16:28 17:00 04:35 WBC 12.7 H RBC 2.15 L Hgb 6.7 L* D Hct 21.1 L MCV 98.1 MCH 31.2 MCHC 31.8 L RDW 17.1 H Plt Count 409 H D MPV 9.8 Immature Gran % (Auto) 0.9 H Neut % (Auto) 90.6 H Lymph % (Auto) 2.4 L [place] % (Auto) 6.0 Eos % (Auto) 0.0 Baso % (Auto) 0.1 L Lymph # (Auto) 0.31 L [place] # (Auto) 0.8 H Eos # (Auto) 0.0 Baso # (Auto) 0.0 Abs Immat Gran (auto) 0.11 H Absolute Neuts (auto) 11.6 H Absolute Nucleated RBC 0.000 Nucleated RBC % 0.0 Platelet Estimate Increased Hypochromasia 1+ Poikilocytosis 1+ Anisocytosis 1+ Ovalocytes 1+ Schistocytes None seen Puncture Site Left brachial ABG pH 7.456 H ABG pCO2 41.2 ABG pO2 139.7 H ABG PO2/FiO2 Ratio 2.33 ABG HCO3 28.4 H ABG O2 Saturation 98.9 ABG O2 Content 11.3 L ABG Base Excess 4.1 A-a Gradient 242.8 Oxyhemoglobin 97.5 Total Hemoglobin 8.0 L O2 Delivery Device Non-invasive vent O2 Liters/Min 0.0 Vent Rate 14 FiO2 60 Expiratory Pressure 7 Inspiratory Pressure 12 Sodium 146 H Potassium 3.8 Chloride 111 H Carbon Dioxide 29 Anion Gap 6 BUN 38 H Creatinine 1.21 Estim Creat Clear Calc 38 Estimated GFR 56 L Glucose 134 H Calcium 7.9 L Phosphorus 4.7 H Magnesium 2.2 Iron TIBC % Saturation Ferritin Total Bilirubin 1.2 AST 49 ALT 31 Alkaline Phosphatase 108 Total Protein 6.0 L Albumin 2.8 L Influenza A (RT-PCR) Negative Influenza B (RT-PCR) Negative RSV (RT-PCR) Negative SARS-CoV-2 RNA (RT-PCR) Negative Blood Type Antibody Screen Crossmatch 11/16/24 06:52 WBC RBC Hgb Hct MCV MCH MCHC RDW Plt Count MPV Immature Gran % (Auto) Neut % (Auto) Lymph % (Auto) [place] % (Auto) Eos % (Auto) Baso % (Auto) Lymph # (Auto) [place] # (Auto) Eos # (Auto) Baso # (Auto) Abs Immat Gran (auto) Absolute Neuts (auto) Absolute Nucleated RBC Nucleated RBC % Platelet Estimate Hypochromasia Poikilocytosis Anisocytosis Ovalocytes Schistocytes Puncture Site ABG pH ABG pCO2 ABG pO2 ABG PO2/FiO2 Ratio ABG HCO3 ABG O2 Saturation ABG O2 Content ABG Base Excess A-a Gradient Oxyhemoglobin Total Hemoglobin O2 Delivery Device O2 Liters/Min Vent Rate FiO2 Expiratory Pressure Inspiratory Pressure Sodium Potassium Chloride Carbon Dioxide Anion Gap BUN Creatinine Estim Creat Clear Calc Estimated GFR Glucose Calcium Phosphorus Magnesium Iron 31 L TIBC 157 L % Saturation 20 Ferritin 894.00 H Total Bilirubin AST ALT Alkaline Phosphatase Total Protein Albumin Influenza A (RT-PCR) Influenza B (RT-PCR) RSV (RT-PCR) SARS-CoV-2 RNA (RT-PCR) Blood Type AB Negative Antibody Screen Negative Crossmatch See Detail Quality VTE Prophylaxis VTE prophylaxis: mechanical ordered
[2024-11-16] MEDS: FUROSEMIDE INJ 40 MG/4 ML VIAL IV PUSH (17:01)
[2024-11-16] MEDS: ATORVASTATIN 40 MG TABLET PO (18:04)
[2024-11-16] MEDS: COLLAGENASE OINT 30 GM TUBE 1 APPLIC TOPICAL (19:36)
[2024-11-16] MEDS: FLUTICASONE/SALMETEROL 45-21 MCG INHALER 1 PUFF 2 PUFF INHALATION (20:05)
[2024-11-16] MEDS: ACETAMINOPHEN 325 MG TABLET 650 MG PO (20:47)
[2024-11-17] VITALS (13 sets, daily range): BP systolic 160–179; BP diastolic 61–62; PULSE 58–77; RESP 19–31; TEMP 36.6–36.8; O2SAT 91–95
[2024-11-17] MEDS: ALBUMIN HUMAN 25% 25 GM/100 ML 100 ML IVPB ×2 (01:21→06:27)
[2024-11-17 04:45] LABS: Basophils Percent Auto 0.1 % (0.2-1.2); Hematocrit 26.1 % (42.0-52.0); Hemoglobin 8.3 g/dL (14.0-18.0); Immature Granulocyte Absolute 0.37 K/mm3 (0.00-0.031); Immature Granulocyte Percent A 1.8 % (0-0.5); Lymphocytes Absolute Auto 0.34 K/mm3 (0.9-3.2); Lymphocytes Percent Auto 1.6 % (18.3-44.2); Mean Corpuscular HGB Conc 31.8 g/dl (32-36); Mean Corpuscular Volume 97.4 fl (80-100); Monocytes Absolute Auto 1.1 K/mm3 (0.1-0.6); Monocytes Percent Auto 5.1 % (2.6-8.5); Neutrophils Absolute Auto 19.3 K/mm3 (1.3-6.7); Neutrophils Percent Auto 91.4 % (45.5-73.1); Platelet Count Result 463 k/mm3 (150-375); Red Blood Count 2.68 M/mm3 (4.6-6.20); Red Cell Distribution Width 17.7 % (11.5-14.5); White Blood Count 21.1 K/mm3 (4.5-10.0)
[2024-11-17 04:53] LABS: Alanine Aminotransferase 66 U/L (6-50); Albumin Level 3.6 g/dL (3.5-5.1); Alkaline Phosphatase 130 U/L (38-126); Anion Gap 10 mmol/L (4-12); Aspartate Amino Transferase 52 U/L (17-59); Bilirubin,Total 2.2 mg/dL (0.2-1.3); Blood Urea Nitrogen 47 mg/dL (9-20); Calcium 8.6 mg/dL (8.4-10.2); Carbon Dioxide 29 mmol/L (22-30); Chloride 112 mmol/L (98-107); Estimated CRCL calculation 35 ml/min; Estimated Glomerular Filt Rate 51; Glucose 111 mg/dL (65-110); Magnesium 2.2 mg/dL (1.6-2.3); Potassium 3.7 mmol/L (3.4-5.0); Sodium 151 mmol/L (137-145)
[2024-11-17] MEDS: MEROPENEM 1 GM/NS 100 ML 1 GM/100 ML BAG IVPB (06:27)
[2024-11-17] MEDS: FLUTICASONE/SALMETEROL 45-21 MCG INHALER 1 PUFF 2 PUFF INHALATION (08:13)
--- NOTE | 2024-11-17 09:12 | P.PNGI_ITS ---
Progress Note: A&P Assessment and Plan (1) Acute on chronic anemia: Code(s): D64.9 - Anemia, unspecified Status: Acute Assessment and Plan: h/h stable now no report of melena by staff he is too sick to undergo scopes, recommend only to monitor for obvious signs of bleeding ppi for now will follow as needed (2) Occult blood in stools: Code(s): R19.5 - Other fecal abnormalities Status: Acute (3) Acute respiratory failure with hypoxia: Code(s): J96.01 - Acute respiratory failure with hypoxia Status: Acute Assessment and Plan: still on bipap CT chest reviewed with infiltrates (4) Pneumonia: Qualifiers: Laterality: bilateral Lung location: unspecified part of lung Pneumonia type: due to unspecified organism Qualified Code(s): J18.9 - Pneumonia, unspecified organism Code(s): J18.9 - Pneumonia, unspecified organism Status: Acute (5) Sepsis: Qualifiers: Sepsis type: sepsis due to unspecified organism Sepsis acute organ dysfunction status: with acute organ dysfunction Severe sepsis acute organ dysfunction type: acute respiratory failure Acute respiratory failure type: with hypoxia Severe sepsis shock status: without septic shock Qualified Code(s): A41.9 - Sepsis, unspecified organism; R65.20 - Severe sepsis without septic shock; J96.01 - Acute respiratory failure with hypoxia Code(s): A41.9 - Sepsis, unspecified organism Status: Acute (6) Leukocytosis: Qualifiers: Leukocytosis type: unspecified Qualified Code(s): D72.829 - Elevated white blood cell count, unspecified Code(s): D72.829 - Elevated white blood cell count, unspecified Status: Acute Subjective Date/time seen: 11/17/24 09:12 Interval history: no change, still with respiratory distress on bipap no report of overt gib Review of Systems Review of Systems: All systems reviewed & are unremarkable except as noted in HPI and below Exam Narrative: diffuse crackles in all lung long Const: Other: , male, elderly, ill-appearing HENMT: Face/Nose/Sinus: Normal nares present Other: BiPAP in place Eyes: General: appearance normal, both eyes and all related structures Neck: Neck: supple Resp: Other: +tachypnea without increased work of kimberly athing. diffuse crackles in all lung long. No wheezing. Cardio: Rate: regular rate Rhythm: regular rhythm GI: Other: Abdomen soft, nondistended, nontender. Urinary Catheter: Urinary Catheter: patent and draining and urine cloudy (Sediment) Skin: General skin exam: normal color Wounds: no wounds Neuro: Other: confused Extrem: Other: 2+ pitting edema to BLE. mild edema to BL hands. Psych: Other: Poor insight and judgment at present. Objective Data Vital Signs Vital Signs: Vital Signs - 24 hr 11/16/24 10:00 11/16/24 11:00 11/16/24 12:00 Temperature 98.2 F Pulse Rate 92 98 99 Respiratory Rate 20 25 H Blood Pressure 108/63 Pulse Oximetry 100 99 Oxygen Delivery BiPAP Fraction of Inspired Oxygen 11/16/24 12:00 11/16/24 12:00 11/16/24 12:08 Temperature 98.2 F Pulse Rate 88 99 Respiratory Rate 25 H Blood Pressure 108/63 Pulse Oximetry 99 Oxygen Delivery BiPAP Fraction of Inspired Oxygen 30 11/16/24 12:32 11/16/24 13:32 11/16/24 14:00 Temperature 97.9 F 97.6 F Pulse Rate 92 95 86 Respiratory Rate 24 H 20 Blood Pressure 124/73 124/75 Pulse Oximetry 96 96 Oxygen Delivery Fraction of Inspired Oxygen 11/16/24 14:32 11/16/24 16:00 11/16/24 16:00 Temperature 97.4 F L 97.6 F Pulse Rate 90 64 Respiratory Rate 24 H 27 H Blood Pressure 127/76 154/85 H Pulse Oximetry 96 90 Oxygen Delivery BiPAP Fraction of Inspired Oxygen 30 11/16/24 16:00 11/16/24 18:00 11/16/24 19:34 Temperature 97.8 F Pulse Rate 62 58 L 62 Respiratory Rate 19 Blood Pressure 154/64 H Pulse Oximetry 94 Oxygen Delivery Fraction of Inspired Oxygen 11/16/24 20:00 11/16/24 20:00 11/16/24 20:05 Temperature Pulse Rate 62 66 Respiratory Rate 23 H Blood Pressure Pulse Oximetry 92 95 Oxygen Delivery BiPAP BiPAP Fraction of Inspired Oxygen 50 11/16/24 20:48 11/16/24 22:00 11/16/24 23:44 Temperature 98.1 F Pulse Rate 67 59 L 60 Respiratory Rate 19 Blood Pressure 146/57 H Pulse Oximetry 97 Oxygen Delivery Fraction of Inspired Oxygen 11/17/24 00:00 11/17/24 00:00 11/17/24 00:20 Temperature Pulse Rate 58 L 70 Respiratory Rate 30 H Blood Pressure Pulse Oximetry 91 94 Oxygen Delivery BiPAP BiPAP Fraction of Inspired Oxygen 50 11/17/24 02:00 11/17/24 03:57 11/17/24 04:00 Temperature 97.9 F Pulse Rate 70 75 Respiratory Rate 19 Blood Pressure 160/62 H Pulse Oximetry 94 92 Oxygen Delivery BiPAP Fraction of Inspired Oxygen 60 11/17/24 04:00 11/17/24 04:20 11/17/24 06:00 Temperature Pulse Rate 73 69 68 Respiratory Rate 26 H Blood Pressure Pulse Oximetry 95 Oxygen Delivery BiPAP Fraction of Inspired Oxygen 11/17/24 08:00 11/17/24 08:09 11/17/24 08:11 Temperature 98.3 F Pulse Rate 67 65 67 Respiratory Rate 31 H 29 H 30 H Blood Pressure 179/61 H Pulse Oximetry 94 93 Oxygen Delivery BiPAP Fraction of Inspired Oxygen Intake/Output Intake/Output: Intake & Output 11/14/24 11/15/24 11/16/24 11/17/24 23:59 23:59 23:59 23:59 Intake Total 450 1250 200 Output Total 350 1400 425 Balance 100 -150 -225 Meds/Results Medications: Active Medications Generic Name Dose Route Start Last Admin Trade Name Freq PRN Reason Stop Dose Admin Acetaminophen 650 mg 11/15/24 14:50 11/16/24 20:47 Acetaminophen 325 Mg Tablet PO 650 mg Q4H PRN Administration Mild Pain (1-3) or Fever Acetaminophen 650 mg 11/16/24 19:34 Acetaminophen 325 Mg Tablet PO Q4H PRN PAIN RATED 1-3 Albuterol/Ipratropium 3 ml 11/15/24 15:36 Ipratropium 0.5 Mg/Albuterol Sulfate 2.5 Mg Ampul.Neb 3 Ml INHALATION Q6HRT PRN Shortness Of Breath Or Wheezing Atorvastatin Calcium 40 mg 11/16/24 18:00 11/16/24 18:04 Atorvastatin 40 Mg Tablet PO 40 mg QPM GUARAV Administration Bisacodyl 5 mg 11/15/24 14:50 Bisacodyl 5 Mg Tablet Ec PO DAILY PRN Constipation Calcium Carbonate 1 tablet 11/16/24 09:00 11/16/24 09:30 Calcium/Vitamin D 250 Mg/3.125 Mcg (125 I.U.) Tablet PO 1 tablet DAILY GAURAV Administration Carbidopa/Levodopa 1 tablet 11/15/24 20:45 11/16/24 18:02 Carbidopa/Levodopa 25/100 Mg Cr Tablet PO Not Given BID GAURAV Collagenase 1 applic 11/16/24 09:00 11/16/24 19:36 Collagenase Oint 30 Gm Tube TOPICAL 1 applic QAM GAURAV Administration Diltiazem HCl 240 mg 11/16/24 09:00 11/16/24 09:30 Diltiazem Hcl Cd 240 Mg Cap.24hr PO 240 mg QAM GAURAV Administration Donepezil HCl 10 mg 11/16/24 09:00 11/16/24 09:30 Donepezil Hcl 10 Mg Tablet PO 10 mg DAILY GAURAV Administration Ferrous Sulfate 325 mg 11/16/24 09:00 11/16/24 18:02 Ferrous Sulfate [address] PO Not Given BID GAURAV Fluoxetine HCl 20 mg 11/16/24 09:00 11/16/24 09:28 Fluoxetine Hcl 20 Mg Capsule PO 20 mg DAILY GAURAV Administration Furosemide 40 mg 11/16/24 17:00 11/16/24 17:01 Furosemide Inj 40 Mg/4 Ml Vial IV PUSH 40 mg BID GAURAV Administration Guaifenesin 600 mg 11/15/24 21:00 11/16/24 20:47 Guaifenesin 12 Hr 600 Mg Tabcr PO 600 mg Q12HR GAURAV Administration Meropenem 1 gm in 100 mls @ 200 mls/hr 11/15/24 18:00 11/17/24 06:57 IVPB Infused Q12H GAURAV Infusion Azithromycin 500 mg in 250 mls @ 250 mls/hr 11/15/24 15:00 11/16/24 14:19 Zithromax IVPB 250 mls/hr DAILY@1200 GAURAV Administration Albumin Human 100 mls @ 60 mls/hr 11/15/24 18:00 11/17/24 06:27 Albutein IVPB 60 mls/hr Q6HR GAURAV Administration Memantine 10 mg 11/15/24 21:00 11/16/24 20:48 Memantine 10 Mg Tablet PO 10 mg Q12H GAURAV Administration Menthol/Methyl Salicylate 1 applic 11/15/24 20:23 Menthol 10% / Methyl Salicylate 15% 57 Gm Tube TOPICAL BID PRN Muscle/Joint Pain Metoprolol Tartrate 25 mg 11/15/24 21:00 11/16/24 20:48 Metoprolol Tartrate 25 Mg Tablet PO 25 mg Q12HR GAURAV Administration Montelukast Sodium 10 mg 11/16/24 09:00 11/16/24 09:28 Montelukast Sodium 10 Mg Tablet PO 10 mg DAILY GAURAV Administration Multivitamins/Calcium 1 tablet 11/16/24 09:00 11/16/24 09:28 Therapeutic Multivitamins/Minerals Tab (*Bkc) PO 1 tablet DAILY GAURAV Administration Ondansetron HCl 4 mg 11/15/24 14:50 Ondansetron Inj 4 Mg/2 Ml Vial IV PUSH Q6H PRN Nausea And Vomiting Pantoprazole Sodium 40 mg 11/16/24 09:00 11/16/24 20:48 Pantoprazole Sodium Iv 40 Mg Vial IV PUSH 40 mg Q12HR GAURAV Administration Saccharomyces Boulardii 250 mg 11/16/24 09:00 11/16/24 18:02 Saccharomyces Boulardii 250 Mg Capsule PO Not Given TID GAURAV Fluticasone/Salmeterol 2 puff 11/16/24 08:00 11/17/24 08:13 Fluticasone/Salmeterol 45-21 Mcg Inhaler 1 Puff INHALATION 2 puff Q12HRT GAURAV Administration Senna/Docusate Sodium 1 tab 11/15/24 20:23 Senna/Docusate Sodium Tablet PO BID PRN Constipation Tamsulosin HCl 0.4 mg 11/16/24 09:00 11/16/24 09:29 Tamsulosin Hcl 0.4 Mg Capsule PO 0.4 mg QAM GAURAV Administration Radiology Results: ITS Impressions Chest CT 11/16/24 09:25 IMPRESSION: 1. Diffuse lung disease, consistent with some combination of pneumonia, pulmonary edema, and diffuse alveolar damage. 2. Small pleural effusions, right worse than left. 3. Moderate-sized pericardial effusion, new from 10/28/2024. Labs Labs: Laboratory Results - last 24 hr 11/16/24 11/17/24 06:52 03:53 WBC 21.1 H RBC 2.68 L Hgb 8.3 L Hct 26.1 L MCV 97.4 MCH 31.0 MCHC 31.8 L RDW 17.7 H Plt Count 463 H MPV 10.0 Immature Gran % (Auto) 1.8 H Neut % (Auto) 91.4 H Lymph % (Auto) 1.6 L Josephine % (Auto) 5.1 Eos % (Auto) 0.0 Baso % (Auto) 0.1 L Lymph # (Auto) 0.34 L Josephine # (Auto) 1.1 H Eos # (Auto) 0.0 Baso # (Auto) 0.0 Abs Immat Gran (auto) 0.37 H Absolute Neuts (auto) 19.3 H Absolute Nucleated RBC 0.000 Nucleated RBC % 0.0 Sodium 151 H Potassium 3.7 Chloride 112 H Carbon Dioxide 29 Anion Gap 10 BUN 47 H Creatinine 1.32 H Estim Creat Clear Calc 35 Estimated GFR 51 L Glucose 111 H Calcium 8.6 Magnesium 2.2 Ferritin 894.00 H Total Bilirubin 2.2 H AST 52 ALT 66 H Alkaline Phosphatase 130 H Total Protein 7.0 Albumin 3.6 Blood Type AB Negative Antibody Screen Negative Crossmatch See Detail
[2024-11-17] MEDS: FUROSEMIDE INJ 40 MG/4 ML VIAL IV PUSH (09:30)
[2024-11-17] MEDS: PANTOPRAZOLE SODIUM IV 40 MG VIAL IV PUSH (09:30)
--- NOTE | 2024-11-17 11:30 | P.PNCROSS_ITS ---
Event Note Event Note Event Note: I was called to see patient regarding his worsening respiratory status. Patient has been on BiPAP most of the time since his admission 2 days ago. I reviewed the chart and examined the patient. In his brief this is a 89 y/o M with PMH of asthma, CKD stage 3, paroxysmal atrial flutter, diastolic dysfunction, CVA, kidney stones, dementia, prostate cancer, hyperlipidemia, hypertension, coronary artery disease and Parkinson's disease who was admitted from started rehab with worsening respiratory status and respiratory failure he was diagnosed with pneumonia which was likely aspiration and congestive heart failure. He also has CKD. He was placed on BiPAP and has mostly stayed on BiPAP for last 2 days. He was on 12/7 and 100% FiO2 with sats in 90-92% patient is awake but confused. He is not oriented to time place or person he he was aware of his 's name. He noted no to pain and noted yes to shortness of breath. Patient had coarse breath sounds bilaterally with crackles. I felt the patient now needs intubation and mechanical ventilation. I called and spoke to patient's son regarding goals of care and had extensive discussion. Then when patient's son came within 10 minutes I had another discussion with him at bedside. He wanted me to discuss the same thing with his mother who is patient's POA who later arrived at bedside. The med in a conference room and went over patient's condition which includes respiratory failure will secondary to congestive heart failure and pneumonia along with underlying problems off, Parkinson's disease, dementia, CKD, age of 89, debility. I explained them the patient's overall prognosis is not good although we can intubated and on mechanical ventilation. Patient has been gradually going downhill since admission here [facility] in early October. I discussed options of palliative and comfort care per The family after discussion among himself has decided, in accordance with pt's wishes, to discontinue all medical therapy and institute comfort measures only. I have explained them that I will use opioids, anxiolytics and other agents on as needed basis to promote comfort and discontinue all medical therapy, lab testing and invasive monitoring. Patient will eventually . They want to make patient DNR at this time with no further escalation of care but continue BiPAP until patient's other son is able to visit him and they are able to get a embosser operator and to read him is last rites. After that they will proceed with taking off the BiPAP and proceeding with comfort care. I have updated patient's code status in the chart to DNR I have requested nurse to update primary physician. Total Critical Care Time - 45 minutes Due to a high probability of clinically significant, life threatening deterioration, the patient required my highest level of preparedness to intervene emergently and I personally spent this critical care time directly and personally managing the patient. This critical care time included obtaining a history; examining the patient; pulse oximetry; ordering and review of studies; arranging urgent treatment with development of a management plan; evaluation of patient's response to treatment; frequent reassessment; and discussions with other providers. It was exclusive of separately billable procedures and treating other patients and teaching time. Please see Assessment and Plan section and the rest of the note for further information on patient assessment and treatment
[2024-11-17] MEDS: LORazepam INJ (*CRX) 2 MG/ML VIAL IV PUSH (13:50)
[2024-11-17] MEDS: MORPHINE SULFATE INJ (*CRX) 10 MG/ML AMP 5 MG IV PUSH (13:50)
[2024-11-17] MEDS: MORPHINE SULFATE (*CRX) 2 MG/ML INJ 4 MG IV PUSH (14:33)
--- NOTE | 2024-11-17 15:49 | P.DN_ITS ---
Discharge Summary Date and Time Date of : 11/17/24 Time of : 14:43 Provider Pronounced By: 2 RNs Name of First RN That Pronounced: Alejandra Monreal Name of Second RN That Pronounced: Elayne Sanchez Probable Cause of Probable Cause of : Acute hypoxemic respiratory failure Pneumonia Summary Hospital Course: 89 y/o M with PMH of asthma, CKD stage 3, paroxysmal atrial flutter, diastolic dysfunction, CVA, kidney stones, dementia, prostate cancer, hyperlipidemia, hypertension, coronary artery disease and Parkinson's disease\ transferred to our ER on accoutn of Shortness of breath. He was placed on BiPAP. Workup incuding labs and Imaging showed pneumonia and Pulm edema, anemia with hb 6.7 and was transfused 1 unit pRBC. He was placed on broat spectrum antibiotics and gentle diuresis. He was started on PPI, held Aspirin adn Eliquis, and GI was consulted however no intervention was planned immediately due to respiratory status. Today his respiratory failure worsening with him needing 100% FiO2 on BiPAP, business operations manager was consulted for possible intubation and transfer to ICU, however and family decided to transition to comfort care. Patient was thus transitioned to COmfort care and he passsed at 1443. Family were present at bedside. Additional Data Confirmation of as documented by pronouncing clinician: Pupillary Reflex, Palpable Pulses, Response to Stimuli, Heart Tones and Breath Sounds Name of Provider Notified: Dr. Hinojosa Time Provider Notified: 14:50 Provider Requests Autopsy: No Family Requests Autopsy: No Laundry Technician Notified: Yes Date [facility] Notified of : 11/17/24 Time [facility] Notified of : 15:08
[2024-11-19 16:28] LABS: Pneumococcal Antigen Urine NOT DETECTED
[2024-11-21 20:13] LABS: Legionella pneumophila Ag Ur NOT DETECTED
== END 2024-11-17 14:43 | disposition expired | DRG 871 ==
PROVIDERS: Student in an Organized Health Care Education/Training Program; Admitting Provider Hospitalist; PCP Family Medicine; Visit Provider Internal Medicine
DX: A41.9 Sepsis, unspecified organism (principal); J18.9 Pneumonia, unspecified organism; J69.0 Pneumonitis due to inhalation of food and vomit; J96.01 Acute respiratory failure with hypoxia; I48.92 Unspecified atrial flutter; N39.0 Urinary tract infection, site not specified; N17.9 Acute kidney failure, unspecified; E87.0 Hyperosmolality and hypernatremia; K92.1 Melena; I13.0 Hypertensive heart and chronic kidney disease with heart failure and stage 1 through stage 4 chronic kidney disease, or unspecified chronic kidney disease; I50.9 Heart failure, unspecified; R65.20 Severe sepsis without septic shock; I25.10 Atherosclerotic heart disease of native coronary artery without angina pectoris; N18.30 Chronic kidney disease, stage 3 unspecified; D50.9 Iron deficiency anemia, unspecified; J45.909 Unspecified asthma, uncomplicated; R77.0 Abnormality of albumin; R74.01 Elevation of levels of liver transaminase levels; G20.A1 Parkinson's disease without dyskinesia, without mention of fluctuations; F03.90 Unspecified dementia, unspecified severity, without behavioral disturbance, psychotic disturbance, mood disturbance, and anxiety; Z96.652 Presence of left artificial knee joint; Z20.822 Contact with and (suspected) exposure to COVID-19; Z79.82 Long term (current) use of aspirin; Z87.442 Personal history of urinary calculi
CPT/HCPCS: 36415; 36430; 36600; 71250; 80053; 82565; 82728; 82805; 83540; 83550; 83735; 84100; 85018; 85025; 86738; 86850; 86900; 86901; 86923; 87449; 87637; 87899; 94002; 94003; 94640; A9270; G0378; G0379; J0456; J1940; J2060; J2185; J2270; J2470; J7050; P9016; P9047